=== PATIENT | male | born 1970 | race Caucasian/White ===

== ENCOUNTER → 2017-05-01 | Outpatient (REF) | payer OTHER ==
[~2017-05-01] MED LIST: /PANT40TA OR; CELE20TA OR; EFFEXOR XR PO; KEPP500T6 PO; MIRT15TA3 PO; NEUR400C OR; PARO40TA2 PO; PROP10TA56 PO; TRAZ100T OR; VIST50CA PO; [UNRECOGNIZED DRUG - OTHER] PO; celexa; seroquel
[2017-05-06 00:09] LABS: BENZODIAZEPINES, URINE SCREEN Negative ng/mL (Cutoff=200); METHADONE, URINE SCREEN Negative ng/mL (Cutoff=300); pH, URINE 7.9 (4.5-8.9)
== END ==
LOC: M SFHCPLAZ 11:52
PROVIDERS: ATTEND Hospitalist
DX: R56.9 Unspecified convulsions (principal)

== ENCOUNTER → 2017-06-11 | Outpatient (REF) | payer OTHER ==
[~2017-06-11] MED LIST changes: +KEPP1TAB PO; -KEPP500T6 PO
[2017-06-11 18:16] LABS: ALBUMIN/GLOBULIN RATIO 0.77 (1.00-1.93); ALKALINE PHOSPHATASE 109 U/L (45-117); ALT/SGPT 21 U/L (12-78); ANION GAP 7 MEQ/L (8-16); AST/SGOT 72 U/L (15-37); BILIRUBIN,TOTAL 1.1 MG/DL (0.2-1.0); BLOOD UREA NITROGEN 5 MG/DL (7-18); CALCIUM LEVEL 8.1 MG/DL (8.5-10.1); CARBON DIOXIDE LEVEL 30 MEQ/L (21-32); CHLORIDE LEVEL 103 MEQ/L (98-107); CHOLESTEROL LEVEL 143 MG/DL (<200); GLOMERULAR FILTRATION RATE > 60.0 (>60); GLUCOSE, FASTING 121 MG/DL (70-105); POTASSIUM SERUM 3.7 MEQ/L (3.5-5.1); SODIUM LEVEL 140 MEQ/L (136-145); TOTAL PROTEIN 6.9 GM/DL (6.4-8.2); TRIGLYCERIDES LEVEL 83 MG/DL (<150)
[2017-06-14 00:06] LABS: BENZODIAZEPINES, URINE SCREEN Negative ng/mL (Cutoff=200); METHADONE, URINE SCREEN Negative ng/mL (Cutoff=300); pH, URINE 6.1 (4.5-8.9)
== END ==
LOC: M SFHCPLAZ 14:25
DX: G40.909 Epilepsy, unspecified, not intractable, without status epilepticus (principal); Z13.220 Encounter for screening for lipoid disorders

== ENCOUNTER → 2017-10-01 | Outpatient (REF) | payer OTHER | LOC: M SFHCPLAZ 14:59 | DX: G40.909 Epilepsy, unspecified, not intractable, without status epilepticus (principal); F10.29 Alcohol dependence with unspecified alcohol-induced disorder ==

== ENCOUNTER → 2017-12-17 | Outpatient (REF) | payer OTHER ==
[2017-12-17 18:40] LABS: MAGNESIUM LEVEL 1.7 MG/DL (1.8-2.4)
== END ==
LOC: M SFHCPLAZ 15:28
DX: R25.2 Cramp and spasm (principal)

== ENCOUNTER 2018-03-18 14:30 | Inpatient (IN) | payer MEDICAID, OTHER, SELFPAY ==
[2018-03-18 15:27] LABS: HEMATOCRIT 37.3 % (42.0-52.0); HEMOGLOBIN 12.8 g/dl (13.5-17.5); MEAN CORPUSCULAR HGB CONC 34.3 g/dl (32.0-36.5); MEAN CORPUSCULAR VOLUME 87.6 fl (80.0-96.0); RED BLOOD COUNT 4.26 10^6/uL (4.30-6.10); RED CELL DISTRIBUTION WIDTH 22.2 % (11.5-14.5); WHITE BLOOD COUNT 7.5 10^3/uL (4.0-10.0)
[2018-03-18 15:40] LABS: PLATELET COUNT, AUTOMATED 63 10^3/uL (150-450)
[2018-03-18 15:41] LABS: IMMATURE PLATELET FRACTION % 10.7 % (0.0-10.9); INR 1.77; PROTHROMBIN TIME 21.2 SECONDS (12.4-14.5)
[2018-03-18 15:41] LABS: AMMONIA 338 uMOL/L (<32)
[2018-03-18 15:45] LABS: ALBUMIN 2.7 GM/DL (3.2-5.2); ALKALINE PHOSPHATASE 164 U/L (45-117); ALT/SGPT 26 U/L (12-78); ANION GAP 20 MEQ/L (8-16); AST/SGOT 99 U/L (7-37); BILIRUBIN,TOTAL 6.1 MG/DL (0.2-1.0); BLOOD UREA NITROGEN 8 MG/DL (7-18); CARBON DIOXIDE LEVEL 14 MEQ/L (21-32); CHLORIDE LEVEL 101 MEQ/L (98-107); CREATININE FOR GFR 1.39 MG/DL (0.70-1.30); GLOMERULAR FILTRATION RATE 58.1 (>60); GLUCOSE, FASTING 111 MG/DL (70-100); POTASSIUM SERUM 3.5 MEQ/L (3.5-5.1); SODIUM LEVEL 135 MEQ/L (136-145); TOTAL PROTEIN 7.2 GM/DL (6.4-8.2)
[2018-03-18 15:47] LABS: ETHYL ALCOHOL (ETHANOL) < 0.003 % (0.000-0.010)
[2018-03-18 16:16] LABS: VITAMIN B12 LEVEL 1729 PG/ML (247-911)
[2018-03-18] MEDS: LACTULOSE 20 GM/30 ML SYRUP UD PO (16:53)
[2018-03-18] MEDS: levETIRAcetam 250MG TABLET (KEPPRA) PO (16:53)
[2018-03-18 17:22] LABS: APPEARANCE, URINE HAZY (CLEAR); BACTERIA, URINE AUTO NEGATIVE (NEGATIVE); BILIRUBIN, URINE AUTO NEGATIVE (NEGATIVE); BLOOD, URINE BLOOD 1+ (NEGATIVE); COLOR, URINE AMBER (YELLOW); GLUCOSE, URINE (UA) AUTO NEGATIVE (NEGATIVE); KETONE, URINE AUTO TRACE mg/dL (NEGATIVE); LEUKOCYTE ESTERASE, URINE AUTO NEGATIVE (NEGATIVE); MUCUS, URINE SMALL (NEGATIVE); NITRITE, URINE AUTO NEGATIVE (NEGATIVE); PROTEIN, URINE AUTO 1+ mg/dL (NEGATIVE); RBC, URINE AUTO 4 /HPF (0-3); SPECIFIC GRAVITY URINE AUTO 1.015 (1.002-1.035); SQUAMOUS EPITHELIAL CELL UR AU 0 /HPF (0-6); WBC, URINE AUTO 2 /HPF (0-3)
[2018-03-18 17:34] LABS: AMPHETAMINES LEVEL URINE NEGATIVE (NEGATIVE); BARBITURATES URINE NEGATIVE (NEGATIVE); BENZODIAZEPINES URINE NEGATIVE (NEGATIVE); CANNABINOIDS URINE NEGATIVE (NEGATIVE); COCAINE METABOLITE URINE NEGATIVE (NEGATIVE); METHADONE URINE NEGATIVE (NEGATIVE); OPIATES URINE NEGATIVE (NEGATIVE); PHENCYCLIDINE URINE NEGATIVE (NEGATIVE)
[2018-03-18] MEDS ORDERED: ONDANSETRON 4MG/2ML VIAL (J2405) IV (19:30)
[2018-03-18] MEDS ORDERED: hydrOXYzine 25 MG TAB PO (19:30)
[2018-03-18 20:07] LABS: ANION GAP 9 MEQ/L (8-16); BLOOD UREA NITROGEN 7 MG/DL (7-18); CALCIUM LEVEL 7.9 MG/DL (8.5-10.1); CARBON DIOXIDE LEVEL 25 MEQ/L (21-32); CHLORIDE LEVEL 105 MEQ/L (98-107); CREATININE FOR GFR 1.07 MG/DL (0.70-1.30); GLOMERULAR FILTRATION RATE > 60.0 (>60); GLUCOSE, FASTING 101 MG/DL (70-100); MAGNESIUM LEVEL 2.2 MG/DL (1.8-2.4); POTASSIUM SERUM 3.1 MEQ/L (3.5-5.1); SODIUM LEVEL 139 MEQ/L (136-145)
[2018-03-18 20:13] LABS: LACTIC ACID SEPSIS PROTOCOL 2.6 MMOL/L (0.4-2.0)
[2018-03-18] MEDS: POTASSIUM CHLORIDE 10 MEQ SR TABLET PO ×2 (21:15→22:16)
[2018-03-18 21:29] LABS: ABG O2 SATURATION 97.7 % (95.0-99.0); ABG PARTIAL PRESSURE CO2 29.9 mmHg (35.0-45.0); ABG STANDARD HCO3 26.3 MEQ/L (22.0-26.0); ABG pH (ARTERIAL) 7.523 UNITS (7.350-7.450)
[2018-03-18] MEDS: traZODone 100 MG TAB PO (22:14)
[2018-03-18] MEDS: PHENYTOIN ER 100 MG CAP PO (22:14)
[2018-03-18] MEDS: PROPRANOLOL 20 MG TAB PO (22:14)
[2018-03-18] MEDS: PANTOPRAZOLE 40MG TAB (PROTONIX) PO (22:14)
[2018-03-18] MEDS: KCL 20MEQ in NS 1000ML 1,000 ML IV (22:16)
[2018-03-18] MEDS: SENOKOT S TAB PO (22:16)
[2018-03-18] MEDS: busPIRone 5 MG TAB PO (22:25)
[2018-03-19] MEDS: LACTULOSE 20 GM/30 ML SYRUP UD PO ×4 (00:19→17:13)
[2018-03-19 05:13] LABS: HEMATOCRIT 30.2 % (42.0-52.0); HEMOGLOBIN 10.9 g/dl (13.5-17.5); MEAN CORPUSCULAR HEMOGLOBIN 30.4 pg (27.0-33.0); MEAN CORPUSCULAR HGB CONC 36.1 g/dl (32.0-36.5); MEAN CORPUSCULAR VOLUME 84.4 fl (80.0-96.0); RED BLOOD COUNT 3.58 10^6/uL (4.30-6.10); RED CELL DISTRIBUTION WIDTH 22.5 % (11.5-14.5); WHITE BLOOD COUNT 6.2 10^3/uL (4.0-10.0)
[2018-03-19 05:18] LABS: PLATELET COUNT, AUTOMATED 59 10^3/uL (150-450)
[2018-03-19 05:22] LABS: AMMONIA 40 uMOL/L (<32)
[2018-03-19 05:27] LABS: ALBUMIN 2.3 GM/DL (3.2-5.2); ALBUMIN/GLOBULIN RATIO 0.66 (1.00-1.93); ALKALINE PHOSPHATASE 124 U/L (45-117); ALT/SGPT 21 U/L (12-78); ANION GAP 5 MEQ/L (8-16); AST/SGOT 72 U/L (7-37); BILIRUBIN,TOTAL 4.4 MG/DL (0.2-1.0); BLOOD UREA NITROGEN 7 MG/DL (7-18); C REACTIVE PROTEIN QUANTITATIV 0.47 MG/DL (0.00-0.30); CALCIUM LEVEL 7.5 MG/DL (8.5-10.1); CARBON DIOXIDE LEVEL 26 MEQ/L (21-32); CHLORIDE LEVEL 112 MEQ/L (98-107); CREATININE FOR GFR 1.04 MG/DL (0.70-1.30); GLOMERULAR FILTRATION RATE > 60.0 (>60); GLUCOSE, FASTING 99 MG/DL (70-100); MAGNESIUM LEVEL 2.1 MG/DL (1.8-2.4); POTASSIUM SERUM 3.7 MEQ/L (3.5-5.1); SODIUM LEVEL 143 MEQ/L (136-145); TOTAL PROTEIN 5.8 GM/DL (6.4-8.2)
[2018-03-19] MEDS: PARoxetine 20 MG TAB PO (08:50)
[2018-03-19] MEDS: PROPRANOLOL 20 MG TAB PO ×2 (08:50→20:30)
[2018-03-19] MEDS: PANTOPRAZOLE 40MG TAB (PROTONIX) PO ×2 (08:50→20:29)
[2018-03-19] MEDS: busPIRone 5 MG TAB PO ×2 (08:50→20:29)
[2018-03-19] MEDS: SENOKOT S TAB PO ×2 (08:50→20:29)
[2018-03-19] MEDS: PHENYTOIN ER 100 MG CAP PO ×3 (08:50→20:29)
[2018-03-19 11:51] LABS: HEPATITIS B SURFACE ANTIGEN NEGATIVE (NEGATIVE)
[2018-03-19 12:12] LABS: HEPATITIS B CORE ANTIBODY IGM NEGATIVE (NEGATIVE)
[2018-03-19 12:15] LABS: HEPATITIS A ANTIBODY IGM NEGATIVE (NEGATIVE)
[2018-03-19 17:29] LABS: FERRITIN 82 NG/ML (26-388); IRON (FE) 24 UG/DL (65-175); PERCENT SATURATION 8.5 % (19.7-50.0); TOTAL IRON BINDING CAPACITY 283 UG/DL (250-450)
[2018-03-19 17:36] LABS: FOLATE 6.7 NG/ML (>5.4); VITAMIN B12 LEVEL 1881 PG/ML (247-911)
[2018-03-19 18:19] LABS: REASON FOR REVIEW ANEMIA / RBC MORPH; SLIDE REVIEW Report; SOURCE PERIPHERAL SMEAR
[2018-03-19] MEDS: traZODone 100 MG TAB PO (20:29)
[2018-03-20] MEDS: LACTULOSE 20 GM/30 ML SYRUP UD PO ×4 (00:16→16:51)
[2018-03-20 05:43] LABS: HEMATOCRIT 31.6 % (42.0-52.0); HEMOGLOBIN 11.2 g/dl (13.5-17.5); MEAN CORPUSCULAR HEMOGLOBIN 30.5 pg (27.0-33.0); MEAN CORPUSCULAR HGB CONC 35.4 g/dl (32.0-36.5); MEAN CORPUSCULAR VOLUME 86.1 fl (80.0-96.0); RED BLOOD COUNT 3.67 10^6/uL (4.30-6.10); RED CELL DISTRIBUTION WIDTH 22.8 % (11.5-14.5); WHITE BLOOD COUNT 5.7 10^3/uL (4.0-10.0)
[2018-03-20 05:46] LABS: IMMATURE PLATELET FRACTION % 8.4 % (0.0-10.9); PLATELET COUNT, AUTOMATED 56 10^3/uL (150-450)
[2018-03-20 05:57] LABS: AMMONIA 31 uMOL/L (<32)
[2018-03-20 06:03] LABS: ALBUMIN 2.4 GM/DL (3.2-5.2); ALBUMIN/GLOBULIN RATIO 0.65 (1.00-1.93); ALKALINE PHOSPHATASE 143 U/L (45-117); ALT/SGPT 21 U/L (12-78); ANION GAP 8 MEQ/L (8-16); AST/SGOT 63 U/L (7-37); BILIRUBIN,TOTAL 2.5 MG/DL (0.2-1.0); BLOOD UREA NITROGEN 6 MG/DL (7-18); CALCIUM LEVEL 7.7 MG/DL (8.5-10.1); CARBON DIOXIDE LEVEL 25 MEQ/L (21-32); CHLORIDE LEVEL 110 MEQ/L (98-107); CREATININE FOR GFR 0.99 MG/DL (0.70-1.30); GLOMERULAR FILTRATION RATE > 60.0 (>60); GLUCOSE, FASTING 85 MG/DL (70-100); MAGNESIUM LEVEL 1.5 MG/DL (1.8-2.4); POTASSIUM SERUM 3.5 MEQ/L (3.5-5.1); SODIUM LEVEL 143 MEQ/L (136-145); TOTAL PROTEIN 6.1 GM/DL (6.4-8.2)
[2018-03-20] MEDS: PARoxetine 20 MG TAB PO (09:14)
[2018-03-20] MEDS: CALCIUM CARBONATE 500 MG CHEW U/D PO (09:14)
[2018-03-20] MEDS: PHENYTOIN ER 100 MG CAP PO ×3 (09:14→20:59)
[2018-03-20] MEDS: PANTOPRAZOLE 40MG TAB (PROTONIX) PO ×2 (09:14→20:59)
[2018-03-20] MEDS: busPIRone 5 MG TAB PO ×2 (09:14→20:58)
[2018-03-20] MEDS: SENOKOT S TAB PO ×2 (09:15→21:00)
[2018-03-20] MEDS: MAG SULF 1GM/100ML (MAG RUN) 1 GM in APPROPRIATE DILUENT 1 EA IV (09:15)
[2018-03-20] MEDS: PROPRANOLOL 20 MG TAB PO ×2 (09:16→21:00)
[2018-03-20] MEDS: RAMELTEON 8 MG TAB (ROZEREM) PO (20:59)
[2018-03-20] MEDS: traZODone 100 MG TAB PO (20:59)
[2018-03-21] MEDS: LACTULOSE 20 GM/30 ML SYRUP UD PO ×4 (00:19→18:19)
[2018-03-21 05:53] LABS: HEMATOCRIT 32.3 % (42.0-52.0); HEMOGLOBIN 11.2 g/dl (13.5-17.5); MEAN CORPUSCULAR HEMOGLOBIN 30.2 pg (27.0-33.0); MEAN CORPUSCULAR HGB CONC 34.7 g/dl (32.0-36.5); MEAN CORPUSCULAR VOLUME 87.1 fl (80.0-96.0); RED BLOOD COUNT 3.71 10^6/uL (4.30-6.10); RED CELL DISTRIBUTION WIDTH 23.4 % (11.5-14.5); WHITE BLOOD COUNT 5.2 10^3/uL (4.0-10.0)
[2018-03-21 05:56] LABS: IMMATURE PLATELET FRACTION % 7.5 % (0.0-10.9); PLATELET COUNT, AUTOMATED 58 10^3/uL (150-450)
[2018-03-21 06:18] LABS: ALBUMIN 2.2 GM/DL (3.2-5.2); ALBUMIN/GLOBULIN RATIO 0.58 (1.00-1.93); ALKALINE PHOSPHATASE 125 U/L (45-117); ALT/SGPT 20 U/L (12-78); ANION GAP 7 MEQ/L (8-16); AST/SGOT 50 U/L (7-37); BILIRUBIN,TOTAL 2.3 MG/DL (0.2-1.0); BLOOD UREA NITROGEN 5 MG/DL (7-18); CARBON DIOXIDE LEVEL 26 MEQ/L (21-32); CHLORIDE LEVEL 109 MEQ/L (98-107); CREATININE FOR GFR 0.92 MG/DL (0.70-1.30); GLOMERULAR FILTRATION RATE > 60.0 (>60); GLUCOSE, FASTING 90 MG/DL (70-100); MAGNESIUM LEVEL 1.6 MG/DL (1.8-2.4); POTASSIUM SERUM 3.7 MEQ/L (3.5-5.1); SODIUM LEVEL 142 MEQ/L (136-145)
[2018-03-21] MEDS: PANTOPRAZOLE 40MG TAB (PROTONIX) PO ×2 (08:41→20:29)
[2018-03-21] MEDS: PARoxetine 20 MG TAB PO (08:41)
[2018-03-21] MEDS: MAGNESIUM OXIDE 400 MG TAB (MAG-OX) PO ×2 (08:41→20:29)
[2018-03-21] MEDS: busPIRone 5 MG TAB PO ×2 (08:41→20:29)
[2018-03-21] MEDS: PHENYTOIN ER 100 MG CAP PO ×3 (08:41→20:28)
[2018-03-21] MEDS: PROPRANOLOL 20 MG TAB PO ×2 (08:42→20:29)
[2018-03-21] MEDS: SENOKOT S TAB PO ×2 (08:42→20:29)
[2018-03-21] MEDS: ACETAMINOPHEN TAB 650MG DOSE (2X325MG) PO ×2 (12:02→20:29)
[2018-03-21] MEDS: predniSONE 20 MG TAB PO (16:09)
[2018-03-21] MEDS: traZODone 100 MG TAB PO (20:28)
[2018-03-21] MEDS: RAMELTEON 8 MG TAB (ROZEREM) PO (20:28)
[2018-03-22] MEDS: LACTULOSE 20 GM/30 ML SYRUP UD PO ×5 (00:08→23:36)
[2018-03-22 06:22] LABS: HEMATOCRIT 35.9 % (42.0-52.0); HEMOGLOBIN 12.3 g/dl (13.5-17.5); MEAN CORPUSCULAR HEMOGLOBIN 30.1 pg (27.0-33.0); MEAN CORPUSCULAR HGB CONC 34.3 g/dl (32.0-36.5); MEAN CORPUSCULAR VOLUME 87.8 fl (80.0-96.0); RED BLOOD COUNT 4.09 10^6/uL (4.30-6.10); RED CELL DISTRIBUTION WIDTH 23.9 % (11.5-14.5); WHITE BLOOD COUNT 7.7 10^3/uL (4.0-10.0)
[2018-03-22 06:26] LABS: IMMATURE PLATELET FRACTION % 9.6 % (0.0-10.9); PLATELET COUNT, AUTOMATED 68 10^3/uL (150-450)
[2018-03-22 06:51] LABS: ALBUMIN 2.5 GM/DL (3.2-5.2); ALBUMIN/GLOBULIN RATIO 0.56 (1.00-1.93); ALKALINE PHOSPHATASE 136 U/L (45-117); ALT/SGPT 20 U/L (12-78); ANION GAP 3 MEQ/L (8-16); AST/SGOT 45 U/L (7-37); BILIRUBIN,TOTAL 2.8 MG/DL (0.2-1.0); BLOOD UREA NITROGEN 5 MG/DL (7-18); CALCIUM LEVEL 8.7 MG/DL (8.5-10.1); CARBON DIOXIDE LEVEL 29 MEQ/L (21-32); CHLORIDE LEVEL 107 MEQ/L (98-107); CREATININE FOR GFR 0.96 MG/DL (0.70-1.30); GLOMERULAR FILTRATION RATE > 60.0 (>60); GLUCOSE, FASTING 119 MG/DL (70-100); MAGNESIUM LEVEL 1.9 MG/DL (1.8-2.4); POTASSIUM SERUM 4.9 MEQ/L (3.5-5.1); SODIUM LEVEL 139 MEQ/L (136-145)
[2018-03-22] MEDS: SENOKOT S TAB PO ×2 (07:35→20:31)
[2018-03-22] MEDS: MAGNESIUM OXIDE 400 MG TAB (MAG-OX) PO ×2 (08:27→20:32)
[2018-03-22] MEDS: PARoxetine 20 MG TAB PO (08:28)
[2018-03-22] MEDS: PHENYTOIN ER 100 MG CAP PO ×3 (08:28→20:31)
[2018-03-22] MEDS: PROPRANOLOL 20 MG TAB PO ×2 (08:28→20:33)
[2018-03-22] MEDS: busPIRone 5 MG TAB PO ×2 (08:29→20:32)
[2018-03-22] MEDS: predniSONE 20 MG TAB PO (08:29)
[2018-03-22] MEDS: ACETAMINOPHEN TAB 650MG DOSE (2X325MG) PO (08:29)
[2018-03-22] MEDS: PANTOPRAZOLE 40MG TAB (PROTONIX) PO ×2 (08:29→20:32)
[2018-03-22] MEDS: RAMELTEON 8 MG TAB (ROZEREM) PO (20:31)
[2018-03-22] MEDS: traZODone 100 MG TAB PO (20:32)
[2018-03-23 05:52] LABS: HEMATOCRIT 31.7 % (42.0-52.0); HEMOGLOBIN 10.9 g/dl (13.5-17.5); MEAN CORPUSCULAR HEMOGLOBIN 30.2 pg (27.0-33.0); MEAN CORPUSCULAR HGB CONC 34.4 g/dl (32.0-36.5); MEAN CORPUSCULAR VOLUME 87.8 fl (80.0-96.0); RED BLOOD COUNT 3.61 10^6/uL (4.30-6.10); WHITE BLOOD COUNT 7.2 10^3/uL (4.0-10.0)
[2018-03-23 05:54] LABS: POS COUNT POS FLAG
[2018-03-23 05:55] LABS: IMMATURE PLATELET FRACTION % 7.5 % (0.0-10.9); PLATELET COUNT, AUTOMATED 63 10^3/uL (150-450)
[2018-03-23] MEDS: LACTULOSE 20 GM/30 ML SYRUP UD PO ×2 (06:01→11:24)
[2018-03-23 06:10] LABS: ALBUMIN 2.3 GM/DL (3.2-5.2); ALBUMIN/GLOBULIN RATIO 0.61 (1.00-1.93); ALKALINE PHOSPHATASE 108 U/L (45-117); ALT/SGPT 20 U/L (12-78); ANION GAP 2 MEQ/L (8-16); AST/SGOT 38 U/L (7-37); BILIRUBIN,TOTAL 1.7 MG/DL (0.2-1.0); BLOOD UREA NITROGEN 5 MG/DL (7-18); CALCIUM LEVEL 7.8 MG/DL (8.5-10.1); CARBON DIOXIDE LEVEL 31 MEQ/L (21-32); CHLORIDE LEVEL 106 MEQ/L (98-107); CREATININE FOR GFR 0.88 MG/DL (0.70-1.30); GLOMERULAR FILTRATION RATE > 60.0 (>60); GLUCOSE, FASTING 90 MG/DL (70-100); MAGNESIUM LEVEL 1.6 MG/DL (1.8-2.4); POTASSIUM SERUM 3.7 MEQ/L (3.5-5.1); SODIUM LEVEL 139 MEQ/L (136-145); TOTAL PROTEIN 6.1 GM/DL (6.4-8.2)
[2018-03-23] MEDS: PHENYTOIN ER 100 MG CAP PO ×3 (09:24→20:34)
[2018-03-23] MEDS: PANTOPRAZOLE 40MG TAB (PROTONIX) PO ×2 (09:24→20:35)
[2018-03-23] MEDS: SENOKOT S TAB PO ×2 (09:24→20:35)
[2018-03-23] MEDS: busPIRone 5 MG TAB PO ×2 (09:24→20:33)
[2018-03-23] MEDS: MAGNESIUM OXIDE 400 MG TAB (MAG-OX) PO ×2 (09:24→20:34)
[2018-03-23] MEDS: predniSONE 20 MG TAB PO (09:24)
[2018-03-23] MEDS: PROPRANOLOL 20 MG TAB PO ×2 (09:25→20:34)
[2018-03-23] MEDS: PARoxetine 20 MG TAB PO (09:25)
[2018-03-23] MEDS: ACETAMINOPHEN TAB 650MG DOSE (2X325MG) PO (09:25)
[2018-03-23 10:40] LABS: PHENYTOIN (DILANTIN) 5.9 UG/ML (10.0-20.0)
[2018-03-23] MEDS: GABAPENTIN 100 MG CAP PO ×3 (11:23→20:33)
[2018-03-23] MEDS: RAMELTEON 8 MG TAB (ROZEREM) PO (20:34)
[2018-03-23] MEDS: traZODone 100 MG TAB PO (20:35)
[2018-03-24 05:52] LABS: HEMATOCRIT 33.3 % (42.0-52.0); HEMOGLOBIN 11.5 g/dl (13.5-17.5); MEAN CORPUSCULAR HEMOGLOBIN 30.2 pg (27.0-33.0); MEAN CORPUSCULAR HGB CONC 34.5 g/dl (32.0-36.5); MEAN CORPUSCULAR VOLUME 87.4 fl (80.0-96.0); RED BLOOD COUNT 3.81 10^6/uL (4.30-6.10); RED CELL DISTRIBUTION WIDTH 23.9 % (11.5-14.5); WHITE BLOOD COUNT 6.1 10^3/uL (4.0-10.0)
[2018-03-24 06:00] LABS: PLATELET COUNT, AUTOMATED 78 10^3/uL (150-450)
[2018-03-24 06:11] LABS: ALBUMIN 2.4 GM/DL (3.2-5.2); ALBUMIN/GLOBULIN RATIO 0.57 (1.00-1.93); ALKALINE PHOSPHATASE 120 U/L (45-117); ALT/SGPT 19 U/L (12-78); ANION GAP 7 MEQ/L (8-16); AST/SGOT 39 U/L (7-37); BILIRUBIN,TOTAL 1.8 MG/DL (0.2-1.0); BLOOD UREA NITROGEN 5 MG/DL (7-18); CARBON DIOXIDE LEVEL 28 MEQ/L (21-32); CHLORIDE LEVEL 105 MEQ/L (98-107); CREATININE FOR GFR 0.86 MG/DL (0.70-1.30); GLOMERULAR FILTRATION RATE > 60.0 (>60); GLUCOSE, FASTING 104 MG/DL (70-100); MAGNESIUM LEVEL 1.8 MG/DL (1.8-2.4); POTASSIUM SERUM 3.8 MEQ/L (3.5-5.1); SODIUM LEVEL 140 MEQ/L (136-145); TOTAL PROTEIN 6.6 GM/DL (6.4-8.2)
[2018-03-24] MEDS: ACETAMINOPHEN TAB 650MG DOSE (2X325MG) PO ×2 (06:22→17:10)
[2018-03-24] MEDS: SENOKOT S TAB PO ×2 (08:58→21:12)
[2018-03-24] MEDS: PANTOPRAZOLE 40MG TAB (PROTONIX) PO ×2 (08:58→21:12)
[2018-03-24] MEDS: PROPRANOLOL 20 MG TAB PO ×2 (08:58→21:12)
[2018-03-24] MEDS: MAGNESIUM OXIDE 400 MG TAB (MAG-OX) PO ×2 (08:58→21:13)
[2018-03-24] MEDS: GABAPENTIN 100 MG CAP PO ×3 (08:58→21:13)
[2018-03-24] MEDS: PHENYTOIN ER 100 MG CAP PO ×3 (08:59→21:13)
[2018-03-24] MEDS: predniSONE 20 MG TAB PO (08:59)
[2018-03-24] MEDS: busPIRone 5 MG TAB PO ×2 (08:59→21:13)
[2018-03-24] MEDS: LACTULOSE 20 GM/30 ML SYRUP UD PO (08:59)
[2018-03-24] MEDS: PARoxetine 20 MG TAB PO (08:59)
[2018-03-24] MEDS: traZODone 100 MG TAB PO (21:12)
[2018-03-24] MEDS: RAMELTEON 8 MG TAB (ROZEREM) PO (21:13)
[2018-03-25 06:19] LABS: HEMOGLOBIN 10.8 g/dl (13.5-17.5); MEAN CORPUSCULAR HEMOGLOBIN 29.9 pg (27.0-33.0); MEAN CORPUSCULAR HGB CONC 33.8 g/dl (32.0-36.5); MEAN CORPUSCULAR VOLUME 88.6 fl (80.0-96.0); RED BLOOD COUNT 3.61 10^6/uL (4.30-6.10); RED CELL DISTRIBUTION WIDTH 23.9 % (11.5-14.5); WHITE BLOOD COUNT 5.8 10^3/uL (4.0-10.0)
[2018-03-25 06:31] LABS: PLATELET COUNT, AUTOMATED 86 10^3/uL (150-450)
[2018-03-25 06:41] LABS: ALBUMIN 2.2 GM/DL (3.2-5.2); ALBUMIN/GLOBULIN RATIO 0.59 (1.00-1.93); ALKALINE PHOSPHATASE 91 U/L (45-117); ALT/SGPT 19 U/L (12-78); ANION GAP 6 MEQ/L (8-16); AST/SGOT 36 U/L (7-37); BILIRUBIN,TOTAL 1.6 MG/DL (0.2-1.0); BLOOD UREA NITROGEN 6 MG/DL (7-18); CALCIUM LEVEL 7.9 MG/DL (8.5-10.1); CARBON DIOXIDE LEVEL 28 MEQ/L (21-32); CHLORIDE LEVEL 106 MEQ/L (98-107); CREATININE FOR GFR 0.79 MG/DL (0.70-1.30); GLOMERULAR FILTRATION RATE > 60.0 (>60); GLUCOSE, FASTING 87 MG/DL (70-100); MAGNESIUM LEVEL 1.7 MG/DL (1.8-2.4); POTASSIUM SERUM 3.7 MEQ/L (3.5-5.1); SODIUM LEVEL 140 MEQ/L (136-145); TOTAL PROTEIN 5.9 GM/DL (6.4-8.2)
[2018-03-25 06:48] LABS: IMMATURE PLATELET FRACTION % 5.2 % (0.0-10.9); PLATELET F 82
[2018-03-25] MEDS: LACTULOSE 20 GM/30 ML SYRUP UD PO (08:04)
[2018-03-25] MEDS: MAGNESIUM OXIDE 400 MG TAB (MAG-OX) PO (08:05)
[2018-03-25] MEDS: busPIRone 5 MG TAB PO (08:05)
[2018-03-25] MEDS: GABAPENTIN 100 MG CAP PO (08:06)
[2018-03-25] MEDS: PANTOPRAZOLE 40MG TAB (PROTONIX) PO (08:06)
[2018-03-25] MEDS: SENOKOT S TAB PO (08:06)
[2018-03-25] MEDS: predniSONE 20 MG TAB PO (08:06)
[2018-03-25] MEDS: PARoxetine 20 MG TAB PO (08:06)
[2018-03-25] MEDS: PHENYTOIN ER 100 MG CAP PO (08:06)
[2018-03-25] MEDS: PROPRANOLOL 20 MG TAB PO (08:08)
[2018-03-25] MEDS: ACETAMINOPHEN TAB 650MG DOSE (2X325MG) PO (11:17)
[2018-03-26 08:06] LABS: COPPER PLASMA 70 ug/dL (72-166)
[2018-03-27 08:30] LABS: VITAMIN B1 LEVEL WHOLE BLOOD 88.6 nmol/L (66.5-200.0)
== END 2018-03-25 11:40 | disposition home or self-care (01) | DRG 53 ==
LOC: M MSPAV 03-19 17:25 → M ED 14:30 → M ED INP 19:18 → M PCU 21:31
DX: G40.909 Epilepsy, unspecified, not intractable, without status epilepticus (principal); E87.2 Acidosis; D69.6 Thrombocytopenia, unspecified; E72.20 Disorder of urea cycle metabolism, unspecified; K70.30 Alcoholic cirrhosis of liver without ascites; K72.90 Hepatic failure, unspecified without coma; F32.9 Major depressive disorder, single episode, unspecified; G47.00 Insomnia, unspecified; F41.9 Anxiety disorder, unspecified; G31.2 Degeneration of nervous system due to alcohol; F10.20 Alcohol dependence, uncomplicated; D64.9 Anemia, unspecified; E87.6 Hypokalemia; F17.220 Nicotine dependence, chewing tobacco, uncomplicated; Z88.0 Allergy status to penicillin; Z88.8 Allergy status to other drugs, medicaments and biological substances; Z79.899 Other long term (current) drug therapy; Z91.14 Patient's other noncompliance with medication regimen

== ENCOUNTER 2018-04-13 13:29 | Emergency (ER) | payer MEDICAID, OTHER ==
[2018-04-13 14:24] LABS: BASO # 0.1 10^3/uL (0.0-0.2); BASO % 1.3 % (0.0-1.0); EOS % 0.5 % (0.0-3.0); HEMATOCRIT 35.6 % (42.0-52.0); HEMOGLOBIN 12.5 g/dl (13.5-17.5); IMMATURE GRANULOCYTE % 0.3 % (0-3.0); LYMPH # 1.5 10^3/uL (1.5-4.5); LYMPH % 38.9 % (24.0-44.0); MEAN CORPUSCULAR HEMOGLOBIN 30.7 pg (27.0-33.0); MEAN CORPUSCULAR HGB CONC 35.1 g/dl (32.0-36.5); MEAN CORPUSCULAR VOLUME 87.5 fl (80.0-96.0); MONO # 0.5 10^3/uL (0.0-0.8); MONO % 12.6 % (0.0-5.0); NEUTROPHILS # 1.8 10^3/uL (1.8-7.7); NEUTROPHILS % 46.4 % (36.0-66.0); RED BLOOD COUNT 4.07 10^6/uL (4.30-6.10); RED CELL DISTRIBUTION WIDTH 21.4 % (11.5-14.5); WHITE BLOOD COUNT 3.9 10^3/uL (4.0-10.0)
[2018-04-13 14:28] LABS: PLATELET COUNT, AUTOMATED 64 10^3/uL (150-450); PLATELET F 62
[2018-04-13 14:29] LABS: IMMATURE PLATELET FRACTION % 5.2 % (0.0-10.9)
[2018-04-13 14:40] LABS: INR 1.33; PROTHROMBIN TIME 16.8 SECONDS (12.4-14.5)
[2018-04-13 14:41] LABS: PARTIAL THROMBOPLASTIN TIME 40.2 SECONDS (26.8-37.9)
[2018-04-13 14:58] LABS: ALBUMIN 2.7 GM/DL (3.2-5.2); ALBUMIN/GLOBULIN RATIO 0.63 (1.00-1.93); ALKALINE PHOSPHATASE 156 U/L (45-117); ALT/SGPT 24 U/L (12-78); ANION GAP 6 MEQ/L (8-16); AST/SGOT 86 U/L (7-37); BILIRUBIN,DIRECT 1.3 MG/DL (0.0-0.2); BILIRUBIN,TOTAL 2.1 MG/DL (0.2-1.0); BLOOD UREA NITROGEN 6 MG/DL (7-18); CALCIUM LEVEL 7.2 MG/DL (8.5-10.1); CARBON DIOXIDE LEVEL 34 MEQ/L (21-32); CHLORIDE LEVEL 104 MEQ/L (98-107); GLOMERULAR FILTRATION RATE > 60.0 (>60); GLUCOSE, FASTING 136 MG/DL (70-100); LIPASE 390 U/L (73-393); POTASSIUM SERUM 3.3 MEQ/L (3.5-5.1); SODIUM LEVEL 144 MEQ/L (136-145)
[2018-04-13 15:07] LABS: LACTIC ACID SEPSIS PROTOCOL 2.5 MMOL/L (0.4-2.0)
[2018-04-13 15:13] LABS: AMMONIA < 10 uMOL/L (<32)
[2018-04-13 15:34] LABS: ETHYL ALCOHOL (ETHANOL) 0.466 % (0.000-0.010)
[2018-04-13 16:28] LABS: AMPHETAMINES LEVEL URINE NEGATIVE (NEGATIVE); BARBITURATES URINE NEGATIVE (NEGATIVE); BENZODIAZEPINES URINE NEGATIVE (NEGATIVE); CANNABINOIDS URINE NEGATIVE (NEGATIVE); COCAINE METABOLITE URINE NEGATIVE (NEGATIVE); METHADONE URINE NEGATIVE (NEGATIVE); OPIATES URINE NEGATIVE (NEGATIVE); PHENCYCLIDINE URINE NEGATIVE (NEGATIVE)
[2018-04-13] MEDS: POTASSIUM CHLORIDE 10 MEQ SR TABLET PO (18:00)
== END 2018-04-13 18:05 | disposition home or self-care (01) ==
LOC: M ED 13:29
DX: F10.129 Alcohol abuse with intoxication, unspecified (principal); K70.31 Alcoholic cirrhosis of liver with ascites; D69.59 Other secondary thrombocytopenia; E87.6 Hypokalemia; K76.0 Fatty (change of) liver, not elsewhere classified; K21.9 Gastro-esophageal reflux disease without esophagitis; F43.10 Post-traumatic stress disorder, unspecified; F41.9 Anxiety disorder, unspecified; F33.9 Major depressive disorder, recurrent, unspecified; Z79.899 Other long term (current) drug therapy; Z88.0 Allergy status to penicillin; Z86.69 Personal history of other diseases of the nervous system and sense organs
CPT/HCPCS: 80320

== ENCOUNTER 2018-06-08 07:41 | Inpatient (IN) | payer OTHER, MEDICAID ==
[2018-06-08 09:04] LABS: VENOUS BASE EXCESS 12.8 (-2.0-2.0); VENOUS HCO3 36.5 MEQ/L (23.0-27.0); VENOUS O2 SATURATION 99.5 % (60.0-80.0); VENOUS PARTIAL PRESSURE CO2 42.9 mmHg (38.0-50.0); VENOUS PARTIAL PRESSURE O2 148.1 mmHg (30.0-50.0); VENOUS PH 7.548 UNITS (7.330-7.430); VENOUS STANDARD HCO3 36.6 MEQ/L; VENOUS TOTAL CO2 37.8 MEQ/L (24.0-28.0)
[2018-06-08 09:08] LABS: BASO # 0.1 10^3/uL (0.0-0.2); BASO % 0.6 % (0.0-1.0); EOS # 0.1 10^3/uL (0.0-0.50); EOS % 1.2 % (0.0-3.0); HEMATOCRIT 32.9 % (42.0-52.0); HEMOGLOBIN 11.5 g/dl (13.5-17.5); IMMATURE GRANULOCYTE % 0.5 % (0-3.0); LYMPH # 1.6 10^3/uL (1.5-4.5); MEAN CORPUSCULAR HEMOGLOBIN 34.4 pg (27.0-33.0); MEAN CORPUSCULAR VOLUME 98.5 fl (80.0-96.0); MONO # 1.2 10^3/uL (0.0-0.8); MONO % 14.9 % (0.0-5.0); NEUTROPHILS # 5.3 10^3/uL (1.8-7.7); NEUTROPHILS % 63.8 % (36.0-66.0); RED BLOOD COUNT 3.34 10^6/uL (4.30-6.10); RED CELL DISTRIBUTION WIDTH 17.7 % (11.5-14.5); WHITE BLOOD COUNT 8.3 10^3/uL (4.0-10.0)
[2018-06-08 09:11] LABS: PLATELET COUNT, AUTOMATED 89 10^3/uL (150-450)
[2018-06-08 09:13] LABS: IMMATURE PLATELET FRACTION % 5.6 % (0.0-10.9)
[2018-06-08 09:22] LABS: INR 1.84; PROTHROMBIN TIME 21.6 SECONDS (12.1-14.4)
[2018-06-08 09:24] LABS: AMMONIA 45 uMOL/L (<32)
[2018-06-08 09:31] LABS: ALBUMIN 1.9 GM/DL (3.2-5.2); ALKALINE PHOSPHATASE 233 U/L (45-117); ALT/SGPT 20 U/L (12-78); ANION GAP 11 MEQ/L (8-16); AST/SGOT 118 U/L (7-37); BILIRUBIN,DIRECT 4.9 MG/DL (0.0-0.2); BLOOD UREA NITROGEN 6 MG/DL (7-18); CALCIUM LEVEL 7.8 MG/DL (8.5-10.1); CARBON DIOXIDE LEVEL 33 MEQ/L (21-32); CHLORIDE LEVEL 95 MEQ/L (98-107); CK-MB VALUE MASS 2.4 NG/ML (<3.6); CPK CREATINE PHOSPHOKINASE 385 U/L (39-308); CREATININE FOR GFR 0.86 MG/DL (0.70-1.30); GLOMERULAR FILTRATION RATE > 60.0 (>60); GLUCOSE, FASTING 107 MG/DL (70-100); LIPASE 768 U/L (73-393); MB/CK RELATIVE INDEX 0.62 (< OR =4); PHENYTOIN (DILANTIN) 1.2 UG/ML (10.0-20.0); POTASSIUM SERUM 2.8 MEQ/L (3.5-5.1); SODIUM LEVEL 139 MEQ/L (136-145); TOTAL PROTEIN 6.6 GM/DL (6.4-8.2); TROPONIN I 0.04 NG/ML (< 0.10)
[2018-06-08] MEDS ORDERED: ISOVUE-370 76% 100ML VIAL (Q9967) As Ordered (10:00)
[2018-06-08 11:25] LABS: ETHYL ALCOHOL (ETHANOL) 0.004 % (0.000-0.010)
[2018-06-08 12:53] LABS: LDH LACTATE DEHYDROGENASE 378 U/L (87-241)
[2018-06-08 13:22] LABS: IONIZED CALCIUM 3.9 MG/DL (4.5-5.3)
[2018-06-08] MEDS: THIAMINE 100 MG TAB PO (13:51)
[2018-06-08] MEDS: FOLIC ACID 1 MG TAB PO (13:51)
[2018-06-08] MEDS: PARoxetine 20 MG TAB PO (13:52)
[2018-06-08] MEDS: POTASSIUM CHLORIDE 10 MEQ SR TABLET PO ×2 (13:52→16:46)
[2018-06-08] MEDS: busPIRone 5 MG TAB PO ×2 (13:52→20:07)
[2018-06-08 16:23] LABS: TYPE AND SCREEN 1 1
[2018-06-08] MEDS: LACTULOSE 20 GM/30 ML SYRUP UD PO ×2 (16:44→20:07)
[2018-06-08] MEDS: PROPRANOLOL 20 MG TAB PO ×2 (16:44→20:08)
[2018-06-08] MEDS: PHYTONADIONE 5 MG TAB PO (16:46)
[2018-06-08] MEDS: PHENYTOIN ER 100 MG CAP PO ×2 (16:46→20:07)
[2018-06-08] MEDS: MAGNESIUM OXIDE 400 MG TAB (MAG-OX) PO (16:46)
[2018-06-08] MEDS: SPIRONOLACTONE 25 MG TAB PO (17:00)
[2018-06-08] MEDS: FUROSEMIDE 40 MG/4 ML VIAL (J1940) IV (18:31)
[2018-06-08] MEDS: traZODone 100 MG TAB PO (20:07)
[2018-06-09 06:20] LABS: HEMATOCRIT 27.8 % (42.0-52.0); HEMOGLOBIN 9.7 g/dl (13.5-17.5); MEAN CORPUSCULAR HEMOGLOBIN 34.8 pg (27.0-33.0); MEAN CORPUSCULAR HGB CONC 34.9 g/dl (32.0-36.5); MEAN CORPUSCULAR VOLUME 99.6 fl (80.0-96.0); RED BLOOD COUNT 2.79 10^6/uL (4.30-6.10); RED CELL DISTRIBUTION WIDTH 17.4 % (11.5-14.5); WHITE BLOOD COUNT 5.9 10^3/uL (4.0-10.0)
[2018-06-09 06:31] LABS: INR 1.83; PROTHROMBIN TIME 21.5 SECONDS (12.1-14.4)
[2018-06-09 06:44] LABS: ALBUMIN 1.7 GM/DL (3.2-5.2); ALBUMIN/GLOBULIN RATIO 0.44 (1.00-1.93); ALKALINE PHOSPHATASE 168 U/L (45-117); ALT/SGPT 18 U/L (12-78); ANION GAP 5 MEQ/L (8-16); AST/SGOT 82 U/L (7-37); BILIRUBIN,TOTAL 7.2 MG/DL (0.2-1.0); BLOOD UREA NITROGEN 7 MG/DL (7-18); CALCIUM LEVEL 7.5 MG/DL (8.5-10.1); CARBON DIOXIDE LEVEL 39 MEQ/L (21-32); CHLORIDE LEVEL 97 MEQ/L (98-107); GLOMERULAR FILTRATION RATE > 60.0 (>60); GLUCOSE, FASTING 84 MG/DL (70-100); POTASSIUM SERUM 2.6 MEQ/L (3.5-5.1); SODIUM LEVEL 141 MEQ/L (136-145); TOTAL PROTEIN 5.6 GM/DL (6.4-8.2)
[2018-06-09] MEDS ORDERED: KCL 10MEQ/100ML SWI (KRUN) 10 MEQ in APPROPRIATE DILUENT 1 EA IV (07:15)
[2018-06-09 07:23] LABS: PLATELET COUNT, AUTOMATED 68 10^3/uL (150-450)
[2018-06-09] MEDS: POTASSIUM CHLORIDE 10 MEQ SR TABLET PO ×3 (08:12→15:25)
[2018-06-09] MEDS: KCL 10MEQ/100ML SWI (KRUN) 10 MEQ in APPROPRIATE DILUENT 1 EA IV ×8 (08:12→18:31)
[2018-06-09] MEDS: PROPRANOLOL 20 MG TAB PO ×2 (08:13→20:28)
[2018-06-09] MEDS: FUROSEMIDE 40 MG TAB PO (08:13)
[2018-06-09] MEDS: busPIRone 5 MG TAB PO ×2 (08:13→20:25)
[2018-06-09] MEDS: PHENYTOIN ER 100 MG CAP PO ×3 (08:13→20:26)
[2018-06-09] MEDS: FOLIC ACID 1 MG TAB PO (08:14)
[2018-06-09] MEDS: MAGNESIUM OXIDE 400 MG TAB (MAG-OX) PO (08:14)
[2018-06-09] MEDS: PARoxetine 20 MG TAB PO (08:14)
[2018-06-09] MEDS: THIAMINE 100 MG TAB PO (08:14)
[2018-06-09] MEDS: LACTULOSE 20 GM/30 ML SYRUP UD PO ×2 (08:14→20:25)
[2018-06-09] MEDS: SPIRONOLACTONE 25 MG TAB PO (08:14)
[2018-06-09] MEDS: LORazepam 2 MG/ML VIAL (J2060) IV ×2 (08:55→09:00)
[2018-06-09] MEDS ORDERED: LORazepam 2 MG/ML VIAL (J2060) As Ordered (08:59)
[2018-06-09 09:33] LABS: ABG pH (ARTERIAL) 7.514 UNITS (7.350-7.450)
[2018-06-09 09:34] LABS: ABG BASE EXCESS 5.5 (-2.0-2.0); ABG HCO3 28.7 MEQ/L (22.0-26.0); ABG PARTIAL PRESSURE CO2 36.4 mmHg (35.0-45.0); ABG PARTIAL PRESSURE O2 76.3 mmHg (75.0-100.0); ABG STANDARD HCO3 29.4 MEQ/L (22.0-26.0); ABG TOTAL CO2 29.8 MEQ/L (22.0-29.0)
[2018-06-09 09:42] LABS: AMMONIA 55 uMOL/L (<32)
[2018-06-09 12:14] LABS: TYPE AND SCREEN 1
[2018-06-09 12:21] LABS: BEDSIDE GLUCOSE 173 MG/DL (70-105)
[2018-06-09 12:39] LABS: ANION GAP 5 MEQ/L (8-16); BLOOD UREA NITROGEN 7 MG/DL (7-18); CALCIUM LEVEL 7.6 MG/DL (8.5-10.1); CARBON DIOXIDE LEVEL 38 MEQ/L (21-32); CHLORIDE LEVEL 97 MEQ/L (98-107); CREATININE FOR GFR 1.18 MG/DL (0.70-1.30); GLOMERULAR FILTRATION RATE > 60.0 (>60); GLUCOSE, FASTING 93 MG/DL (70-100); SODIUM LEVEL 140 MEQ/L (136-145)
[2018-06-09 14:01] LABS: TYPE AND SCREEN 1
[2018-06-09 16:58] LABS: APPEARANCE, BODY FLUID CLEAR (CLEAR); SOURCE, BODY FLUID OTHER
[2018-06-09 17:06] LABS: BF MONONUCLEAR CELL % 83.9 % (0-0); BF POLYMORPHONUCLEAR CELL % 16.1 % (0-0); RBC BODY FLUID < 2 10^3/uL (<2); WBC BODY FLUID 56 /uL (0-10)
[2018-06-09 18:04] LABS: LDH, BODY FLUID 94 U/L (NOT ESTABLISHED); SOURCE, BODY FLUID ALBUMIN ASCITES; SOURCE, BODY FLUID GLUCOSE ASCITES; SOURCE, BODY FLUID LDH ASCITES; SOURCE, BODY FLUID TOT PROTEIN ASCITES; TOTAL PROTEIN, BODY FLUID 1.4 G/DL (NOT ESTABLISHED)
[2018-06-09 18:36] LABS: SPEC. GRAVITY BODY FLUIDS 1.012 (NOT ESTABLISHED)
[2018-06-09] MEDS: traZODone 100 MG TAB PO (20:26)
[2018-06-10 05:08] LABS: HEMATOCRIT 29.1 % (42.0-52.0); MEAN CORPUSCULAR HEMOGLOBIN 34.7 pg (27.0-33.0); MEAN CORPUSCULAR HGB CONC 34.4 g/dl (32.0-36.5); RED BLOOD COUNT 2.88 10^6/uL (4.30-6.10); RED CELL DISTRIBUTION WIDTH 17.6 % (11.5-14.5); WHITE BLOOD COUNT 6.1 10^3/uL (4.0-10.0)
[2018-06-10 05:09] LABS: PLATELET COUNT, AUTOMATED 61 10^3/uL (150-450)
[2018-06-10 05:10] LABS: IMMATURE PLATELET FRACTION % 6.3 % (0.0-10.9)
[2018-06-10 05:21] LABS: INR 1.92; PROTHROMBIN TIME 22.3 SECONDS (12.1-14.4)
[2018-06-10 05:26] LABS: ALBUMIN 2.1 GM/DL (3.2-5.2); ALBUMIN/GLOBULIN RATIO 0.62 (1.00-1.93); ALKALINE PHOSPHATASE 145 U/L (45-117); ALT/SGPT 15 U/L (12-78); ANION GAP 6 MEQ/L (8-16); AST/SGOT 61 U/L (7-37); BILIRUBIN,TOTAL 4.6 MG/DL (0.2-1.0); BLOOD UREA NITROGEN 5 MG/DL (7-18); CALCIUM LEVEL 7.6 MG/DL (8.5-10.1); CARBON DIOXIDE LEVEL 33 MEQ/L (21-32); CHLORIDE LEVEL 104 MEQ/L (98-107); CREATININE FOR GFR 0.85 MG/DL (0.70-1.30); GLOMERULAR FILTRATION RATE > 60.0 (>60); GLUCOSE, FASTING 98 MG/DL (70-100); POTASSIUM SERUM 3.2 MEQ/L (3.5-5.1); SODIUM LEVEL 143 MEQ/L (136-145); TOTAL PROTEIN 5.5 GM/DL (6.4-8.2)
[2018-06-10 05:31] LABS: FERRITIN 208 NG/ML (26-388); IRON (FE) 23 UG/DL (65-175); PERCENT SATURATION 17.6 % (19.7-50.0); TOTAL IRON BINDING CAPACITY 131 UG/DL (250-450)
[2018-06-10] MEDS: POTASSIUM CHLORIDE 10 MEQ SR TABLET PO ×2 (06:07→08:40)
[2018-06-10] MEDS: LACTULOSE 20 GM/30 ML SYRUP UD PO ×2 (08:38→20:44)
[2018-06-10] MEDS: busPIRone 5 MG TAB PO ×2 (08:38→21:54)
[2018-06-10] MEDS: FOLIC ACID 1 MG TAB PO (08:39)
[2018-06-10] MEDS: PARoxetine 20 MG TAB PO (08:39)
[2018-06-10] MEDS: SPIRONOLACTONE 25 MG TAB PO (08:39)
[2018-06-10] MEDS: MAGNESIUM OXIDE 400 MG TAB (MAG-OX) PO (08:41)
[2018-06-10] MEDS: MULTIVITAMINS/MINERALS THERAP 1 TAB PO (08:41)
[2018-06-10] MEDS: PHENYTOIN ER 100 MG CAP PO ×3 (08:42→20:44)
[2018-06-10] MEDS: FUROSEMIDE 40 MG TAB PO (08:42)
[2018-06-10] MEDS: THIAMINE 100 MG TAB PO (08:43)
[2018-06-10] MEDS: KCL 10MEQ/100ML SWI (KRUN) 10 MEQ in APPROPRIATE DILUENT 1 EA IV ×2 (08:43→09:42)
[2018-06-10] MEDS: PROPRANOLOL 20 MG TAB PO ×2 (08:44→21:55)
[2018-06-10 11:18] LABS: VITAMIN B12 LEVEL 1708 PG/ML (247-911)
[2018-06-10 11:19] LABS: FOLATE 4.4 NG/ML (>5.4)
[2018-06-10] MEDS: traZODone 100 MG TAB PO (21:54)
[2018-06-11 05:52] LABS: HEMOGLOBIN 10.1 g/dl (13.5-17.5); MEAN CORPUSCULAR HEMOGLOBIN 35.6 pg (27.0-33.0); MEAN CORPUSCULAR HGB CONC 34.8 g/dl (32.0-36.5); MEAN CORPUSCULAR VOLUME 102.1 fl (80.0-96.0); RED BLOOD COUNT 2.84 10^6/uL (4.30-6.10); RED CELL DISTRIBUTION WIDTH 17.8 % (11.5-14.5); WHITE BLOOD COUNT 6.3 10^3/uL (4.0-10.0)
[2018-06-11 05:58] LABS: PLATELET COUNT, AUTOMATED 55 10^3/uL (150-450)
[2018-06-11 05:59] LABS: IMMATURE PLATELET FRACTION % 5.5 % (0.0-10.9); PLATELET F 3.2
[2018-06-11 06:15] LABS: ALBUMIN/GLOBULIN RATIO 0.57 (1.00-1.93); ALKALINE PHOSPHATASE 147 U/L (45-117); ALT/SGPT 15 U/L (12-78); ANION GAP 7 MEQ/L (8-16); AST/SGOT 55 U/L (7-37); BILIRUBIN,TOTAL 4.4 MG/DL (0.2-1.0); BLOOD UREA NITROGEN 4 MG/DL (7-18); CALCIUM LEVEL 7.5 MG/DL (8.5-10.1); CARBON DIOXIDE LEVEL 29 MEQ/L (21-32); CHLORIDE LEVEL 104 MEQ/L (98-107); CREATININE FOR GFR 0.78 MG/DL (0.70-1.30); GLOMERULAR FILTRATION RATE > 60.0 (>60); GLUCOSE, FASTING 101 MG/DL (70-100); POTASSIUM SERUM 3.3 MEQ/L (3.5-5.1); SODIUM LEVEL 140 MEQ/L (136-145); TOTAL PROTEIN 5.5 GM/DL (6.4-8.2)
[2018-06-11 06:17] LABS: INR 1.94; PROTHROMBIN TIME 22.5 SECONDS (12.1-14.4)
[2018-06-11] MEDS: POTASSIUM CHLORIDE 10 MEQ SR TABLET PO (09:00)
[2018-06-11] MEDS: PROPRANOLOL 20 MG TAB PO ×2 (09:00→21:12)
[2018-06-11] MEDS: THIAMINE 100 MG TAB PO (09:00)
[2018-06-11] MEDS: KCL 10MEQ/100ML SWI (KRUN) 10 MEQ in APPROPRIATE DILUENT 1 EA IV ×3 (09:00→10:42)
[2018-06-11] MEDS: PHENYTOIN ER 100 MG CAP PO ×3 (09:00→21:11)
[2018-06-11] MEDS: SPIRONOLACTONE 25 MG TAB PO (09:00)
[2018-06-11] MEDS: MAGNESIUM OXIDE 400 MG TAB (MAG-OX) PO (09:00)
[2018-06-11] MEDS: FOLIC ACID 1 MG TAB PO (09:00)
[2018-06-11] MEDS: FUROSEMIDE 40 MG TAB PO (09:00)
[2018-06-11] MEDS: MULTIVITAMINS/MINERALS THERAP 1 TAB PO (09:00)
[2018-06-11] MEDS: PARoxetine 20 MG TAB PO (09:00)
[2018-06-11] MEDS: LACTULOSE 20 GM/30 ML SYRUP UD PO ×2 (09:00→21:10)
[2018-06-11] MEDS: busPIRone 5 MG TAB PO ×2 (10:29→21:10)
[2018-06-11] MEDS: traZODone 100 MG TAB PO (21:11)
[2018-06-12 06:07] LABS: HEMATOCRIT 28.3 % (42.0-52.0); MEAN CORPUSCULAR HEMOGLOBIN 35.3 pg (27.0-33.0); MEAN CORPUSCULAR HGB CONC 35.3 g/dl (32.0-36.5); RED BLOOD COUNT 2.83 10^6/uL (4.30-6.10); RED CELL DISTRIBUTION WIDTH 18.1 % (11.5-14.5); WHITE BLOOD COUNT 6.3 10^3/uL (4.0-10.0)
[2018-06-12 06:08] LABS: PLATELET COUNT, AUTOMATED 72 10^3/uL (150-450)
[2018-06-12 06:09] LABS: IMMATURE PLATELET FRACTION % 4.6 % (0.0-10.9)
[2018-06-12 06:20] LABS: INR 1.87; PROTHROMBIN TIME 21.9 SECONDS (12.1-14.4)
[2018-06-12 06:24] LABS: ALBUMIN 1.9 GM/DL (3.2-5.2); ALBUMIN/GLOBULIN RATIO 0.51 (1.00-1.93); ALKALINE PHOSPHATASE 144 U/L (45-117); ALT/SGPT 16 U/L (12-78); ANION GAP 5 MEQ/L (8-16); AST/SGOT 46 U/L (7-37); BILIRUBIN,TOTAL 4.4 MG/DL (0.2-1.0); BLOOD UREA NITROGEN 5 MG/DL (7-18); CALCIUM LEVEL 7.3 MG/DL (8.5-10.1); CARBON DIOXIDE LEVEL 30 MEQ/L (21-32); CHLORIDE LEVEL 105 MEQ/L (98-107); CREATININE FOR GFR 0.81 MG/DL (0.70-1.30); GLOMERULAR FILTRATION RATE > 60.0 (>60); GLUCOSE, FASTING 96 MG/DL (70-100); POTASSIUM SERUM 3.5 MEQ/L (3.5-5.1); SODIUM LEVEL 140 MEQ/L (136-145); TOTAL PROTEIN 5.6 GM/DL (6.4-8.2)
[2018-06-12] MEDS: PROPRANOLOL 20 MG TAB PO ×2 (09:00→23:02)
[2018-06-12] MEDS: LACTULOSE 20 GM/30 ML SYRUP UD PO ×2 (10:02→23:02)
[2018-06-12] MEDS: POTASSIUM CHLORIDE 10 MEQ SR TABLET PO (10:02)
[2018-06-12] MEDS: PHENYTOIN ER 100 MG CAP PO ×3 (10:03→23:08)
[2018-06-12] MEDS: PARoxetine 20 MG TAB PO (10:03)
[2018-06-12] MEDS: MAGNESIUM OXIDE 400 MG TAB (MAG-OX) PO (10:03)
[2018-06-12] MEDS: SPIRONOLACTONE 25 MG TAB PO (10:03)
[2018-06-12] MEDS: MULTIVITAMINS/MINERALS THERAP 1 TAB PO (10:04)
[2018-06-12] MEDS: THIAMINE 100 MG TAB PO (10:04)
[2018-06-12] MEDS: FUROSEMIDE 40 MG TAB PO (10:04)
[2018-06-12] MEDS: FOLIC ACID 1 MG TAB PO (10:04)
[2018-06-12] MEDS: busPIRone 5 MG TAB PO ×2 (10:05→23:07)
[2018-06-12 10:10] LABS: CK-MB VALUE MASS 1.8 NG/ML (<3.6); CPK CREATINE PHOSPHOKINASE 151 U/L (39-308); MB/CK RELATIVE INDEX 1.19 (< OR =4); TROPONIN I 0.02 NG/ML (< 0.10)
[2018-06-12 10:15] LABS: PHENYTOIN (DILANTIN) 13.4 UG/ML (10.0-20.0)
[2018-06-12] MEDS: traZODone 100 MG TAB PO (23:08)
[2018-06-13 06:00] LABS: HEMATOCRIT 29.2 % (42.0-52.0); MEAN CORPUSCULAR HEMOGLOBIN 35.3 pg (27.0-33.0); MEAN CORPUSCULAR HGB CONC 34.2 g/dl (32.0-36.5); MEAN CORPUSCULAR VOLUME 103.2 fl (80.0-96.0); RED BLOOD COUNT 2.83 10^6/uL (4.30-6.10); RED CELL DISTRIBUTION WIDTH 18.2 % (11.5-14.5); WHITE BLOOD COUNT 6.3 10^3/uL (4.0-10.0)
[2018-06-13 06:01] LABS: PLATELET COUNT, AUTOMATED 76 10^3/uL (150-450)
[2018-06-13 06:12] LABS: INR 1.91; PROTHROMBIN TIME 22.2 SECONDS (12.1-14.4)
[2018-06-13 06:28] LABS: AMMONIA 24 uMOL/L (<32)
[2018-06-13 06:30] LABS: ALBUMIN 1.9 GM/DL (3.2-5.2); ALBUMIN/GLOBULIN RATIO 0.53 (1.00-1.93); ALKALINE PHOSPHATASE 134 U/L (45-117); ALT/SGPT 15 U/L (12-78); ANION GAP 8 MEQ/L (8-16); AST/SGOT 43 U/L (7-37); BILIRUBIN,TOTAL 4.7 MG/DL (0.2-1.0); BLOOD UREA NITROGEN 5 MG/DL (7-18); CALCIUM LEVEL 7.3 MG/DL (8.5-10.1); CARBON DIOXIDE LEVEL 27 MEQ/L (21-32); CHLORIDE LEVEL 105 MEQ/L (98-107); CHOLESTEROL LEVEL 60 MG/DL (<200); CHOLESTEROL RISK RATIO 4.615 (<5); CREATININE FOR GFR 0.81 MG/DL (0.70-1.30); GLOMERULAR FILTRATION RATE > 60.0 (>60); GLUCOSE, FASTING 86 MG/DL (70-100); HDL CHOLESTEROL 13 MG/DL (>40); NON-HDL-C 47 MG/DL; POTASSIUM SERUM 3.6 MEQ/L (3.5-5.1); SODIUM LEVEL 140 MEQ/L (136-145); TOTAL PROTEIN 5.5 GM/DL (6.4-8.2); TRIGLYCERIDES LEVEL 65 MG/DL (<150)
[2018-06-13] MEDS: PHENYTOIN ER 100 MG CAP PO ×3 (08:47→22:42)
[2018-06-13] MEDS: THIAMINE 100 MG TAB PO (08:47)
[2018-06-13] MEDS: busPIRone 5 MG TAB PO ×2 (08:47→22:42)
[2018-06-13] MEDS: PARoxetine 20 MG TAB PO (08:48)
[2018-06-13] MEDS: MAGNESIUM OXIDE 400 MG TAB (MAG-OX) PO (08:48)
[2018-06-13] MEDS: POTASSIUM CHLORIDE 10 MEQ SR TABLET PO (08:48)
[2018-06-13] MEDS: MULTIVITAMINS/MINERALS THERAP 1 TAB PO (08:48)
[2018-06-13] MEDS: SPIRONOLACTONE 25 MG TAB PO (08:48)
[2018-06-13] MEDS: FOLIC ACID 1 MG TAB PO (08:48)
[2018-06-13] MEDS: LACTULOSE 20 GM/30 ML SYRUP UD PO (08:49)
[2018-06-13] MEDS: FUROSEMIDE 40 MG TAB PO (08:49)
[2018-06-13] MEDS: PROPRANOLOL 20 MG TAB PO ×2 (08:51→22:42)
[2018-06-13] MEDS ORDERED: ISOVUE-370 76% 100ML VIAL (Q9967) As Ordered (09:56)
[2018-06-13] MEDS: traZODone 100 MG TAB PO (22:42)
[2018-06-14 06:38] LABS: HEMATOCRIT 29.3 % (42.0-52.0); MEAN CORPUSCULAR HEMOGLOBIN 35.6 pg (27.0-33.0); MEAN CORPUSCULAR HGB CONC 34.1 g/dl (32.0-36.5); MEAN CORPUSCULAR VOLUME 104.3 fl (80.0-96.0); RED BLOOD COUNT 2.81 10^6/uL (4.30-6.10); RED CELL DISTRIBUTION WIDTH 17.9 % (11.5-14.5); WHITE BLOOD COUNT 5.8 10^3/uL (4.0-10.0)
[2018-06-14 06:41] LABS: PLATELET COUNT, AUTOMATED 91 10^3/uL (150-450)
[2018-06-14 06:44] LABS: IMMATURE PLATELET FRACTION % 2.7 % (0.0-10.9)
[2018-06-14 06:59] LABS: INR 1.78
[2018-06-14 07:00] LABS: ALBUMIN 1.9 GM/DL (3.2-5.2); ALKALINE PHOSPHATASE 131 U/L (45-117); ALT/SGPT 15 U/L (12-78); ANION GAP 7 MEQ/L (8-16); AST/SGOT 40 U/L (7-37); BILIRUBIN,TOTAL 3.8 MG/DL (0.2-1.0); BLOOD UREA NITROGEN 5 MG/DL (7-18); CALCIUM LEVEL 7.2 MG/DL (8.5-10.1); CARBON DIOXIDE LEVEL 28 MEQ/L (21-32); CHLORIDE LEVEL 105 MEQ/L (98-107); CK-MB VALUE MASS 1.6 NG/ML (<3.6); CPK CREATINE PHOSPHOKINASE 105 U/L (39-308); CREATININE FOR GFR 0.83 MG/DL (0.70-1.30); GLOMERULAR FILTRATION RATE > 60.0 (>60); GLUCOSE, FASTING 99 MG/DL (70-100); MB/CK RELATIVE INDEX 1.52 (< OR =4); POTASSIUM SERUM 3.8 MEQ/L (3.5-5.1); SODIUM LEVEL 140 MEQ/L (136-145); TOTAL PROTEIN 5.7 GM/DL (6.4-8.2); TROPONIN I 0.02 NG/ML (< 0.10)
[2018-06-14] MEDS: POTASSIUM CHLORIDE 10 MEQ SR TABLET PO (08:29)
[2018-06-14] MEDS: MULTIVITAMINS/MINERALS THERAP 1 TAB PO (08:29)
[2018-06-14] MEDS: FUROSEMIDE 40 MG TAB PO (08:30)
[2018-06-14] MEDS: SPIRONOLACTONE 25 MG TAB PO (08:30)
[2018-06-14] MEDS: PARoxetine 20 MG TAB PO (08:30)
[2018-06-14] MEDS: busPIRone 5 MG TAB PO ×2 (08:30→20:55)
[2018-06-14] MEDS: THIAMINE 100 MG TAB PO (08:30)
[2018-06-14] MEDS: PROPRANOLOL 20 MG TAB PO ×2 (08:30→20:56)
[2018-06-14] MEDS: PHENYTOIN ER 100 MG CAP PO ×3 (08:31→20:54)
[2018-06-14] MEDS: FOLIC ACID 1 MG TAB PO (08:31)
[2018-06-14] MEDS: MAGNESIUM OXIDE 400 MG TAB (MAG-OX) PO (08:31)
[2018-06-14] MEDS: LACTULOSE 20 GM/30 ML SYRUP UD PO (08:31)
[2018-06-14] MEDS: traZODone 100 MG TAB PO (20:56)
[2018-06-15 00:07] LABS: VITAMIN B1 LEVEL WHOLE BLOOD 74.2 nmol/L (66.5-200.0)
[2018-06-15 06:13] LABS: HEMATOCRIT 30.9 % (42.0-52.0); HEMOGLOBIN 10.5 g/dl (13.5-17.5); MEAN CORPUSCULAR HEMOGLOBIN 35.7 pg (27.0-33.0); MEAN CORPUSCULAR VOLUME 105.1 fl (80.0-96.0); PLATELET COUNT, AUTOMATED 114 10^3/uL (150-450); RED BLOOD COUNT 2.94 10^6/uL (4.30-6.10); RED CELL DISTRIBUTION WIDTH 17.9 % (11.5-14.5); WHITE BLOOD COUNT 5.8 10^3/uL (4.0-10.0)
[2018-06-15 06:33] LABS: INR 1.64; PROTHROMBIN TIME 19.7 SECONDS (12.1-14.4)
[2018-06-15 06:39] LABS: ALBUMIN/GLOBULIN RATIO 0.48 (1.00-1.93); ALKALINE PHOSPHATASE 139 U/L (45-117); ALT/SGPT 17 U/L (12-78); ANION GAP 6 MEQ/L (8-16); AST/SGOT 42 U/L (7-37); BILIRUBIN,TOTAL 3.3 MG/DL (0.2-1.0); BLOOD UREA NITROGEN 6 MG/DL (7-18); CALCIUM LEVEL 7.5 MG/DL (8.5-10.1); CARBON DIOXIDE LEVEL 28 MEQ/L (21-32); CHLORIDE LEVEL 105 MEQ/L (98-107); GLOMERULAR FILTRATION RATE > 60.0 (>60); GLUCOSE, FASTING 105 MG/DL (70-100); MAGNESIUM LEVEL 1.4 MG/DL (1.8-2.4); PHENYTOIN (DILANTIN) 22.4 UG/ML (10.0-20.0); POTASSIUM SERUM 4.1 MEQ/L (3.5-5.1); SODIUM LEVEL 139 MEQ/L (136-145); TOTAL PROTEIN 6.2 GM/DL (6.4-8.2)
[2018-06-15] MEDS: POTASSIUM CHLORIDE 10 MEQ SR TABLET PO ×2 (08:00→09:59)
[2018-06-15] MEDS: PHENYTOIN ER 100 MG CAP PO ×3 (09:00→21:49)
[2018-06-15] MEDS: MAGNESIUM OXIDE 400 MG TAB (MAG-OX) PO (09:26)
[2018-06-15] MEDS: FOLIC ACID 1 MG TAB PO (09:26)
[2018-06-15] MEDS: FERROUS SULFATE 325MG TAB PO ×2 (09:26→21:48)
[2018-06-15] MEDS: FUROSEMIDE 40 MG TAB PO (09:26)
[2018-06-15] MEDS: MULTIVITAMINS/MINERALS THERAP 1 TAB PO (09:26)
[2018-06-15] MEDS: PARoxetine 20 MG TAB PO (09:26)
[2018-06-15] MEDS: busPIRone 5 MG TAB PO ×2 (09:26→21:47)
[2018-06-15] MEDS: SPIRONOLACTONE 25 MG TAB PO (09:27)
[2018-06-15] MEDS: LACTULOSE 20 GM/30 ML SYRUP UD PO (09:27)
[2018-06-15] MEDS: MAG SULF 1GM/100ML (MAG RUN) 1 GM in APPROPRIATE DILUENT 1 EA IV ×2 (09:27→09:34)
[2018-06-15] MEDS: PROPRANOLOL 20 MG TAB PO ×2 (09:30→21:00)
[2018-06-15] MEDS: THIAMINE 100 MG TAB PO (09:59)
[2018-06-15] MEDS: traZODone 100 MG TAB PO (21:48)
[2018-06-16 06:39] LABS: HEMATOCRIT 30.6 % (42.0-52.0); HEMOGLOBIN 10.4 g/dl (13.5-17.5); MEAN CORPUSCULAR HEMOGLOBIN 34.8 pg (27.0-33.0); MEAN CORPUSCULAR VOLUME 102.3 fl (80.0-96.0); PLATELET COUNT, AUTOMATED 130 10^3/uL (150-450); RED BLOOD COUNT 2.99 10^6/uL (4.30-6.10); RED CELL DISTRIBUTION WIDTH 17.4 % (11.5-14.5); WHITE BLOOD COUNT 5.7 10^3/uL (4.0-10.0)
[2018-06-16 06:49] LABS: INR 1.61; PROTHROMBIN TIME 19.4 SECONDS (12.1-14.4)
[2018-06-16 07:09] LABS: ALBUMIN/GLOBULIN RATIO 0.51 (1.00-1.93); ALKALINE PHOSPHATASE 127 U/L (45-117); ALT/SGPT 16 U/L (12-78); ANION GAP 6 MEQ/L (8-16); AST/SGOT 42 U/L (7-37); BILIRUBIN,TOTAL 3.5 MG/DL (0.2-1.0); BLOOD UREA NITROGEN 5 MG/DL (7-18); CALCIUM LEVEL 7.2 MG/DL (8.5-10.1); CARBON DIOXIDE LEVEL 28 MEQ/L (21-32); CHLORIDE LEVEL 105 MEQ/L (98-107); CREATININE FOR GFR 0.85 MG/DL (0.70-1.30); GLOMERULAR FILTRATION RATE > 60.0 (>60); GLUCOSE, FASTING 121 MG/DL (70-100); PHENYTOIN (DILANTIN) 22.9 UG/ML (10.0-20.0); POTASSIUM SERUM 3.9 MEQ/L (3.5-5.1); SODIUM LEVEL 139 MEQ/L (136-145); TOTAL PROTEIN 5.9 GM/DL (6.4-8.2)
[2018-06-16] MEDS: SPIRONOLACTONE 25 MG TAB PO (08:38)
[2018-06-16] MEDS: FERROUS SULFATE 325MG TAB PO ×2 (08:39→20:28)
[2018-06-16] MEDS: MAGNESIUM OXIDE 400 MG TAB (MAG-OX) PO (08:39)
[2018-06-16] MEDS: FUROSEMIDE 40 MG TAB PO (08:39)
[2018-06-16] MEDS: THIAMINE 100 MG TAB PO (08:39)
[2018-06-16] MEDS: busPIRone 5 MG TAB PO ×2 (08:39→20:28)
[2018-06-16] MEDS: PARoxetine 20 MG TAB PO (08:41)
[2018-06-16] MEDS: LACTULOSE 20 GM/30 ML SYRUP UD PO (08:41)
[2018-06-16] MEDS: PHENYTOIN ER 100 MG CAP PO ×3 (08:41→20:29)
[2018-06-16] MEDS: MULTIVITAMINS/MINERALS THERAP 1 TAB PO (08:42)
[2018-06-16] MEDS: FOLIC ACID 1 MG TAB PO (08:42)
[2018-06-16] MEDS: POTASSIUM CHLORIDE 10 MEQ SR TABLET PO (08:42)
[2018-06-16] MEDS: PROPRANOLOL 20 MG TAB PO (08:48)
[2018-06-16] MEDS: MIDODRINE 2.5 MG TAB PO ×2 (11:49→16:57)
[2018-06-16 17:14] LABS: TYPE AND SCREEN 1
[2018-06-16 17:16] LABS: SOURCE, BODY FLUID ALBUMIN PERITONEAL; SOURCE, BODY FLUID GLUCOSE PERITONEAL; SOURCE, BODY FLUID TOT PROTEIN PERITONEAL; TOTAL PROTEIN, BODY FLUID 1.7 G/DL (NOT ESTABLISHED)
[2018-06-16 17:18] LABS: BF MONONUCLEAR CELL % 97.6 % (0-0); BF POLYMORPHONUCLEAR CELL % 2.4 % (0-0); RBC BODY FLUID < 2 10^3/uL (<2); WBC BODY FLUID 124 /uL (0-10)
[2018-06-16 17:19] LABS: APPEARANCE, BODY FLUID CLEAR (CLEAR); BF DIFF IF INDICATED? YES (NO); PERITONEAL FL COLOR YELLOW (COLORLESS); SOURCE, BODY FLUID PERITONEAL
[2018-06-16 17:20] LABS: SPEC. GRAVITY BODY FLUIDS 1.014 (NOT ESTABLISHED)
[2018-06-16] MEDS: traZODone 100 MG TAB PO (20:29)
[2018-06-17 02:21] LABS: TYPE AND SCREEN 1
[2018-06-17 06:14] LABS: HEMATOCRIT 32.1 % (42.0-52.0); HEMOGLOBIN 10.7 g/dl (13.5-17.5); MEAN CORPUSCULAR HEMOGLOBIN 35.1 pg (27.0-33.0); MEAN CORPUSCULAR HGB CONC 33.3 g/dl (32.0-36.5); MEAN CORPUSCULAR VOLUME 105.2 fl (80.0-96.0); PLATELET COUNT, AUTOMATED 132 10^3/uL (150-450); RED BLOOD COUNT 3.05 10^6/uL (4.30-6.10); RED CELL DISTRIBUTION WIDTH 16.8 % (11.5-14.5); WHITE BLOOD COUNT 5.4 10^3/uL (4.0-10.0)
[2018-06-17 06:24] LABS: INR 1.67
[2018-06-17 06:39] LABS: ALBUMIN 2.3 GM/DL (3.2-5.2); ALBUMIN/GLOBULIN RATIO 0.62 (1.00-1.93); ALKALINE PHOSPHATASE 118 U/L (45-117); ALT/SGPT 15 U/L (12-78); ANION GAP 6 MEQ/L (8-16); AST/SGOT 41 U/L (7-37); BILIRUBIN,TOTAL 4.2 MG/DL (0.2-1.0); BLOOD UREA NITROGEN 5 MG/DL (7-18); CARBON DIOXIDE LEVEL 30 MEQ/L (21-32); CHLORIDE LEVEL 105 MEQ/L (98-107); CREATININE FOR GFR 0.91 MG/DL (0.70-1.30); GLOMERULAR FILTRATION RATE > 60.0 (>60); GLUCOSE, FASTING 114 MG/DL (70-100); PHENYTOIN (DILANTIN) 23.3 UG/ML (10.0-20.0); POTASSIUM SERUM 4.1 MEQ/L (3.5-5.1); SODIUM LEVEL 141 MEQ/L (136-145)
[2018-06-17] MEDS: POTASSIUM CHLORIDE 10 MEQ SR TABLET PO (09:45)
[2018-06-17] MEDS: PROPRANOLOL 20 MG TAB PO (09:45)
[2018-06-17] MEDS: LACTULOSE 20 GM/30 ML SYRUP UD PO (09:45)
[2018-06-17] MEDS: FOLIC ACID 1 MG TAB PO (09:46)
[2018-06-17] MEDS: busPIRone 5 MG TAB PO ×2 (09:46→21:38)
[2018-06-17] MEDS: FUROSEMIDE 40 MG TAB PO (09:47)
[2018-06-17] MEDS: PARoxetine 20 MG TAB PO (09:47)
[2018-06-17] MEDS: MAGNESIUM OXIDE 400 MG TAB (MAG-OX) PO (09:47)
[2018-06-17] MEDS: FERROUS SULFATE 325MG TAB PO ×2 (09:47→21:38)
[2018-06-17] MEDS: MULTIVITAMINS/MINERALS THERAP 1 TAB PO (09:47)
[2018-06-17] MEDS: THIAMINE 100 MG TAB PO (09:47)
[2018-06-17] MEDS: MIDODRINE 2.5 MG TAB PO ×3 (09:47→16:27)
[2018-06-17] MEDS: SPIRONOLACTONE 25 MG TAB PO (09:48)
[2018-06-17] MEDS: PHENYTOIN ER 100 MG CAP PO (09:55)
[2018-06-17 11:10] LABS: TYPE AND SCREEN 1
[2018-06-17 18:30] LABS: TYPE AND SCREEN 1
[2018-06-17] MEDS: traZODone 100 MG TAB PO (21:38)
[2018-06-18 02:32] LABS: TYPE AND SCREEN 1
[2018-06-18 05:47] LABS: HEMATOCRIT 30.6 % (42.0-52.0); HEMOGLOBIN 10.5 g/dl (13.5-17.5); MEAN CORPUSCULAR HEMOGLOBIN 35.4 pg (27.0-33.0); MEAN CORPUSCULAR HGB CONC 34.3 g/dl (32.0-36.5); PLATELET COUNT, AUTOMATED 130 10^3/uL (150-450); RED BLOOD COUNT 2.97 10^6/uL (4.30-6.10); RED CELL DISTRIBUTION WIDTH 16.6 % (11.5-14.5); WHITE BLOOD COUNT 5.7 10^3/uL (4.0-10.0)
[2018-06-18 05:55] LABS: PROTHROMBIN TIME 21.2 SECONDS (12.1-14.4)
[2018-06-18 06:11] LABS: ALBUMIN 2.5 GM/DL (3.2-5.2); ALBUMIN/GLOBULIN RATIO 0.69 (1.00-1.93); ALKALINE PHOSPHATASE 116 U/L (45-117); ALT/SGPT 16 U/L (12-78); ANION GAP 4 MEQ/L (8-16); AST/SGOT 33 U/L (7-37); BILIRUBIN,TOTAL 3.1 MG/DL (0.2-1.0); BLOOD UREA NITROGEN 4 MG/DL (7-18); CALCIUM LEVEL 7.3 MG/DL (8.5-10.1); CARBON DIOXIDE LEVEL 31 MEQ/L (21-32); CHLORIDE LEVEL 105 MEQ/L (98-107); GLOMERULAR FILTRATION RATE > 60.0 (>60); GLUCOSE, FASTING 106 MG/DL (70-100); PHENYTOIN (DILANTIN) 24.2 UG/ML (10.0-20.0); POTASSIUM SERUM 3.7 MEQ/L (3.5-5.1); SODIUM LEVEL 140 MEQ/L (136-145); TOTAL PROTEIN 6.1 GM/DL (6.4-8.2)
[2018-06-18] MEDS: busPIRone 5 MG TAB PO ×2 (08:32→20:34)
[2018-06-18] MEDS: LACTULOSE 20 GM/30 ML SYRUP UD PO (08:32)
[2018-06-18] MEDS: POTASSIUM CHLORIDE 10 MEQ SR TABLET PO (08:32)
[2018-06-18] MEDS: PARoxetine 20 MG TAB PO (08:33)
[2018-06-18] MEDS: MAGNESIUM OXIDE 400 MG TAB (MAG-OX) PO (08:33)
[2018-06-18] MEDS: MIDODRINE 2.5 MG TAB PO ×3 (08:33→15:56)
[2018-06-18] MEDS: FERROUS SULFATE 325MG TAB PO ×2 (08:33→20:34)
[2018-06-18] MEDS: FOLIC ACID 1 MG TAB PO (08:33)
[2018-06-18] MEDS: THIAMINE 100 MG TAB PO (08:33)
[2018-06-18] MEDS: MULTIVITAMINS/MINERALS THERAP 1 TAB PO (08:37)
[2018-06-18] MEDS: FUROSEMIDE 20 MG TAB PO (10:12)
[2018-06-18] MEDS: PHYTONADIONE 5 MG TAB PO (10:13)
[2018-06-18] MEDS: SPIRONOLACTONE 12.5MG PER 1/2 TABLET PO (10:13)
[2018-06-18] MEDS: PROPRANOLOL 20 MG TAB PO (10:15)
[2018-06-18 10:58] LABS: TYPE AND SCREEN 1
[2018-06-18] MEDS: traZODone 100 MG TAB PO (20:34)
[2018-06-19 06:23] LABS: HEMATOCRIT 31.5 % (42.0-52.0); HEMOGLOBIN 10.9 g/dl (13.5-17.5); MEAN CORPUSCULAR HEMOGLOBIN 35.2 pg (27.0-33.0); MEAN CORPUSCULAR HGB CONC 34.6 g/dl (32.0-36.5); MEAN CORPUSCULAR VOLUME 101.6 fl (80.0-96.0); PLATELET COUNT, AUTOMATED 151 10^3/uL (150-450); RED CELL DISTRIBUTION WIDTH 16.7 % (11.5-14.5)
[2018-06-19 06:32] LABS: INR 1.67
[2018-06-19 06:57] LABS: ALBUMIN 2.4 GM/DL (3.2-5.2); ALBUMIN/GLOBULIN RATIO 0.67 (1.00-1.93); ALKALINE PHOSPHATASE 120 U/L (45-117); ALT/SGPT 15 U/L (12-78); ANION GAP 8 MEQ/L (8-16); AST/SGOT 34 U/L (7-37); BILIRUBIN,TOTAL 2.8 MG/DL (0.2-1.0); BLOOD UREA NITROGEN 4 MG/DL (7-18); CALCIUM LEVEL 7.5 MG/DL (8.5-10.1); CARBON DIOXIDE LEVEL 27 MEQ/L (21-32); CHLORIDE LEVEL 106 MEQ/L (98-107); CREATININE FOR GFR 0.81 MG/DL (0.70-1.30); GLOMERULAR FILTRATION RATE > 60.0 (>60); GLUCOSE, FASTING 96 MG/DL (70-100); PHENYTOIN (DILANTIN) 20.4 UG/ML (10.0-20.0); POTASSIUM SERUM 3.7 MEQ/L (3.5-5.1); SODIUM LEVEL 141 MEQ/L (136-145)
[2018-06-19] MEDS: MIDODRINE 2.5 MG TAB PO ×3 (08:00→15:10)
[2018-06-19] MEDS: PROPRANOLOL 20 MG TAB PO (08:47)
[2018-06-19] MEDS: PARoxetine 20 MG TAB PO (08:49)
[2018-06-19] MEDS: SPIRONOLACTONE 12.5MG PER 1/2 TABLET PO (08:50)
[2018-06-19] MEDS: busPIRone 5 MG TAB PO ×2 (08:50→20:41)
[2018-06-19] MEDS: FUROSEMIDE 20 MG TAB PO (08:50)
[2018-06-19] MEDS: FOLIC ACID 1 MG TAB PO (08:52)
[2018-06-19] MEDS: THIAMINE 100 MG TAB PO (08:52)
[2018-06-19] MEDS: MAGNESIUM OXIDE 400 MG TAB (MAG-OX) PO (08:52)
[2018-06-19] MEDS: FERROUS SULFATE 325MG TAB PO ×2 (08:52→20:41)
[2018-06-19] MEDS: POTASSIUM CHLORIDE 10 MEQ SR TABLET PO (08:52)
[2018-06-19] MEDS: LACTULOSE 20 GM/30 ML SYRUP UD PO (08:53)
[2018-06-19] MEDS: MULTIVITAMINS/MINERALS THERAP 1 TAB PO (08:53)
[2018-06-19] MEDS ORDERED: SLF 3 ML SYR IV (19:00)
[2018-06-19] MEDS: traZODone 100 MG TAB PO (20:40)
[2018-06-19] MEDS: SLF 3 ML SYR IV (20:41)
[2018-06-20] MEDS: SLF 3 ML SYR IV ×3 (05:30→20:53)
[2018-06-20 06:03] LABS: HEMATOCRIT 32.6 % (42.0-52.0); HEMOGLOBIN 11.1 g/dl (13.5-17.5); MEAN CORPUSCULAR HEMOGLOBIN 35.5 pg (27.0-33.0); MEAN CORPUSCULAR VOLUME 104.2 fl (80.0-96.0); PLATELET COUNT, AUTOMATED 160 10^3/uL (150-450); RED BLOOD COUNT 3.13 10^6/uL (4.30-6.10); RED CELL DISTRIBUTION WIDTH 16.7 % (11.5-14.5); WHITE BLOOD COUNT 6.4 10^3/uL (4.0-10.0)
[2018-06-20 06:09] LABS: INR 1.78; PROTHROMBIN TIME 21.1 SECONDS (12.1-14.4)
[2018-06-20 06:47] LABS: ALBUMIN 2.4 GM/DL (3.2-5.2); ALBUMIN/GLOBULIN RATIO 0.71 (1.00-1.93); ALKALINE PHOSPHATASE 121 U/L (45-117); ALT/SGPT 14 U/L (12-78); ANION GAP 9 MEQ/L (8-16); AST/SGOT 38 U/L (7-37); BILIRUBIN,TOTAL 3.3 MG/DL (0.2-1.0); BLOOD UREA NITROGEN 5 MG/DL (7-18); CALCIUM LEVEL 7.7 MG/DL (8.5-10.1); CARBON DIOXIDE LEVEL 29 MEQ/L (21-32); CHLORIDE LEVEL 105 MEQ/L (98-107); CREATININE FOR GFR 0.86 MG/DL (0.70-1.30); GLOMERULAR FILTRATION RATE > 60.0 (>60); GLUCOSE, FASTING 118 MG/DL (70-100); SODIUM LEVEL 143 MEQ/L (136-145); TOTAL PROTEIN 5.8 GM/DL (6.4-8.2)
[2018-06-20] MEDS: LACTULOSE 20 GM/30 ML SYRUP UD PO (08:26)
[2018-06-20] MEDS: MULTIVITAMINS/MINERALS THERAP 1 TAB PO (08:29)
[2018-06-20] MEDS: FOLIC ACID 1 MG TAB PO (08:29)
[2018-06-20] MEDS: PHENYTOIN ER 100 MG CAP PO ×3 (08:30→20:53)
[2018-06-20] MEDS: FERROUS SULFATE 325MG TAB PO ×2 (08:30→20:53)
[2018-06-20] MEDS: PARoxetine 20 MG TAB PO (08:30)
[2018-06-20] MEDS: MAGNESIUM OXIDE 400 MG TAB (MAG-OX) PO (08:30)
[2018-06-20] MEDS: busPIRone 5 MG TAB PO ×2 (08:31→20:53)
[2018-06-20] MEDS: THIAMINE 100 MG TAB PO (08:31)
[2018-06-20] MEDS: ENOXAPARIN 40 MG/0.4 ML SYRINGE (J1650) SC ×2 (08:32→10:24)
[2018-06-20] MEDS: POTASSIUM CHLORIDE 10 MEQ SR TABLET PO (08:33)
[2018-06-20] MEDS: MIDODRINE 2.5 MG TAB PO ×3 (08:33→15:22)
[2018-06-20] MEDS: PROPRANOLOL 20 MG TAB PO (08:40)
[2018-06-20] MEDS: PHYTONADIONE 5 MG TAB PO (10:23)
[2018-06-20] MEDS: traZODone 100 MG TAB PO (20:53)
[2018-06-21] MEDS: SLF 3 ML SYR IV ×3 (05:12→21:02)
[2018-06-21 06:10] LABS: HEMATOCRIT 31.1 % (42.0-52.0); HEMOGLOBIN 10.5 g/dl (13.5-17.5); MEAN CORPUSCULAR HEMOGLOBIN 35.2 pg (27.0-33.0); MEAN CORPUSCULAR HGB CONC 33.8 g/dl (32.0-36.5); MEAN CORPUSCULAR VOLUME 104.4 fl (80.0-96.0); PLATELET COUNT, AUTOMATED 157 10^3/uL (150-450); RED BLOOD COUNT 2.98 10^6/uL (4.30-6.10); RED CELL DISTRIBUTION WIDTH 16.6 % (11.5-14.5); WHITE BLOOD COUNT 6.7 10^3/uL (4.0-10.0)
[2018-06-21 06:24] LABS: ALBUMIN 2.2 GM/DL (3.2-5.2); ALBUMIN/GLOBULIN RATIO 0.59 (1.00-1.93); ALKALINE PHOSPHATASE 112 U/L (45-117); ALT/SGPT 14 U/L (12-78); ANION GAP 4 MEQ/L (8-16); AST/SGOT 37 U/L (7-37); BILIRUBIN,TOTAL 3.3 MG/DL (0.2-1.0); BLOOD UREA NITROGEN 4 MG/DL (7-18); CALCIUM LEVEL 7.5 MG/DL (8.5-10.1); CARBON DIOXIDE LEVEL 30 MEQ/L (21-32); CHLORIDE LEVEL 108 MEQ/L (98-107); CREATININE FOR GFR 0.83 MG/DL (0.70-1.30); GLOMERULAR FILTRATION RATE > 60.0 (>60); GLUCOSE, FASTING 97 MG/DL (70-100); PHENYTOIN (DILANTIN) 20.5 UG/ML (10.0-20.0); POTASSIUM SERUM 3.9 MEQ/L (3.5-5.1); SODIUM LEVEL 142 MEQ/L (136-145); TOTAL PROTEIN 5.9 GM/DL (6.4-8.2)
[2018-06-21 06:25] LABS: INR 1.69; PROTHROMBIN TIME 20.2 SECONDS (12.1-14.4)
[2018-06-21] MEDS: FUROSEMIDE 20 MG TAB PO (08:18)
[2018-06-21] MEDS: LACTULOSE 20 GM/30 ML SYRUP UD PO (08:26)
[2018-06-21] MEDS: THIAMINE 100 MG TAB PO (08:27)
[2018-06-21] MEDS: ENOXAPARIN 40 MG/0.4 ML SYRINGE (J1650) SC (08:27)
[2018-06-21] MEDS: MIDODRINE 2.5 MG TAB PO ×3 (08:27→16:09)
[2018-06-21] MEDS: PHENYTOIN ER 100 MG CAP PO ×2 (08:28→21:02)
[2018-06-21] MEDS: busPIRone 5 MG TAB PO ×2 (08:28→21:02)
[2018-06-21] MEDS: FOLIC ACID 1 MG TAB PO (08:29)
[2018-06-21] MEDS: FERROUS SULFATE 325MG TAB PO ×2 (08:29→21:02)
[2018-06-21] MEDS: PARoxetine 20 MG TAB PO (08:29)
[2018-06-21] MEDS: POTASSIUM CHLORIDE 10 MEQ SR TABLET PO (08:29)
[2018-06-21] MEDS: MAGNESIUM OXIDE 400 MG TAB (MAG-OX) PO (08:29)
[2018-06-21] MEDS: MULTIVITAMINS/MINERALS THERAP 1 TAB PO (08:29)
[2018-06-21] MEDS: SPIRONOLACTONE 12.5MG PER 1/2 TABLET PO (10:20)
[2018-06-21] MEDS: PROPRANOLOL 20 MG TAB PO (10:25)
[2018-06-21] MEDS: traZODone 100 MG TAB PO (21:02)
[2018-06-22] MEDS: SLF 3 ML SYR IV (06:15)
[2018-06-22 06:20] LABS: HEMATOCRIT 31.8 % (42.0-52.0); MEAN CORPUSCULAR HEMOGLOBIN 35.8 pg (27.0-33.0); MEAN CORPUSCULAR HGB CONC 34.6 g/dl (32.0-36.5); MEAN CORPUSCULAR VOLUME 103.6 fl (80.0-96.0); PLATELET COUNT, AUTOMATED 158 10^3/uL (150-450); RED BLOOD COUNT 3.07 10^6/uL (4.30-6.10); RED CELL DISTRIBUTION WIDTH 16.4 % (11.5-14.5); WHITE BLOOD COUNT 6.2 10^3/uL (4.0-10.0)
[2018-06-22 06:34] LABS: INR 1.81; PROTHROMBIN TIME 21.3 SECONDS (12.1-14.4)
[2018-06-22 06:41] LABS: ALBUMIN 2.2 GM/DL (3.2-5.2); ALBUMIN/GLOBULIN RATIO 0.59 (1.00-1.93); ALKALINE PHOSPHATASE 117 U/L (45-117); ALT/SGPT 13 U/L (12-78); ANION GAP 7 MEQ/L (8-16); AST/SGOT 34 U/L (7-37); BILIRUBIN,TOTAL 3.8 MG/DL (0.2-1.0); BLOOD UREA NITROGEN 4 MG/DL (7-18); CALCIUM LEVEL 7.5 MG/DL (8.5-10.1); CARBON DIOXIDE LEVEL 29 MEQ/L (21-32); CHLORIDE LEVEL 106 MEQ/L (98-107); CREATININE FOR GFR 0.79 MG/DL (0.70-1.30); GLOMERULAR FILTRATION RATE > 60.0 (>60); GLUCOSE, FASTING 101 MG/DL (70-100); PHENYTOIN (DILANTIN) 20.4 UG/ML (10.0-20.0); POTASSIUM SERUM 3.8 MEQ/L (3.5-5.1); SODIUM LEVEL 142 MEQ/L (136-145); TOTAL PROTEIN 5.9 GM/DL (6.4-8.2)
[2018-06-22] MEDS: ENOXAPARIN 40 MG/0.4 ML SYRINGE (J1650) SC (08:16)
[2018-06-22] MEDS: LACTULOSE 20 GM/30 ML SYRUP UD PO (08:16)
[2018-06-22] MEDS: busPIRone 5 MG TAB PO (08:17)
[2018-06-22] MEDS: PROPRANOLOL 20 MG TAB PO (08:17)
[2018-06-22] MEDS: FERROUS SULFATE 325MG TAB PO (08:18)
[2018-06-22] MEDS: MIDODRINE 2.5 MG TAB PO ×2 (08:18→12:07)
[2018-06-22] MEDS: SPIRONOLACTONE 12.5MG PER 1/2 TABLET PO (08:18)
[2018-06-22] MEDS: FOLIC ACID 1 MG TAB PO (08:18)
[2018-06-22] MEDS: POTASSIUM CHLORIDE 10 MEQ SR TABLET PO (08:18)
[2018-06-22] MEDS: PARoxetine 20 MG TAB PO (08:18)
[2018-06-22] MEDS: THIAMINE 100 MG TAB PO (08:18)
[2018-06-22] MEDS: MULTIVITAMINS/MINERALS THERAP 1 TAB PO (08:19)
[2018-06-22] MEDS: MAGNESIUM OXIDE 400 MG TAB (MAG-OX) PO (08:19)
[2018-06-22] MEDS: FUROSEMIDE 20 MG TAB PO (08:19)
[2018-06-22] MEDS: PHENYTOIN ER 100 MG CAP PO (10:16)
== END 2018-06-22 13:09 | disposition home or self-care (01) | DRG 280 ==
LOC: M ICU 06-09 09:12 → M PCU 06-10 15:30 → M MSPAV 06-11 14:42 → M ED 07:41 → M ED INP 13:40 → M MSPAV 15:12
PROC: 30233K1 Transfusion of Nonautologous Frozen Plasma into Peripheral Vein, Percutaneous Approach (ICD-10-PCS; 2018-06-08)
PROC: 0W9G3ZZ Drainage of Peritoneal Cavity, Percutaneous Approach (ICD-10-PCS; principal; 2018-06-09)
PROC: 30233J1 Transfusion of Nonautologous Serum Albumin into Peripheral Vein, Percutaneous Approach (ICD-10-PCS; 2018-06-09)
PROC: 0W9G3ZZ Drainage of Peritoneal Cavity, Percutaneous Approach (ICD-10-PCS; 2018-06-16)
DX: K70.31 Alcoholic cirrhosis of liver with ascites (principal); D68.4 Acquired coagulation factor deficiency; E87.2 Acidosis; K72.90 Hepatic failure, unspecified without coma; D69.59 Other secondary thrombocytopenia; K76.6 Portal hypertension; E83.42 Hypomagnesemia; G43.909 Migraine, unspecified, not intractable, without status migrainosus; F32.9 Major depressive disorder, single episode, unspecified; Z91.14 Patient's other noncompliance with medication regimen; F10.20 Alcohol dependence, uncomplicated; E72.20 Disorder of urea cycle metabolism, unspecified; F41.9 Anxiety disorder, unspecified; E87.6 Hypokalemia; K80.20 Calculus of gallbladder without cholecystitis without obstruction; Z88.0 Allergy status to penicillin; Z88.5 Allergy status to narcotic agent; Z88.8 Allergy status to other drugs, medicaments and biological substances; Z91.19 Patient's noncompliance with other medical treatment and regimen; Z79.899 Other long term (current) drug therapy; I95.1 Orthostatic hypotension

== ENCOUNTER 2018-07-05 11:55 | Emergency (ER) | payer OTHER ==
[2018-07-05 13:32] LABS: BASO % 0.2 % (0.0-1.0); EOS # 0.2 10^3/uL (0.0-0.50); EOS % 1.8 % (0.0-3.0); HEMOGLOBIN 11.6 g/dl (13.5-17.5); IMMATURE GRANULOCYTE % 0.2 % (0-3.0); LYMPH # 1.6 10^3/uL (1.5-4.5); LYMPH % 18.8 % (24.0-44.0); MEAN CORPUSCULAR HEMOGLOBIN 35.6 pg (27.0-33.0); MEAN CORPUSCULAR HGB CONC 35.2 g/dl (32.0-36.5); MEAN CORPUSCULAR VOLUME 101.2 fl (80.0-96.0); MONO # 0.9 10^3/uL (0.0-0.8); MONO % 10.7 % (0.0-5.0); NEUTROPHILS # 5.8 10^3/uL (1.8-7.7); NEUTROPHILS % 68.3 % (36.0-66.0); RED BLOOD COUNT 3.26 10^6/uL (4.30-6.10); RED CELL DISTRIBUTION WIDTH 14.5 % (11.5-14.5); WHITE BLOOD COUNT 8.5 10^3/uL (4.0-10.0)
[2018-07-05 13:53] LABS: PLATELET COUNT, AUTOMATED 58 10^3/uL (150-450)
[2018-07-05 13:54] LABS: IMMATURE PLATELET FRACTION % 7.7 % (0.0-10.9); PLATELET F 4.3
[2018-07-05 14:09] LABS: ANION GAP 8 MEQ/L (8-16); BLOOD UREA NITROGEN 5 MG/DL (7-18); CALCIUM LEVEL 7.6 MG/DL (8.5-10.1); CARBON DIOXIDE LEVEL 30 MEQ/L (21-32); CHLORIDE LEVEL 97 MEQ/L (98-107); CREATININE FOR GFR 0.77 MG/DL (0.70-1.30); GLOMERULAR FILTRATION RATE > 60.0 (>60); GLUCOSE, FASTING 103 MG/DL (70-100); MAGNESIUM LEVEL 1.3 MG/DL (1.8-2.4); PHOSPHORUS LEVEL 2.5 MG/DL (2.5-4.9); POTASSIUM SERUM 3.2 MEQ/L (3.5-5.1); SODIUM LEVEL 135 MEQ/L (136-145)
[2018-07-05 14:26] LABS: ALKALINE PHOSPHATASE 133 U/L (45-117); ALT/SGPT 15 U/L (12-78); AST/SGOT 45 U/L (7-37); BILIRUBIN,DIRECT 2.9 MG/DL (0.0-0.2); TOTAL PROTEIN 6.4 GM/DL (6.4-8.2)
[2018-07-05 14:34] LABS: AMMONIA 20 uMOL/L (<32)
[2018-07-05 14:34] LABS: INR 1.78
[2018-07-05 14:35] LABS: PARTIAL THROMBOPLASTIN TIME 38.1 SECONDS (25.4-37.6)
[2018-07-05 14:48] LABS: KETONE, URINE AUTO RFX 1+ mg/dL (NEGATIVE); LEUKOCYTE ESTERASE UR AUTO RFX NEGATIVE (NEGATIVE); MUCUS, URINE RFX MODERATE (NEGATIVE); NITRITE, URINE AUTO RFX NEGATIVE (NEGATIVE); RBC, URINE AUTO RFX 0 /HPF (0-3); SPECIFIC GRAVITY UR AUTO RFX 1.021 (1.002-1.035); SQUAM EPITHELIAL CELL UR AURFX 0 /HPF (0-6); WBC, URINE AUTO RFX 0 /HPF (0-3)
[2018-07-05 14:52] LABS: ALBUMIN 2.2 GM/DL (3.2-5.2); ALBUMIN/GLOBULIN RATIO 0.52 (1.00-1.93)
[2018-07-05 15:40] LABS: ETHYL ALCOHOL (ETHANOL) < 0.003 % (0.000-0.010)
[2018-07-05] MEDS ORDERED: MAG SULF 1GM/100ML (MAG RUN) 1 GM in APPROPRIATE DILUENT 1 EA IV (17:00)
[2018-07-05] MEDS: POTASSIUM CHLORIDE 10 MEQ SR TABLET PO (17:39)
[2018-07-05] MEDS: MAG SULF 1GM/100ML (MAG RUN) 1 GM in APPROPRIATE DILUENT 1 EA IV ×2 (17:39→18:00)
[2018-07-05] MEDS: CHOLESTYRAMINE 4 GM PWD PKT PO (19:45)
== END 2018-07-05 19:57 | disposition home or self-care (01) ==
LOC: M ED 11:55
DX: E83.42 Hypomagnesemia (principal); E87.6 Hypokalemia; K57.30 Diverticulosis of large intestine without perforation or abscess without bleeding; G40.909 Epilepsy, unspecified, not intractable, without status epilepticus; R18.8 Other ascites; K74.60 Unspecified cirrhosis of liver; K80.20 Calculus of gallbladder without cholecystitis without obstruction; N28.1 Cyst of kidney, acquired; Z82.49 Family history of ischemic heart disease and other diseases of the circulatory system; Z79.899 Other long term (current) drug therapy
CPT/HCPCS: J3475

== ENCOUNTER 2018-07-16 08:50 | Inpatient (IN) | payer OTHER ==
[2018-07-16 09:08] LABS: ABG BASE EXCESS -1.8 (-2.0-2.0); ABG HCO3 20.8 MEQ/L (22.0-26.0); ABG O2 SATURATION 94.4 % (95.0-99.0); ABG PARTIAL PRESSURE CO2 29.1 mmHg (35.0-45.0); ABG PARTIAL PRESSURE O2 71.6 mmHg (75.0-100.0); ABG STANDARD HCO3 22.9 MEQ/L (22.0-26.0); ABG TOTAL CO2 21.6 MEQ/L (22.0-29.0); ABG pH (ARTERIAL) 7.471 UNITS (7.350-7.450)
[2018-07-16 09:20] LABS: BASO % 0.6 % (0.0-1.0); EOS % 0.1 % (0.0-3.0); HEMATOCRIT 35.1 % (42.0-52.0); HEMOGLOBIN 12.3 g/dl (13.5-17.5); IMMATURE GRANULOCYTE % 0.4 % (0-3.0); LYMPH # 0.6 10^3/uL (1.5-4.5); LYMPH % 8.8 % (24.0-44.0); MEAN CORPUSCULAR HEMOGLOBIN 35.7 pg (27.0-33.0); MEAN CORPUSCULAR VOLUME 101.7 fl (80.0-96.0); MONO # 0.8 10^3/uL (0.0-0.8); MONO % 10.6 % (0.0-5.0); NEUTROPHILS # 5.7 10^3/uL (1.8-7.7); NEUTROPHILS % 79.5 % (36.0-66.0); RED BLOOD COUNT 3.45 10^6/uL (4.30-6.10); RED CELL DISTRIBUTION WIDTH 15.2 % (11.5-14.5); WHITE BLOOD COUNT 7.2 10^3/uL (4.0-10.0)
[2018-07-16] MEDS: NS 1,000 ML IV (09:20)
[2018-07-16 09:22] LABS: PLATELET COUNT, AUTOMATED 50 10^3/uL (150-450)
[2018-07-16 09:30] LABS: IMMATURE PLATELET FRACTION % 8.8 % (0.0-10.9)
[2018-07-16 09:34] LABS: INR 1.77; PARTIAL THROMBOPLASTIN TIME 35.2 SECONDS (25.4-37.6); PROTHROMBIN TIME 20.9 SECONDS (12.1-14.4)
[2018-07-16 09:38] LABS: ALBUMIN 2.3 GM/DL (3.2-5.2); ALBUMIN/GLOBULIN RATIO 0.46 (1.00-1.93); ALT/SGPT 21 U/L (12-78); ANION GAP 18 MEQ/L (8-16); AST/SGOT 92 U/L (7-37); BILIRUBIN,DIRECT 2.8 MG/DL (0.0-0.2); BILIRUBIN,TOTAL 5.3 MG/DL (0.2-1.0); BLOOD UREA NITROGEN 6 MG/DL (7-18); CALCIUM LEVEL 8.1 MG/DL (8.5-10.1); CARBON DIOXIDE LEVEL 21 MEQ/L (21-32); CHLORIDE LEVEL 99 MEQ/L (98-107); CREATININE FOR GFR 1.12 MG/DL (0.70-1.30); ETHYL ALCOHOL (ETHANOL) 0.006 % (0.000-0.010); GLOMERULAR FILTRATION RATE > 60.0 (>60); GLUCOSE, FASTING 120 MG/DL (70-100); MAGNESIUM LEVEL 1.9 MG/DL (1.8-2.4); PHENYTOIN (DILANTIN) 1.6 UG/ML (10.0-20.0); POTASSIUM SERUM 3.6 MEQ/L (3.5-5.1); SODIUM LEVEL 138 MEQ/L (136-145); TOTAL PROTEIN 7.3 GM/DL (6.4-8.2); TROPONIN I 0.05 NG/ML (< 0.10)
[2018-07-16 09:43] LABS: AMMONIA 95 uMOL/L (<32)
[2018-07-16 09:44] LABS: ALKALINE PHOSPHATASE 191 U/L (45-117); CK-MB VALUE MASS 4.6 NG/ML (<3.6); CPK CREATINE PHOSPHOKINASE 435 U/L (39-308); MB/CK RELATIVE INDEX 1.05 (< OR =4)
[2018-07-16 09:45] LABS: ACETAMINOPHEN LEVEL < 2.0 UG/ML (10.0-30.0); SALICYLATE LEVEL < 1.7 MG/DL (5.0-30.0)
[2018-07-16] MEDS ORDERED: ISOVUE-370 76% 100ML VIAL (Q9967) As Ordered (10:10)
[2018-07-16 10:29] LABS: KETONE, URINE AUTO RFX TRACE mg/dL (NEGATIVE); LEUKOCYTE ESTERASE UR AUTO RFX NEGATIVE (NEGATIVE); MUCUS, URINE RFX LARGE (NEGATIVE); NITRITE, URINE AUTO RFX NEGATIVE (NEGATIVE); RBC, URINE AUTO RFX 15 /HPF (0-3); SPECIFIC GRAVITY UR AUTO RFX 1.032 (1.002-1.035); SQUAM EPITHELIAL CELL UR AURFX 0 /HPF (0-6); WBC, URINE AUTO RFX 0 /HPF (0-3)
[2018-07-16] MEDS: LORazepam 2 MG/ML VIAL (J2060) IV (10:39)
[2018-07-16] MEDS: OXAZEPAM 15 MG CAP PO (10:39)
[2018-07-16] MEDS: PHENYTOIN INJection 1,000 MG in NS 100 ML IV (10:39)
[2018-07-16 10:45] LABS: AMPHETAMINES LEVEL URINE NEGATIVE (NEGATIVE); BARBITURATES URINE NEGATIVE (NEGATIVE); BENZODIAZEPINES URINE POSITIVE (NEGATIVE); CANNABINOIDS URINE NEGATIVE (NEGATIVE); COCAINE METABOLITE URINE NEGATIVE (NEGATIVE); METHADONE URINE NEGATIVE (NEGATIVE); OPIATES URINE NEGATIVE (NEGATIVE); PHENCYCLIDINE URINE NEGATIVE (NEGATIVE)
[2018-07-16 11:02] LABS: LACTIC ACID SEPSIS PROTOCOL 9.9 MMOL/L (0.4-2.0)
[2018-07-16] MEDS: LevoFLOXacin IV 750 MG in APPROPRIATE DILUENT 1 EA IV (11:10)
[2018-07-16] MEDS: LACTULOSE 20 GM/30 ML SYRUP UD PO ×2 (11:13→18:53)
[2018-07-16] MEDS: MOXIFLOXACIN HCL 400 MG in APPROPRIATE DILUENT 1 EA IV (11:22)
[2018-07-16] MEDS ORDERED: metroNIDAZOLE 500 MG in APPROPRIATE DILUENT 1 EA IV (12:00)
[2018-07-16] MEDS ORDERED: PIPERACILLIN/TAZOBACTAM SOD 3.375 GM in D5W MINI-BAG PLUS 50 ML IV (13:00)
[2018-07-16] MEDS: ZINC SULFATE 220 MG CAP PO (13:08)
[2018-07-16] MEDS: PARoxetine 20 MG TAB PO (13:09)
[2018-07-16] MEDS: busPIRone 5 MG TAB PO ×2 (13:09→19:58)
[2018-07-16] MEDS: MIDODRINE 5 MG TAB PO ×2 (13:10→18:54)
[2018-07-16] MEDS: FERROUS SULFATE 325MG TAB PO ×2 (13:10→19:58)
[2018-07-16] MEDS: SPIRONOLACTONE 12.5MG PER 1/2 TABLET PO (13:11)
[2018-07-16] MEDS: PROPRANOLOL 20 MG TAB PO (13:11)
[2018-07-16] MEDS: MULTIVITAMIN -ADULT INJECTION 10 ML, THIAMINE INJection 100 MG, FOLIC ACID 1 MG in NS 1... IV (13:13)
[2018-07-16] MEDS: NS 500 ML IV (13:34)
[2018-07-16 13:38] LABS: PROLACTIN 22.2 NG/ML (2.1-17.7)
[2018-07-16 16:22] LABS: LACTIC ACID SEPSIS PROTOCOL 2.7 MMOL/L (0.4-2.0)
[2018-07-16] MEDS ORDERED: MEROPENEM INJ 1 GM in APPROPRIATE DILUENT 1 EA IV (18:00)
[2018-07-16] MEDS: VANCOMYCIN HCL 1,000 MG, VIAL MATE ADAPTER 1 EACH in D5W 250 ML IV ×3 (18:54→23:27)
[2018-07-16] MEDS: CHOLESTYRAMINE 4 GM PWD PKT PO (18:54)
[2018-07-16] MEDS ORDERED: LACTULOSE 20 GM/30 ML SYRUP UD PO (21:00)
[2018-07-16] MEDS: PHENYTOIN ER 100 MG CAP PO (22:34)
[2018-07-16] MEDS: MEROPENEM INJ 1 GM in APPROPRIATE DILUENT 1 EA IV (23:00)
[2018-07-17] MEDS: LACTULOSE 20 GM/30 ML SYRUP UD PO ×3 (00:22→20:00)
[2018-07-17] MEDS ORDERED: traMADol ER 100MG TABLET (ULTRAM ER) PO (04:15)
[2018-07-17] MEDS: MEROPENEM INJ 1 GM in APPROPRIATE DILUENT 1 EA IV ×3 (06:07→23:00)
[2018-07-17] MEDS: LORazepam 0.5 MG TAB PO (06:07)
[2018-07-17 06:09] LABS: BASO % 0.5 % (0.0-1.0); EOS # 0.2 10^3/uL (0.0-0.50); EOS % 2.6 % (0.0-3.0); HEMOGLOBIN 10.4 g/dl (13.5-17.5); IMMATURE GRANULOCYTE % 0.2 % (0-3.0); LYMPH # 1.5 10^3/uL (1.5-4.5); LYMPH % 22.7 % (24.0-44.0); MEAN CORPUSCULAR HEMOGLOBIN 35.4 pg (27.0-33.0); MEAN CORPUSCULAR HGB CONC 34.7 g/dl (32.0-36.5); MONO # 0.8 10^3/uL (0.0-0.8); MONO % 12.6 % (0.0-5.0); NEUTROPHILS # 3.9 10^3/uL (1.8-7.7); NEUTROPHILS % 61.4 % (36.0-66.0); RED BLOOD COUNT 2.94 10^6/uL (4.30-6.10); RED CELL DISTRIBUTION WIDTH 15.2 % (11.5-14.5); WHITE BLOOD COUNT 6.4 10^3/uL (4.0-10.0)
[2018-07-17 06:23] LABS: ALBUMIN 1.9 GM/DL (3.2-5.2); ALBUMIN/GLOBULIN RATIO 0.46 (1.00-1.93); ALKALINE PHOSPHATASE 148 U/L (45-117); ALT/SGPT 17 U/L (12-78); ANION GAP 9 MEQ/L (8-16); AST/SGOT 74 U/L (7-37); BILIRUBIN,TOTAL 5.9 MG/DL (0.2-1.0); BLOOD UREA NITROGEN 5 MG/DL (7-18); CALCIUM LEVEL 7.5 MG/DL (8.5-10.1); CARBON DIOXIDE LEVEL 27 MEQ/L (21-32); CHLORIDE LEVEL 106 MEQ/L (98-107); CREATININE FOR GFR 0.77 MG/DL (0.70-1.30); GLOMERULAR FILTRATION RATE > 60.0 (>60); GLUCOSE, FASTING 84 MG/DL (70-100); POTASSIUM SERUM 2.9 MEQ/L (3.5-5.1); SODIUM LEVEL 142 MEQ/L (136-145)
[2018-07-17 06:28] LABS: PLATELET COUNT, AUTOMATED 41 10^3/uL (150-450)
[2018-07-17] MEDS: VANCOMYCIN HCL 1,000 MG, VIAL MATE ADAPTER 1 EACH in D5W 250 ML IV ×2 (08:58→16:21)
[2018-07-17] MEDS: busPIRone 5 MG TAB PO ×2 (08:59→20:01)
[2018-07-17] MEDS: PROPRANOLOL 20 MG TAB PO (08:59)
[2018-07-17] MEDS: PHENYTOIN ER 100 MG CAP PO ×2 (08:59→20:00)
[2018-07-17] MEDS ORDERED: THIAMINE 100 MG TAB PO (09:00)
[2018-07-17] MEDS: POTASSIUM CHLORIDE 10 MEQ SR TABLET PO ×2 (09:00→11:09)
[2018-07-17] MEDS: PARoxetine 20 MG TAB PO (09:00)
[2018-07-17] MEDS: MIDODRINE 5 MG TAB PO ×3 (09:00→17:28)
[2018-07-17] MEDS: FERROUS SULFATE 325MG TAB PO ×2 (09:00→20:00)
[2018-07-17 09:35] LABS: PLATELET COUNT, AUTOMATED 46 10^3/uL (150-450)
[2018-07-17 09:36] LABS: IMMATURE PLATELET FRACTION % 8.2 % (0.0-10.9)
[2018-07-17 09:52] LABS: INR 1.89; PROTHROMBIN TIME 22.1 SECONDS (12.1-14.4)
[2018-07-17 09:53] LABS: PARTIAL THROMBOPLASTIN TIME 39.7 SECONDS (25.4-37.6)
[2018-07-17 09:54] LABS: AMMONIA 29 uMOL/L (<32)
[2018-07-17 09:57] LABS: LACTIC ACID SEPSIS PROTOCOL 1.7 MMOL/L (0.4-2.0)
[2018-07-17 09:58] LABS: FIBRINOGEN 125 MG/DL (221-452)
[2018-07-17 10:29] LABS: D-DIMER QUANT > 4000.0 ng/ml (<500)
[2018-07-17] MEDS ORDERED: MOXIFLOXACIN HCL 400 MG in APPROPRIATE DILUENT 1 EA IV (11:00)
[2018-07-17] MEDS: PHYTONADIONE 5 MG TAB PO (11:08)
[2018-07-17] MEDS: MULTIVITAMIN -ADULT INJECTION 10 ML, THIAMINE INJection 100 MG, FOLIC ACID 1 MG in NS 1... IV (11:09)
[2018-07-17] MEDS: ZINC SULFATE 220 MG CAP PO (11:25)
[2018-07-17] MEDS: CHOLESTYRAMINE 4 GM PWD PKT PO (17:28)
[2018-07-17 18:51] LABS: POTASSIUM SERUM 3.4 MEQ/L (3.5-5.1)
[2018-07-17 18:51] LABS: MAGNESIUM LEVEL 1.5 MG/DL (1.8-2.4)
[2018-07-18 00:06] LABS: HEPARIN INDUCED PLATELET ABY 0.514 OD (0.000-0.400)
[2018-07-18] MEDS: MEROPENEM INJ 1 GM in APPROPRIATE DILUENT 1 EA IV ×3 (07:00→22:49)
[2018-07-18 07:12] LABS: BASO % 0.6 % (0.0-1.0); EOS # 0.2 10^3/uL (0.0-0.50); EOS % 2.5 % (0.0-3.0); HEMATOCRIT 32.1 % (42.0-52.0); HEMOGLOBIN 11.1 g/dl (13.5-17.5); IMMATURE GRANULOCYTE % 0.1 % (0-3.0); LYMPH # 1.6 10^3/uL (1.5-4.5); LYMPH % 23.2 % (24.0-44.0); MEAN CORPUSCULAR HEMOGLOBIN 35.8 pg (27.0-33.0); MEAN CORPUSCULAR HGB CONC 34.6 g/dl (32.0-36.5); MEAN CORPUSCULAR VOLUME 103.5 fl (80.0-96.0); MONO % 14.4 % (0.0-5.0); NEUTROPHILS % 59.2 % (36.0-66.0); RED CELL DISTRIBUTION WIDTH 15.2 % (11.5-14.5); WHITE BLOOD COUNT 6.7 10^3/uL (4.0-10.0)
[2018-07-18 07:17] LABS: PLATELET COUNT, AUTOMATED 49 10^3/uL (150-450)
[2018-07-18 07:34] LABS: ALBUMIN 1.9 GM/DL (3.2-5.2); ALBUMIN/GLOBULIN RATIO 0.44 (1.00-1.93); ALKALINE PHOSPHATASE 138 U/L (45-117); ALT/SGPT 18 U/L (12-78); ANION GAP 8 MEQ/L (8-16); AST/SGOT 80 U/L (7-37); BILIRUBIN,TOTAL 3.6 MG/DL (0.2-1.0); BLOOD UREA NITROGEN 4 MG/DL (7-18); CALCIUM LEVEL 7.6 MG/DL (8.5-10.1); CARBON DIOXIDE LEVEL 25 MEQ/L (21-32); CHLORIDE LEVEL 107 MEQ/L (98-107); CREATININE FOR GFR 0.84 MG/DL (0.70-1.30); GLOMERULAR FILTRATION RATE > 60.0 (>60); GLUCOSE, FASTING 119 MG/DL (70-100); POTASSIUM SERUM 3.4 MEQ/L (3.5-5.1); SODIUM LEVEL 140 MEQ/L (136-145); TOTAL PROTEIN 6.2 GM/DL (6.4-8.2); VANCOMYCIN LEVEL TROUGH 15.9 UG/ML (10.0-20.0)
[2018-07-18] MEDS: MAG SULF 1GM/100ML (MAG RUN) 1 GM in APPROPRIATE DILUENT 1 EA IV (07:42)
[2018-07-18] MEDS: VANCOMYCIN HCL 1,000 MG, VIAL MATE ADAPTER 1 EACH in D5W 250 ML IV ×3 (09:14→16:45)
[2018-07-18] MEDS: busPIRone 5 MG TAB PO ×2 (09:19→21:03)
[2018-07-18] MEDS: PROPRANOLOL 20 MG TAB PO (09:20)
[2018-07-18] MEDS: POTASSIUM CHLORIDE 10 MEQ SR TABLET PO (09:21)
[2018-07-18] MEDS: PHYTONADIONE 5 MG TAB PO (09:21)
[2018-07-18] MEDS: MIDODRINE 5 MG TAB PO ×3 (09:21→16:45)
[2018-07-18] MEDS: PHENYTOIN ER 100 MG CAP PO ×2 (09:22→21:03)
[2018-07-18] MEDS: FERROUS SULFATE 325MG TAB PO ×2 (09:22→21:03)
[2018-07-18] MEDS: PARoxetine 20 MG TAB PO (09:22)
[2018-07-18] MEDS: LACTULOSE 20 GM/30 ML SYRUP UD PO ×2 (09:22→21:00)
[2018-07-18] MEDS: ZINC SULFATE 220 MG CAP PO (12:06)
[2018-07-18] MEDS: CHOLESTYRAMINE 4 GM PWD PKT PO (17:38)
[2018-07-19] MEDS: VANCOMYCIN HCL 1,000 MG, VIAL MATE ADAPTER 1 EACH in D5W 250 ML IV ×2 (00:04→08:24)
[2018-07-19] MEDS: MEROPENEM INJ 1 GM in APPROPRIATE DILUENT 1 EA IV (06:36)
[2018-07-19 06:38] LABS: BASO # 0.1 10^3/uL (0.0-0.2); EOS # 0.2 10^3/uL (0.0-0.50); HEMATOCRIT 32.1 % (42.0-52.0); HEMOGLOBIN 11.2 g/dl (13.5-17.5); IMMATURE GRANULOCYTE % 0.3 % (0-3.0); LYMPH # 1.4 10^3/uL (1.5-4.5); LYMPH % 22.9 % (24.0-44.0); MEAN CORPUSCULAR HEMOGLOBIN 34.9 pg (27.0-33.0); MEAN CORPUSCULAR HGB CONC 34.9 g/dl (32.0-36.5); MONO # 1.1 10^3/uL (0.0-0.8); MONO % 18.1 % (0.0-5.0); NEUTROPHILS # 3.5 10^3/uL (1.8-7.7); NEUTROPHILS % 54.7 % (36.0-66.0); RED BLOOD COUNT 3.21 10^6/uL (4.30-6.10); RED CELL DISTRIBUTION WIDTH 14.9 % (11.5-14.5); WHITE BLOOD COUNT 6.3 10^3/uL (4.0-10.0)
[2018-07-19 06:41] LABS: PLATELET COUNT, AUTOMATED 53 10^3/uL (150-450)
[2018-07-19 06:42] LABS: IMMATURE PLATELET FRACTION % 5.6 % (0.0-10.9)
[2018-07-19 06:48] LABS: INR 1.82; PROTHROMBIN TIME 21.4 SECONDS (12.1-14.4)
[2018-07-19 06:58] LABS: ALBUMIN 1.9 GM/DL (3.2-5.2); ALBUMIN/GLOBULIN RATIO 0.46 (1.00-1.93); ALKALINE PHOSPHATASE 128 U/L (45-117); ALT/SGPT 17 U/L (12-78); ANION GAP 8 MEQ/L (8-16); AST/SGOT 87 U/L (7-37); BILIRUBIN,TOTAL 3.3 MG/DL (0.2-1.0); BLOOD UREA NITROGEN 3 MG/DL (7-18); CALCIUM LEVEL 7.5 MG/DL (8.5-10.1); CARBON DIOXIDE LEVEL 27 MEQ/L (21-32); CHLORIDE LEVEL 105 MEQ/L (98-107); CREATININE FOR GFR 0.73 MG/DL (0.70-1.30); GLOMERULAR FILTRATION RATE > 60.0 (>60); GLUCOSE, FASTING 96 MG/DL (70-100); POTASSIUM SERUM 3.2 MEQ/L (3.5-5.1); SODIUM LEVEL 140 MEQ/L (136-145)
[2018-07-19] MEDS: MIDODRINE 5 MG TAB PO ×3 (08:24→16:10)
[2018-07-19] MEDS: PHYTONADIONE 5 MG TAB PO (08:28)
[2018-07-19] MEDS: LACTULOSE 20 GM/30 ML SYRUP UD PO ×2 (08:28→20:22)
[2018-07-19] MEDS: PARoxetine 20 MG TAB PO (08:29)
[2018-07-19] MEDS: ZINC SULFATE 220 MG CAP PO (08:29)
[2018-07-19] MEDS: busPIRone 5 MG TAB PO ×2 (08:29→20:22)
[2018-07-19] MEDS: PHENYTOIN ER 100 MG CAP PO ×2 (08:30→20:22)
[2018-07-19] MEDS: POTASSIUM CHLORIDE 10 MEQ SR TABLET PO ×2 (08:30→10:05)
[2018-07-19] MEDS: FERROUS SULFATE 325MG TAB PO ×2 (08:30→20:21)
[2018-07-19] MEDS: PROPRANOLOL 20 MG TAB PO (08:32)
[2018-07-19] MEDS: MOXIFLOXACIN 400 MG TAB PO (13:08)
[2018-07-19 13:34] LABS: AMMONIA 28 uMOL/L (<32)
[2018-07-19 13:36] LABS: PHENYTOIN (DILANTIN) 5.7 UG/ML (10.0-20.0)
[2018-07-19 13:53] LABS: PROLACTIN 31.3 NG/ML (2.1-17.7)
[2018-07-19 14:03] LABS: FOLATE 12.9 NG/ML (>5.4)
[2018-07-19 14:03] LABS: VITAMIN B12 LEVEL 1897 PG/ML (247-911)
[2018-07-19] MEDS: levETIRAcetam INJection 500 MG in D5W MINI-BAG PLUS 100 ML IV (14:07)
[2018-07-19] MEDS: CHOLESTYRAMINE 4 GM PWD PKT PO (17:59)
[2018-07-19 21:26] LABS: AMPHETAMINES LEVEL URINE NEGATIVE (NEGATIVE); BARBITURATES URINE NEGATIVE (NEGATIVE); BENZODIAZEPINES URINE NEGATIVE (NEGATIVE); CANNABINOIDS URINE NEGATIVE (NEGATIVE); COCAINE METABOLITE URINE NEGATIVE (NEGATIVE); METHADONE URINE NEGATIVE (NEGATIVE); OPIATES URINE NEGATIVE (NEGATIVE); PHENCYCLIDINE URINE NEGATIVE (NEGATIVE)
[2018-07-20] MEDS: levETIRAcetam INJection 500 MG in D5W MINI-BAG PLUS 100 ML IV ×2 (02:14→13:19)
[2018-07-20] MEDS: MOXIFLOXACIN 400 MG TAB PO (05:44)
[2018-07-20 06:24] LABS: BASO % 0.5 % (0.0-1.0); EOS # 0.1 10^3/uL (0.0-0.50); EOS % 1.8 % (0.0-3.0); HEMATOCRIT 34.3 % (42.0-52.0); HEMOGLOBIN 11.7 g/dl (13.5-17.5); IMMATURE GRANULOCYTE % 0.4 % (0-3.0); LYMPH # 1.3 10^3/uL (1.5-4.5); LYMPH % 22.8 % (24.0-44.0); MEAN CORPUSCULAR HEMOGLOBIN 35.3 pg (27.0-33.0); MEAN CORPUSCULAR HGB CONC 34.1 g/dl (32.0-36.5); MEAN CORPUSCULAR VOLUME 103.6 fl (80.0-96.0); MONO # 1.2 10^3/uL (0.0-0.8); MONO % 20.1 % (0.0-5.0); NEUTROPHILS # 3.1 10^3/uL (1.8-7.7); NEUTROPHILS % 54.4 % (36.0-66.0); RED BLOOD COUNT 3.31 10^6/uL (4.30-6.10); RED CELL DISTRIBUTION WIDTH 15.4 % (11.5-14.5); WHITE BLOOD COUNT 5.7 10^3/uL (4.0-10.0)
[2018-07-20 06:25] LABS: PLATELET COUNT, AUTOMATED 60 10^3/uL (150-450)
[2018-07-20 06:36] LABS: INR 1.84; PROTHROMBIN TIME 21.6 SECONDS (12.1-14.4)
[2018-07-20 06:45] LABS: ALBUMIN 1.9 GM/DL (3.2-5.2); ALBUMIN/GLOBULIN RATIO 0.48 (1.00-1.93); ALKALINE PHOSPHATASE 129 U/L (45-117); ALT/SGPT 18 U/L (12-78); ANION GAP 7 MEQ/L (8-16); AST/SGOT 98 U/L (7-37); BILIRUBIN,TOTAL 3.5 MG/DL (0.2-1.0); BLOOD UREA NITROGEN 2 MG/DL (7-18); CALCIUM LEVEL 7.7 MG/DL (8.5-10.1); CARBON DIOXIDE LEVEL 29 MEQ/L (21-32); CHLORIDE LEVEL 105 MEQ/L (98-107); CREATININE FOR GFR 0.75 MG/DL (0.70-1.30); GLOMERULAR FILTRATION RATE > 60.0 (>60); GLUCOSE, FASTING 95 MG/DL (70-100); POTASSIUM SERUM 3.8 MEQ/L (3.5-5.1); SODIUM LEVEL 141 MEQ/L (136-145); TOTAL PROTEIN 5.9 GM/DL (6.4-8.2)
[2018-07-20] MEDS: MIDODRINE 5 MG TAB PO ×4 (08:00→15:22)
[2018-07-20] MEDS: POTASSIUM CHLORIDE 10 MEQ SR TABLET PO (08:42)
[2018-07-20] MEDS: LACTULOSE 20 GM/30 ML SYRUP UD PO ×2 (08:42→22:05)
[2018-07-20] MEDS: FERROUS SULFATE 325MG TAB PO ×2 (08:43→22:06)
[2018-07-20] MEDS: PHENYTOIN ER 100 MG CAP PO ×2 (08:43→22:06)
[2018-07-20] MEDS: PROPRANOLOL 20 MG TAB PO (08:43)
[2018-07-20] MEDS: busPIRone 5 MG TAB PO ×2 (08:43→22:06)
[2018-07-20] MEDS: ZINC SULFATE 220 MG CAP PO (08:43)
[2018-07-20] MEDS: PHYTONADIONE 5 MG TAB PO (08:44)
[2018-07-20] MEDS: PARoxetine 20 MG TAB PO (08:44)
[2018-07-20] MEDS: CHOLESTYRAMINE 4 GM PWD PKT PO (17:13)
[2018-07-21] MEDS: levETIRAcetam INJection 500 MG in D5W MINI-BAG PLUS 100 ML IV ×2 (02:43→15:37)
[2018-07-21] MEDS: MOXIFLOXACIN 400 MG TAB PO (05:40)
[2018-07-21 06:13] LABS: BASO # 0.1 10^3/uL (0.0-0.2); BASO % 0.9 % (0.0-1.0); EOS # 0.2 10^3/uL (0.0-0.50); EOS % 3.4 % (0.0-3.0); HEMATOCRIT 32.4 % (42.0-52.0); HEMOGLOBIN 11.3 g/dl (13.5-17.5); IMMATURE GRANULOCYTE % 0.2 % (0-3.0); LYMPH # 1.5 10^3/uL (1.5-4.5); MEAN CORPUSCULAR HEMOGLOBIN 35.3 pg (27.0-33.0); MEAN CORPUSCULAR HGB CONC 34.9 g/dl (32.0-36.5); MEAN CORPUSCULAR VOLUME 101.3 fl (80.0-96.0); MONO # 1.2 10^3/uL (0.0-0.8); MONO % 20.7 % (0.0-5.0); NEUTROPHILS # 2.9 10^3/uL (1.8-7.7); NEUTROPHILS % 49.8 % (36.0-66.0); RED CELL DISTRIBUTION WIDTH 15.8 % (11.5-14.5); WHITE BLOOD COUNT 5.9 10^3/uL (4.0-10.0)
[2018-07-21 06:20] LABS: PLATELET COUNT, AUTOMATED 65 10^3/uL (150-450)
[2018-07-21 06:28] LABS: INR 1.86; PROTHROMBIN TIME 21.8 SECONDS (12.1-14.4)
[2018-07-21 06:38] LABS: ALBUMIN 1.9 GM/DL (3.2-5.2); ALBUMIN/GLOBULIN RATIO 0.48 (1.00-1.93); ALKALINE PHOSPHATASE 124 U/L (45-117); ALT/SGPT 18 U/L (12-78); ANION GAP 7 MEQ/L (8-16); AST/SGOT 84 U/L (7-37); BILIRUBIN,TOTAL 2.9 MG/DL (0.2-1.0); BLOOD UREA NITROGEN 3 MG/DL (7-18); CALCIUM LEVEL 7.9 MG/DL (8.5-10.1); CARBON DIOXIDE LEVEL 28 MEQ/L (21-32); CHLORIDE LEVEL 104 MEQ/L (98-107); CREATININE FOR GFR 0.75 MG/DL (0.70-1.30); GLOMERULAR FILTRATION RATE > 60.0 (>60); GLUCOSE, FASTING 109 MG/DL (70-100); POTASSIUM SERUM 3.8 MEQ/L (3.5-5.1); SODIUM LEVEL 139 MEQ/L (136-145); TOTAL PROTEIN 5.9 GM/DL (6.4-8.2)
[2018-07-21 08:01] LABS: PHENYTOIN (DILANTIN) 8.7 UG/ML (10.0-20.0)
[2018-07-21] MEDS: LACTULOSE 20 GM/30 ML SYRUP UD PO ×2 (08:27→21:32)
[2018-07-21] MEDS: busPIRone 5 MG TAB PO ×2 (08:27→21:32)
[2018-07-21] MEDS: PROPRANOLOL 20 MG TAB PO (08:27)
[2018-07-21] MEDS: PARoxetine 20 MG TAB PO (08:28)
[2018-07-21] MEDS: MIDODRINE 5 MG TAB PO ×3 (08:28→15:37)
[2018-07-21] MEDS: FERROUS SULFATE 325MG TAB PO ×2 (08:28→21:32)
[2018-07-21] MEDS: PHENYTOIN ER 100 MG CAP PO ×2 (08:28→21:32)
[2018-07-21] MEDS: ZINC SULFATE 220 MG CAP PO (08:28)
[2018-07-21] MEDS: PHYTONADIONE 5 MG TAB PO (08:28)
[2018-07-21] MEDS: POTASSIUM CHLORIDE 10 MEQ SR TABLET PO (08:28)
[2018-07-21 16:27] LABS: TYPE AND SCREEN 1
[2018-07-21] MEDS: CHOLESTYRAMINE 4 GM PWD PKT PO (17:15)
[2018-07-21 19:06] LABS: INR 1.55; PROTHROMBIN TIME 18.8 SECONDS (12.1-14.4)
[2018-07-22] MEDS: levETIRAcetam INJection 500 MG in D5W MINI-BAG PLUS 100 ML IV ×2 (02:13→13:36)
[2018-07-22 03:14] LABS: BASO % 0.5 % (0.0-1.0); EOS # 0.2 10^3/uL (0.0-0.50); EOS % 2.8 % (0.0-3.0); HEMATOCRIT 32.8 % (42.0-52.0); HEMOGLOBIN 11.3 g/dl (13.5-17.5); IMMATURE GRANULOCYTE % 0.5 % (0-3.0); LYMPH # 1.5 10^3/uL (1.5-4.5); LYMPH % 25.7 % (24.0-44.0); MEAN CORPUSCULAR HEMOGLOBIN 35.6 pg (27.0-33.0); MEAN CORPUSCULAR HGB CONC 34.5 g/dl (32.0-36.5); MEAN CORPUSCULAR VOLUME 103.5 fl (80.0-96.0); MONO # 1.3 10^3/uL (0.0-0.8); MONO % 23.7 % (0.0-5.0); NEUTROPHILS # 2.6 10^3/uL (1.8-7.7); NEUTROPHILS % 46.8 % (36.0-66.0); RED BLOOD COUNT 3.17 10^6/uL (4.30-6.10); RED CELL DISTRIBUTION WIDTH 15.5 % (11.5-14.5); WHITE BLOOD COUNT 5.7 10^3/uL (4.0-10.0)
[2018-07-22 03:15] LABS: PLATELET COUNT, AUTOMATED 71 10^3/uL (150-450)
[2018-07-22 03:16] LABS: IMMATURE PLATELET FRACTION % 3.1 % (0.0-10.9)
[2018-07-22 03:24] LABS: INR 1.56; PROTHROMBIN TIME 18.9 SECONDS (12.1-14.4)
[2018-07-22 03:29] LABS: ALBUMIN 2.1 GM/DL (3.2-5.2); ALBUMIN/GLOBULIN RATIO 0.51 (1.00-1.93); ALKALINE PHOSPHATASE 124 U/L (45-117); ALT/SGPT 18 U/L (12-78); ANION GAP 5 MEQ/L (8-16); AST/SGOT 75 U/L (7-37); BILIRUBIN,TOTAL 2.8 MG/DL (0.2-1.0); BLOOD UREA NITROGEN 4 MG/DL (7-18); CALCIUM LEVEL 7.8 MG/DL (8.5-10.1); CARBON DIOXIDE LEVEL 30 MEQ/L (21-32); CHLORIDE LEVEL 103 MEQ/L (98-107); CREATININE FOR GFR 0.82 MG/DL (0.70-1.30); GLOMERULAR FILTRATION RATE > 60.0 (>60); GLUCOSE, FASTING 95 MG/DL (70-100); MAGNESIUM LEVEL 1.4 MG/DL (1.8-2.4); POTASSIUM SERUM 3.9 MEQ/L (3.5-5.1); SODIUM LEVEL 138 MEQ/L (136-145); TOTAL PROTEIN 6.2 GM/DL (6.4-8.2)
[2018-07-22] MEDS: MOXIFLOXACIN 400 MG TAB PO (06:18)
[2018-07-22 09:12] LABS: TYPE AND SCREEN 1
[2018-07-22] MEDS: PHENYTOIN ER 100 MG CAP PO ×2 (09:21→20:31)
[2018-07-22] MEDS: LACTULOSE 20 GM/30 ML SYRUP UD PO ×2 (09:21→20:33)
[2018-07-22] MEDS: PROPRANOLOL 20 MG TAB PO (09:22)
[2018-07-22] MEDS: busPIRone 5 MG TAB PO ×2 (09:22→20:30)
[2018-07-22] MEDS: PHYTONADIONE 5 MG TAB PO (09:22)
[2018-07-22] MEDS: MIDODRINE 5 MG TAB PO ×3 (09:23→16:02)
[2018-07-22] MEDS: FERROUS SULFATE 325MG TAB PO ×2 (09:23→20:30)
[2018-07-22] MEDS: POTASSIUM CHLORIDE 10 MEQ SR TABLET PO (09:23)
[2018-07-22] MEDS: PARoxetine 20 MG TAB PO (09:23)
[2018-07-22] MEDS: ZINC SULFATE 220 MG CAP PO (09:23)
[2018-07-22] MEDS: MAG SULF 1GM/100ML (MAG RUN) 1 GM in APPROPRIATE DILUENT 1 EA IV (12:15)
[2018-07-22 17:02] LABS: TYPE AND SCREEN 1
[2018-07-22] MEDS: CHOLESTYRAMINE 4 GM PWD PKT PO (17:28)
[2018-07-23] MEDS: levETIRAcetam INJection 500 MG in D5W MINI-BAG PLUS 100 ML IV (02:00)
[2018-07-23] MEDS: MOXIFLOXACIN 400 MG TAB PO (05:43)
[2018-07-23 06:28] LABS: BASO % 0.5 % (0.0-1.0); EOS # 0.2 10^3/uL (0.0-0.50); EOS % 2.7 % (0.0-3.0); HEMATOCRIT 34.5 % (42.0-52.0); HEMOGLOBIN 11.7 g/dl (13.5-17.5); IMMATURE GRANULOCYTE % 0.2 % (0-3.0); LYMPH # 1.4 10^3/uL (1.5-4.5); MEAN CORPUSCULAR HEMOGLOBIN 35.6 pg (27.0-33.0); MEAN CORPUSCULAR HGB CONC 33.9 g/dl (32.0-36.5); MEAN CORPUSCULAR VOLUME 104.9 fl (80.0-96.0); MONO # 1.4 10^3/uL (0.0-0.8); MONO % 25.6 % (0.0-5.0); NEUTROPHILS # 2.5 10^3/uL (1.8-7.7); RED BLOOD COUNT 3.29 10^6/uL (4.30-6.10); RED CELL DISTRIBUTION WIDTH 15.1 % (11.5-14.5); WHITE BLOOD COUNT 5.5 10^3/uL (4.0-10.0)
[2018-07-23 06:31] LABS: PLATELET COUNT, AUTOMATED 78 10^3/uL (150-450)
[2018-07-23 06:32] LABS: IMMATURE PLATELET FRACTION % 3.6 % (0.0-10.9)
[2018-07-23 06:36] LABS: INR 1.61; PROTHROMBIN TIME 19.4 SECONDS (12.1-14.4)
[2018-07-23 06:45] LABS: ALBUMIN 2.4 GM/DL (3.2-5.2); ALBUMIN/GLOBULIN RATIO 0.57 (1.00-1.93); ALKALINE PHOSPHATASE 124 U/L (45-117); ALT/SGPT 19 U/L (12-78); ANION GAP 5 MEQ/L (8-16); AST/SGOT 60 U/L (7-37); BILIRUBIN,TOTAL 2.5 MG/DL (0.2-1.0); BLOOD UREA NITROGEN 4 MG/DL (7-18); CARBON DIOXIDE LEVEL 30 MEQ/L (21-32); CHLORIDE LEVEL 103 MEQ/L (98-107); CREATININE FOR GFR 0.73 MG/DL (0.70-1.30); GLOMERULAR FILTRATION RATE > 60.0 (>60); GLUCOSE, FASTING 97 MG/DL (70-100); MAGNESIUM LEVEL 1.8 MG/DL (1.8-2.4); PHENYTOIN (DILANTIN) 13.5 UG/ML (10.0-20.0); POTASSIUM SERUM 4.3 MEQ/L (3.5-5.1); SODIUM LEVEL 138 MEQ/L (136-145); TOTAL PROTEIN 6.6 GM/DL (6.4-8.2)
[2018-07-23] MEDS: MIDODRINE 5 MG TAB PO ×4 (08:54→16:30)
[2018-07-23] MEDS: POTASSIUM CHLORIDE 10 MEQ SR TABLET PO (08:54)
[2018-07-23] MEDS: busPIRone 5 MG TAB PO ×2 (08:54→21:10)
[2018-07-23] MEDS: PHYTONADIONE 5 MG TAB PO (08:55)
[2018-07-23] MEDS: PHENYTOIN ER 100 MG CAP PO ×3 (08:55→21:10)
[2018-07-23] MEDS: ZINC SULFATE 220 MG CAP PO (08:55)
[2018-07-23] MEDS: PARoxetine 20 MG TAB PO (08:55)
[2018-07-23] MEDS: LACTULOSE 20 GM/30 ML SYRUP UD PO ×2 (09:05→21:10)
[2018-07-23] MEDS: FERROUS SULFATE 325MG TAB PO ×2 (09:05→21:09)
[2018-07-23] MEDS: PROPRANOLOL 20 MG TAB PO (09:06)
[2018-07-23] MEDS ORDERED: PILL CRUSHER/CUTTER 1 EACH XX (13:30)
[2018-07-23] MEDS: GABAPENTIN 100 MG CAP PO ×2 (14:08→21:09)
[2018-07-23] MEDS: CHOLESTYRAMINE 4 GM PWD PKT PO (18:05)
[2018-07-23] MEDS: PROPRANOLOL 10 MG TAB PO (21:12)
[2018-07-24] MEDS: MOXIFLOXACIN 400 MG TAB PO (06:35)
[2018-07-24 06:56] LABS: BASO % 0.8 % (0.0-1.0); EOS # 0.1 10^3/uL (0.0-0.50); EOS % 2.1 % (0.0-3.0); HEMOGLOBIN 11.9 g/dl (13.5-17.5); IMMATURE GRANULOCYTE % 0.2 % (0-3.0); LYMPH # 1.5 10^3/uL (1.5-4.5); LYMPH % 27.7 % (24.0-44.0); MEAN CORPUSCULAR HEMOGLOBIN 35.7 pg (27.0-33.0); MEAN CORPUSCULAR VOLUME 105.1 fl (80.0-96.0); MONO # 1.3 10^3/uL (0.0-0.8); MONO % 24.5 % (0.0-5.0); NEUTROPHILS # 2.4 10^3/uL (1.8-7.7); NEUTROPHILS % 44.7 % (36.0-66.0); RED BLOOD COUNT 3.33 10^6/uL (4.30-6.10); RED CELL DISTRIBUTION WIDTH 14.7 % (11.5-14.5); WHITE BLOOD COUNT 5.3 10^3/uL (4.0-10.0)
[2018-07-24 06:57] LABS: PLATELET COUNT, AUTOMATED 82 10^3/uL (150-450)
[2018-07-24 07:12] LABS: ALBUMIN 2.4 GM/DL (3.2-5.2); ALBUMIN/GLOBULIN RATIO 0.56 (1.00-1.93); ALKALINE PHOSPHATASE 116 U/L (45-117); ALT/SGPT 19 U/L (12-78); ANION GAP 7 MEQ/L (8-16); AST/SGOT 50 U/L (7-37); BILIRUBIN,TOTAL 2.1 MG/DL (0.2-1.0); BLOOD UREA NITROGEN 4 MG/DL (7-18); CARBON DIOXIDE LEVEL 29 MEQ/L (21-32); CHLORIDE LEVEL 106 MEQ/L (98-107); CREATININE FOR GFR 0.88 MG/DL (0.70-1.30); GLOMERULAR FILTRATION RATE > 60.0 (>60); GLUCOSE, FASTING 108 MG/DL (70-100); MAGNESIUM LEVEL 1.9 MG/DL (1.8-2.4); POTASSIUM SERUM 4.3 MEQ/L (3.5-5.1); SODIUM LEVEL 142 MEQ/L (136-145); TOTAL PROTEIN 6.7 GM/DL (6.4-8.2)
[2018-07-24] MEDS: MIDODRINE 5 MG TAB PO ×3 (08:28→16:26)
[2018-07-24] MEDS: ZINC SULFATE 220 MG CAP PO (08:29)
[2018-07-24] MEDS: busPIRone 5 MG TAB PO ×2 (08:29→20:58)
[2018-07-24] MEDS: PHYTONADIONE 5 MG TAB PO (08:30)
[2018-07-24] MEDS: FERROUS SULFATE 325MG TAB PO ×2 (08:30→20:58)
[2018-07-24] MEDS: PARoxetine 20 MG TAB PO (08:30)
[2018-07-24] MEDS: LACTULOSE 20 GM/30 ML SYRUP UD PO ×2 (08:31→20:58)
[2018-07-24] MEDS: POTASSIUM CHLORIDE 10 MEQ SR TABLET PO (08:31)
[2018-07-24] MEDS: PROPRANOLOL 10 MG TAB PO ×2 (08:32→21:00)
[2018-07-24] MEDS: PHENYTOIN ER 100 MG CAP PO ×3 (08:32→20:58)
[2018-07-24] MEDS: GABAPENTIN 100 MG CAP PO ×2 (08:42→20:58)
[2018-07-24 16:10] LABS: TYPE AND SCREEN 1
[2018-07-24] MEDS: CHOLESTYRAMINE 4 GM PWD PKT PO (18:39)
[2018-07-25] MEDS: MOXIFLOXACIN 400 MG TAB PO (05:29)
[2018-07-25 06:24] LABS: BASO # 0.1 10^3/uL (0.0-0.2); BASO % 0.8 % (0.0-1.0); EOS # 0.1 10^3/uL (0.0-0.50); EOS % 2.1 % (0.0-3.0); HEMATOCRIT 36.4 % (42.0-52.0); HEMOGLOBIN 12.1 g/dl (13.5-17.5); IMMATURE GRANULOCYTE % 0.3 % (0-3.0); LYMPH # 1.7 10^3/uL (1.5-4.5); MEAN CORPUSCULAR HEMOGLOBIN 35.2 pg (27.0-33.0); MEAN CORPUSCULAR HGB CONC 33.2 g/dl (32.0-36.5); MEAN CORPUSCULAR VOLUME 105.8 fl (80.0-96.0); MONO # 1.6 10^3/uL (0.0-0.8); MONO % 25.4 % (0.0-5.0); NEUTROPHILS # 2.8 10^3/uL (1.8-7.7); NEUTROPHILS % 44.4 % (36.0-66.0); RED BLOOD COUNT 3.44 10^6/uL (4.30-6.10); RED CELL DISTRIBUTION WIDTH 14.8 % (11.5-14.5); WHITE BLOOD COUNT 6.2 10^3/uL (4.0-10.0)
[2018-07-25 06:28] LABS: PLATELET COUNT, AUTOMATED 92 10^3/uL (150-450)
[2018-07-25 06:30] LABS: ALBUMIN 2.7 GM/DL (3.2-5.2); ALBUMIN/GLOBULIN RATIO 0.66 (1.00-1.93); ALKALINE PHOSPHATASE 108 U/L (45-117); ALT/SGPT 17 U/L (12-78); ANION GAP 7 MEQ/L (8-16); AST/SGOT 42 U/L (7-37); BILIRUBIN,TOTAL 2.1 MG/DL (0.2-1.0); BLOOD UREA NITROGEN 4 MG/DL (7-18); CALCIUM LEVEL 7.8 MG/DL (8.5-10.1); CARBON DIOXIDE LEVEL 27 MEQ/L (21-32); CHLORIDE LEVEL 106 MEQ/L (98-107); CREATININE FOR GFR 0.84 MG/DL (0.70-1.30); GLOMERULAR FILTRATION RATE > 60.0 (>60); GLUCOSE, FASTING 99 MG/DL (70-100); MAGNESIUM LEVEL 1.8 MG/DL (1.8-2.4); POTASSIUM SERUM 3.7 MEQ/L (3.5-5.1); SODIUM LEVEL 140 MEQ/L (136-145); TOTAL PROTEIN 6.8 GM/DL (6.4-8.2)
[2018-07-25] MEDS: MIDODRINE 5 MG TAB PO ×4 (08:00→15:47)
[2018-07-25] MEDS: LACTULOSE 20 GM/30 ML SYRUP UD PO ×2 (08:29→21:21)
[2018-07-25] MEDS: busPIRone 5 MG TAB PO ×2 (08:31→21:21)
[2018-07-25] MEDS: PARoxetine 20 MG TAB PO (08:31)
[2018-07-25] MEDS: GABAPENTIN 100 MG CAP PO ×3 (08:32→21:21)
[2018-07-25] MEDS: PHENYTOIN ER 100 MG CAP PO ×3 (08:32→21:21)
[2018-07-25] MEDS: PHYTONADIONE 5 MG TAB PO (08:32)
[2018-07-25] MEDS: ZINC SULFATE 220 MG CAP PO (08:33)
[2018-07-25] MEDS: FERROUS SULFATE 325MG TAB PO ×2 (08:33→21:21)
[2018-07-25] MEDS: POTASSIUM CHLORIDE 10 MEQ SR TABLET PO (08:34)
[2018-07-25] MEDS: PROPRANOLOL 10 MG TAB PO (08:35)
[2018-07-25] MEDS: CHOLESTYRAMINE 4 GM PWD PKT PO (19:25)
[2018-07-26] MEDS: MIDODRINE 5 MG TAB PO ×2 (06:11→11:39)
[2018-07-26] MEDS: MOXIFLOXACIN 400 MG TAB PO (06:11)
[2018-07-26 07:51] LABS: BASO # 0.1 10^3/uL (0.0-0.2); BASO % 1.3 % (0.0-1.0); EOS # 0.1 10^3/uL (0.0-0.50); EOS % 1.8 % (0.0-3.0); HEMATOCRIT 34.6 % (42.0-52.0); HEMOGLOBIN 11.7 g/dl (13.5-17.5); IMMATURE GRANULOCYTE % 0.2 % (0-3.0); LYMPH # 1.4 10^3/uL (1.5-4.5); LYMPH % 26.2 % (24.0-44.0); MEAN CORPUSCULAR HEMOGLOBIN 35.2 pg (27.0-33.0); MEAN CORPUSCULAR HGB CONC 33.8 g/dl (32.0-36.5); MEAN CORPUSCULAR VOLUME 104.2 fl (80.0-96.0); MONO # 1.3 10^3/uL (0.0-0.8); MONO % 24.4 % (0.0-5.0); NEUTROPHILS # 2.5 10^3/uL (1.8-7.7); NEUTROPHILS % 46.1 % (36.0-66.0); PLATELET COUNT, AUTOMATED 107 10^3/uL (150-450); RED BLOOD COUNT 3.32 10^6/uL (4.30-6.10); RED CELL DISTRIBUTION WIDTH 14.6 % (11.5-14.5); WHITE BLOOD COUNT 5.5 10^3/uL (4.0-10.0)
[2018-07-26] MEDS: POTASSIUM CHLORIDE 10 MEQ SR TABLET PO (09:00)
[2018-07-26 09:21] LABS: ALBUMIN 2.7 GM/DL (3.2-5.2); ALBUMIN/GLOBULIN RATIO 0.66 (1.00-1.93); ALKALINE PHOSPHATASE 113 U/L (45-117); ALT/SGPT 18 U/L (12-78); ANION GAP 7 MEQ/L (8-16); AST/SGOT 45 U/L (7-37); BILIRUBIN,TOTAL 2.2 MG/DL (0.2-1.0); BLOOD UREA NITROGEN 3 MG/DL (7-18); CALCIUM LEVEL 8.3 MG/DL (8.5-10.1); CARBON DIOXIDE LEVEL 28 MEQ/L (21-32); CHLORIDE LEVEL 107 MEQ/L (98-107); CREATININE FOR GFR 0.94 MG/DL (0.70-1.30); GLOMERULAR FILTRATION RATE > 60.0 (>60); GLUCOSE, FASTING 134 MG/DL (70-100); MAGNESIUM LEVEL 1.7 MG/DL (1.8-2.4); POTASSIUM SERUM 5.1 MEQ/L (3.5-5.1); SODIUM LEVEL 142 MEQ/L (136-145); TOTAL PROTEIN 6.8 GM/DL (6.4-8.2)
[2018-07-26] MEDS: PARoxetine 20 MG TAB PO (10:05)
[2018-07-26] MEDS: ZINC SULFATE 220 MG CAP PO (10:06)
[2018-07-26] MEDS: PHENYTOIN ER 100 MG CAP PO (10:06)
[2018-07-26] MEDS: busPIRone 5 MG TAB PO (10:06)
[2018-07-26] MEDS: GABAPENTIN 100 MG CAP PO (10:06)
[2018-07-26] MEDS: FERROUS SULFATE 325MG TAB PO (10:06)
[2018-07-26] MEDS: PHYTONADIONE 5 MG TAB PO (10:07)
[2018-07-26] MEDS: LACTULOSE 20 GM/30 ML SYRUP UD PO (10:07)
[2018-07-26] MEDS: PROPRANOLOL 10 MG TAB PO (10:09)
== END 2018-07-26 14:15 | disposition home or self-care (01) | DRG 720 ==
LOC: M MS5PR 07-21 13:19 → M ED 08:50 → M ED INP 10:28 → M MS5PR 16:45
PROC: 30233K1 Transfusion of Nonautologous Frozen Plasma into Peripheral Vein, Percutaneous Approach (ICD-10-PCS; 2018-07-21)
PROC: 0W9G3ZZ Drainage of Peritoneal Cavity, Percutaneous Approach (ICD-10-PCS; principal; 2018-07-22)
PROC: 30233J1 Transfusion of Nonautologous Serum Albumin into Peripheral Vein, Percutaneous Approach (ICD-10-PCS; 2018-07-22)
DX: A41.9 Sepsis, unspecified organism (principal); G93.41 Metabolic encephalopathy; D68.4 Acquired coagulation factor deficiency; K76.6 Portal hypertension; E46 Unspecified protein-calorie malnutrition; E87.2 Acidosis; J18.9 Pneumonia, unspecified organism; D69.59 Other secondary thrombocytopenia; K70.31 Alcoholic cirrhosis of liver with ascites; K72.90 Hepatic failure, unspecified without coma; D63.8 Anemia in other chronic diseases classified elsewhere; F10.20 Alcohol dependence, uncomplicated; R20.0 Anesthesia of skin; I95.1 Orthostatic hypotension; G40.909 Epilepsy, unspecified, not intractable, without status epilepticus; F32.9 Major depressive disorder, single episode, unspecified; R26.81 Unsteadiness on feet; K02.9 Dental caries, unspecified; K52.9 Noninfective gastroenteritis and colitis, unspecified; Z88.0 Allergy status to penicillin; Z88.5 Allergy status to narcotic agent; Z88.8 Allergy status to other drugs, medicaments and biological substances; Z79.899 Other long term (current) drug therapy; Z91.14 Patient's other noncompliance with medication regimen; Y95 Nosocomial condition

== ENCOUNTER 2018-08-25 08:38 | Inpatient (IN) | payer OTHER ==
[2018-08-25] MEDS: METOCLOPRAMIDE INJ 10MG/2ML VIAL (J2765) IV (09:33)
[2018-08-25 09:41] LABS: BASO # 0.1 10^3/uL (0.0-0.2); BASO % 1.2 % (0.0-1.0); EOS % 0.7 % (0.0-3.0); HEMATOCRIT 31.5 % (42.0-52.0); HEMOGLOBIN 11.4 g/dl (13.5-17.5); IMMATURE GRANULOCYTE % 0.4 % (0-3.0); LYMPH # 1.1 10^3/uL (1.5-4.5); LYMPH % 18.4 % (24.0-44.0); MEAN CORPUSCULAR HEMOGLOBIN 34.9 pg (27.0-33.0); MEAN CORPUSCULAR HGB CONC 36.2 g/dl (32.0-36.5); MEAN CORPUSCULAR VOLUME 96.3 fl (80.0-96.0); MONO # 0.7 10^3/uL (0.0-0.8); MONO % 12.5 % (0.0-5.0); NEUTROPHILS # 3.8 10^3/uL (1.8-7.7); NEUTROPHILS % 66.8 % (36.0-66.0); RED BLOOD COUNT 3.27 10^6/uL (4.30-6.10); RED CELL DISTRIBUTION WIDTH 15.3 % (11.5-14.5); WHITE BLOOD COUNT 5.7 10^3/uL (4.0-10.0)
[2018-08-25 09:54] LABS: INR 1.81; PROTHROMBIN TIME 21.3 SECONDS (12.1-14.4)
[2018-08-25 09:59] LABS: POS COUNT POS FLAG
[2018-08-25 09:59] LABS: AMMONIA 30 uMOL/L (<32)
[2018-08-25 10:00] LABS: PLATELET COUNT, AUTOMATED 24 10^3/uL (150-450)
[2018-08-25 10:21] LABS: ALBUMIN 1.8 GM/DL (3.2-5.2); ALKALINE PHOSPHATASE 147 U/L (45-117); ALT/SGPT 14 U/L (12-78); ANION GAP 8 MEQ/L (8-16); AST/SGOT 77 U/L (7-37); BILIRUBIN,DIRECT 2.8 MG/DL (0.0-0.2); BILIRUBIN,TOTAL 5.4 MG/DL (0.2-1.0); BLOOD UREA NITROGEN 5 MG/DL (7-18); CALCIUM LEVEL 6.5 MG/DL (8.5-10.1); CARBON DIOXIDE LEVEL 31 MEQ/L (21-32); CHLORIDE LEVEL 105 MEQ/L (98-107); CPK CREATINE PHOSPHOKINASE 201 U/L (39-308); CREATININE FOR GFR 0.45 MG/DL (0.70-1.30); ETHYL ALCOHOL (ETHANOL) 0.021 % (0.000-0.010); GLOMERULAR FILTRATION RATE > 60.0 (>60); GLUCOSE, FASTING 93 MG/DL (70-100); LIPASE 448 U/L (73-393); MB/CK RELATIVE INDEX 1.04 (< OR =4); PHENYTOIN (DILANTIN) 4.6 UG/ML (10.0-20.0); POTASSIUM SERUM 2.5 MEQ/L (3.5-5.1); SODIUM LEVEL 144 MEQ/L (136-145); TOTAL PROTEIN 5.4 GM/DL (6.4-8.2); TROPONIN I 0.06 NG/ML (< 0.10)
[2018-08-25 11:08] LABS: ABG BASE EXCESS 13.8 (-2.0-2.0); ABG HCO3 38.9 MEQ/L (22.0-26.0); ABG O2 SATURATION 92.1 % (95.0-99.0); ABG PARTIAL PRESSURE CO2 49.9 mmHg (35.0-45.0); ABG PARTIAL PRESSURE O2 61.4 mmHg (75.0-100.0); ABG STANDARD HCO3 37.5 MEQ/L (22.0-26.0); ABG TOTAL CO2 40.5 MEQ/L (22.0-29.0)
[2018-08-25] MEDS: POTASSIUM CHLORIDE 10 MEQ SR TABLET PO ×2 (11:18→13:00)
[2018-08-25] MEDS: KCL 10MEQ/100ML SWI (KRUN) 10 MEQ in APPROPRIATE DILUENT 1 EA IV (11:18)
[2018-08-25] MEDS: MORPHINE 2 MG/ML 1ML SYRINGE (J2270) IV (11:19)
[2018-08-25 11:43] LABS: AMPHETAMINES LEVEL URINE NEGATIVE (NEGATIVE); BARBITURATES URINE NEGATIVE (NEGATIVE); BENZODIAZEPINES URINE NEGATIVE (NEGATIVE); CANNABINOIDS URINE NEGATIVE (NEGATIVE); COCAINE METABOLITE URINE NEGATIVE (NEGATIVE); METHADONE URINE NEGATIVE (NEGATIVE); OPIATES URINE NEGATIVE (NEGATIVE); PHENCYCLIDINE URINE NEGATIVE (NEGATIVE)
[2018-08-25] MEDS: SUCRALFATE SUSP 1GM/10ML UD PO ×3 (12:00→21:28)
[2018-08-25 12:45] LABS: LACTIC ACID SEPSIS PROTOCOL 3.9 MMOL/L (0.4-2.0)
[2018-08-25] MEDS ORDERED: ONDANSETRON 4MG/2ML VIAL (J2405) IV (13:00)
[2018-08-25] MEDS: THIAMINE HCL 200 MG/2 ML VIAL (J3411) IV (15:18)
[2018-08-25] MEDS: PANTOPRAZOLE 40MG INJ (PROTONIX) (C9113) IV ×2 (15:18→21:28)
[2018-08-25] MEDS: PHYTONADIONE 10MG/ML INJECTION (J3430) SC (15:18)
[2018-08-25] MEDS: CALCIUM GLUCONATE 1,000 MG in D5W MINI-BAG PLUS 100 ML IV (15:18)
[2018-08-25] MEDS: MULTIVITAMINS/MINERALS THERAP 1 TAB PO (15:19)
[2018-08-25] MEDS: predniSONE 20 MG TAB PO (15:19)
[2018-08-25 15:41] LABS: REASON FOR REVIEW OTHER; SLIDE REVIEW Report; SOURCE PERIPHERAL SMEAR
[2018-08-25 15:46] LABS: INR 1.81; PROTHROMBIN TIME 21.3 SECONDS (12.1-14.4)
[2018-08-25 15:47] LABS: PARTIAL THROMBOPLASTIN TIME 42.8 SECONDS (25.4-37.6)
[2018-08-25 15:49] LABS: PLATELET COUNT, AUTOMATED 26 10^3/uL (150-450)
[2018-08-25 15:52] LABS: FIBRINOGEN 120 MG/DL (221-452)
[2018-08-25 16:04] LABS: MAGNESIUM LEVEL 1.1 MG/DL (1.8-2.4)
[2018-08-25 16:05] LABS: PHENYTOIN (DILANTIN) 5.2 UG/ML (10.0-20.0)
[2018-08-25 16:10] LABS: CPK CREATINE PHOSPHOKINASE 212 U/L (39-308); MB/CK RELATIVE INDEX 1.23 (< OR =4); TROPONIN I 0.06 NG/ML (< 0.10)
[2018-08-25] MEDS: MIDODRINE 5 MG TAB PO ×2 (16:10→16:38)
[2018-08-25 16:27] LABS: D-DIMER QUANT > 4000.0 ng/ml (<500)
[2018-08-25] MEDS: MAG SULF 1GM/100ML (MAG RUN) 1 GM in APPROPRIATE DILUENT 1 EA IV ×3 (16:33→22:34)
[2018-08-25] MEDS: PHENYTOIN ER 100 MG CAP PO ×2 (16:33→21:29)
[2018-08-25] MEDS: GABAPENTIN 100 MG CAP PO ×2 (16:34→21:29)
[2018-08-25] MEDS: FOLIC ACID 1 MG in NS 50 ML IV (18:02)
[2018-08-25 18:33] LABS: CPK CREATINE PHOSPHOKINASE 220 U/L (39-308); MB/CK RELATIVE INDEX 1.32 (< OR =4); TROPONIN I 0.06 NG/ML (< 0.10)
[2018-08-25 18:48] LABS: LACTIC ACID SEPSIS PROTOCOL 3.3 MMOL/L (0.4-2.0)
[2018-08-25 18:50] LABS: ANION GAP 9 MEQ/L (8-16); BLOOD UREA NITROGEN 8 MG/DL (7-18); CARBON DIOXIDE LEVEL 35 MEQ/L (21-32); CHLORIDE LEVEL 94 MEQ/L (98-107); CREATININE FOR GFR 0.85 MG/DL (0.70-1.30); GLOMERULAR FILTRATION RATE > 60.0 (>60); GLUCOSE, FASTING 154 MG/DL (70-100); POTASSIUM SERUM 3.2 MEQ/L (3.5-5.1); SODIUM LEVEL 138 MEQ/L (136-145)
[2018-08-25 20:46] LABS: MAGNESIUM LEVEL 1.7 MG/DL (1.8-2.4)
[2018-08-25] MEDS: NS 1,000 ML IV ×2 (21:15→21:41)
[2018-08-25] MEDS: CIPROFLOXACIN 400 MG in APPROPRIATE DILUENT 1 EA IV (21:18)
[2018-08-25] MEDS: FERROUS SULFATE 325MG TAB PO (21:29)
[2018-08-25] MEDS: PROPRANOLOL 10 MG TAB PO (21:32)
[2018-08-25 21:48] LABS: KETONE, URINE AUTO RFX NEGATIVE (NEGATIVE); LEUKOCYTE ESTERASE UR AUTO RFX NEGATIVE (NEGATIVE); MUCUS, URINE RFX SMALL (NEGATIVE); NITRITE, URINE AUTO RFX NEGATIVE (NEGATIVE); RBC, URINE AUTO RFX 2 /HPF (0-3); SPECIFIC GRAVITY UR AUTO RFX 1.026 (1.002-1.035); SQUAM EPITHELIAL CELL UR AURFX 1 /HPF (0-6); WBC, URINE AUTO RFX 2 /HPF (0-3)
[2018-08-25] MEDS: NS 250 ML IV (23:30)
[2018-08-25] MEDS: metroNIDAZOLE 500 MG in APPROPRIATE DILUENT 1 EA IV (23:45)
[2018-08-26 01:06] LABS: LACTIC ACID SEPSIS PROTOCOL 2.5 MMOL/L (0.4-2.0)
[2018-08-26 01:07] LABS: ALBUMIN 1.9 GM/DL (3.2-5.2); ALBUMIN/GLOBULIN RATIO 0.42 (1.00-1.93); ALKALINE PHOSPHATASE 174 U/L (45-117); ALT/SGPT 16 U/L (12-78); ANION GAP 8 MEQ/L (8-16); AST/SGOT 79 U/L (7-37); BILIRUBIN,TOTAL 9.1 MG/DL (0.2-1.0); BLOOD UREA NITROGEN 8 MG/DL (7-18); CALCIUM LEVEL 6.8 MG/DL (8.5-10.1); CARBON DIOXIDE LEVEL 32 MEQ/L (21-32); CHLORIDE LEVEL 96 MEQ/L (98-107); CPK CREATINE PHOSPHOKINASE 204 U/L (39-308); GLOMERULAR FILTRATION RATE > 60.0 (>60); GLUCOSE, FASTING 164 MG/DL (70-100); MAGNESIUM LEVEL 1.6 MG/DL (1.8-2.4); MB/CK RELATIVE INDEX 1.62 (< OR =4); POTASSIUM SERUM 3.2 MEQ/L (3.5-5.1); SODIUM LEVEL 136 MEQ/L (136-145); TOTAL PROTEIN 6.4 GM/DL (6.4-8.2); TROPONIN I 0.06 NG/ML (< 0.10)
[2018-08-26] MEDS: POTASSIUM CHLORIDE 10 MEQ SR TABLET PO (01:57)
[2018-08-26] MEDS: MAGNESIUM OXIDE 400 MG TAB (MAG-OX) PO (01:57)
[2018-08-26] MEDS: CALCIUM CARBONATE 500 MG CHEW U/D PO (01:57)
[2018-08-26] MEDS: metroNIDAZOLE 500 MG in APPROPRIATE DILUENT 1 EA IV ×3 (04:15→21:42)
[2018-08-26 04:57] LABS: BASO % 0.1 % (0.0-1.0); HEMATOCRIT 31.1 % (42.0-52.0); IMMATURE GRANULOCYTE % 0.5 % (0-3.0); LYMPH # 1.1 10^3/uL (1.5-4.5); LYMPH % 14.9 % (24.0-44.0); MEAN CORPUSCULAR HEMOGLOBIN 35.4 pg (27.0-33.0); MEAN CORPUSCULAR HGB CONC 35.4 g/dl (32.0-36.5); MONO % 12.8 % (0.0-5.0); NEUTROPHILS # 5.5 10^3/uL (1.8-7.7); NEUTROPHILS % 71.7 % (36.0-66.0); RED BLOOD COUNT 3.11 10^6/uL (4.30-6.10); RED CELL DISTRIBUTION WIDTH 15.1 % (11.5-14.5); WHITE BLOOD COUNT 7.7 10^3/uL (4.0-10.0)
[2018-08-26 04:58] LABS: PLATELET COUNT, AUTOMATED 26 10^3/uL (150-450); POS COUNT POS FLAG
[2018-08-26 05:22] LABS: INR 2.02; PROTHROMBIN TIME 23.2 SECONDS (12.1-14.4)
[2018-08-26 05:41] LABS: ALBUMIN/GLOBULIN RATIO 0.44 (1.00-1.93); ALKALINE PHOSPHATASE 172 U/L (45-117); ALT/SGPT 16 U/L (12-78); ANION GAP 7 MEQ/L (8-16); AST/SGOT 77 U/L (7-37); BILIRUBIN,DIRECT 4.5 MG/DL (0.0-0.2); BILIRUBIN,TOTAL 10.1 MG/DL (0.2-1.0); BLOOD UREA NITROGEN 8 MG/DL (7-18); CALCIUM LEVEL 7.2 MG/DL (8.5-10.1); CARBON DIOXIDE LEVEL 34 MEQ/L (21-32); CHLORIDE LEVEL 97 MEQ/L (98-107); CPK CREATINE PHOSPHOKINASE 214 U/L (39-308); CREATININE FOR GFR 0.78 MG/DL (0.70-1.30); GLOMERULAR FILTRATION RATE > 60.0 (>60); GLUCOSE, FASTING 115 MG/DL (70-100); MAGNESIUM LEVEL 1.7 MG/DL (1.8-2.4); POTASSIUM SERUM 3.5 MEQ/L (3.5-5.1); SODIUM LEVEL 138 MEQ/L (136-145); TOTAL PROTEIN 6.5 GM/DL (6.4-8.2); TROPONIN I 0.06 NG/ML (< 0.10)
[2018-08-26] MEDS: SUCRALFATE SUSP 1GM/10ML UD PO ×4 (07:30→21:41)
[2018-08-26] MEDS: THIAMINE 100 MG TAB PO (08:43)
[2018-08-26] MEDS: FERROUS SULFATE 325MG TAB PO ×2 (08:43→21:42)
[2018-08-26] MEDS: MULTIVITAMINS/MINERALS THERAP 1 TAB PO (08:43)
[2018-08-26] MEDS: GABAPENTIN 100 MG CAP PO ×3 (08:43→21:42)
[2018-08-26] MEDS: PROPRANOLOL 10 MG TAB PO ×2 (08:43→21:42)
[2018-08-26] MEDS: MIDODRINE 5 MG TAB PO ×3 (08:44→16:28)
[2018-08-26] MEDS: LACTULOSE 20 GM/30 ML SYRUP UD PO (08:44)
[2018-08-26] MEDS: predniSONE 20 MG TAB PO (08:44)
[2018-08-26] MEDS: PHENYTOIN ER 100 MG CAP PO ×3 (08:44→21:42)
[2018-08-26] MEDS: PARoxetine 20 MG TAB PO (08:44)
[2018-08-26] MEDS: CIPROFLOXACIN 400 MG in APPROPRIATE DILUENT 1 EA IV ×2 (08:45→20:15)
[2018-08-26] MEDS: PANTOPRAZOLE 40MG INJ (PROTONIX) (C9113) IV ×2 (08:45→21:42)
[2018-08-26] MEDS ORDERED: CHOLESTYRAMINE 4 GM PWD PKT PO (09:00)
[2018-08-26] MEDS ORDERED: FUROSEMIDE 20 MG TAB PO (09:00)
[2018-08-26] MEDS: MAG SULF 1GM/100ML (MAG RUN) 1 GM in APPROPRIATE DILUENT 1 EA IV (11:05)
[2018-08-26] MEDS ORDERED: LORazepam 2 MG/ML VIAL (J2060) As Ordered ×2 (12:25→12:28)
[2018-08-26] MEDS: LORazepam 2 MG/ML VIAL (J2060) IV ×2 (12:30→12:31)
[2018-08-26] MEDS ORDERED: PHENYTOIN INJ 250 MG/5 ML VIAL (J1165) IV (12:45)
[2018-08-26] MEDS: NS IV (12:59)
[2018-08-26] MEDS: PHENYTOIN IV (12:59)
[2018-08-26 13:24] LABS: BASO % 0.2 % (0.0-1.0); EOS % 0.2 % (0.0-3.0); HEMATOCRIT 30.4 % (42.0-52.0); HEMOGLOBIN 10.7 g/dl (13.5-17.5); IMMATURE GRANULOCYTE % 0.8 % (0-3.0); LYMPH # 0.5 10^3/uL (1.5-4.5); MEAN CORPUSCULAR HEMOGLOBIN 35.4 pg (27.0-33.0); MEAN CORPUSCULAR HGB CONC 35.2 g/dl (32.0-36.5); MEAN CORPUSCULAR VOLUME 100.7 fl (80.0-96.0); MONO # 0.4 10^3/uL (0.0-0.8); MONO % 6.3 % (0.0-5.0); NEUTROPHILS # 5.5 10^3/uL (1.8-7.7); NEUTROPHILS % 84.5 % (36.0-66.0); PLATELET COUNT, AUTOMATED 31 10^3/uL (150-450); RED BLOOD COUNT 3.02 10^6/uL (4.30-6.10); RED CELL DISTRIBUTION WIDTH 15.3 % (11.5-14.5); WHITE BLOOD COUNT 6.5 10^3/uL (4.0-10.0)
[2018-08-26 13:25] LABS: IMMATURE PLATELET FRACTION % 14.2 % (0.0-10.9)
[2018-08-26 14:02] LABS: ALBUMIN 1.9 GM/DL (3.2-5.2); ALBUMIN/GLOBULIN RATIO 0.43 (1.00-1.93); ALKALINE PHOSPHATASE 162 U/L (45-117); ALT/SGPT 13 U/L (12-78); ANION GAP 7 MEQ/L (8-16); AST/SGOT 71 U/L (7-37); BILIRUBIN,DIRECT 5.3 MG/DL (0.0-0.2); BILIRUBIN,TOTAL 10.3 MG/DL (0.2-1.0); BLOOD UREA NITROGEN 8 MG/DL (7-18); CALCIUM LEVEL 6.8 MG/DL (8.5-10.1); CARBON DIOXIDE LEVEL 31 MEQ/L (21-32); CHLORIDE LEVEL 99 MEQ/L (98-107); CPK CREATINE PHOSPHOKINASE 197 U/L (39-308); CREATININE FOR GFR 0.74 MG/DL (0.70-1.30); GLOMERULAR FILTRATION RATE > 60.0 (>60); GLUCOSE, FASTING 138 MG/DL (70-100); MAGNESIUM LEVEL 1.8 MG/DL (1.8-2.4); MB/CK RELATIVE INDEX 1.68 (< OR =4); POTASSIUM SERUM 3.2 MEQ/L (3.5-5.1); SODIUM LEVEL 137 MEQ/L (136-145); TOTAL PROTEIN 6.3 GM/DL (6.4-8.2); TROPONIN I 0.05 NG/ML (< 0.10)
[2018-08-26] MEDS: KCL 10MEQ/100ML SWI (KRUN) 10 MEQ in APPROPRIATE DILUENT 1 EA IV ×2 (15:16→16:28)
[2018-08-26] MEDS: chlordiazePOXIDE 25 MG CAP PO (16:51)
[2018-08-26 18:18] LABS: POTASSIUM SERUM 3.8 MEQ/L (3.5-5.1)
[2018-08-27] MEDS: CHOLESTYRAMINE 4 GM PWD PKT PO (00:01)
[2018-08-27] MEDS: chlordiazePOXIDE 25 MG CAP PO ×2 (00:59→12:40)
[2018-08-27] MEDS ORDERED: SLF 3 ML SYR IV (01:00)
[2018-08-27] MEDS: metroNIDAZOLE 500 MG in APPROPRIATE DILUENT 1 EA IV ×3 (04:11→21:50)
[2018-08-27] MEDS: SLF 3 ML SYR IV ×3 (04:13→20:43)
[2018-08-27 05:31] LABS: BASO % 0.3 % (0.0-1.0); EOS # 0.1 10^3/uL (0.0-0.50); EOS % 1.2 % (0.0-3.0); HEMATOCRIT 29.2 % (42.0-52.0); HEMOGLOBIN 10.2 g/dl (13.5-17.5); IMMATURE GRANULOCYTE % 0.6 % (0-3.0); LYMPH # 1.5 10^3/uL (1.5-4.5); LYMPH % 17.1 % (24.0-44.0); MEAN CORPUSCULAR HEMOGLOBIN 35.1 pg (27.0-33.0); MEAN CORPUSCULAR HGB CONC 34.9 g/dl (32.0-36.5); MEAN CORPUSCULAR VOLUME 100.3 fl (80.0-96.0); MONO # 1.2 10^3/uL (0.0-0.8); MONO % 13.9 % (0.0-5.0); NEUTROPHILS # 5.9 10^3/uL (1.8-7.7); NEUTROPHILS % 66.9 % (36.0-66.0); RED BLOOD COUNT 2.91 10^6/uL (4.30-6.10); RED CELL DISTRIBUTION WIDTH 15.8 % (11.5-14.5); WHITE BLOOD COUNT 8.9 10^3/uL (4.0-10.0)
[2018-08-27 05:35] LABS: PLATELET COUNT, AUTOMATED 38 10^3/uL (150-450)
[2018-08-27 05:40] LABS: INR 1.98; PROTHROMBIN TIME 22.9 SECONDS (12.1-14.4)
[2018-08-27 06:00] LABS: ALBUMIN 1.9 GM/DL (3.2-5.2); ALBUMIN/GLOBULIN RATIO 0.45 (1.00-1.93); ALKALINE PHOSPHATASE 158 U/L (45-117); ALT/SGPT 17 U/L (12-78); ANION GAP 7 MEQ/L (8-16); AST/SGOT 61 U/L (7-37); BILIRUBIN,DIRECT 4.2 MG/DL (0.0-0.2); BILIRUBIN,TOTAL 7.4 MG/DL (0.2-1.0); BLOOD UREA NITROGEN 13 MG/DL (7-18); CALCIUM LEVEL 7.5 MG/DL (8.5-10.1); CARBON DIOXIDE LEVEL 31 MEQ/L (21-32); CHLORIDE LEVEL 99 MEQ/L (98-107); CREATININE FOR GFR 1.02 MG/DL (0.70-1.30); GLOMERULAR FILTRATION RATE > 60.0 (>60); GLUCOSE, FASTING 115 MG/DL (70-100); POTASSIUM SERUM 3.2 MEQ/L (3.5-5.1); SODIUM LEVEL 137 MEQ/L (136-145); TOTAL PROTEIN 6.1 GM/DL (6.4-8.2)
[2018-08-27 08:45] LABS: MAGNESIUM LEVEL 1.8 MG/DL (1.8-2.4)
[2018-08-27] MEDS: SUCRALFATE SUSP 1GM/10ML UD PO ×4 (08:50→20:41)
[2018-08-27] MEDS: CIPROFLOXACIN 400 MG in APPROPRIATE DILUENT 1 EA IV ×2 (08:50→19:57)
[2018-08-27] MEDS: LACTULOSE 20 GM/30 ML SYRUP UD PO (08:50)
[2018-08-27] MEDS: PANTOPRAZOLE 40MG INJ (PROTONIX) (C9113) IV ×2 (08:51→20:43)
[2018-08-27] MEDS: MIDODRINE 5 MG TAB PO ×3 (08:51→16:48)
[2018-08-27] MEDS: POTASSIUM CHLORIDE 10 MEQ SR TABLET PO (08:51)
[2018-08-27] MEDS: PHENYTOIN ER 100 MG CAP PO ×3 (08:51→20:41)
[2018-08-27] MEDS: PARoxetine 20 MG TAB PO (08:52)
[2018-08-27] MEDS: FERROUS SULFATE 325MG TAB PO ×2 (08:52→20:41)
[2018-08-27] MEDS: MULTIVITAMINS/MINERALS THERAP 1 TAB PO (08:52)
[2018-08-27] MEDS: PROPRANOLOL 10 MG TAB PO ×2 (08:52→20:42)
[2018-08-27] MEDS: FOLIC ACID 1 MG TAB PO (08:52)
[2018-08-27] MEDS: THIAMINE 100 MG TAB PO (08:52)
[2018-08-27] MEDS: GABAPENTIN 100 MG CAP PO ×3 (08:52→20:43)
[2018-08-27] MEDS: predniSONE 20 MG TAB PO (08:52)
[2018-08-27] MEDS: INFLUENZA QUADRIVALENT PF VACCINE 0.5ML SYRINGE (90686) IM (08:53)
[2018-08-27 11:20] LABS: HEPATITIS C VIRUS ABY INDEX 0.3 INDEX (<0.8)
[2018-08-27 11:21] LABS: HEPATITIS B CORE ANTIBODY IGM NEGATIVE (NEGATIVE)
[2018-08-27 11:22] LABS: HEPATITIS A ANTIBODY IGM NEGATIVE (NEGATIVE)
[2018-08-27 12:27] LABS: HEPATITIS B SURFACE ANTIGEN NEGATIVE (NEGATIVE)
[2018-08-28] MEDS: CHOLESTYRAMINE 4 GM PWD PKT PO (01:22)
[2018-08-28] MEDS: metroNIDAZOLE 500 MG in APPROPRIATE DILUENT 1 EA IV ×3 (04:07→21:56)
[2018-08-28] MEDS: SLF 3 ML SYR IV ×3 (04:09→20:33)
[2018-08-28 06:06] LABS: BASO % 0.2 % (0.0-1.0); EOS % 0.3 % (0.0-3.0); HEMATOCRIT 29.4 % (42.0-52.0); HEMOGLOBIN 10.2 g/dl (13.5-17.5); IMMATURE GRANULOCYTE % 0.7 % (0-3.0); LYMPH # 1.2 10^3/uL (1.5-4.5); LYMPH % 12.4 % (24.0-44.0); MEAN CORPUSCULAR HEMOGLOBIN 35.7 pg (27.0-33.0); MEAN CORPUSCULAR HGB CONC 34.7 g/dl (32.0-36.5); MEAN CORPUSCULAR VOLUME 102.8 fl (80.0-96.0); MONO # 1.3 10^3/uL (0.0-0.8); MONO % 13.7 % (0.0-5.0); NEUTROPHILS # 6.9 10^3/uL (1.8-7.7); NEUTROPHILS % 72.7 % (36.0-66.0); RED BLOOD COUNT 2.86 10^6/uL (4.30-6.10); RED CELL DISTRIBUTION WIDTH 15.9 % (11.5-14.5); WHITE BLOOD COUNT 9.5 10^3/uL (4.0-10.0)
[2018-08-28 06:12] LABS: PLATELET COUNT, AUTOMATED 50 10^3/uL (150-450)
[2018-08-28 06:13] LABS: IMMATURE PLATELET FRACTION % 8.5 % (0.0-10.9)
[2018-08-28 06:15] LABS: INR 2.05; PROTHROMBIN TIME 23.5 SECONDS (12.1-14.4)
[2018-08-28 06:39] LABS: ANION GAP 4 MEQ/L (8-16); BLOOD UREA NITROGEN 11 MG/DL (7-18); CALCIUM LEVEL 7.3 MG/DL (8.5-10.1); CARBON DIOXIDE LEVEL 34 MEQ/L (21-32); CHLORIDE LEVEL 101 MEQ/L (98-107); CREATININE FOR GFR 0.82 MG/DL (0.70-1.30); GLOMERULAR FILTRATION RATE > 60.0 (>60); GLUCOSE, FASTING 89 MG/DL (70-100); POTASSIUM SERUM 3.4 MEQ/L (3.5-5.1); SODIUM LEVEL 139 MEQ/L (136-145)
[2018-08-28] MEDS: CIPROFLOXACIN 400 MG in APPROPRIATE DILUENT 1 EA IV ×2 (07:57→20:32)
[2018-08-28] MEDS: SUCRALFATE SUSP 1GM/10ML UD PO ×4 (07:57→20:32)
[2018-08-28] MEDS: PANTOPRAZOLE 40MG INJ (PROTONIX) (C9113) IV ×2 (07:58→20:33)
[2018-08-28] MEDS: LACTULOSE 20 GM/30 ML SYRUP UD PO (08:24)
[2018-08-28] MEDS: GABAPENTIN 100 MG CAP PO ×3 (08:24→20:33)
[2018-08-28] MEDS: MIDODRINE 5 MG TAB PO ×3 (08:25→16:13)
[2018-08-28] MEDS: predniSONE 20 MG TAB PO (08:25)
[2018-08-28] MEDS: PARoxetine 20 MG TAB PO (08:25)
[2018-08-28] MEDS: FOLIC ACID 1 MG TAB PO (08:26)
[2018-08-28] MEDS: MULTIVITAMINS/MINERALS THERAP 1 TAB PO (08:26)
[2018-08-28] MEDS: THIAMINE 100 MG TAB PO (08:26)
[2018-08-28] MEDS: PHENYTOIN ER 100 MG CAP PO ×3 (08:26→20:33)
[2018-08-28] MEDS: FERROUS SULFATE 325MG TAB PO ×2 (08:26→20:33)
[2018-08-28] MEDS: PROPRANOLOL 10 MG TAB PO ×2 (08:27→20:33)
[2018-08-28 09:17] LABS: ALBUMIN/GLOBULIN RATIO 0.49 (1.00-1.93); ALKALINE PHOSPHATASE 150 U/L (45-117); ALT/SGPT 15 U/L (12-78); AST/SGOT 53 U/L (7-37); BILIRUBIN,TOTAL 4.1 MG/DL (0.2-1.0); TOTAL PROTEIN 6.1 GM/DL (6.4-8.2)
[2018-08-28] MEDS: POTASSIUM CHLORIDE 10 MEQ SR TABLET PO (10:47)
[2018-08-29] MEDS: CHOLESTYRAMINE 4 GM PWD PKT PO ×2 (00:01→23:36)
[2018-08-29 00:06] LABS: HEPARIN INDUCED PLATELET ABY 0.844 OD (0.000-0.400)
[2018-08-29] MEDS: metroNIDAZOLE 500 MG in APPROPRIATE DILUENT 1 EA IV (04:06)
[2018-08-29] MEDS: SLF 3 ML SYR IV ×2 (04:07→14:00)
[2018-08-29 06:25] LABS: BASO % 0.2 % (0.0-1.0); EOS # 0.1 10^3/uL (0.0-0.50); EOS % 0.9 % (0.0-3.0); HEMOGLOBIN 10.9 g/dl (13.5-17.5); IMMATURE GRANULOCYTE % 0.5 % (0-3.0); LYMPH # 1.2 10^3/uL (1.5-4.5); MEAN CORPUSCULAR HEMOGLOBIN 35.4 pg (27.0-33.0); MEAN CORPUSCULAR HGB CONC 34.1 g/dl (32.0-36.5); MEAN CORPUSCULAR VOLUME 103.9 fl (80.0-96.0); MONO # 1.3 10^3/uL (0.0-0.8); MONO % 16.1 % (0.0-5.0); NEUTROPHILS # 5.5 10^3/uL (1.8-7.7); NEUTROPHILS % 67.3 % (36.0-66.0); RED BLOOD COUNT 3.08 10^6/uL (4.30-6.10); RED CELL DISTRIBUTION WIDTH 16.8 % (11.5-14.5); WHITE BLOOD COUNT 8.2 10^3/uL (4.0-10.0)
[2018-08-29 06:40] LABS: PLATELET COUNT, AUTOMATED 62 10^3/uL (150-450)
[2018-08-29 06:44] LABS: INR 1.97; PROTHROMBIN TIME 22.8 SECONDS (12.1-14.4)
[2018-08-29 06:48] LABS: ANION GAP 5 MEQ/L (8-16); BLOOD UREA NITROGEN 12 MG/DL (7-18); CALCIUM LEVEL 7.5 MG/DL (8.5-10.1); CARBON DIOXIDE LEVEL 31 MEQ/L (21-32); CHLORIDE LEVEL 102 MEQ/L (98-107); GLOMERULAR FILTRATION RATE > 60.0 (>60); GLUCOSE, FASTING 103 MG/DL (70-100); POTASSIUM SERUM 3.4 MEQ/L (3.5-5.1); SODIUM LEVEL 138 MEQ/L (136-145)
[2018-08-29 06:54] LABS: ALBUMIN 1.9 GM/DL (3.2-5.2); ALBUMIN/GLOBULIN RATIO 0.44 (1.00-1.93); ALKALINE PHOSPHATASE 151 U/L (45-117); ALT/SGPT 15 U/L (12-78); AST/SGOT 49 U/L (7-37); BILIRUBIN,DIRECT 2.7 MG/DL (0.0-0.2); BILIRUBIN,TOTAL 3.9 MG/DL (0.2-1.0); TOTAL PROTEIN 6.2 GM/DL (6.4-8.2)
[2018-08-29] MEDS: SUCRALFATE SUSP 1GM/10ML UD PO ×4 (08:15→21:18)
[2018-08-29] MEDS: MIDODRINE 5 MG TAB PO ×3 (08:24→14:59)
[2018-08-29] MEDS: LACTULOSE 20 GM/30 ML SYRUP UD PO (08:25)
[2018-08-29] MEDS: FERROUS SULFATE 325MG TAB PO ×2 (08:25→21:18)
[2018-08-29] MEDS: PARoxetine 20 MG TAB PO (08:25)
[2018-08-29] MEDS: MULTIVITAMINS/MINERALS THERAP 1 TAB PO (08:25)
[2018-08-29] MEDS: FOLIC ACID 1 MG TAB PO (08:25)
[2018-08-29] MEDS: predniSONE 20 MG TAB PO (08:25)
[2018-08-29] MEDS: PANTOPRAZOLE 40MG INJ (PROTONIX) (C9113) IV (08:25)
[2018-08-29] MEDS: PROPRANOLOL 10 MG TAB PO ×2 (08:25→21:18)
[2018-08-29] MEDS: THIAMINE 100 MG TAB PO (08:25)
[2018-08-29] MEDS: GABAPENTIN 100 MG CAP PO ×3 (08:25→21:19)
[2018-08-29] MEDS: PHENYTOIN ER 100 MG CAP PO ×3 (08:25→21:18)
[2018-08-29] MEDS: CIPROFLOXACIN 400 MG in APPROPRIATE DILUENT 1 EA IV (08:35)
[2018-08-29 12:38] LABS: PHENYTOIN (DILANTIN) 14.5 UG/ML (10.0-20.0)
[2018-08-29] MEDS: metroNIDAZOLE (FLAGYL) 500 MG TAB PO ×2 (14:59→21:19)
[2018-08-29] MEDS: OXAZEPAM 10 MG CAP PO ×2 (14:59→21:18)
[2018-08-29] MEDS: CIPROFLOXACIN 500 MG TAB PO (17:38)
[2018-08-30] MEDS: metroNIDAZOLE (FLAGYL) 500 MG TAB PO ×3 (05:20→22:11)
[2018-08-30] MEDS: OXAZEPAM 10 MG CAP PO ×2 (05:20→14:27)
[2018-08-30] MEDS: CIPROFLOXACIN 500 MG TAB PO ×2 (05:20→22:11)
[2018-08-30 07:07] LABS: BASO % 0.5 % (0.0-1.0); EOS # 0.1 10^3/uL (0.0-0.50); EOS % 1.2 % (0.0-3.0); HEMOGLOBIN 10.7 g/dl (13.5-17.5); LYMPH # 1.5 10^3/uL (1.5-4.5); LYMPH % 18.5 % (24.0-44.0); MEAN CORPUSCULAR HEMOGLOBIN 36.3 pg (27.0-33.0); MEAN CORPUSCULAR HGB CONC 35.7 g/dl (32.0-36.5); MEAN CORPUSCULAR VOLUME 101.7 fl (80.0-96.0); MONO # 1.7 10^3/uL (0.0-0.8); MONO % 20.9 % (0.0-5.0); NEUTROPHILS # 4.8 10^3/uL (1.8-7.7); NEUTROPHILS % 57.9 % (36.0-66.0); RED BLOOD COUNT 2.95 10^6/uL (4.30-6.10); RED CELL DISTRIBUTION WIDTH 17.2 % (11.5-14.5); WHITE BLOOD COUNT 8.3 10^3/uL (4.0-10.0)
[2018-08-30 07:18] LABS: PLATELET COUNT, AUTOMATED 76 10^3/uL (150-450)
[2018-08-30 07:19] LABS: IMMATURE PLATELET FRACTION % 3.8 % (0.0-10.9)
[2018-08-30 07:26] LABS: INR 2.02; PROTHROMBIN TIME 23.2 SECONDS (12.1-14.4)
[2018-08-30 07:33] LABS: ALBUMIN 1.8 GM/DL (3.2-5.2); ALBUMIN/GLOBULIN RATIO 0.44 (1.00-1.93); ALKALINE PHOSPHATASE 136 U/L (45-117); ALT/SGPT 14 U/L (12-78); ANION GAP 5 MEQ/L (8-16); AST/SGOT 42 U/L (7-37); BILIRUBIN,DIRECT 2.6 MG/DL (0.0-0.2); BLOOD UREA NITROGEN 10 MG/DL (7-18); CARBON DIOXIDE LEVEL 30 MEQ/L (21-32); CHLORIDE LEVEL 101 MEQ/L (98-107); CREATININE FOR GFR 0.74 MG/DL (0.70-1.30); GLOMERULAR FILTRATION RATE > 60.0 (>60); GLUCOSE, FASTING 81 MG/DL (70-100); POTASSIUM SERUM 3.5 MEQ/L (3.5-5.1); SODIUM LEVEL 136 MEQ/L (136-145); TOTAL PROTEIN 5.9 GM/DL (6.4-8.2)
[2018-08-30] MEDS: LACTULOSE 20 GM/30 ML SYRUP UD PO (08:02)
[2018-08-30] MEDS: SUCRALFATE SUSP 1GM/10ML UD PO ×4 (08:02→22:11)
[2018-08-30] MEDS: MULTIVITAMINS/MINERALS THERAP 1 TAB PO (08:03)
[2018-08-30] MEDS: PANTOPRAZOLE 40MG TAB (PROTONIX) PO (08:03)
[2018-08-30] MEDS: PROPRANOLOL 10 MG TAB PO ×2 (08:03→22:17)
[2018-08-30] MEDS: predniSONE 20 MG TAB PO (08:03)
[2018-08-30] MEDS: MIDODRINE 5 MG TAB PO ×3 (08:03→19:00)
[2018-08-30] MEDS: THIAMINE 100 MG TAB PO (08:03)
[2018-08-30] MEDS: FERROUS SULFATE 325MG TAB PO ×2 (08:03→22:11)
[2018-08-30] MEDS: PHENYTOIN ER 100 MG CAP PO ×3 (08:04→22:14)
[2018-08-30] MEDS: PARoxetine 20 MG TAB PO (08:04)
[2018-08-30] MEDS: GABAPENTIN 100 MG CAP PO ×3 (08:04→22:12)
[2018-08-30] MEDS: FOLIC ACID 1 MG TAB PO (08:04)
[2018-08-30] MEDS ORDERED: LORazepam 2 MG/ML VIAL (J2060) As Ordered ×2 (17:10→17:11)
[2018-08-30] MEDS: LORazepam 2 MG/ML VIAL (J2060) IV ×3 (17:12→17:20)
[2018-08-30] MEDS: levETIRAcetam INJection 500 MG in D5W MINI-BAG PLUS 100 ML IV (18:25)
[2018-08-30] MEDS: OXAZEPAM 15 MG CAP PO ×2 (19:00→23:58)
[2018-08-30] MEDS: levETIRAcetam INJection 500 MG in D5W 100 ML IV (19:58)
[2018-08-30 20:07] LABS: ANION GAP 4 MEQ/L (8-16); BLOOD UREA NITROGEN 11 MG/DL (7-18); CALCIUM LEVEL 7.6 MG/DL (8.5-10.1); CARBON DIOXIDE LEVEL 29 MEQ/L (21-32); CHLORIDE LEVEL 101 MEQ/L (98-107); CREATININE FOR GFR 0.86 MG/DL (0.70-1.30); GLOMERULAR FILTRATION RATE > 60.0 (>60); GLUCOSE, FASTING 174 MG/DL (70-100); MAGNESIUM LEVEL 1.8 MG/DL (1.8-2.4); PHENYTOIN (DILANTIN) 18.4 UG/ML (10.0-20.0); POTASSIUM SERUM 4.2 MEQ/L (3.5-5.1); SODIUM LEVEL 134 MEQ/L (136-145)
[2018-08-30] MEDS: CHOLESTYRAMINE 4 GM PWD PKT PO (23:58)
[2018-08-31] MEDS: CIPROFLOXACIN 500 MG TAB PO ×2 (05:20→18:07)
[2018-08-31] MEDS: metroNIDAZOLE (FLAGYL) 500 MG TAB PO ×3 (05:20→21:46)
[2018-08-31] MEDS: OXAZEPAM 15 MG CAP PO ×3 (05:20→18:06)
[2018-08-31] MEDS: levETIRAcetam INJection 1,000 MG in D5W 100 ML IV ×2 (05:52→18:07)
[2018-08-31 06:09] LABS: HEMATOCRIT 31.2 % (42.0-52.0); HEMOGLOBIN 10.7 g/dl (13.5-17.5); MEAN CORPUSCULAR HEMOGLOBIN 35.9 pg (27.0-33.0); MEAN CORPUSCULAR HGB CONC 34.3 g/dl (32.0-36.5); MEAN CORPUSCULAR VOLUME 104.7 fl (80.0-96.0); RED BLOOD COUNT 2.98 10^6/uL (4.30-6.10); RED CELL DISTRIBUTION WIDTH 17.6 % (11.5-14.5)
[2018-08-31 06:10] LABS: PLATELET COUNT, AUTOMATED 90 10^3/uL (150-450)
[2018-08-31 06:33] LABS: ALBUMIN 1.9 GM/DL (3.2-5.2); ALBUMIN/GLOBULIN RATIO 0.46 (1.00-1.93); ALKALINE PHOSPHATASE 137 U/L (45-117); ALT/SGPT 14 U/L (12-78); ANION GAP 4 MEQ/L (8-16); AST/SGOT 41 U/L (7-37); BILIRUBIN,DIRECT 2.6 MG/DL (0.0-0.2); BILIRUBIN,TOTAL 4.2 MG/DL (0.2-1.0); BLOOD UREA NITROGEN 11 MG/DL (7-18); CALCIUM LEVEL 7.7 MG/DL (8.5-10.1); CARBON DIOXIDE LEVEL 31 MEQ/L (21-32); CHLORIDE LEVEL 102 MEQ/L (98-107); CREATININE FOR GFR 0.79 MG/DL (0.70-1.30); GLOMERULAR FILTRATION RATE > 60.0 (>60); GLUCOSE, FASTING 82 MG/DL (70-100); POTASSIUM SERUM 3.6 MEQ/L (3.5-5.1); SODIUM LEVEL 137 MEQ/L (136-145)
[2018-08-31] MEDS: PHENYTOIN ER 100 MG CAP PO ×3 (08:58→21:46)
[2018-08-31] MEDS: SUCRALFATE SUSP 1GM/10ML UD PO ×4 (08:58→21:48)
[2018-08-31] MEDS: LACTULOSE 20 GM/30 ML SYRUP UD PO (08:58)
[2018-08-31] MEDS: MIDODRINE 5 MG TAB PO ×3 (08:58→18:07)
[2018-08-31] MEDS: GABAPENTIN 100 MG CAP PO ×3 (08:59→21:47)
[2018-08-31] MEDS: FERROUS SULFATE 325MG TAB PO ×2 (08:59→21:47)
[2018-08-31] MEDS: PANTOPRAZOLE 40MG TAB (PROTONIX) PO (08:59)
[2018-08-31] MEDS: FOLIC ACID 1 MG TAB PO (08:59)
[2018-08-31] MEDS: THIAMINE 100 MG TAB PO (08:59)
[2018-08-31] MEDS: PROPRANOLOL 10 MG TAB PO ×2 (08:59→21:47)
[2018-08-31] MEDS: predniSONE 10 MG TAB PO (08:59)
[2018-08-31] MEDS: PARoxetine 20 MG TAB PO (09:00)
[2018-08-31] MEDS: MULTIVITAMINS/MINERALS THERAP 1 TAB PO (09:00)
[2018-08-31 09:05] LABS: PROTHROMBIN TIME 22.2 SECONDS (12.1-14.4)
[2018-08-31 10:16] LABS: TYPE AND SCREEN 1
[2018-08-31 19:03] LABS: PHENYTOIN (DILANTIN) 17.3 UG/ML (10.0-20.0)
[2018-09-01] MEDS: OXAZEPAM 15 MG CAP PO ×5 (00:15→23:47)
[2018-09-01] MEDS: CHOLESTYRAMINE 4 GM PWD PKT PO ×2 (00:15→23:47)
[2018-09-01] MEDS: levETIRAcetam INJection 1,000 MG in D5W 100 ML IV ×2 (05:22→17:05)
[2018-09-01] MEDS: metroNIDAZOLE (FLAGYL) 500 MG TAB PO ×3 (05:23→21:00)
[2018-09-01] MEDS: CIPROFLOXACIN 500 MG TAB PO ×2 (05:23→17:03)
[2018-09-01 06:23] LABS: HEMATOCRIT 30.6 % (42.0-52.0); HEMOGLOBIN 10.9 g/dl (13.5-17.5); MEAN CORPUSCULAR HEMOGLOBIN 36.6 pg (27.0-33.0); MEAN CORPUSCULAR HGB CONC 35.6 g/dl (32.0-36.5); MEAN CORPUSCULAR VOLUME 102.7 fl (80.0-96.0); PLATELET COUNT, AUTOMATED 102 10^3/uL (150-450); RED BLOOD COUNT 2.98 10^6/uL (4.30-6.10); RED CELL DISTRIBUTION WIDTH 17.3 % (11.5-14.5); WHITE BLOOD COUNT 5.9 10^3/uL (4.0-10.0)
[2018-09-01 06:47] LABS: ANION GAP 6 MEQ/L (8-16); BLOOD UREA NITROGEN 10 MG/DL (7-18); CALCIUM LEVEL 7.5 MG/DL (8.5-10.1); CARBON DIOXIDE LEVEL 29 MEQ/L (21-32); CHLORIDE LEVEL 101 MEQ/L (98-107); CREATININE FOR GFR 0.73 MG/DL (0.70-1.30); GLOMERULAR FILTRATION RATE > 60.0 (>60); GLUCOSE, FASTING 85 MG/DL (70-100); POTASSIUM SERUM 3.7 MEQ/L (3.5-5.1); SODIUM LEVEL 136 MEQ/L (136-145)
[2018-09-01] MEDS: predniSONE 10 MG TAB PO (09:05)
[2018-09-01] MEDS: GABAPENTIN 100 MG CAP PO ×3 (09:05→21:00)
[2018-09-01] MEDS: FOLIC ACID 1 MG TAB PO (09:05)
[2018-09-01] MEDS: PANTOPRAZOLE 40MG TAB (PROTONIX) PO (09:05)
[2018-09-01] MEDS: THIAMINE 100 MG TAB PO (09:06)
[2018-09-01] MEDS: MIDODRINE 5 MG TAB PO ×3 (09:06→17:03)
[2018-09-01] MEDS: MULTIVITAMINS/MINERALS THERAP 1 TAB PO (09:06)
[2018-09-01] MEDS: PARoxetine 20 MG TAB PO (09:06)
[2018-09-01] MEDS: FERROUS SULFATE 325MG TAB PO ×2 (09:06→21:00)
[2018-09-01] MEDS: LACTULOSE 20 GM/30 ML SYRUP UD PO (09:07)
[2018-09-01] MEDS: SUCRALFATE SUSP 1GM/10ML UD PO ×4 (09:07→20:59)
[2018-09-01] MEDS: PROPRANOLOL 10 MG TAB PO (09:07)
[2018-09-01] MEDS: PHENYTOIN ER 100 MG CAP PO ×3 (09:55→20:59)
[2018-09-01] MEDS: SPIRONOLACTONE 50 MG TAB PO (17:17)
[2018-09-01] MEDS: FUROSEMIDE 40 MG TAB PO (17:17)
[2018-09-02] MEDS: metroNIDAZOLE (FLAGYL) 500 MG TAB PO ×2 (06:00→12:03)
[2018-09-02] MEDS: CIPROFLOXACIN 500 MG TAB PO (06:00)
[2018-09-02] MEDS: OXAZEPAM 15 MG CAP PO ×2 (06:00→12:03)
[2018-09-02] MEDS: levETIRAcetam INJection 1,000 MG in D5W 100 ML IV ×2 (06:00→17:04)
[2018-09-02 06:25] LABS: HEMATOCRIT 30.8 % (42.0-52.0); HEMOGLOBIN 10.7 g/dl (13.5-17.5); MEAN CORPUSCULAR HEMOGLOBIN 36.3 pg (27.0-33.0); MEAN CORPUSCULAR HGB CONC 34.7 g/dl (32.0-36.5); MEAN CORPUSCULAR VOLUME 104.4 fl (80.0-96.0); PLATELET COUNT, AUTOMATED 110 10^3/uL (150-450); RED BLOOD COUNT 2.95 10^6/uL (4.30-6.10); RED CELL DISTRIBUTION WIDTH 16.9 % (11.5-14.5); WHITE BLOOD COUNT 7.2 10^3/uL (4.0-10.0)
[2018-09-02 06:48] LABS: ANION GAP 6 MEQ/L (8-16); BLOOD UREA NITROGEN 8 MG/DL (7-18); CALCIUM LEVEL 7.1 MG/DL (8.5-10.1); CARBON DIOXIDE LEVEL 28 MEQ/L (21-32); CHLORIDE LEVEL 102 MEQ/L (98-107); CREATININE FOR GFR 0.72 MG/DL (0.70-1.30); GLOMERULAR FILTRATION RATE > 60.0 (>60); GLUCOSE, FASTING 76 MG/DL (70-100); PHENYTOIN (DILANTIN) 17.4 UG/ML (10.0-20.0); SODIUM LEVEL 136 MEQ/L (136-145)
[2018-09-02] MEDS: PARoxetine 20 MG TAB PO (08:06)
[2018-09-02] MEDS: SUCRALFATE SUSP 1GM/10ML UD PO ×4 (08:06→21:06)
[2018-09-02] MEDS: LACTULOSE 20 GM/30 ML SYRUP UD PO (08:06)
[2018-09-02] MEDS: PANTOPRAZOLE 40MG TAB (PROTONIX) PO (08:07)
[2018-09-02] MEDS: GABAPENTIN 100 MG CAP PO ×3 (08:07→21:07)
[2018-09-02] MEDS: THIAMINE 100 MG TAB PO (08:07)
[2018-09-02] MEDS: FERROUS SULFATE 325MG TAB PO ×2 (08:07→21:06)
[2018-09-02] MEDS: SPIRONOLACTONE 50 MG TAB PO (08:07)
[2018-09-02] MEDS: MULTIVITAMINS/MINERALS THERAP 1 TAB PO (08:07)
[2018-09-02] MEDS: PROPRANOLOL 10 MG TAB PO (08:07)
[2018-09-02] MEDS: FOLIC ACID 1 MG TAB PO (08:07)
[2018-09-02] MEDS: predniSONE 10 MG TAB PO (08:07)
[2018-09-02] MEDS: MIDODRINE 5 MG TAB PO ×3 (08:07→17:04)
[2018-09-02] MEDS: FUROSEMIDE 40 MG TAB PO (08:08)
[2018-09-02] MEDS: PHENYTOIN ER 100 MG CAP PO ×3 (08:09→21:07)
[2018-09-02 08:46] LABS: AMMONIA < 10 uMOL/L (<32)
[2018-09-02 13:08] LABS: ALBUMIN 1.9 GM/DL (3.2-5.2); ALBUMIN/GLOBULIN RATIO 0.48 (1.00-1.93); ALKALINE PHOSPHATASE 123 U/L (45-117); ALT/SGPT 19 U/L (12-78); AST/SGOT 38 U/L (7-37); BILIRUBIN,DIRECT 2.5 MG/DL (0.0-0.2); BILIRUBIN,TOTAL 5.1 MG/DL (0.2-1.0); TOTAL PROTEIN 5.9 GM/DL (6.4-8.2)
[2018-09-02] MEDS: OXAZEPAM 10 MG CAP PO (21:06)
[2018-09-03] MEDS: CHOLESTYRAMINE 4 GM PWD PKT PO
[2018-09-03] MEDS: OXAZEPAM 10 MG CAP PO ×3 (05:29→21:36)
[2018-09-03] MEDS: levETIRAcetam INJection 1,000 MG in D5W 100 ML IV ×2 (05:29→18:53)
[2018-09-03 05:53] LABS: HEMATOCRIT 34.1 % (42.0-52.0); HEMOGLOBIN 11.7 g/dl (13.5-17.5); MEAN CORPUSCULAR HEMOGLOBIN 35.9 pg (27.0-33.0); MEAN CORPUSCULAR HGB CONC 34.3 g/dl (32.0-36.5); MEAN CORPUSCULAR VOLUME 104.6 fl (80.0-96.0); PLATELET COUNT, AUTOMATED 124 10^3/uL (150-450); RED BLOOD COUNT 3.26 10^6/uL (4.30-6.10); RED CELL DISTRIBUTION WIDTH 16.6 % (11.5-14.5); WHITE BLOOD COUNT 7.3 10^3/uL (4.0-10.0)
[2018-09-03 06:02] LABS: PROTHROMBIN TIME 20.3 SECONDS (12.1-14.4)
[2018-09-03 06:26] LABS: AMMONIA < 10 uMOL/L (<32)
[2018-09-03 06:29] LABS: ALBUMIN 2.1 GM/DL (3.2-5.2); ALBUMIN/GLOBULIN RATIO 0.51 (1.00-1.93); ALKALINE PHOSPHATASE 131 U/L (45-117); ALT/SGPT 16 U/L (12-78); ANION GAP 7 MEQ/L (8-16); AST/SGOT 42 U/L (7-37); BILIRUBIN,DIRECT 2.6 MG/DL (0.0-0.2); BILIRUBIN,TOTAL 4.4 MG/DL (0.2-1.0); BLOOD UREA NITROGEN 6 MG/DL (7-18); CALCIUM LEVEL 7.8 MG/DL (8.5-10.1); CARBON DIOXIDE LEVEL 30 MEQ/L (21-32); CHLORIDE LEVEL 102 MEQ/L (98-107); CREATININE FOR GFR 0.77 MG/DL (0.70-1.30); GLOMERULAR FILTRATION RATE > 60.0 (>60); GLUCOSE, FASTING 84 MG/DL (70-100); PHENYTOIN (DILANTIN) 18.2 UG/ML (10.0-20.0); POTASSIUM SERUM 4.1 MEQ/L (3.5-5.1); SODIUM LEVEL 139 MEQ/L (136-145); TOTAL PROTEIN 6.2 GM/DL (6.4-8.2)
[2018-09-03] MEDS: SPIRONOLACTONE 50 MG TAB PO (08:16)
[2018-09-03] MEDS: SUCRALFATE SUSP 1GM/10ML UD PO ×4 (08:16→21:36)
[2018-09-03] MEDS: GABAPENTIN 100 MG CAP PO ×3 (08:16→21:36)
[2018-09-03] MEDS: FUROSEMIDE 40 MG TAB PO (08:16)
[2018-09-03] MEDS: MULTIVITAMINS/MINERALS THERAP 1 TAB PO (08:16)
[2018-09-03] MEDS: LACTULOSE 20 GM/30 ML SYRUP UD PO (08:16)
[2018-09-03] MEDS: PHENYTOIN ER 100 MG CAP PO ×3 (08:17→21:36)
[2018-09-03] MEDS: MIDODRINE 5 MG TAB PO ×3 (08:17→16:13)
[2018-09-03] MEDS: PROPRANOLOL 10 MG TAB PO (08:17)
[2018-09-03] MEDS: FERROUS SULFATE 325MG TAB PO ×2 (08:17→21:36)
[2018-09-03] MEDS: PANTOPRAZOLE 40MG TAB (PROTONIX) PO (08:17)
[2018-09-03] MEDS: predniSONE 10 MG TAB PO (08:18)
[2018-09-03] MEDS: FOLIC ACID 1 MG TAB PO (08:18)
[2018-09-03] MEDS: THIAMINE 100 MG TAB PO (08:18)
[2018-09-03] MEDS: PARoxetine 20 MG TAB PO (08:18)
[2018-09-04] MEDS: CHOLESTYRAMINE 4 GM PWD PKT PO (00:53)
[2018-09-04] MEDS: LORazepam 2 MG/ML VIAL (J2060) IV ×3 (01:20→22:58)
[2018-09-04] MEDS: levETIRAcetam INJection 1,000 MG in D5W 100 ML IV ×2 (05:53→19:47)
[2018-09-04 06:17] LABS: HEMOGLOBIN 10.7 g/dl (13.5-17.5); MEAN CORPUSCULAR HEMOGLOBIN 36.1 pg (27.0-33.0); MEAN CORPUSCULAR HGB CONC 34.5 g/dl (32.0-36.5); MEAN CORPUSCULAR VOLUME 104.7 fl (80.0-96.0); PLATELET COUNT, AUTOMATED 128 10^3/uL (150-450); RED BLOOD COUNT 2.96 10^6/uL (4.30-6.10); RED CELL DISTRIBUTION WIDTH 16.5 % (11.5-14.5); WHITE BLOOD COUNT 8.2 10^3/uL (4.0-10.0)
[2018-09-04 06:27] LABS: INR 1.78
[2018-09-04 06:42] LABS: ALBUMIN 1.9 GM/DL (3.2-5.2); ALBUMIN/GLOBULIN RATIO 0.51 (1.00-1.93); ALKALINE PHOSPHATASE 140 U/L (45-117); ALT/SGPT 16 U/L (12-78); ANION GAP 6 MEQ/L (8-16); AST/SGOT 40 U/L (7-37); BILIRUBIN,DIRECT 2.1 MG/DL (0.0-0.2); BILIRUBIN,TOTAL 2.8 MG/DL (0.2-1.0); BLOOD UREA NITROGEN 7 MG/DL (7-18); CALCIUM LEVEL 7.7 MG/DL (8.5-10.1); CARBON DIOXIDE LEVEL 31 MEQ/L (21-32); CHLORIDE LEVEL 100 MEQ/L (98-107); CREATININE FOR GFR 0.77 MG/DL (0.70-1.30); GLOMERULAR FILTRATION RATE > 60.0 (>60); GLUCOSE, FASTING 132 MG/DL (70-100); PHENYTOIN (DILANTIN) 16.4 UG/ML (10.0-20.0); POTASSIUM SERUM 3.7 MEQ/L (3.5-5.1); SODIUM LEVEL 137 MEQ/L (136-145); TOTAL PROTEIN 5.6 GM/DL (6.4-8.2)
[2018-09-04] MEDS: MULTIVITAMINS/MINERALS THERAP 1 TAB PO (09:34)
[2018-09-04] MEDS: SUCRALFATE SUSP 1GM/10ML UD PO ×4 (09:34→19:53)
[2018-09-04] MEDS: THIAMINE 100 MG TAB PO (09:34)
[2018-09-04] MEDS: GABAPENTIN 100 MG CAP PO ×3 (09:34→19:54)
[2018-09-04] MEDS: FUROSEMIDE 40 MG TAB PO (09:34)
[2018-09-04] MEDS: LACTULOSE 20 GM/30 ML SYRUP UD PO (09:34)
[2018-09-04] MEDS: SPIRONOLACTONE 50 MG TAB PO (09:35)
[2018-09-04] MEDS: MIDODRINE 5 MG TAB PO ×3 (09:35→17:35)
[2018-09-04] MEDS: FERROUS SULFATE 325MG TAB PO ×2 (09:35→19:54)
[2018-09-04] MEDS: PROPRANOLOL 10 MG TAB PO (09:36)
[2018-09-04] MEDS: predniSONE 10 MG TAB PO (09:37)
[2018-09-04] MEDS: PARoxetine 20 MG TAB PO (09:37)
[2018-09-04] MEDS: PHENYTOIN ER 100 MG CAP PO ×2 (09:37→19:54)
[2018-09-04] MEDS: PANTOPRAZOLE 40MG TAB (PROTONIX) PO (09:37)
[2018-09-04] MEDS: FOLIC ACID 1 MG TAB PO (09:37)
[2018-09-04] MEDS: OXAZEPAM 10 MG CAP PO ×2 (09:37→19:54)
[2018-09-04] MEDS ORDERED: LORazepam 2 MG/ML VIAL (J2060) IM (10:50)
[2018-09-04] MEDS: LORazepam 2 MG/ML VIAL (J2060) IM ×2 (10:51→11:07)
[2018-09-04 11:33] LABS: HEMOGLOBIN 11.9 g/dl (13.5-17.5); MEAN CORPUSCULAR HEMOGLOBIN 36.1 pg (27.0-33.0); MEAN CORPUSCULAR VOLUME 106.1 fl (80.0-96.0); PLATELET COUNT, AUTOMATED 141 10^3/uL (150-450); RED CELL DISTRIBUTION WIDTH 16.3 % (11.5-14.5); WHITE BLOOD COUNT 8.8 10^3/uL (4.0-10.0)
[2018-09-04 12:00] LABS: AMMONIA 17 uMOL/L (<32)
[2018-09-04] MEDS: QUEtiapine FUMARATE 25 MG TAB PO (12:58)
[2018-09-04] MEDS ORDERED: PHENYTOIN ER 100 MG CAP PO (21:00)
[2018-09-05] MEDS: levETIRAcetam INJection 1,000 MG in D5W 100 ML IV ×2 (05:54→18:00)
[2018-09-05] MEDS: CHOLESTYRAMINE 4 GM PWD PKT PO (05:54)
[2018-09-05 06:00] LABS: HEMATOCRIT 33.8 % (42.0-52.0); HEMOGLOBIN 11.6 g/dl (13.5-17.5); MEAN CORPUSCULAR HEMOGLOBIN 35.7 pg (27.0-33.0); MEAN CORPUSCULAR HGB CONC 34.3 g/dl (32.0-36.5); PLATELET COUNT, AUTOMATED 155 10^3/uL (150-450); RED BLOOD COUNT 3.25 10^6/uL (4.30-6.10); RED CELL DISTRIBUTION WIDTH 16.5 % (11.5-14.5); WHITE BLOOD COUNT 9.4 10^3/uL (4.0-10.0)
[2018-09-05 06:19] LABS: INR 1.67
[2018-09-05 06:26] LABS: AMMONIA < 10 uMOL/L (<32)
[2018-09-05 06:45] LABS: ALBUMIN 2.1 GM/DL (3.2-5.2); ALBUMIN/GLOBULIN RATIO 0.45 (1.00-1.93); ALKALINE PHOSPHATASE 152 U/L (45-117); ALT/SGPT 22 U/L (12-78); ANION GAP 4 MEQ/L (8-16); AST/SGOT 56 U/L (7-37); BILIRUBIN,DIRECT 2.1 MG/DL (0.0-0.2); BILIRUBIN,TOTAL 2.9 MG/DL (0.2-1.0); BLOOD UREA NITROGEN 5 MG/DL (7-18); CALCIUM LEVEL 7.2 MG/DL (8.5-10.1); CARBON DIOXIDE LEVEL 34 MEQ/L (21-32); CHLORIDE LEVEL 98 MEQ/L (98-107); CREATININE FOR GFR 0.82 MG/DL (0.70-1.30); GLOMERULAR FILTRATION RATE > 60.0 (>60); GLUCOSE, FASTING 85 MG/DL (70-100); PHENYTOIN (DILANTIN) 20.8 UG/ML (10.0-20.0); SODIUM LEVEL 136 MEQ/L (136-145); TOTAL PROTEIN 6.8 GM/DL (6.4-8.2)
[2018-09-05] MEDS: LACTULOSE 20 GM/30 ML SYRUP UD PO (08:56)
[2018-09-05] MEDS: SUCRALFATE SUSP 1GM/10ML UD PO ×4 (08:56→20:16)
[2018-09-05] MEDS: MIDODRINE 5 MG TAB PO ×3 (08:57→16:38)
[2018-09-05] MEDS: FUROSEMIDE 40 MG TAB PO (08:58)
[2018-09-05] MEDS: PANTOPRAZOLE 40MG TAB (PROTONIX) PO (08:58)
[2018-09-05] MEDS: THIAMINE 100 MG TAB PO (08:58)
[2018-09-05] MEDS: FOLIC ACID 1 MG TAB PO (08:58)
[2018-09-05] MEDS: GABAPENTIN 100 MG CAP PO ×3 (08:58→20:15)
[2018-09-05] MEDS: predniSONE 10 MG TAB PO (08:59)
[2018-09-05] MEDS: SPIRONOLACTONE 50 MG TAB PO (08:59)
[2018-09-05] MEDS: OXAZEPAM 10 MG CAP PO (08:59)
[2018-09-05] MEDS: MULTIVITAMINS/MINERALS THERAP 1 TAB PO (08:59)
[2018-09-05] MEDS: PARoxetine 20 MG TAB PO (08:59)
[2018-09-05] MEDS: FERROUS SULFATE 325MG TAB PO ×2 (08:59→20:15)
[2018-09-05] MEDS: QUEtiapine FUMARATE 25 MG TAB PO ×2 (08:59→20:16)
[2018-09-05 12:41] LABS: BEDSIDE GLUCOSE 102 MG/DL (70-105)
[2018-09-05] MEDS: levETIRAcetam 250MG TABLET (KEPPRA) PO (20:15)
[2018-09-05] MEDS: LORazepam 2 MG/ML VIAL (J2060) IV (22:43)
[2018-09-05] MEDS: HALOPERIDOL 5 MG/ML VIAL (J1630) IM (23:10)
[2018-09-06] MEDS: CHOLESTYRAMINE 4 GM PWD PKT PO (05:04)
[2018-09-06 05:19] LABS: HEMATOCRIT 33.2 % (42.0-52.0); HEMOGLOBIN 11.4 g/dl (13.5-17.5); MEAN CORPUSCULAR HEMOGLOBIN 36.1 pg (27.0-33.0); MEAN CORPUSCULAR HGB CONC 34.3 g/dl (32.0-36.5); MEAN CORPUSCULAR VOLUME 105.1 fl (80.0-96.0); PLATELET COUNT, AUTOMATED 130 10^3/uL (150-450); RED BLOOD COUNT 3.16 10^6/uL (4.30-6.10); RED CELL DISTRIBUTION WIDTH 16.7 % (11.5-14.5)
[2018-09-06 05:27] LABS: POS COUNT POS FLAG
[2018-09-06 05:44] LABS: ALBUMIN 2.1 GM/DL (3.2-5.2); ALBUMIN/GLOBULIN RATIO 0.54 (1.00-1.93); ALKALINE PHOSPHATASE 125 U/L (45-117); ALT/SGPT 18 U/L (12-78); ANION GAP 6 MEQ/L (8-16); AST/SGOT 55 U/L (7-37); BILIRUBIN,DIRECT 2.2 MG/DL (0.0-0.2); BILIRUBIN,TOTAL 3.8 MG/DL (0.2-1.0); BLOOD UREA NITROGEN 6 MG/DL (7-18); CALCIUM LEVEL 7.6 MG/DL (8.5-10.1); CARBON DIOXIDE LEVEL 32 MEQ/L (21-32); CHLORIDE LEVEL 101 MEQ/L (98-107); CREATININE FOR GFR 0.77 MG/DL (0.70-1.30); GLOMERULAR FILTRATION RATE > 60.0 (>60); GLUCOSE, FASTING 75 MG/DL (70-100); PHENYTOIN (DILANTIN) 15.7 UG/ML (10.0-20.0); POTASSIUM SERUM 4.3 MEQ/L (3.5-5.1); SODIUM LEVEL 139 MEQ/L (136-145)
[2018-09-06 06:42] LABS: INR 1.84; PROTHROMBIN TIME 21.6 SECONDS (12.1-14.4)
[2018-09-06] MEDS: SUCRALFATE SUSP 1GM/10ML UD PO ×4 (07:30→22:20)
[2018-09-06] MEDS: MIDODRINE 5 MG TAB PO ×3 (08:00→16:36)
[2018-09-06] MEDS: FOLIC ACID 1 MG TAB PO (09:00)
[2018-09-06] MEDS: GABAPENTIN 100 MG CAP PO ×3 (09:00→22:21)
[2018-09-06] MEDS: levETIRAcetam 250MG TABLET (KEPPRA) PO ×2 (09:00→22:20)
[2018-09-06] MEDS: PARoxetine 20 MG TAB PO (09:00)
[2018-09-06] MEDS: predniSONE 10 MG TAB PO (09:00)
[2018-09-06] MEDS: FERROUS SULFATE 325MG TAB PO ×2 (09:00→22:20)
[2018-09-06] MEDS: SPIRONOLACTONE 50 MG TAB PO (09:00)
[2018-09-06] MEDS: FUROSEMIDE 40 MG TAB PO (09:00)
[2018-09-06] MEDS: QUEtiapine FUMARATE 25 MG TAB PO (09:00)
[2018-09-06] MEDS: MULTIVITAMINS/MINERALS THERAP 1 TAB PO (09:00)
[2018-09-06] MEDS: PANTOPRAZOLE 40MG TAB (PROTONIX) PO (09:00)
[2018-09-06] MEDS: LACTULOSE 20 GM/30 ML SYRUP UD PO (09:00)
[2018-09-06] MEDS: THIAMINE 100 MG TAB PO (09:00)
[2018-09-06] MEDS: PHENYTOIN ER 100 MG CAP PO (09:00)
[2018-09-06 09:03] LABS: PROLACTIN 27.8 NG/ML (2.1-17.7)
[2018-09-06 09:11] LABS: PROLACTIN 18.2 NG/ML (2.1-17.7)
[2018-09-06] MEDS: PALIPERIDONE 3 MG ER TAB (INVEGA) PO (22:43)
[2018-09-07] MEDS: CHOLESTYRAMINE 4 GM PWD PKT PO (06:12)
[2018-09-07 06:25] LABS: INR 1.77; PROTHROMBIN TIME 20.9 SECONDS (12.1-14.4)
[2018-09-07 06:38] LABS: ALBUMIN 1.9 GM/DL (3.2-5.2); ALBUMIN/GLOBULIN RATIO 0.48 (1.00-1.93); ALKALINE PHOSPHATASE 122 U/L (45-117); ALT/SGPT 21 U/L (12-78); AST/SGOT 53 U/L (7-37); BILIRUBIN,DIRECT 2.2 MG/DL (0.0-0.2); BILIRUBIN,TOTAL 3.7 MG/DL (0.2-1.0); PHENYTOIN (DILANTIN) 13.7 UG/ML (10.0-20.0); TOTAL PROTEIN 5.9 GM/DL (6.4-8.2)
[2018-09-07] MEDS: LACTULOSE 20 GM/30 ML SYRUP UD PO (07:32)
[2018-09-07] MEDS: SUCRALFATE SUSP 1GM/10ML UD PO ×4 (07:32→21:24)
[2018-09-07] MEDS: PANTOPRAZOLE 40MG TAB (PROTONIX) PO (07:33)
[2018-09-07] MEDS: GABAPENTIN 100 MG CAP PO ×3 (07:33→21:24)
[2018-09-07] MEDS: FOLIC ACID 1 MG TAB PO (07:33)
[2018-09-07] MEDS: THIAMINE 100 MG TAB PO (07:33)
[2018-09-07] MEDS: MIDODRINE 5 MG TAB PO ×3 (07:33→16:15)
[2018-09-07] MEDS: levETIRAcetam 250MG TABLET (KEPPRA) PO ×2 (07:33→21:24)
[2018-09-07] MEDS: FERROUS SULFATE 325MG TAB PO ×2 (07:34→21:24)
[2018-09-07] MEDS: PALIPERIDONE 3 MG ER TAB (INVEGA) PO ×2 (07:34→21:24)
[2018-09-07] MEDS: MULTIVITAMINS/MINERALS THERAP 1 TAB PO (07:34)
[2018-09-07] MEDS: SPIRONOLACTONE 50 MG TAB PO (07:34)
[2018-09-07] MEDS: FUROSEMIDE 40 MG TAB PO (07:34)
[2018-09-07] MEDS: PARoxetine 10MG TABLET PO (07:34)
[2018-09-07] MEDS: predniSONE 10 MG TAB PO (07:34)
[2018-09-07] MEDS: PHENYTOIN ER 100 MG CAP PO (07:37)
[2018-09-07] MEDS: LIDOCAINE 5% (LIDODERM) PATCH TD (07:40)
[2018-09-07] MEDS: PHYTONADIONE 5 MG TAB PO (11:00)
[2018-09-07] MEDS: **NOTE PATIENT COMMENT** MISC XX (16:10)
[2018-09-08] MEDS: CHOLESTYRAMINE 4 GM PWD PKT PO (05:39)
[2018-09-08 07:18] LABS: PHENYTOIN (DILANTIN) 12.1 UG/ML (10.0-20.0)
[2018-09-08] MEDS: PANTOPRAZOLE 40MG TAB (PROTONIX) PO (08:24)
[2018-09-08] MEDS: MULTIVITAMINS/MINERALS THERAP 1 TAB PO (08:24)
[2018-09-08] MEDS: SPIRONOLACTONE 50 MG TAB PO (08:24)
[2018-09-08] MEDS: predniSONE 10 MG TAB PO (08:24)
[2018-09-08] MEDS: FERROUS SULFATE 325MG TAB PO (08:24)
[2018-09-08] MEDS: FOLIC ACID 1 MG TAB PO (08:24)
[2018-09-08] MEDS: FUROSEMIDE 40 MG TAB PO (08:24)
[2018-09-08] MEDS: levETIRAcetam 250MG TABLET (KEPPRA) PO (08:24)
[2018-09-08] MEDS: THIAMINE 100 MG TAB PO (08:24)
[2018-09-08] MEDS: PHYTONADIONE 5 MG TAB PO (08:25)
[2018-09-08] MEDS: MIDODRINE 5 MG TAB PO ×3 (08:25→17:39)
[2018-09-08] MEDS: SUCRALFATE SUSP 1GM/10ML UD PO ×3 (08:25→17:39)
[2018-09-08] MEDS: GABAPENTIN 100 MG CAP PO ×2 (08:25→17:39)
[2018-09-08] MEDS: PALIPERIDONE 3 MG ER TAB (INVEGA) PO (08:25)
[2018-09-08] MEDS: LACTULOSE 20 GM/30 ML SYRUP UD PO (08:25)
[2018-09-08] MEDS: PARoxetine 10MG TABLET PO (08:25)
== END 2018-09-08 17:42 | disposition home or self-care (01) | DRG 279 ==
LOC: M MS5PR 08-29 13:05 → M PCU 08-30 17:25 → M MS5PR 09-08 07:50 → M MSPAV 09-03 16:37 → M PCU 08-26 12:45 → M MS5PR 09-07 16:33 → M ED 08:38 → M ED INP 12:50 → M MSPAV 15:45
PROC: 30233K1 Transfusion of Nonautologous Frozen Plasma into Peripheral Vein, Percutaneous Approach (ICD-10-PCS; 2018-08-30)
PROC: 0W9G3ZZ Drainage of Peritoneal Cavity, Percutaneous Approach (ICD-10-PCS; principal; 2018-08-31)
PROC: 0W9G3ZZ Drainage of Peritoneal Cavity, Percutaneous Approach (ICD-10-PCS; 2018-09-07)
DX: K72.90 Hepatic failure, unspecified without coma (principal); G93.49 Other encephalopathy; F10.231 Alcohol dependence with withdrawal delirium; D68.4 Acquired coagulation factor deficiency; F32.3 Major depressive disorder, single episode, severe with psychotic features; E87.2 Acidosis; D69.6 Thrombocytopenia, unspecified; G40.409 Other generalized epilepsy and epileptic syndromes, not intractable, without status epilepticus; K76.6 Portal hypertension; K70.11 Alcoholic hepatitis with ascites; R07.89 Other chest pain; K29.20 Alcoholic gastritis without bleeding; K70.31 Alcoholic cirrhosis of liver with ascites; F43.10 Post-traumatic stress disorder, unspecified; R41.82 Altered mental status, unspecified; E87.6 Hypokalemia; D63.8 Anemia in other chronic diseases classified elsewhere; Z79.899 Other long term (current) drug therapy; Z88.0 Allergy status to penicillin; Z91.14 Patient's other noncompliance with medication regimen

== ENCOUNTER 2018-09-24 14:49 | Emergency (ER) | payer OTHER ==
[2018-09-24] MEDS: levETIRAcetam INJection 1,000 MG in D5W 100 ML IV (15:34)
[2018-09-24] MEDS: OXAZEPAM 15 MG CAP PO (15:34)
== END 2018-09-24 17:55 | disposition home or self-care (01) ==
LOC: M ED 14:49
DX: G40.909 Epilepsy, unspecified, not intractable, without status epilepticus (principal); K70.30 Alcoholic cirrhosis of liver without ascites; Z91.19 Patient's noncompliance with other medical treatment and regimen; F32.9 Major depressive disorder, single episode, unspecified; Z91.5 Personal history of self-harm; Z79.899 Other long term (current) drug therapy; Z88.0 Allergy status to penicillin
CPT/HCPCS: J1953

== ENCOUNTER 2018-09-30 09:47 | Inpatient (IN) | payer OTHER ==
[2018-09-30 10:12] LABS: ABG HCO3 26.6 MEQ/L (22.0-26.0); ABG O2 SATURATION 99.7 % (95.0-99.0); ABG PARTIAL PRESSURE CO2 33.6 mmHg (35.0-45.0); ABG PARTIAL PRESSURE O2 253.9 mmHg (75.0-100.0); ABG STANDARD HCO3 28.1 MEQ/L (22.0-26.0); ABG TOTAL CO2 27.6 MEQ/L (22.0-29.0); ABG pH (ARTERIAL) 7.516 UNITS (7.350-7.450); BASO # 0.1 10^3/uL (0.0-0.2); BASO % 0.8 % (0.0-1.0); EOS # 0.1 10^3/uL (0.0-0.50); EOS % 0.8 % (0.0-3.0); HEMATOCRIT 36.5 % (42.0-52.0); HEMOGLOBIN 12.7 g/dl (13.5-17.5); IMMATURE GRANULOCYTE % 0.3 % (0-3.0); LYMPH # 1.6 10^3/uL (1.5-4.5); LYMPH % 23.7 % (24.0-44.0); MEAN CORPUSCULAR HEMOGLOBIN 36.4 pg (27.0-33.0); MEAN CORPUSCULAR HGB CONC 34.8 g/dl (32.0-36.5); MEAN CORPUSCULAR VOLUME 104.6 fl (80.0-96.0); MONO # 1.2 10^3/uL (0.0-0.8); MONO % 18.3 % (0.0-5.0); NEUTROPHILS # 3.7 10^3/uL (1.8-7.7); NEUTROPHILS % 56.1 % (36.0-66.0); RED BLOOD COUNT 3.49 10^6/uL (4.30-6.10); RED CELL DISTRIBUTION WIDTH 13.2 % (11.5-14.5); WHITE BLOOD COUNT 6.7 10^3/uL (4.0-10.0)
[2018-09-30] MEDS: levETIRAcetam INJection 1,000 MG in D5W 100 ML IV (10:18)
[2018-09-30 10:32] LABS: AMMONIA 31 uMOL/L (<32)
[2018-09-30 10:35] LABS: INR 1.75; PROTHROMBIN TIME 20.7 SECONDS (12.1-14.4)
[2018-09-30 10:36] LABS: PARTIAL THROMBOPLASTIN TIME 39.2 SECONDS (25.4-37.6)
[2018-09-30 10:44] LABS: PLATELET COUNT, AUTOMATED 50 10^3/uL (150-450)
[2018-09-30 10:49] LABS: IMMATURE PLATELET FRACTION % 4.1 % (0.0-10.9)
[2018-09-30 10:52] LABS: ACETAMINOPHEN LEVEL < 2.0 UG/ML (10.0-30.0); ALBUMIN 2.1 GM/DL (3.2-5.2); ALBUMIN/GLOBULIN RATIO 0.46 (1.00-1.93); ALKALINE PHOSPHATASE 196 U/L (45-117); ALT/SGPT 22 U/L (12-78); ANION GAP 12 MEQ/L (8-16); AST/SGOT 95 U/L (7-37); BILIRUBIN,DIRECT 2.8 MG/DL (0.0-0.2); BILIRUBIN,TOTAL 8.4 MG/DL (0.2-1.0); BLOOD UREA NITROGEN 4 MG/DL (7-18); CALCIUM LEVEL 7.7 MG/DL (8.5-10.1); CARBON DIOXIDE LEVEL 30 MEQ/L (21-32); CHLORIDE LEVEL 95 MEQ/L (98-107); CPK CREATINE PHOSPHOKINASE 351 U/L (39-308); ETHYL ALCOHOL (ETHANOL) < 0.003 % (0.000-0.010); GLOMERULAR FILTRATION RATE > 60.0 (>60); GLUCOSE, FASTING 96 MG/DL (70-100); MAGNESIUM LEVEL 1.2 MG/DL (1.8-2.4); MB/CK RELATIVE INDEX 1.05 (< OR =4); POTASSIUM SERUM 3.1 MEQ/L (3.5-5.1); SALICYLATE LEVEL < 1.7 MG/DL (5.0-30.0); SODIUM LEVEL 137 MEQ/L (136-145); TOTAL PROTEIN 6.7 GM/DL (6.4-8.2); TROPONIN I 0.06 NG/ML (< 0.10)
[2018-09-30 10:55] LABS: PHENYTOIN (DILANTIN) < 0.4 UG/ML (10.0-20.0)
[2018-09-30] MEDS: POTASSIUM CHLORIDE 10 MEQ SR TABLET PO (14:10)
[2018-09-30 14:18] LABS: BEDSIDE GLUCOSE 96 MG/DL (70-105)
[2018-09-30 16:02] LABS: SPEC. GRAVITY BODY FLUIDS 1.011 (NOT ESTABLISHED)
[2018-09-30 16:14] LABS: APPEARANCE, BODY FLUID CLEAR (CLEAR); BF DIFF IF INDICATED? YES (NO); BF MONONUCLEAR CELL % 68.5 % (0-0); BF POLYMORPHONUCLEAR CELL % 31.5 % (0-0); PERITONEAL FL COLOR PALE YELLOW (COLORLESS); RBC BODY FLUID < 2 10^3/uL (<2); SOURCE, BODY FLUID PERITONEAL; WBC BODY FLUID 54 /uL (0-10)
[2018-09-30 16:39] LABS: SOURCE, BODY FLUID ALBUMIN PERITONEAL; SOURCE, BODY FLUID GLUCOSE PERITONEAL; SOURCE, BODY FLUID TOT PROTEIN PERITONEAL
[2018-09-30] MEDS: GABAPENTIN 100 MG CAP PO ×2 (17:27→20:26)
[2018-09-30] MEDS: PHENYTOIN ER 100 MG CAP PO ×2 (17:27→20:27)
[2018-09-30] MEDS: MIDODRINE 5 MG TAB PO (17:28)
[2018-09-30] MEDS: SUCRALFATE SUSP 1GM/10ML UD PO ×2 (17:28→20:27)
[2018-09-30] MEDS ORDERED: PILL CRUSHER/CUTTER 1 EACH XX (17:30)
[2018-09-30 17:46] LABS: PHENYTOIN (DILANTIN) < 0.4 UG/ML (10.0-20.0); TROPONIN I 0.06 NG/ML (< 0.10)
[2018-09-30 17:46] LABS: MAGNESIUM LEVEL 1.2 MG/DL (1.8-2.4)
[2018-09-30 17:54] LABS: LACTIC ACID SEPSIS PROTOCOL 2.7 MMOL/L (0.4-2.0)
[2018-09-30] MEDS: FERROUS SULFATE 325MG TAB PO (20:25)
[2018-09-30] MEDS: PALIPERIDONE 3 MG ER TAB (INVEGA) PO (20:25)
[2018-09-30] MEDS: levETIRAcetam 250MG TABLET (KEPPRA) PO (20:27)
[2018-09-30] MEDS: PROPRANOLOL 10 MG TAB PO (20:29)
[2018-10-01] MEDS: MAG SULF 1GM/100ML (MAG RUN) 1 GM in APPROPRIATE DILUENT 1 EA IV ×2 (00:13→06:37)
[2018-10-01 06:04] LABS: BASO % 0.7 % (0.0-1.0); EOS # 0.1 10^3/uL (0.0-0.50); EOS % 1.4 % (0.0-3.0); HEMATOCRIT 33.9 % (42.0-52.0); HEMOGLOBIN 11.8 g/dl (13.5-17.5); IMMATURE GRANULOCYTE % 0.4 % (0-3.0); LYMPH # 1.6 10^3/uL (1.5-4.5); LYMPH % 27.6 % (24.0-44.0); MEAN CORPUSCULAR HEMOGLOBIN 36.3 pg (27.0-33.0); MEAN CORPUSCULAR HGB CONC 34.8 g/dl (32.0-36.5); MEAN CORPUSCULAR VOLUME 104.3 fl (80.0-96.0); MONO # 0.9 10^3/uL (0.0-0.8); MONO % 15.2 % (0.0-5.0); NEUTROPHILS # 3.1 10^3/uL (1.8-7.7); NEUTROPHILS % 54.7 % (36.0-66.0); RED BLOOD COUNT 3.25 10^6/uL (4.30-6.10); RED CELL DISTRIBUTION WIDTH 13.2 % (11.5-14.5); WHITE BLOOD COUNT 5.6 10^3/uL (4.0-10.0)
[2018-10-01 06:11] LABS: MAGNESIUM LEVEL 1.6 MG/DL (1.8-2.4)
[2018-10-01 06:12] LABS: PLATELET COUNT, AUTOMATED 46 10^3/uL (150-450)
[2018-10-01 06:22] LABS: ALBUMIN 1.6 GM/DL (3.2-5.2); ALBUMIN/GLOBULIN RATIO 0.41 (1.00-1.93); ALKALINE PHOSPHATASE 160 U/L (45-117); ALT/SGPT 15 U/L (12-78); ANION GAP 5 MEQ/L (8-16); AST/SGOT 57 U/L (7-37); BILIRUBIN,TOTAL 5.8 MG/DL (0.2-1.0); BLOOD UREA NITROGEN 5 MG/DL (7-18); CALCIUM LEVEL 7.4 MG/DL (8.5-10.1); CARBON DIOXIDE LEVEL 34 MEQ/L (21-32); CHLORIDE LEVEL 97 MEQ/L (98-107); CREATININE FOR GFR 0.72 MG/DL (0.70-1.30); GLOMERULAR FILTRATION RATE > 60.0 (>60); GLUCOSE, FASTING 87 MG/DL (70-100); SODIUM LEVEL 136 MEQ/L (136-145); TOTAL PROTEIN 5.5 GM/DL (6.4-8.2)
[2018-10-01] MEDS: POTASSIUM CHLORIDE 10 MEQ SR TABLET PO (06:38)
[2018-10-01] MEDS: LACTULOSE 20 GM/30 ML SYRUP UD PO (08:31)
[2018-10-01] MEDS: SUCRALFATE SUSP 1GM/10ML UD PO ×4 (08:31→21:03)
[2018-10-01] MEDS: MIDODRINE 5 MG TAB PO ×3 (08:32→15:26)
[2018-10-01] MEDS: GABAPENTIN 100 MG CAP PO ×3 (08:32→21:03)
[2018-10-01] MEDS: CHOLESTYRAMINE 4 GM PWD PKT PO (08:32)
[2018-10-01] MEDS: PANTOPRAZOLE 40MG TAB (PROTONIX) PO (08:32)
[2018-10-01] MEDS: THIAMINE 100 MG TAB PO (08:32)
[2018-10-01] MEDS: FUROSEMIDE 40 MG TAB PO (08:32)
[2018-10-01] MEDS: MULTIVITAMINS/MINERALS THERAP 1 TAB PO (08:32)
[2018-10-01] MEDS: MAGNESIUM OXIDE 400 MG TAB (MAG-OX) PO (08:33)
[2018-10-01] MEDS: predniSONE 10 MG TAB PO (08:33)
[2018-10-01] MEDS: levETIRAcetam 250MG TABLET (KEPPRA) PO ×2 (08:33→21:03)
[2018-10-01] MEDS: SPIRONOLACTONE 50 MG TAB PO (08:33)
[2018-10-01] MEDS: FERROUS SULFATE 325MG TAB PO ×2 (08:33→21:03)
[2018-10-01] MEDS: PARoxetine 10MG TABLET PO (08:34)
[2018-10-01] MEDS: ZINC SULFATE 220 MG CAP PO (08:34)
[2018-10-01] MEDS: PHENYTOIN ER 100 MG CAP PO ×3 (08:34→21:03)
[2018-10-01] MEDS: FOLIC ACID 1 MG TAB PO (08:35)
[2018-10-01] MEDS: PALIPERIDONE 3 MG ER TAB (INVEGA) PO ×2 (08:35→21:03)
[2018-10-01] MEDS ORDERED: ONDANSETRON 4MG/2ML VIAL (J2405) IV (10:15)
[2018-10-01] MEDS: PROPRANOLOL 10 MG TAB PO ×2 (11:44→21:00)
[2018-10-01 12:36] LABS: TYPE AND SCREEN 1
[2018-10-01] MEDS ORDERED: LevoFLOXacin IV 500 MG in APPROPRIATE DILUENT 1 EA IV (13:00)
[2018-10-01] MEDS: LevoFLOXacin IV 500 MG in APPROPRIATE DILUENT 1 EA IV (15:26)
[2018-10-01] MEDS: VANCOMYCIN HCL 1,000 MG, VIAL MATE ADAPTER 1 EACH in D5W 250 ML IV ×2 (16:57→18:04)
[2018-10-02] MEDS: VANCOMYCIN HCL 1,000 MG, VIAL MATE ADAPTER 1 EACH in D5W 250 ML IV ×3 (02:00→18:43)
[2018-10-02] MEDS: SUCRALFATE SUSP 1GM/10ML UD PO ×4 (06:52→20:35)
[2018-10-02 08:25] LABS: HEMATOCRIT 33.6 % (42.0-52.0); HEMOGLOBIN 11.9 g/dl (13.5-17.5); MEAN CORPUSCULAR HEMOGLOBIN 36.6 pg (27.0-33.0); MEAN CORPUSCULAR HGB CONC 35.4 g/dl (32.0-36.5); MEAN CORPUSCULAR VOLUME 103.4 fl (80.0-96.0); RED BLOOD COUNT 3.25 10^6/uL (4.30-6.10); RED CELL DISTRIBUTION WIDTH 12.8 % (11.5-14.5); WHITE BLOOD COUNT 7.6 10^3/uL (4.0-10.0)
[2018-10-02 08:47] LABS: ANION GAP 8 MEQ/L (8-16); BLOOD UREA NITROGEN 5 MG/DL (7-18); CALCIUM LEVEL 7.4 MG/DL (8.5-10.1); CARBON DIOXIDE LEVEL 30 MEQ/L (21-32); CHLORIDE LEVEL 98 MEQ/L (98-107); CREATININE FOR GFR 0.76 MG/DL (0.70-1.30); GLOMERULAR FILTRATION RATE > 60.0 (>60); GLUCOSE, FASTING 95 MG/DL (70-100); POTASSIUM SERUM 3.2 MEQ/L (3.5-5.1); SODIUM LEVEL 136 MEQ/L (136-145)
[2018-10-02] MEDS: CHOLESTYRAMINE 4 GM PWD PKT PO (08:49)
[2018-10-02] MEDS: LACTULOSE 20 GM/30 ML SYRUP UD PO (08:49)
[2018-10-02] MEDS: SPIRONOLACTONE 50 MG TAB PO (08:50)
[2018-10-02] MEDS: PARoxetine 10MG TABLET PO (08:50)
[2018-10-02] MEDS: FERROUS SULFATE 325MG TAB PO ×2 (08:50→20:35)
[2018-10-02] MEDS: PROPRANOLOL 10 MG TAB PO ×2 (08:50→20:36)
[2018-10-02] MEDS: PALIPERIDONE 3 MG ER TAB (INVEGA) PO ×2 (08:51→20:37)
[2018-10-02] MEDS: ZINC SULFATE 220 MG CAP PO (08:51)
[2018-10-02] MEDS: GABAPENTIN 100 MG CAP PO ×3 (08:51→20:37)
[2018-10-02] MEDS: MIDODRINE 5 MG TAB PO ×3 (08:51→16:28)
[2018-10-02] MEDS: MULTIVITAMINS/MINERALS THERAP 1 TAB PO (08:51)
[2018-10-02] MEDS: predniSONE 10 MG TAB PO (08:52)
[2018-10-02] MEDS: FOLIC ACID 1 MG TAB PO (08:52)
[2018-10-02] MEDS: THIAMINE 100 MG TAB PO (08:52)
[2018-10-02] MEDS: FUROSEMIDE 40 MG TAB PO (08:52)
[2018-10-02] MEDS: PHENYTOIN ER 100 MG CAP PO ×3 (08:52→20:35)
[2018-10-02] MEDS: PANTOPRAZOLE 40MG TAB (PROTONIX) PO (08:52)
[2018-10-02] MEDS: levETIRAcetam 250MG TABLET (KEPPRA) PO ×2 (08:53→20:37)
[2018-10-02 09:51] LABS: PLATELET COUNT, AUTOMATED 52 10^3/uL (150-450)
[2018-10-02 09:52] LABS: IMMATURE PLATELET FRACTION % 6.7 % (0.0-10.9)
[2018-10-02] MEDS: traMADol 50 MG TAB PO ×2 (10:54→17:07)
[2018-10-02] MEDS ORDERED: POTASSIUM CHLORIDE 10 MEQ SR TABLET PO (12:00)
[2018-10-02] MEDS: POTASSIUM CHLORIDE 10 MEQ SR TABLET PO (12:25)
[2018-10-02 12:33] LABS: REASON FOR REVIEW PLATELET MORPHOLOGY; SLIDE REVIEW Report; SOURCE PERIPHERAL SMEAR
[2018-10-02 15:23] LABS: ANTINUCLEAR ANTIBODIES DIRECT Negative (Negative); CERULOPLASMIN 15.5 mg/dL (16.0-31.0)
[2018-10-02] MEDS: LevoFLOXacin IV 500 MG in APPROPRIATE DILUENT 1 EA IV (16:28)
[2018-10-02 17:24] LABS: VANCOMYCIN LEVEL TROUGH 14.7 UG/ML (10.0-20.0)
[2018-10-03 00:08] LABS: LIVER-KIDNEY MICROSOMAL ABY 1.2 Units (0.0-20.0)
[2018-10-03] MEDS: traMADol 50 MG TAB PO ×4 (00:13→18:07)
[2018-10-03] MEDS: VANCOMYCIN HCL 1,000 MG, VIAL MATE ADAPTER 1 EACH in D5W 250 ML IV ×3 (01:37→18:07)
[2018-10-03] MEDS: SUCRALFATE SUSP 1GM/10ML UD PO ×4 (06:40→20:49)
[2018-10-03 07:16] LABS: HEMATOCRIT 33.4 % (42.0-52.0); HEMOGLOBIN 11.7 g/dl (13.5-17.5); MEAN CORPUSCULAR HEMOGLOBIN 36.7 pg (27.0-33.0); MEAN CORPUSCULAR VOLUME 104.7 fl (80.0-96.0); RED BLOOD COUNT 3.19 10^6/uL (4.30-6.10); RED CELL DISTRIBUTION WIDTH 13.1 % (11.5-14.5); WHITE BLOOD COUNT 9.7 10^3/uL (4.0-10.0)
[2018-10-03 07:17] LABS: PLATELET COUNT, AUTOMATED 59 10^3/uL (150-450)
[2018-10-03 07:38] LABS: ANION GAP 6 MEQ/L (8-16); BLOOD UREA NITROGEN 4 MG/DL (7-18); CALCIUM LEVEL 7.4 MG/DL (8.5-10.1); CARBON DIOXIDE LEVEL 30 MEQ/L (21-32); CHLORIDE LEVEL 99 MEQ/L (98-107); CREATININE FOR GFR 0.73 MG/DL (0.70-1.30); GLOMERULAR FILTRATION RATE > 60.0 (>60); GLUCOSE, FASTING 96 MG/DL (70-100); POTASSIUM SERUM 3.8 MEQ/L (3.5-5.1); SODIUM LEVEL 135 MEQ/L (136-145)
[2018-10-03] MEDS: CHOLESTYRAMINE 4 GM PWD PKT PO (08:35)
[2018-10-03] MEDS: LACTULOSE 20 GM/30 ML SYRUP UD PO (08:35)
[2018-10-03] MEDS: FUROSEMIDE 40 MG TAB PO (08:36)
[2018-10-03] MEDS: levETIRAcetam 250MG TABLET (KEPPRA) PO ×2 (08:36→20:49)
[2018-10-03] MEDS: MIDODRINE 5 MG TAB PO ×3 (08:36→16:59)
[2018-10-03] MEDS: PANTOPRAZOLE 40MG TAB (PROTONIX) PO (08:36)
[2018-10-03] MEDS: ZINC SULFATE 220 MG CAP PO (08:37)
[2018-10-03] MEDS: predniSONE 10 MG TAB PO (08:37)
[2018-10-03] MEDS: PHENYTOIN ER 100 MG CAP PO ×3 (08:37→20:49)
[2018-10-03] MEDS: FOLIC ACID 1 MG TAB PO (08:37)
[2018-10-03] MEDS: MULTIVITAMINS/MINERALS THERAP 1 TAB PO (08:37)
[2018-10-03] MEDS: THIAMINE 100 MG TAB PO (08:37)
[2018-10-03] MEDS: GABAPENTIN 100 MG CAP PO ×3 (08:38→20:49)
[2018-10-03] MEDS: PALIPERIDONE 3 MG ER TAB (INVEGA) PO ×2 (08:38→20:50)
[2018-10-03] MEDS: SPIRONOLACTONE 50 MG TAB PO (08:38)
[2018-10-03] MEDS: PROPRANOLOL 10 MG TAB PO ×2 (08:38→20:50)
[2018-10-03] MEDS: FERROUS SULFATE 325MG TAB PO ×2 (08:38→20:49)
[2018-10-03] MEDS: PARoxetine 10MG TABLET PO (08:39)
[2018-10-03 08:53] LABS: ALBUMIN 1.9 GM/DL (3.2-5.2); MAGNESIUM LEVEL 1.5 MG/DL (1.8-2.4)
[2018-10-03] MEDS: MAGNESIUM OXIDE 400 MG TAB (MAG-OX) PO (10:32)
[2018-10-03] MEDS: VITAMIN E 400 INTERNATIONAL UNITS CAP PO (10:32)
[2018-10-03 14:08] LABS: TYPE AND SCREEN 1
[2018-10-03] MEDS: LevoFLOXacin 500 MG TABLET PO (16:59)
[2018-10-04 00:06] LABS: LEVETIRACETAM (KEPPRA) 15.9 ug/mL (10.0-40.0)
[2018-10-04] MEDS: VANCOMYCIN HCL 1,000 MG, VIAL MATE ADAPTER 1 EACH in D5W 250 ML IV ×3 (01:55→17:37)
[2018-10-04 06:48] LABS: HEMOGLOBIN 11.8 g/dl (13.5-17.5); MEAN CORPUSCULAR HEMOGLOBIN 36.6 pg (27.0-33.0); MEAN CORPUSCULAR HGB CONC 34.7 g/dl (32.0-36.5); MEAN CORPUSCULAR VOLUME 105.6 fl (80.0-96.0); RED BLOOD COUNT 3.22 10^6/uL (4.30-6.10); RED CELL DISTRIBUTION WIDTH 13.5 % (11.5-14.5); WHITE BLOOD COUNT 10.4 10^3/uL (4.0-10.0)
[2018-10-04 06:51] LABS: PLATELET COUNT, AUTOMATED 59 10^3/uL (150-450)
[2018-10-04 06:52] LABS: IMMATURE PLATELET FRACTION % 5.8 % (0.0-10.9)
[2018-10-04] MEDS: traMADol 50 MG TAB PO ×2 (06:55→20:26)
[2018-10-04 07:11] LABS: ALBUMIN 1.9 GM/DL (3.2-5.2); ANION GAP 7 MEQ/L (8-16); BLOOD UREA NITROGEN 4 MG/DL (7-18); CALCIUM LEVEL 7.5 MG/DL (8.5-10.1); CARBON DIOXIDE LEVEL 28 MEQ/L (21-32); CHLORIDE LEVEL 98 MEQ/L (98-107); CREATININE FOR GFR 0.84 MG/DL (0.70-1.30); GLOMERULAR FILTRATION RATE > 60.0 (>60); GLUCOSE, FASTING 88 MG/DL (70-100); MAGNESIUM LEVEL 1.4 MG/DL (1.8-2.4); POTASSIUM SERUM 3.4 MEQ/L (3.5-5.1); SODIUM LEVEL 133 MEQ/L (136-145)
[2018-10-04] MEDS: PROPRANOLOL 10 MG TAB PO ×2 (09:00→20:24)
[2018-10-04] MEDS: SUCRALFATE SUSP 1GM/10ML UD PO ×4 (09:58→20:21)
[2018-10-04] MEDS: CHOLESTYRAMINE 4 GM PWD PKT PO (09:59)
[2018-10-04] MEDS: LACTULOSE 20 GM/30 ML SYRUP UD PO (09:59)
[2018-10-04] MEDS: MAG SULF 1GM/100ML (MAG RUN) 1 GM in APPROPRIATE DILUENT 1 EA IV (09:59)
[2018-10-04] MEDS: PHENYTOIN ER 100 MG CAP PO ×3 (10:00→20:21)
[2018-10-04] MEDS: PARoxetine 10MG TABLET PO (10:00)
[2018-10-04] MEDS: MIDODRINE 5 MG TAB PO ×3 (10:00→17:40)
[2018-10-04] MEDS: levETIRAcetam 250MG TABLET (KEPPRA) PO ×2 (10:01→20:21)
[2018-10-04] MEDS: GABAPENTIN 100 MG CAP PO ×3 (10:01→20:21)
[2018-10-04] MEDS: FUROSEMIDE 40 MG TAB PO (10:01)
[2018-10-04] MEDS: FERROUS SULFATE 325MG TAB PO ×2 (10:01→20:25)
[2018-10-04] MEDS: predniSONE 10 MG TAB PO (10:02)
[2018-10-04] MEDS: THIAMINE 100 MG TAB PO (10:02)
[2018-10-04] MEDS: MAGNESIUM OXIDE 400 MG TAB (MAG-OX) PO (10:02)
[2018-10-04] MEDS: FOLIC ACID 1 MG TAB PO (10:02)
[2018-10-04] MEDS: SPIRONOLACTONE 50 MG TAB PO (10:02)
[2018-10-04] MEDS: POTASSIUM CHLORIDE 10 MEQ SR TABLET PO (10:03)
[2018-10-04] MEDS: PANTOPRAZOLE 40MG TAB (PROTONIX) PO (10:03)
[2018-10-04] MEDS: MULTIVITAMINS/MINERALS THERAP 1 TAB PO (10:03)
[2018-10-04] MEDS: PALIPERIDONE 3 MG ER TAB (INVEGA) PO ×2 (10:08→20:25)
[2018-10-04] MEDS: VITAMIN E 400 INTERNATIONAL UNITS CAP PO (10:08)
[2018-10-04] MEDS: ZINC SULFATE 220 MG CAP PO (10:08)
[2018-10-04 17:29] LABS: VANCOMYCIN LEVEL TROUGH 13.7 UG/ML (10.0-20.0)
[2018-10-04] MEDS: LevoFLOXacin 500 MG TABLET PO (17:37)
[2018-10-05] MEDS: traMADol 50 MG TAB PO ×3 (02:46→23:55)
[2018-10-05] MEDS: VANCOMYCIN HCL 1,000 MG, VIAL MATE ADAPTER 1 EACH in D5W 250 ML IV ×3 (02:47→18:20)
[2018-10-05 06:11] LABS: HEMATOCRIT 33.6 % (42.0-52.0); HEMOGLOBIN 11.6 g/dl (13.5-17.5); MEAN CORPUSCULAR HEMOGLOBIN 36.4 pg (27.0-33.0); MEAN CORPUSCULAR HGB CONC 34.5 g/dl (32.0-36.5); MEAN CORPUSCULAR VOLUME 105.3 fl (80.0-96.0); RED BLOOD COUNT 3.19 10^6/uL (4.30-6.10); RED CELL DISTRIBUTION WIDTH 13.8 % (11.5-14.5); WHITE BLOOD COUNT 8.7 10^3/uL (4.0-10.0)
[2018-10-05 06:17] LABS: PLATELET COUNT, AUTOMATED 66 10^3/uL (150-450)
[2018-10-05 06:33] LABS: ANION GAP 7 MEQ/L (8-16); BLOOD UREA NITROGEN 6 MG/DL (7-18); CALCIUM LEVEL 7.3 MG/DL (8.5-10.1); CARBON DIOXIDE LEVEL 27 MEQ/L (21-32); CHLORIDE LEVEL 102 MEQ/L (98-107); CREATININE FOR GFR 0.77 MG/DL (0.70-1.30); GLOMERULAR FILTRATION RATE > 60.0 (>60); GLUCOSE, FASTING 101 MG/DL (70-100); POTASSIUM SERUM 3.4 MEQ/L (3.5-5.1); SODIUM LEVEL 136 MEQ/L (136-145)
[2018-10-05 08:40] LABS: MAGNESIUM LEVEL 1.7 MG/DL (1.8-2.4)
[2018-10-05] MEDS: THIAMINE 100 MG TAB PO (09:00)
[2018-10-05] MEDS: PANTOPRAZOLE 40MG TAB (PROTONIX) PO (09:59)
[2018-10-05] MEDS: PALIPERIDONE 3 MG ER TAB (INVEGA) PO ×2 (09:59→20:46)
[2018-10-05] MEDS: CHOLESTYRAMINE 4 GM PWD PKT PO (09:59)
[2018-10-05] MEDS: GABAPENTIN 100 MG CAP PO ×3 (10:00→20:44)
[2018-10-05] MEDS: ZINC SULFATE 220 MG CAP PO (10:00)
[2018-10-05] MEDS: VITAMIN E 400 INTERNATIONAL UNITS CAP PO (10:00)
[2018-10-05] MEDS: FERROUS SULFATE 325MG TAB PO ×2 (10:00→20:43)
[2018-10-05] MEDS: predniSONE 10 MG TAB PO (10:00)
[2018-10-05] MEDS: levETIRAcetam 250MG TABLET (KEPPRA) PO ×2 (10:01→20:44)
[2018-10-05] MEDS: MULTIVITAMINS/MINERALS THERAP 1 TAB PO (10:01)
[2018-10-05] MEDS: FOLIC ACID 1 MG TAB PO (10:01)
[2018-10-05] MEDS: MIDODRINE 5 MG TAB PO ×3 (10:01→15:16)
[2018-10-05] MEDS: FUROSEMIDE 40 MG TAB PO (10:02)
[2018-10-05] MEDS: PARoxetine 10MG TABLET PO (10:02)
[2018-10-05] MEDS: SPIRONOLACTONE 50 MG TAB PO (10:02)
[2018-10-05] MEDS: MAGNESIUM OXIDE 400 MG TAB (MAG-OX) PO (10:02)
[2018-10-05] MEDS: PHENYTOIN ER 100 MG CAP PO ×3 (10:03→20:44)
[2018-10-05] MEDS: LACTULOSE 20 GM/30 ML SYRUP UD PO (10:09)
[2018-10-05] MEDS: SUCRALFATE SUSP 1GM/10ML UD PO ×4 (10:09→20:44)
[2018-10-05] MEDS: PROPRANOLOL 10 MG TAB PO ×2 (10:12→20:44)
[2018-10-05] MEDS: POTASSIUM CHLORIDE 10 MEQ SR TABLET PO (12:12)
[2018-10-05] MEDS: LevoFLOXacin 500 MG TABLET PO (15:16)
[2018-10-06] MEDS: VANCOMYCIN HCL 1,000 MG, VIAL MATE ADAPTER 1 EACH in D5W 250 ML IV ×2 (01:49→09:01)
[2018-10-06] MEDS: traMADol 50 MG TAB PO ×3 (05:59→20:24)
[2018-10-06 06:27] LABS: HEMATOCRIT 35.7 % (42.0-52.0); HEMOGLOBIN 12.3 g/dl (13.5-17.5); MEAN CORPUSCULAR HEMOGLOBIN 36.5 pg (27.0-33.0); MEAN CORPUSCULAR HGB CONC 34.5 g/dl (32.0-36.5); MEAN CORPUSCULAR VOLUME 105.9 fl (80.0-96.0); RED BLOOD COUNT 3.37 10^6/uL (4.30-6.10); RED CELL DISTRIBUTION WIDTH 13.7 % (11.5-14.5); WHITE BLOOD COUNT 8.7 10^3/uL (4.0-10.0)
[2018-10-06 06:29] LABS: PLATELET COUNT, AUTOMATED 83 10^3/uL (150-450)
[2018-10-06 06:30] LABS: IMMATURE PLATELET FRACTION % 3.5 % (0.0-10.9)
[2018-10-06 06:44] LABS: ANION GAP 7 MEQ/L (8-16); BLOOD UREA NITROGEN 4 MG/DL (7-18); C REACTIVE PROTEIN QUANTITATIV 0.73 MG/DL (0.00-0.30); CALCIUM LEVEL 7.9 MG/DL (8.5-10.1); CARBON DIOXIDE LEVEL 28 MEQ/L (21-32); CHLORIDE LEVEL 101 MEQ/L (98-107); CREATININE FOR GFR 0.78 MG/DL (0.70-1.30); GLOMERULAR FILTRATION RATE > 60.0 (>60); GLUCOSE, FASTING 103 MG/DL (70-100); POTASSIUM SERUM 3.6 MEQ/L (3.5-5.1); SODIUM LEVEL 136 MEQ/L (136-145)
[2018-10-06 06:54] LABS: ERYTHROCYTE SEDIMENTATION RATE 5 mm/hr (0-15)
[2018-10-06 07:42] LABS: MAGNESIUM LEVEL 1.6 MG/DL (1.8-2.4)
[2018-10-06] MEDS: SUCRALFATE SUSP 1GM/10ML UD PO ×4 (08:56→20:19)
[2018-10-06] MEDS: MIDODRINE 5 MG TAB PO ×3 (08:56→16:33)
[2018-10-06] MEDS: MULTIVITAMINS/MINERALS THERAP 1 TAB PO (10:33)
[2018-10-06] MEDS: predniSONE 10 MG TAB PO (10:34)
[2018-10-06] MEDS: levETIRAcetam 250MG TABLET (KEPPRA) PO ×2 (10:35→20:19)
[2018-10-06] MEDS: PHENYTOIN ER 100 MG CAP PO ×3 (10:36→20:23)
[2018-10-06] MEDS: MAGNESIUM OXIDE 400 MG TAB (MAG-OX) PO (10:37)
[2018-10-06] MEDS: THIAMINE 100 MG TAB PO (10:37)
[2018-10-06] MEDS: FERROUS SULFATE 325MG TAB PO ×2 (10:38→20:20)
[2018-10-06] MEDS: SPIRONOLACTONE 50 MG TAB PO (10:40)
[2018-10-06] MEDS: PROPRANOLOL 10 MG TAB PO ×2 (10:40→20:23)
[2018-10-06] MEDS: PANTOPRAZOLE 40MG TAB (PROTONIX) PO (10:41)
[2018-10-06] MEDS: GABAPENTIN 100 MG CAP PO ×3 (10:41→20:20)
[2018-10-06] MEDS: FUROSEMIDE 40 MG TAB PO (10:41)
[2018-10-06] MEDS: FOLIC ACID 1 MG TAB PO (10:42)
[2018-10-06] MEDS: PALIPERIDONE 3 MG ER TAB (INVEGA) PO ×2 (10:42→20:20)
[2018-10-06] MEDS: CHOLESTYRAMINE 4 GM PWD PKT PO (10:43)
[2018-10-06] MEDS: LACTULOSE 20 GM/30 ML SYRUP UD PO (10:43)
[2018-10-06] MEDS: PARoxetine 10MG TABLET PO (10:43)
[2018-10-06] MEDS: MAG SULF 1GM/100ML (MAG RUN) 1 GM in APPROPRIATE DILUENT 1 EA IV (11:33)
[2018-10-06] MEDS: ZINC SULFATE 220 MG CAP PO (11:57)
[2018-10-06] MEDS: VITAMIN E 400 INTERNATIONAL UNITS CAP PO (11:58)
[2018-10-06 21:46] LABS: TYPE AND SCREEN 1
[2018-10-07 06:40] LABS: HEMATOCRIT 33.6 % (42.0-52.0); HEMOGLOBIN 11.4 g/dl (13.5-17.5); MEAN CORPUSCULAR HEMOGLOBIN 35.6 pg (27.0-33.0); MEAN CORPUSCULAR HGB CONC 33.9 g/dl (32.0-36.5); RED CELL DISTRIBUTION WIDTH 13.7 % (11.5-14.5); WHITE BLOOD COUNT 8.2 10^3/uL (4.0-10.0)
[2018-10-07 06:41] LABS: PLATELET COUNT, AUTOMATED 86 10^3/uL (150-450)
[2018-10-07 06:42] LABS: IMMATURE PLATELET FRACTION % 2.7 % (0.0-10.9)
[2018-10-07] MEDS: traMADol 50 MG TAB PO ×2 (06:46→13:25)
[2018-10-07 06:59] LABS: ANION GAP 8 MEQ/L (8-16); BLOOD UREA NITROGEN 4 MG/DL (7-18); CALCIUM LEVEL 7.5 MG/DL (8.5-10.1); CARBON DIOXIDE LEVEL 30 MEQ/L (21-32); CHLORIDE LEVEL 101 MEQ/L (98-107); CREATININE FOR GFR 0.78 MG/DL (0.70-1.30); GLOMERULAR FILTRATION RATE > 60.0 (>60); GLUCOSE, FASTING 101 MG/DL (70-100); POTASSIUM SERUM 3.7 MEQ/L (3.5-5.1); SODIUM LEVEL 139 MEQ/L (136-145)
[2018-10-07 07:59] LABS: MAGNESIUM LEVEL 1.9 MG/DL (1.8-2.4)
[2018-10-07] MEDS: SUCRALFATE SUSP 1GM/10ML UD PO (08:02)
[2018-10-07] MEDS: MIDODRINE 5 MG TAB PO (08:02)
[2018-10-07 08:55] LABS: ALBUMIN 2.3 GM/DL (3.2-5.2)
[2018-10-07] MEDS: CHOLESTYRAMINE 4 GM PWD PKT PO (10:11)
[2018-10-07] MEDS: predniSONE 10 MG TAB PO (10:12)
[2018-10-07] MEDS: FUROSEMIDE 40 MG TAB PO (10:12)
[2018-10-07] MEDS: PHENYTOIN ER 100 MG CAP PO (10:14)
[2018-10-07] MEDS: PARoxetine 10MG TABLET PO (10:14)
[2018-10-07] MEDS: levETIRAcetam 250MG TABLET (KEPPRA) PO (10:15)
[2018-10-07] MEDS: SPIRONOLACTONE 50 MG TAB PO (10:16)
[2018-10-07] MEDS: THIAMINE 100 MG TAB PO (10:16)
[2018-10-07] MEDS: LACTULOSE 20 GM/30 ML SYRUP UD PO (10:16)
[2018-10-07] MEDS: MAGNESIUM OXIDE 400 MG TAB (MAG-OX) PO (10:16)
[2018-10-07] MEDS: FOLIC ACID 1 MG TAB PO (10:17)
[2018-10-07] MEDS: MULTIVITAMINS/MINERALS THERAP 1 TAB PO (10:17)
[2018-10-07] MEDS: FERROUS SULFATE 325MG TAB PO (10:17)
[2018-10-07] MEDS: PANTOPRAZOLE 40MG TAB (PROTONIX) PO (10:17)
[2018-10-07] MEDS: GABAPENTIN 100 MG CAP PO (10:18)
[2018-10-07] MEDS: VITAMIN E 400 INTERNATIONAL UNITS CAP PO (11:15)
[2018-10-07] MEDS: PROPRANOLOL 10 MG TAB PO (11:15)
[2018-10-07] MEDS: ZINC SULFATE 220 MG CAP PO (11:16)
[2018-10-07] MEDS: PALIPERIDONE 3 MG ER TAB (INVEGA) PO (11:16)
== END 2018-10-07 13:29 | disposition home or self-care (01) | DRG 280 ==
LOC: M ED 09:47 → M MSPAV 10-03 17:27 → M ED INP 12:23 → M PCU 17:12
PROC: 0W9G3ZZ Drainage of Peritoneal Cavity, Percutaneous Approach (ICD-10-PCS; principal; 2018-09-30)
PROC: 0W9G3ZZ Drainage of Peritoneal Cavity, Percutaneous Approach (ICD-10-PCS; 2018-10-06)
DX: K70.31 Alcoholic cirrhosis of liver with ascites (principal); D68.4 Acquired coagulation factor deficiency; K76.6 Portal hypertension; K72.90 Hepatic failure, unspecified without coma; D69.6 Thrombocytopenia, unspecified; E80.6 Other disorders of bilirubin metabolism; R07.89 Other chest pain; E88.09 Other disorders of plasma-protein metabolism, not elsewhere classified; E87.6 Hypokalemia; D63.8 Anemia in other chronic diseases classified elsewhere; Z88.0 Allergy status to penicillin; Z79.52 Long term (current) use of systemic steroids; Z79.899 Other long term (current) drug therapy

== ENCOUNTER 2018-10-12 01:22 | Inpatient (IN) | payer OTHER ==
[2018-10-12 02:11] LABS: BASO # 0.1 10^3/uL (0.0-0.2); BASO % 0.5 % (0.0-1.0); HEMOGLOBIN 14.3 g/dl (13.5-17.5); IMMATURE GRANULOCYTE % 0.4 % (0-3.0); LYMPH # 0.4 10^3/uL (1.5-4.5); LYMPH % 3.5 % (24.0-44.0); MEAN CORPUSCULAR HEMOGLOBIN 35.6 pg (27.0-33.0); MEAN CORPUSCULAR HGB CONC 34.9 g/dl (32.0-36.5); MONO # 1.6 10^3/uL (0.0-0.8); MONO % 12.5 % (0.0-5.0); NEUTROPHILS # 10.4 10^3/uL (1.8-7.7); NEUTROPHILS % 83.1 % (36.0-66.0); PLATELET COUNT, AUTOMATED 144 10^3/uL (150-450); RED BLOOD COUNT 4.02 10^6/uL (4.30-6.10); WHITE BLOOD COUNT 12.5 10^3/uL (4.0-10.0)
[2018-10-12 02:22] LABS: INR 1.64; PROTHROMBIN TIME 19.7 SECONDS (12.1-14.4)
[2018-10-12 02:23] LABS: PARTIAL THROMBOPLASTIN TIME 36.5 SECONDS (25.4-37.6)
[2018-10-12 02:34] LABS: AMMONIA 37 uMOL/L (<32)
[2018-10-12 02:38] LABS: ALBUMIN 2.5 GM/DL (3.2-5.2); ALBUMIN/GLOBULIN RATIO 0.58 (1.00-1.93); ALKALINE PHOSPHATASE 171 U/L (45-117); ALT/SGPT 28 U/L (12-78); ANION GAP 14 MEQ/L (8-16); AST/SGOT 82 U/L (7-37); BILIRUBIN,DIRECT 3.1 MG/DL (0.0-0.2); BILIRUBIN,TOTAL 5.7 MG/DL (0.2-1.0); BLOOD UREA NITROGEN 10 MG/DL (7-18); CALCIUM LEVEL 7.4 MG/DL (8.5-10.1); CARBON DIOXIDE LEVEL 25 MEQ/L (21-32); CHLORIDE LEVEL 101 MEQ/L (98-107); CREATININE FOR GFR 1.09 MG/DL (0.70-1.30); GLOMERULAR FILTRATION RATE > 60.0 (>60); GLUCOSE, FASTING 113 MG/DL (70-100); POTASSIUM SERUM 3.3 MEQ/L (3.5-5.1); SODIUM LEVEL 140 MEQ/L (136-145); TOTAL PROTEIN 6.8 GM/DL (6.4-8.2)
[2018-10-12 02:41] LABS: ABG HCO3 21.8 MEQ/L (22.0-26.0); ABG O2 SATURATION 92.7 % (95.0-99.0); ABG PARTIAL PRESSURE CO2 34.7 mmHg (35.0-45.0); ABG PARTIAL PRESSURE O2 69.9 mmHg (75.0-100.0); ABG STANDARD HCO3 22.7 MEQ/L (22.0-26.0); ABG TOTAL CO2 22.9 MEQ/L (22.0-29.0); ABG pH (ARTERIAL) 7.416 UNITS (7.350-7.450)
[2018-10-12 04:46] LABS: CPK CREATINE PHOSPHOKINASE 190 U/L (39-308); MB/CK RELATIVE INDEX 2.63 (< OR =4); TROPONIN I 0.02 NG/ML (< 0.10)
[2018-10-12] MEDS: KETOROLAC 30 MG/ML VIAL (J1885) IV ×3 (06:02→21:00)
[2018-10-12] MEDS: POTASSIUM CHLORIDE 10 MEQ SR TABLET PO (06:02)
[2018-10-12] MEDS: LevoFLOXacin IV 750 MG in APPROPRIATE DILUENT 1 EA IV (06:02)
[2018-10-12] MEDS: GABAPENTIN 100 MG CAP PO ×3 (08:23→20:58)
[2018-10-12] MEDS: traMADol 50 MG TAB PO ×2 (08:25→18:13)
[2018-10-12] MEDS: levETIRAcetam 250MG TABLET (KEPPRA) PO ×2 (08:27→20:58)
[2018-10-12] MEDS: MIDODRINE 5 MG TAB PO ×3 (08:27→18:14)
[2018-10-12] MEDS: FUROSEMIDE 40 MG/4 ML VIAL (J1940) IV (08:28)
[2018-10-12] MEDS: SPIRONOLACTONE 50 MG TAB PO (08:32)
[2018-10-12] MEDS: PHENYTOIN ER 100 MG CAP PO ×3 (09:00→21:55)
[2018-10-12] MEDS: SUCRALFATE 1 GM TAB PO ×4 (09:17→20:59)
[2018-10-12] MEDS: FOLIC ACID 1 MG TAB PO (09:18)
[2018-10-12] MEDS: FERROUS SULFATE 325MG TAB PO ×2 (09:18→20:59)
[2018-10-12] MEDS: predniSONE 10 MG TAB PO (09:18)
[2018-10-12] MEDS: LACTULOSE 20 GM/30 ML SYRUP UD PO (09:18)
[2018-10-12] MEDS: MAGNESIUM OXIDE 400 MG TAB (MAG-OX) PO (09:19)
[2018-10-12] MEDS: PANTOPRAZOLE 40MG TAB (PROTONIX) PO (09:19)
[2018-10-12] MEDS: PROPRANOLOL 10 MG TAB PO ×2 (09:19→20:58)
[2018-10-12] MEDS: THIAMINE 100 MG TAB PO (09:20)
[2018-10-12] MEDS: MULTIVITAMINS/MINERALS THERAP 1 TAB PO (09:20)
[2018-10-12] MEDS: VITAMIN E 400 INTERNATIONAL UNITS CAP PO (09:21)
[2018-10-12] MEDS: ZINC SULFATE 220 MG CAP PO (09:21)
[2018-10-12] MEDS: PARoxetine 10MG TABLET PO (09:22)
[2018-10-12 11:05] LABS: TYPE AND SCREEN 1
[2018-10-12] MEDS: CHOLESTYRAMINE 4 GM PWD PKT PO (12:39)
[2018-10-12 12:57] LABS: CPK CREATINE PHOSPHOKINASE 193 U/L (39-308); TROPONIN I < 0.02 NG/ML (< 0.10)
[2018-10-12 17:02] LABS: TYPE AND SCREEN 1
[2018-10-12 18:32] LABS: CPK CREATINE PHOSPHOKINASE 134 U/L (39-308); MB/CK RELATIVE INDEX 2.61 (< OR =4); TROPONIN I 0.02 NG/ML (< 0.10)
[2018-10-12 20:29] LABS: LACTIC ACID SEPSIS PROTOCOL 3.5 MMOL/L (0.4-2.0)
[2018-10-12] MEDS: LORazepam 2 MG TAB PO (21:55)
[2018-10-12 22:28] LABS: ETHYL ALCOHOL (ETHANOL) 0.038 % (0.000-0.010)
[2018-10-13] MEDS ORDERED: CHOLESTYRAMINE 4 GM PWD PKT PO (01:00)
[2018-10-13] MEDS: LevoFLOXacin IV 750 MG in APPROPRIATE DILUENT 1 EA IV (05:34)
[2018-10-13] MEDS: KETOROLAC 30 MG/ML VIAL (J1885) IV ×3 (05:35→21:04)
[2018-10-13 05:49] LABS: MEAN CORPUSCULAR HEMOGLOBIN 35.3 pg (27.0-33.0); MEAN CORPUSCULAR HGB CONC 34.8 g/dl (32.0-36.5); MEAN CORPUSCULAR VOLUME 101.3 fl (80.0-96.0); PLATELET COUNT, AUTOMATED 100 10^3/uL (150-450); RED BLOOD COUNT 3.06 10^6/uL (4.30-6.10); RED CELL DISTRIBUTION WIDTH 13.8 % (11.5-14.5); WHITE BLOOD COUNT 12.8 10^3/uL (4.0-10.0)
[2018-10-13 05:50] LABS: HEMOGLOBIN 10.8 g/dl (13.5-17.5)
[2018-10-13 06:12] LABS: AMMONIA 55 uMOL/L (<32)
[2018-10-13 06:17] LABS: ALBUMIN/GLOBULIN RATIO 0.63 (1.00-1.93); ALKALINE PHOSPHATASE 122 U/L (45-117); ALT/SGPT 23 U/L (12-78); ANION GAP 6 MEQ/L (8-16); AST/SGOT 60 U/L (7-37); BILIRUBIN,DIRECT 2.6 MG/DL (0.0-0.2); BILIRUBIN,TOTAL 6.9 MG/DL (0.2-1.0); BLOOD UREA NITROGEN 17 MG/DL (7-18); CALCIUM LEVEL 7.7 MG/DL (8.5-10.1); CARBON DIOXIDE LEVEL 31 MEQ/L (21-32); CHLORIDE LEVEL 96 MEQ/L (98-107); CREATININE FOR GFR 0.93 MG/DL (0.70-1.30); GLOMERULAR FILTRATION RATE > 60.0 (>60); GLUCOSE, FASTING 107 MG/DL (70-100); MAGNESIUM LEVEL 1.4 MG/DL (1.8-2.4); SODIUM LEVEL 133 MEQ/L (136-145); TOTAL PROTEIN 5.2 GM/DL (6.4-8.2)
[2018-10-13 06:50] LABS: APPEARANCE, URINE HAZY (CLEAR); BACTERIA, URINE AUTO NEGATIVE (NEGATIVE); BILIRUBIN, URINE AUTO 1+ (NEGATIVE); BLOOD, URINE BLOOD 1+ (NEGATIVE); COLOR, URINE AMBER (YELLOW); GLUCOSE, URINE (UA) AUTO 1+ mg/dL (NEGATIVE); KETONE, URINE AUTO NEGATIVE (NEGATIVE); LEUKOCYTE ESTERASE, URINE AUTO NEGATIVE (NEGATIVE); MUCUS, URINE SMALL (NEGATIVE); NITRITE, URINE AUTO NEGATIVE (NEGATIVE); PROTEIN, URINE AUTO 1+ mg/dL (NEGATIVE); RBC, URINE AUTO 5 /HPF (0-3); SPECIFIC GRAVITY URINE AUTO 1.033 (1.002-1.035); SQUAMOUS EPITHELIAL CELL UR AU 0 /HPF (0-6); WBC, URINE AUTO 3 /HPF (0-3)
[2018-10-13] MEDS: THIAMINE 100 MG TAB PO (08:07)
[2018-10-13] MEDS: GABAPENTIN 100 MG CAP PO ×3 (08:08→20:19)
[2018-10-13] MEDS: MIDODRINE 5 MG TAB PO ×3 (08:08→16:48)
[2018-10-13] MEDS: levETIRAcetam 250MG TABLET (KEPPRA) PO ×2 (08:08→20:19)
[2018-10-13] MEDS: PHENYTOIN ER 100 MG CAP PO ×3 (08:09→20:19)
[2018-10-13] MEDS: PANTOPRAZOLE 40MG TAB (PROTONIX) PO (08:09)
[2018-10-13] MEDS: FOLIC ACID 1 MG TAB PO (08:10)
[2018-10-13] MEDS: ZINC SULFATE 220 MG CAP PO (08:10)
[2018-10-13] MEDS: PARoxetine 10MG TABLET PO (08:10)
[2018-10-13] MEDS: SUCRALFATE 1 GM TAB PO ×4 (08:11→20:19)
[2018-10-13] MEDS: PROPRANOLOL 10 MG TAB PO ×2 (08:11→20:25)
[2018-10-13] MEDS: VITAMIN E 400 INTERNATIONAL UNITS CAP PO (08:11)
[2018-10-13] MEDS: FERROUS SULFATE 325MG TAB PO ×2 (08:11→20:19)
[2018-10-13] MEDS: MULTIVITAMINS/MINERALS THERAP 1 TAB PO (08:12)
[2018-10-13] MEDS: SPIRONOLACTONE 50 MG TAB PO (08:12)
[2018-10-13] MEDS: predniSONE 10 MG TAB PO (08:12)
[2018-10-13] MEDS: FUROSEMIDE 40 MG/4 ML VIAL (J1940) IV (08:13)
[2018-10-13] MEDS: MAGNESIUM OXIDE 400 MG TAB (MAG-OX) PO (08:13)
[2018-10-13] MEDS: LACTULOSE 20 GM/30 ML SYRUP UD PO (08:13)
[2018-10-13] MEDS: CHOLESTYRAMINE 4 GM PWD PKT PO (13:18)
[2018-10-13] MEDS: LORazepam 2 MG TAB PO (23:07)
[2018-10-14] MEDS: LevoFLOXacin IV 750 MG in APPROPRIATE DILUENT 1 EA IV (05:48)
[2018-10-14] MEDS: KETOROLAC 30 MG/ML VIAL (J1885) IV ×3 (05:48→21:04)
[2018-10-14 06:09] LABS: HEMATOCRIT 30.7 % (42.0-52.0); HEMOGLOBIN 10.8 g/dl (13.5-17.5); MEAN CORPUSCULAR HEMOGLOBIN 35.4 pg (27.0-33.0); MEAN CORPUSCULAR HGB CONC 35.2 g/dl (32.0-36.5); MEAN CORPUSCULAR VOLUME 100.7 fl (80.0-96.0); RED BLOOD COUNT 3.05 10^6/uL (4.30-6.10); RED CELL DISTRIBUTION WIDTH 13.3 % (11.5-14.5); WHITE BLOOD COUNT 17.8 10^3/uL (4.0-10.0)
[2018-10-14 06:11] LABS: PLATELET COUNT, AUTOMATED 99 10^3/uL (150-450)
[2018-10-14 06:12] LABS: IMMATURE PLATELET FRACTION % 5.1 % (0.0-10.9)
[2018-10-14 06:29] LABS: ALBUMIN 1.8 GM/DL (3.2-5.2); ALBUMIN/GLOBULIN RATIO 0.51 (1.00-1.93); ALKALINE PHOSPHATASE 111 U/L (45-117); ALT/SGPT 18 U/L (12-78); ANION GAP 7 MEQ/L (8-16); AST/SGOT 43 U/L (7-37); BILIRUBIN,DIRECT 2.9 MG/DL (0.0-0.2); BILIRUBIN,TOTAL 6.4 MG/DL (0.2-1.0); BLOOD UREA NITROGEN 19 MG/DL (7-18); CALCIUM LEVEL 7.8 MG/DL (8.5-10.1); CARBON DIOXIDE LEVEL 29 MEQ/L (21-32); CHLORIDE LEVEL 93 MEQ/L (98-107); CREATININE FOR GFR 1.09 MG/DL (0.70-1.30); GLOMERULAR FILTRATION RATE > 60.0 (>60); GLUCOSE, FASTING 90 MG/DL (70-100); MAGNESIUM LEVEL 1.5 MG/DL (1.8-2.4); POTASSIUM SERUM 3.7 MEQ/L (3.5-5.1); SODIUM LEVEL 129 MEQ/L (136-145); TOTAL PROTEIN 5.3 GM/DL (6.4-8.2)
[2018-10-14] MEDS: FUROSEMIDE 40 MG/4 ML VIAL (J1940) IV (08:15)
[2018-10-14] MEDS: LACTULOSE 20 GM/30 ML SYRUP UD PO (08:15)
[2018-10-14] MEDS: FERROUS SULFATE 325MG TAB PO ×2 (08:16→20:00)
[2018-10-14] MEDS: levETIRAcetam 250MG TABLET (KEPPRA) PO ×2 (08:16→20:00)
[2018-10-14] MEDS: VITAMIN E 400 INTERNATIONAL UNITS CAP PO (08:16)
[2018-10-14] MEDS: MIDODRINE 5 MG TAB PO ×3 (08:16→17:31)
[2018-10-14] MEDS: THIAMINE 100 MG TAB PO (08:16)
[2018-10-14] MEDS: PANTOPRAZOLE 40MG TAB (PROTONIX) PO (08:16)
[2018-10-14] MEDS: PROPRANOLOL 10 MG TAB PO ×2 (08:16→20:01)
[2018-10-14] MEDS: ZINC SULFATE 220 MG CAP PO (08:16)
[2018-10-14] MEDS: MAGNESIUM OXIDE 400 MG TAB (MAG-OX) PO (08:16)
[2018-10-14] MEDS: SUCRALFATE 1 GM TAB PO ×4 (08:16→20:00)
[2018-10-14] MEDS: FOLIC ACID 1 MG TAB PO (08:17)
[2018-10-14] MEDS: predniSONE 10 MG TAB PO (08:17)
[2018-10-14] MEDS: GABAPENTIN 100 MG CAP PO ×3 (08:17→20:00)
[2018-10-14] MEDS: MULTIVITAMINS/MINERALS THERAP 1 TAB PO (08:17)
[2018-10-14] MEDS: PARoxetine 10MG TABLET PO (08:17)
[2018-10-14] MEDS: PHENYTOIN ER 100 MG CAP PO ×3 (08:17→21:03)
[2018-10-14] MEDS: SPIRONOLACTONE 50 MG TAB PO (08:17)
[2018-10-14 11:12] LABS: C REACTIVE PROTEIN QUANTITATIV 6.25 MG/DL (0.00-0.30)
[2018-10-14 11:37] LABS: ERYTHROCYTE SEDIMENTATION RATE 10 mm/hr (0-15)
[2018-10-14] MEDS: CHOLESTYRAMINE 4 GM PWD PKT PO (13:18)
[2018-10-14] MEDS: LORazepam 2 MG TAB PO (19:41)
[2018-10-15] MEDS: LevoFLOXacin IV 750 MG in APPROPRIATE DILUENT 1 EA IV (05:24)
[2018-10-15] MEDS: KETOROLAC 30 MG/ML VIAL (J1885) IV ×2 (05:24→13:00)
[2018-10-15 06:03] LABS: HEMATOCRIT 30.4 % (42.0-52.0); MEAN CORPUSCULAR HEMOGLOBIN 35.4 pg (27.0-33.0); MEAN CORPUSCULAR HGB CONC 36.2 g/dl (32.0-36.5); MEAN CORPUSCULAR VOLUME 97.7 fl (80.0-96.0); RED BLOOD COUNT 3.11 10^6/uL (4.30-6.10); RED CELL DISTRIBUTION WIDTH 13.2 % (11.5-14.5)
[2018-10-15 06:07] LABS: PLATELET COUNT, AUTOMATED 98 10^3/uL (150-450)
[2018-10-15 06:31] LABS: ALBUMIN 1.7 GM/DL (3.2-5.2); ALBUMIN/GLOBULIN RATIO 0.45 (1.00-1.93); ALKALINE PHOSPHATASE 122 U/L (45-117); ALT/SGPT 17 U/L (12-78); ANION GAP 7 MEQ/L (8-16); AST/SGOT 36 U/L (7-37); BILIRUBIN,DIRECT 2.8 MG/DL (0.0-0.2); BILIRUBIN,TOTAL 5.4 MG/DL (0.2-1.0); BLOOD UREA NITROGEN 19 MG/DL (7-18); C REACTIVE PROTEIN QUANTITATIV 5.96 MG/DL (0.00-0.30); CALCIUM LEVEL 7.4 MG/DL (8.5-10.1); CARBON DIOXIDE LEVEL 28 MEQ/L (21-32); CHLORIDE LEVEL 94 MEQ/L (98-107); CREATININE FOR GFR 1.12 MG/DL (0.70-1.30); GLOMERULAR FILTRATION RATE > 60.0 (>60); GLUCOSE, FASTING 78 MG/DL (70-100); MAGNESIUM LEVEL 1.5 MG/DL (1.8-2.4); POTASSIUM SERUM 3.6 MEQ/L (3.5-5.1); SODIUM LEVEL 129 MEQ/L (136-145); TOTAL PROTEIN 5.5 GM/DL (6.4-8.2)
[2018-10-15 09:17] LABS: REASON FOR REVIEW WBC/LEUKEMIA/BLAST; SLIDE REVIEW Report; SOURCE PERIPHERAL SMEAR
[2018-10-15] MEDS: MIDODRINE 5 MG TAB PO ×3 (09:25→16:55)
[2018-10-15] MEDS: predniSONE 10 MG TAB PO (09:26)
[2018-10-15] MEDS: THIAMINE 100 MG TAB PO (09:26)
[2018-10-15] MEDS: levETIRAcetam 250MG TABLET (KEPPRA) PO ×2 (09:26→20:09)
[2018-10-15] MEDS: MULTIVITAMINS/MINERALS THERAP 1 TAB PO (09:26)
[2018-10-15] MEDS: SPIRONOLACTONE 50 MG TAB PO (09:26)
[2018-10-15] MEDS: PROPRANOLOL 10 MG TAB PO ×2 (09:26→20:08)
[2018-10-15] MEDS: SUCRALFATE 1 GM TAB PO ×4 (09:26→20:08)
[2018-10-15] MEDS: PANTOPRAZOLE 40MG TAB (PROTONIX) PO (09:26)
[2018-10-15] MEDS: GABAPENTIN 100 MG CAP PO ×3 (09:26→20:08)
[2018-10-15] MEDS: FOLIC ACID 1 MG TAB PO (09:26)
[2018-10-15] MEDS: ZINC SULFATE 220 MG CAP PO (09:27)
[2018-10-15] MEDS: VITAMIN E 400 INTERNATIONAL UNITS CAP PO (09:27)
[2018-10-15] MEDS: FUROSEMIDE 40 MG/4 ML VIAL (J1940) IV (09:27)
[2018-10-15] MEDS: LACTULOSE 20 GM/30 ML SYRUP UD PO (09:27)
[2018-10-15] MEDS: FERROUS SULFATE 325MG TAB PO ×2 (09:28→20:08)
[2018-10-15] MEDS: MAGNESIUM OXIDE 400 MG TAB (MAG-OX) PO (09:28)
[2018-10-15] MEDS: PHENYTOIN ER 100 MG CAP PO ×3 (09:31→20:11)
[2018-10-15 09:49] LABS: AMMONIA < 10 uMOL/L (<32)
[2018-10-15 09:55] LABS: KETONE, URINE AUTO RFX NEGATIVE (NEGATIVE); LEUKOCYTE ESTERASE UR AUTO RFX NEGATIVE (NEGATIVE); MUCUS, URINE RFX SMALL (NEGATIVE); NITRITE, URINE AUTO RFX NEGATIVE (NEGATIVE); RBC, URINE AUTO RFX 1 /HPF (0-3); SPECIFIC GRAVITY UR AUTO RFX 1.009 (1.002-1.035); SQUAM EPITHELIAL CELL UR AURFX 0 /HPF (0-6); WBC, URINE AUTO RFX 4 /HPF (0-3)
[2018-10-15 10:06] LABS: LIPASE 468 U/L (73-393)
[2018-10-15] MEDS: PARoxetine 10MG TABLET PO (10:47)
[2018-10-15] MEDS: CHOLESTYRAMINE 4 GM PWD PKT PO (12:59)
[2018-10-15] MEDS: traMADol 50 MG TAB PO (20:15)
[2018-10-16] MEDS: LevoFLOXacin 750 MG TABLET PO (05:26)
[2018-10-16 06:31] LABS: ALBUMIN 1.7 GM/DL (3.2-5.2); ALBUMIN/GLOBULIN RATIO 0.46 (1.00-1.93); ALKALINE PHOSPHATASE 116 U/L (45-117); ALT/SGPT 17 U/L (12-78); ANION GAP 6 MEQ/L (8-16); AST/SGOT 37 U/L (7-37); BILIRUBIN,DIRECT 2.4 MG/DL (0.0-0.2); BILIRUBIN,TOTAL 4.7 MG/DL (0.2-1.0); BLOOD UREA NITROGEN 14 MG/DL (7-18); C REACTIVE PROTEIN QUANTITATIV 5.29 MG/DL (0.00-0.30); CALCIUM LEVEL 7.1 MG/DL (8.5-10.1); CARBON DIOXIDE LEVEL 29 MEQ/L (21-32); CHLORIDE LEVEL 96 MEQ/L (98-107); CREATININE FOR GFR 0.92 MG/DL (0.70-1.30); GLOMERULAR FILTRATION RATE > 60.0 (>60); GLUCOSE, FASTING 93 MG/DL (70-100); MAGNESIUM LEVEL 1.5 MG/DL (1.8-2.4); SODIUM LEVEL 131 MEQ/L (136-145); TOTAL PROTEIN 5.4 GM/DL (6.4-8.2)
[2018-10-16 06:37] LABS: AMMONIA 23 uMOL/L (<32)
[2018-10-16 07:10] LABS: HEMATOCRIT 30.7 % (42.0-52.0); MEAN CORPUSCULAR HEMOGLOBIN 36.1 pg (27.0-33.0); MEAN CORPUSCULAR HGB CONC 35.8 g/dl (32.0-36.5); MEAN CORPUSCULAR VOLUME 100.7 fl (80.0-96.0); PLATELET COUNT, AUTOMATED 102 10^3/uL (150-450); RED BLOOD COUNT 3.05 10^6/uL (4.30-6.10); RED CELL DISTRIBUTION WIDTH 13.5 % (11.5-14.5); WHITE BLOOD COUNT 15.3 10^3/uL (4.0-10.0)
[2018-10-16] MEDS: SUCRALFATE 1 GM TAB PO ×5 (07:27→23:06)
[2018-10-16] MEDS: PHENYTOIN ER 100 MG CAP PO ×4 (09:00→22:59)
[2018-10-16] MEDS: LACTULOSE 20 GM/30 ML SYRUP UD PO (09:32)
[2018-10-16] MEDS: levETIRAcetam 250MG TABLET (KEPPRA) PO ×3 (09:33→23:00)
[2018-10-16] MEDS: FERROUS SULFATE 325MG TAB PO ×3 (09:33→23:06)
[2018-10-16] MEDS: FUROSEMIDE 40 MG/4 ML VIAL (J1940) IV (09:33)
[2018-10-16] MEDS: SPIRONOLACTONE 50 MG TAB PO (09:33)
[2018-10-16] MEDS: FOLIC ACID 1 MG TAB PO (09:33)
[2018-10-16] MEDS: ZINC SULFATE 220 MG CAP PO (09:33)
[2018-10-16] MEDS: VITAMIN E 400 INTERNATIONAL UNITS CAP PO (09:33)
[2018-10-16] MEDS: PANTOPRAZOLE 40MG TAB (PROTONIX) PO (09:34)
[2018-10-16] MEDS: GABAPENTIN 100 MG CAP PO ×4 (09:34→23:07)
[2018-10-16] MEDS: MIDODRINE 5 MG TAB PO ×3 (09:34→16:53)
[2018-10-16] MEDS: MULTIVITAMINS/MINERALS THERAP 1 TAB PO (09:34)
[2018-10-16] MEDS: PARoxetine 10MG TABLET PO (09:35)
[2018-10-16] MEDS: THIAMINE 100 MG TAB PO (09:35)
[2018-10-16] MEDS: PROPRANOLOL 10 MG TAB PO ×2 (09:35→21:35)
[2018-10-16] MEDS: MAGNESIUM OXIDE 400 MG TAB (MAG-OX) PO ×3 (09:35→23:06)
[2018-10-16] MEDS: CHOLESTYRAMINE 4 GM PWD PKT PO (18:26)
[2018-10-16] MEDS: traMADol 50 MG TAB PO (21:43)
[2018-10-16] MEDS: LORazepam 2 MG/ML VIAL (J2060) IV (21:52)
[2018-10-16 22:32] LABS: AMMONIA 19 uMOL/L (<32)
[2018-10-16 22:39] LABS: ANION GAP 9 MEQ/L (8-16); BLOOD UREA NITROGEN 10 MG/DL (7-18); CALCIUM LEVEL 7.3 MG/DL (8.5-10.1); CARBON DIOXIDE LEVEL 29 MEQ/L (21-32); CHLORIDE LEVEL 94 MEQ/L (98-107); CREATININE FOR GFR 0.98 MG/DL (0.70-1.30); GLOMERULAR FILTRATION RATE > 60.0 (>60); GLUCOSE, FASTING 99 MG/DL (70-100); PHENYTOIN (DILANTIN) 4.9 UG/ML (10.0-20.0); POTASSIUM SERUM 3.6 MEQ/L (3.5-5.1); SODIUM LEVEL 132 MEQ/L (136-145)
[2018-10-16] MEDS: PHENYTOIN 100 MG/2 ML VIAL (J1165) IV ×2 (23:24)
[2018-10-16] MEDS: levETIRAcetam INJection 1,000 MG in D5W 100 ML IV (23:36)
[2018-10-17] MEDS: traMADol 50 MG TAB PO ×2 (04:35→20:38)
[2018-10-17 05:55] LABS: HEMOGLOBIN 10.9 g/dl (13.5-17.5); MEAN CORPUSCULAR HEMOGLOBIN 35.7 pg (27.0-33.0); MEAN CORPUSCULAR HGB CONC 36.3 g/dl (32.0-36.5); MEAN CORPUSCULAR VOLUME 98.4 fl (80.0-96.0); PLATELET COUNT, AUTOMATED 109 10^3/uL (150-450); RED BLOOD COUNT 3.05 10^6/uL (4.30-6.10); RED CELL DISTRIBUTION WIDTH 13.6 % (11.5-14.5); WHITE BLOOD COUNT 11.2 10^3/uL (4.0-10.0)
[2018-10-17 06:21] LABS: AMMONIA 29 uMOL/L (<32)
[2018-10-17 06:22] LABS: ANION GAP 5 MEQ/L (8-16); BLOOD UREA NITROGEN 8 MG/DL (7-18); CALCIUM LEVEL 7.2 MG/DL (8.5-10.1); CARBON DIOXIDE LEVEL 31 MEQ/L (21-32); CHLORIDE LEVEL 96 MEQ/L (98-107); GLOMERULAR FILTRATION RATE > 60.0 (>60); GLUCOSE, FASTING 78 MG/DL (70-100); LIPASE 577 U/L (73-393); MAGNESIUM LEVEL 1.5 MG/DL (1.8-2.4); POTASSIUM SERUM 3.6 MEQ/L (3.5-5.1); SODIUM LEVEL 132 MEQ/L (136-145)
[2018-10-17 07:52] LABS: C REACTIVE PROTEIN QUANTITATIV 4.32 MG/DL (0.00-0.30)
[2018-10-17] MEDS: MIDODRINE 5 MG TAB PO ×3 (08:00→16:39)
[2018-10-17] MEDS: SUCRALFATE 1 GM TAB PO ×4 (08:08→20:33)
[2018-10-17] MEDS: MAG SULF 1GM/100ML (MAG RUN) 1 GM in APPROPRIATE DILUENT 1 EA IV ×2 (08:08→09:00)
[2018-10-17] MEDS: FUROSEMIDE 40 MG/4 ML VIAL (J1940) IV (08:09)
[2018-10-17] MEDS: PARoxetine 10MG TABLET PO (09:00)
[2018-10-17] MEDS: PHENYTOIN ER 100 MG CAP PO ×5 (09:00→20:33)
[2018-10-17] MEDS: LACTULOSE 20 GM/30 ML SYRUP UD PO (10:58)
[2018-10-17] MEDS: MAGNESIUM OXIDE 400 MG TAB (MAG-OX) PO ×2 (10:59→20:34)
[2018-10-17] MEDS: VITAMIN E 400 INTERNATIONAL UNITS CAP PO (10:59)
[2018-10-17] MEDS: BACTRIM 80MG/400MG TAB PO (11:00)
[2018-10-17] MEDS: ZINC SULFATE 220 MG CAP PO (11:00)
[2018-10-17] MEDS: levETIRAcetam 250MG TABLET (KEPPRA) PO ×2 (11:01→20:33)
[2018-10-17] MEDS: PANTOPRAZOLE 40MG TAB (PROTONIX) PO (11:01)
[2018-10-17] MEDS: THIAMINE 100 MG TAB PO (11:01)
[2018-10-17] MEDS: SPIRONOLACTONE 50 MG TAB PO (11:01)
[2018-10-17] MEDS: MULTIVITAMINS/MINERALS THERAP 1 TAB PO (11:01)
[2018-10-17] MEDS: FOLIC ACID 1 MG TAB PO (11:02)
[2018-10-17] MEDS: FERROUS SULFATE 325MG TAB PO ×2 (11:02→20:33)
[2018-10-17] MEDS: GABAPENTIN 100 MG CAP PO ×3 (11:02→20:35)
[2018-10-17] MEDS: PROPRANOLOL 10 MG TAB PO ×2 (11:11→20:35)
[2018-10-17] MEDS: CHOLESTYRAMINE 4 GM PWD PKT PO (13:00)
[2018-10-17 15:50] LABS: PHENYTOIN (DILANTIN) 5.8 UG/ML (10.0-20.0)
[2018-10-18 05:28] LABS: HEMOGLOBIN 11.3 g/dl (13.5-17.5); MEAN CORPUSCULAR HGB CONC 35.3 g/dl (32.0-36.5); MEAN CORPUSCULAR VOLUME 101.9 fl (80.0-96.0); PLATELET COUNT, AUTOMATED 110 10^3/uL (150-450); RED BLOOD COUNT 3.14 10^6/uL (4.30-6.10); RED CELL DISTRIBUTION WIDTH 13.7 % (11.5-14.5); WHITE BLOOD COUNT 9.9 10^3/uL (4.0-10.0)
[2018-10-18 05:49] LABS: ANION GAP 7 MEQ/L (8-16); BLOOD UREA NITROGEN 5 MG/DL (7-18); CALCIUM LEVEL 6.9 MG/DL (8.5-10.1); CARBON DIOXIDE LEVEL 29 MEQ/L (21-32); CHLORIDE LEVEL 91 MEQ/L (98-107); CREATININE FOR GFR 0.92 MG/DL (0.70-1.30); GLOMERULAR FILTRATION RATE > 60.0 (>60); GLUCOSE, FASTING 102 MG/DL (70-100); MAGNESIUM LEVEL 1.6 MG/DL (1.8-2.4); POTASSIUM SERUM 3.2 MEQ/L (3.5-5.1); SODIUM LEVEL 127 MEQ/L (136-145)
[2018-10-18] MEDS: SUCRALFATE 1 GM TAB PO ×4 (07:43→20:42)
[2018-10-18] MEDS: VITAMIN E 400 INTERNATIONAL UNITS CAP PO (09:00)
[2018-10-18] MEDS: PHENYTOIN ER 100 MG CAP PO ×3 (09:07→20:43)
[2018-10-18] MEDS: LACTULOSE 20 GM/30 ML SYRUP UD PO (09:07)
[2018-10-18] MEDS: MIDODRINE 5 MG TAB PO ×3 (09:07→16:11)
[2018-10-18] MEDS: GABAPENTIN 100 MG CAP PO ×3 (09:07→20:42)
[2018-10-18] MEDS: levETIRAcetam 250MG TABLET (KEPPRA) PO ×2 (09:08→20:42)
[2018-10-18] MEDS: PARoxetine 10MG TABLET PO (09:08)
[2018-10-18] MEDS: MAGNESIUM OXIDE 400 MG TAB (MAG-OX) PO ×2 (09:08→20:42)
[2018-10-18] MEDS: FUROSEMIDE 80 MG TAB PO (09:09)
[2018-10-18] MEDS: SPIRONOLACTONE 50 MG TAB PO (09:09)
[2018-10-18] MEDS: FOLIC ACID 1 MG TAB PO (09:09)
[2018-10-18] MEDS: PROPRANOLOL 10 MG TAB PO ×2 (09:09→20:44)
[2018-10-18] MEDS: MULTIVITAMINS/MINERALS THERAP 1 TAB PO (09:09)
[2018-10-18] MEDS: ZINC SULFATE 220 MG CAP PO (09:09)
[2018-10-18] MEDS: POTASSIUM CHLORIDE 10 MEQ SR TABLET PO (09:09)
[2018-10-18] MEDS: PANTOPRAZOLE 40MG TAB (PROTONIX) PO (09:10)
[2018-10-18] MEDS: BACTRIM 80MG/400MG TAB PO (09:10)
[2018-10-18] MEDS: FERROUS SULFATE 325MG TAB PO ×2 (09:10→20:43)
[2018-10-18] MEDS: THIAMINE 100 MG TAB PO (09:10)
[2018-10-18] MEDS ORDERED: SLF 3 ML SYR IV (11:30)
[2018-10-18] MEDS: CHOLESTYRAMINE 4 GM PWD PKT PO (13:06)
[2018-10-18] MEDS: SLF 3 ML SYR IV ×2 (16:11→20:44)
[2018-10-18] MEDS: traMADol 50 MG TAB PO (20:43)
[2018-10-19] MEDS: SLF 3 ML SYR IV ×3 (05:32→21:55)
[2018-10-19 05:56] LABS: HEMOGLOBIN 10.4 g/dl (13.5-17.5); MEAN CORPUSCULAR HGB CONC 34.7 g/dl (32.0-36.5); MEAN CORPUSCULAR VOLUME 103.8 fl (80.0-96.0); PLATELET COUNT, AUTOMATED 115 10^3/uL (150-450); RED BLOOD COUNT 2.89 10^6/uL (4.30-6.10); RED CELL DISTRIBUTION WIDTH 13.8 % (11.5-14.5); WHITE BLOOD COUNT 9.6 10^3/uL (4.0-10.0)
[2018-10-19 06:25] LABS: ANION GAP 5 MEQ/L (8-16); BLOOD UREA NITROGEN 5 MG/DL (7-18); CARBON DIOXIDE LEVEL 30 MEQ/L (21-32); CHLORIDE LEVEL 95 MEQ/L (98-107); CREATININE FOR GFR 0.94 MG/DL (0.70-1.30); GLOMERULAR FILTRATION RATE > 60.0 (>60); GLUCOSE, FASTING 117 MG/DL (70-100); MAGNESIUM LEVEL 1.6 MG/DL (1.8-2.4); PHENYTOIN (DILANTIN) 8.7 UG/ML (10.0-20.0); POTASSIUM SERUM 3.6 MEQ/L (3.5-5.1); SODIUM LEVEL 130 MEQ/L (136-145)
[2018-10-19] MEDS: LACTULOSE 20 GM/30 ML SYRUP UD PO (09:58)
[2018-10-19] MEDS: PHENYTOIN ER 100 MG CAP PO ×3 (09:58→21:52)
[2018-10-19] MEDS: FERROUS SULFATE 325MG TAB PO ×2 (09:59→21:52)
[2018-10-19] MEDS: ZINC SULFATE 220 MG CAP PO (09:59)
[2018-10-19] MEDS: SUCRALFATE 1 GM TAB PO ×4 (09:59→21:51)
[2018-10-19] MEDS: FUROSEMIDE 80 MG TAB PO (09:59)
[2018-10-19] MEDS: PANTOPRAZOLE 40MG TAB (PROTONIX) PO (09:59)
[2018-10-19] MEDS: MULTIVITAMINS/MINERALS THERAP 1 TAB PO (10:00)
[2018-10-19] MEDS: THIAMINE 100 MG TAB PO (10:00)
[2018-10-19] MEDS: levETIRAcetam 250MG TABLET (KEPPRA) PO ×2 (10:00→21:51)
[2018-10-19] MEDS: VITAMIN E 400 INTERNATIONAL UNITS CAP PO (10:00)
[2018-10-19] MEDS: MAGNESIUM OXIDE 400 MG TAB (MAG-OX) PO ×2 (10:01→21:52)
[2018-10-19] MEDS: MIDODRINE 5 MG TAB PO ×3 (10:01→16:23)
[2018-10-19] MEDS: SPIRONOLACTONE 50 MG TAB PO (10:01)
[2018-10-19] MEDS: FOLIC ACID 1 MG TAB PO (10:02)
[2018-10-19] MEDS: PARoxetine 10MG TABLET PO (10:02)
[2018-10-19] MEDS: GABAPENTIN 100 MG CAP PO ×3 (10:03→21:52)
[2018-10-19] MEDS: traMADol 50 MG TAB PO (10:58)
[2018-10-19] MEDS: PROPRANOLOL 10 MG TAB PO ×3 (10:59→21:55)
[2018-10-19 13:19] LABS: AMMONIA 13 uMOL/L (<32)
[2018-10-19] MEDS: CHOLESTYRAMINE 4 GM PWD PKT PO (14:12)
[2018-10-20 00:50] LABS: LEVETIRACETAM (KEPPRA) 19.8 ug/mL (10.0-40.0)
[2018-10-20] MEDS: SLF 3 ML SYR IV ×3 (06:00→21:28)
[2018-10-20 06:21] LABS: INR 1.67
[2018-10-20] MEDS: FERROUS SULFATE 325MG TAB PO ×2 (08:33→21:26)
[2018-10-20] MEDS: VITAMIN E 400 INTERNATIONAL UNITS CAP PO (08:33)
[2018-10-20] MEDS: ZINC SULFATE 220 MG CAP PO (08:33)
[2018-10-20] MEDS: LACTULOSE 20 GM/30 ML SYRUP UD PO ×2 (08:33→08:43)
[2018-10-20] MEDS: GABAPENTIN 100 MG CAP PO ×3 (08:33→21:26)
[2018-10-20] MEDS: SUCRALFATE 1 GM TAB PO ×4 (08:34→21:26)
[2018-10-20] MEDS: MULTIVITAMINS/MINERALS THERAP 1 TAB PO (08:34)
[2018-10-20] MEDS: MIDODRINE 5 MG TAB PO ×3 (08:34→16:53)
[2018-10-20] MEDS: levETIRAcetam 250MG TABLET (KEPPRA) PO ×2 (08:34→21:26)
[2018-10-20] MEDS: THIAMINE 100 MG TAB PO (08:34)
[2018-10-20] MEDS: MAGNESIUM OXIDE 400 MG TAB (MAG-OX) PO ×2 (08:34→21:27)
[2018-10-20] MEDS: FOLIC ACID 1 MG TAB PO (08:35)
[2018-10-20] MEDS: PANTOPRAZOLE 40MG TAB (PROTONIX) PO (08:35)
[2018-10-20] MEDS: PARoxetine 10MG TABLET PO (08:35)
[2018-10-20] MEDS: PROPRANOLOL 10 MG TAB PO ×2 (08:43→21:00)
[2018-10-20] MEDS: FUROSEMIDE 80 MG TAB PO (08:43)
[2018-10-20] MEDS: SPIRONOLACTONE 50 MG TAB PO (08:43)
[2018-10-20] MEDS: PHENYTOIN ER 100 MG CAP PO ×3 (08:53→21:33)
[2018-10-20 08:55] LABS: HEMATOCRIT 32.9 % (42.0-52.0); HEMOGLOBIN 11.4 g/dl (13.5-17.5); MEAN CORPUSCULAR HEMOGLOBIN 35.6 pg (27.0-33.0); MEAN CORPUSCULAR HGB CONC 34.7 g/dl (32.0-36.5); MEAN CORPUSCULAR VOLUME 102.8 fl (80.0-96.0); PLATELET COUNT, AUTOMATED 127 10^3/uL (150-450); RED CELL DISTRIBUTION WIDTH 14.1 % (11.5-14.5); WHITE BLOOD COUNT 9.2 10^3/uL (4.0-10.0)
[2018-10-20 09:16] LABS: ANION GAP 5 MEQ/L (8-16); BLOOD UREA NITROGEN 4 MG/DL (7-18); CALCIUM LEVEL 7.4 MG/DL (8.5-10.1); CARBON DIOXIDE LEVEL 31 MEQ/L (21-32); CHLORIDE LEVEL 97 MEQ/L (98-107); CREATININE FOR GFR 0.78 MG/DL (0.70-1.30); GLOMERULAR FILTRATION RATE > 60.0 (>60); GLUCOSE, FASTING 106 MG/DL (70-100); POTASSIUM SERUM 3.7 MEQ/L (3.5-5.1); SODIUM LEVEL 133 MEQ/L (136-145)
[2018-10-20 13:53] LABS: TYPE AND SCREEN 1
[2018-10-20] MEDS: CHOLESTYRAMINE 4 GM PWD PKT PO (14:25)
[2018-10-21] MEDS: SLF 3 ML SYR IV ×3 (05:21→21:18)
[2018-10-21 06:47] LABS: HEMATOCRIT 30.5 % (42.0-52.0); HEMOGLOBIN 10.7 g/dl (13.5-17.5); MEAN CORPUSCULAR HEMOGLOBIN 36.3 pg (27.0-33.0); MEAN CORPUSCULAR HGB CONC 35.1 g/dl (32.0-36.5); MEAN CORPUSCULAR VOLUME 103.4 fl (80.0-96.0); PLATELET COUNT, AUTOMATED 133 10^3/uL (150-450); RED BLOOD COUNT 2.95 10^6/uL (4.30-6.10); WHITE BLOOD COUNT 8.2 10^3/uL (4.0-10.0)
[2018-10-21 07:09] LABS: ALBUMIN 1.9 GM/DL (3.2-5.2); ALBUMIN/GLOBULIN RATIO 0.54 (1.00-1.93); ALKALINE PHOSPHATASE 99 U/L (45-117); ALT/SGPT 16 U/L (12-78); ANION GAP 5 MEQ/L (8-16); AST/SGOT 36 U/L (7-37); BILIRUBIN,TOTAL 2.7 MG/DL (0.2-1.0); BLOOD UREA NITROGEN 3 MG/DL (7-18); CALCIUM LEVEL 7.1 MG/DL (8.5-10.1); CARBON DIOXIDE LEVEL 32 MEQ/L (21-32); CHLORIDE LEVEL 97 MEQ/L (98-107); CREATININE FOR GFR 0.81 MG/DL (0.70-1.30); GLOMERULAR FILTRATION RATE > 60.0 (>60); GLUCOSE, FASTING 133 MG/DL (70-100); MAGNESIUM LEVEL 1.7 MG/DL (1.8-2.4); POTASSIUM SERUM 3.7 MEQ/L (3.5-5.1); SODIUM LEVEL 134 MEQ/L (136-145); TOTAL PROTEIN 5.4 GM/DL (6.4-8.2)
[2018-10-21] MEDS: ZINC SULFATE 220 MG CAP PO (09:58)
[2018-10-21] MEDS: PHENYTOIN ER 100 MG CAP PO ×3 (09:58→21:10)
[2018-10-21] MEDS: VITAMIN E 400 INTERNATIONAL UNITS CAP PO (09:58)
[2018-10-21] MEDS: MAGNESIUM OXIDE 400 MG TAB (MAG-OX) PO ×2 (09:59→21:17)
[2018-10-21] MEDS: LACTULOSE 20 GM/30 ML SYRUP UD PO (09:59)
[2018-10-21] MEDS: SUCRALFATE 1 GM TAB PO ×4 (09:59→21:10)
[2018-10-21] MEDS: FOLIC ACID 1 MG TAB PO (09:59)
[2018-10-21] MEDS: levETIRAcetam 250MG TABLET (KEPPRA) PO ×2 (09:59→21:17)
[2018-10-21] MEDS: PANTOPRAZOLE 40MG TAB (PROTONIX) PO (10:00)
[2018-10-21] MEDS: THIAMINE 100 MG TAB PO (10:00)
[2018-10-21] MEDS: MULTIVITAMINS/MINERALS THERAP 1 TAB PO (10:00)
[2018-10-21] MEDS: PARoxetine 10MG TABLET PO (10:01)
[2018-10-21] MEDS: SPIRONOLACTONE 50 MG TAB PO (10:01)
[2018-10-21] MEDS: MIDODRINE 5 MG TAB PO ×3 (10:01→17:26)
[2018-10-21] MEDS: FUROSEMIDE 80 MG TAB PO (10:02)
[2018-10-21] MEDS: FERROUS SULFATE 325MG TAB PO ×2 (10:02→21:17)
[2018-10-21] MEDS: GABAPENTIN 100 MG CAP PO ×3 (10:02→21:17)
[2018-10-21] MEDS: PROPRANOLOL 10 MG TAB PO ×2 (10:05→21:16)
[2018-10-21] MEDS: CHOLESTYRAMINE 4 GM PWD PKT PO (14:54)
[2018-10-22] MEDS: SLF 3 ML SYR IV (06:00)
[2018-10-22 06:14] LABS: HEMATOCRIT 32.9 % (42.0-52.0); HEMOGLOBIN 11.5 g/dl (13.5-17.5); MEAN CORPUSCULAR HEMOGLOBIN 35.7 pg (27.0-33.0); MEAN CORPUSCULAR VOLUME 102.2 fl (80.0-96.0); PLATELET COUNT, AUTOMATED 142 10^3/uL (150-450); RED BLOOD COUNT 3.22 10^6/uL (4.30-6.10); RED CELL DISTRIBUTION WIDTH 13.9 % (11.5-14.5); WHITE BLOOD COUNT 9.6 10^3/uL (4.0-10.0)
[2018-10-22 06:34] LABS: ALBUMIN 1.7 GM/DL (3.2-5.2); ALBUMIN/GLOBULIN RATIO 0.46 (1.00-1.93); ALKALINE PHOSPHATASE 118 U/L (45-117); ALT/SGPT 15 U/L (12-78); ANION GAP 7 MEQ/L (8-16); AST/SGOT 35 U/L (7-37); BILIRUBIN,TOTAL 2.3 MG/DL (0.2-1.0); BLOOD UREA NITROGEN 4 MG/DL (7-18); CARBON DIOXIDE LEVEL 29 MEQ/L (21-32); CHLORIDE LEVEL 99 MEQ/L (98-107); CREATININE FOR GFR 0.76 MG/DL (0.70-1.30); GLOMERULAR FILTRATION RATE > 60.0 (>60); GLUCOSE, FASTING 120 MG/DL (70-100); MAGNESIUM LEVEL 1.7 MG/DL (1.8-2.4); POTASSIUM SERUM 3.6 MEQ/L (3.5-5.1); SODIUM LEVEL 135 MEQ/L (136-145); TOTAL PROTEIN 5.4 GM/DL (6.4-8.2)
[2018-10-22] MEDS: LACTULOSE 20 GM/30 ML SYRUP UD PO (09:04)
[2018-10-22] MEDS: SUCRALFATE 1 GM TAB PO (09:05)
[2018-10-22] MEDS: levETIRAcetam 250MG TABLET (KEPPRA) PO (09:05)
[2018-10-22] MEDS: PANTOPRAZOLE 40MG TAB (PROTONIX) PO (09:05)
[2018-10-22] MEDS: MAGNESIUM OXIDE 400 MG TAB (MAG-OX) PO (09:05)
[2018-10-22] MEDS: PHENYTOIN ER 100 MG CAP PO (09:05)
[2018-10-22] MEDS: THIAMINE 100 MG TAB PO (09:06)
[2018-10-22] MEDS: MIDODRINE 5 MG TAB PO (09:06)
[2018-10-22] MEDS: FUROSEMIDE 80 MG TAB PO (09:06)
[2018-10-22] MEDS: MULTIVITAMINS/MINERALS THERAP 1 TAB PO (09:06)
[2018-10-22] MEDS: PARoxetine 10MG TABLET PO (09:07)
[2018-10-22] MEDS: SPIRONOLACTONE 50 MG TAB PO (09:07)
[2018-10-22] MEDS: FOLIC ACID 1 MG TAB PO (09:07)
[2018-10-22] MEDS: VITAMIN E 400 INTERNATIONAL UNITS CAP PO (09:07)
[2018-10-22] MEDS: ZINC SULFATE 220 MG CAP PO (09:07)
[2018-10-22] MEDS: PROPRANOLOL 10 MG TAB PO (09:08)
[2018-10-22] MEDS: FERROUS SULFATE 325MG TAB PO (09:08)
[2018-10-22] MEDS: GABAPENTIN 100 MG CAP PO (09:08)
== END 2018-10-22 12:20 | disposition home or self-care (01) | DRG 280 ==
LOC: M MSPAV 10-16 11:30 → M PCU 10-16 23:14 → M ED 01:22 → M ED INP 04:01 → M PCU 05:08
PROVIDERS: Internal Medicine
PROC: 0W9G3ZZ Drainage of Peritoneal Cavity, Percutaneous Approach (ICD-10-PCS; principal; 2018-10-12)
PROC: 0W9G3ZZ Drainage of Peritoneal Cavity, Percutaneous Approach (ICD-10-PCS; 2018-10-20)
DX: K70.31 Alcoholic cirrhosis of liver with ascites (principal); D68.4 Acquired coagulation factor deficiency; E87.2 Acidosis; K76.6 Portal hypertension; G40.409 Other generalized epilepsy and epileptic syndromes, not intractable, without status epilepticus; F10.20 Alcohol dependence, uncomplicated; F32.9 Major depressive disorder, single episode, unspecified; Z91.14 Patient's other noncompliance with medication regimen; E87.6 Hypokalemia; Z88.0 Allergy status to penicillin; Z79.899 Other long term (current) drug therapy

== ENCOUNTER 2018-10-28 09:45 | Inpatient (IN) | payer OTHER ==
[2018-10-28] VITALS (8 sets, daily range): BP systolic 99–127; BP diastolic 68–92
[~2018-10-28] VITALS: Ht 177.8 cm; Wt 85.0 kg
[2018-10-28] MEDS: PHENYTOIN ER 100 MG CAP PO SCH ×2 (01:55→15:01)
[2018-10-28] MEDS: FOLIC ACID 1 MG TAB PO SCH ×2 (09:00→15:48)
[2018-10-28] MEDS: MULTIVITAMINS/MINERALS THERAP 1 TAB PO SCH ×2 (09:00→15:48)
[~2018-10-28 09:45] MED LIST changes: +ALDA25TA2 PO; +ALDA50TA2 PO; +AVEL1TAB3 PO; +BUSP30TA PO; +CHOL4POW4 PO; +CHOL4PW PO; +DILA100C PO; +FERR1TAB8 PO; +FOLI1TAB11 PO; +FURO20TA2 PO; +FURO40TA2 PO; +GABA-1171 PO; +HYDR-3363 PO; +INVE3TAB2 PO; +KEPP10002 PO; +KEPP250T5 PO; +KLOR10TA76 PO; +LACT10SO29 PO; +LACT10SO3 PO; +LACTULOSE 20 GM/30 ML SYRUP UD PO SCH; +MAG400TA PO; +MAGN1TAB25 PO; +MAGN200T PO; +MAGN400T2 PO; +MAGN400T5 PO; +MIDO10TA PO; +MIDO2.5T PO; +MIDO5TA PO; +PALI1TAB2 PO; +PANT40TA3 PO; +PARO5TAB PO; +PATIENT COMMENT; +PAXI20TA29 PO; +PHEN100C PO; +PRED10TA2 PO; +PRED20TA PO; +PROP10TAB PO; +PROP40TA62 PO; +PROP60TA14 PO; +SPIR-10 PO; +SPIR50TA4 PO; +SUCR10SS PO; +SUCR1TAB56 PO; +THIA100T7 PO; +THIA100TA PO; +TRAZ10TA PO; +VITA400C7 PO; +VITAE20CA PO; +VITMTA PO; +ZINC220T PO
[2018-10-28 10:39] LABS: BASO # 0.1 10^3/uL (0.0-0.2); BASO % 0.6 % (0.0-1.0); EOS % 0.1 % (0.0-3.0); HEMATOCRIT 37.7 % (42.0-52.0); LYMPH # 1.1 10^3/uL (1.5-4.5); LYMPH % 9.3 % (24.0-44.0); MEAN CORPUSCULAR HEMOGLOBIN 35.3 pg (27.0-33.0); MEAN CORPUSCULAR HGB CONC 34.5 g/dl (32.0-36.5); MEAN CORPUSCULAR VOLUME 102.4 fl (80.0-96.0); MONO # 1.9 10^3/uL (0.0-0.8); MONO % 16.8 % (0.0-5.0); NEUTROPHILS # 8.3 10^3/uL (1.8-7.7); NEUTROPHILS % 72.8 % (36.0-66.0); PLATELET COUNT, AUTOMATED 203 10^3/uL (150-450); RED BLOOD COUNT 3.68 10^6/uL (4.30-6.10); WHITE BLOOD COUNT 11.4 10^3/uL (4.0-10.0)
--- NOTE | 2018-10-28 10:48 | REP ---
CT study of the brain without contrast: History: Multiple seizures. Comparison head CT study is from September 30, 2018. CT findings: Digital lateral horticultural specialty grower view is unremarkable. Bone window settings demonstrate an intact bony calvarium. Visualized paranasal sinuses are clear. No intraorbital abnormality is seen. On soft tissue window settings there is diffuse cerebral atrophy as before. There is no acute infarct or hemorrhage visible. No extra-axial fluid collection or mass is seen. Impression: Mild diffuse atrophy. Otherwise negative. No acute intracranial abnormality. Electronically Signed by Nader Saldivar MD 10/28/2018 03:02 P
[2018-10-28 11:09] LABS: ALBUMIN 2.4 GM/DL (3.2-5.2); BILIRUBIN,DIRECT 2.1 MG/DL (0.0-0.2); BILIRUBIN,TOTAL 3.7 MG/DL (0.2-1.0); CALCIUM LEVEL 7.7 MG/DL (8.5-10.1); CREATININE FOR GFR 1.54 MG/DL (0.70-1.30); GLOMERULAR FILTRATION RATE 51.4 (>60); MB/CK RELATIVE INDEX 2.82 (< OR =4); POTASSIUM SERUM 4.3 MEQ/L (3.5-5.1); THYROID STIMULATING HORMONE 3.1 uIU/ML (0.358-3.740); TOTAL PROTEIN 7.2 GM/DL (6.4-8.2); TROPONIN I 0.04 NG/ML (< 0.10)
--- NOTE | 2018-10-28 12:14 | REP ---
Chest x-ray: Two views. History: Shortness of breath. Comparison study: October 15, 2018. Findings: The lungs are exposed at a low level of inspiration similar to the prior study. EKG electrodes are seen. Pleural angles are sharp. Heart is not enlarged. There are healing rib fractures bilaterally. Degenerative changes are seen in the shoulders. Impression: Low level of inspiration. Otherwise no active cardiopulmonary disease. Healing bilateral rib fractures. Electronically Signed by Nader Saldivar MD 10/28/2018 03:05 P
[2018-10-28] MEDS ORDERED: NS 1,000 ML IV SCH (13:00)
[2018-10-28] MEDS ORDERED: ONDANSETRON 4MG/2ML VIAL (J2405) IV PRN (13:15)
[2018-10-28] MEDS: NS 1,000 ML IV SCH (13:33)
[2018-10-28 13:56] LABS: MAGNESIUM LEVEL 1.8 MG/DL (1.8-2.4)
--- NOTE | 2018-10-28 14:26 | HPE ---
DATE OF ADMISSION: 10/28/2018 CHIEF COMPLAINT: The patient presents to the emergency room with tremors, nausea and vomiting, stating that he thinks he may have had a seizure. HISTORY OF PRESENT ILLNESS: The patient is a 48-year-old male. He has significant past medical history of alcoholic cirrhosis, ETOH abuse, seizure disorder and depression. He presented to the emergency room after calling [id number] with complaints of tremors, generalized weakness and nausea, stating that he thinks he may have had a seizure. Upon presentation to the emergency room, the patient is somewhat confused, noticeably tremulous with his outstretched arms, saying that he thinks he might be seizing. He denies any cough. He denies any fevers or chills, chest pain, shortness of breath, or urinary symptoms. He does complain of some nausea. He is noticeably tremulous on the examination. He appears to be mildly confused. He takes an extensive period of time to answer simple questions, but he is aware of himself and his location. He has no focal neurological deficits on the examination. His blood alcohol level upon presentation is 0.360. The patient initially denied drinking, but after further questioning he does admit to drinking last night. PAST MEDICAL HISTORY: See history of present illness (HPI). PAST SURGICAL HISTORY: Vasectomy. HOME MEDICATIONS: - cholestyramine - ferrous sulfate - folic acid - Lasix - gabapentin - lactulose - Keppra - magnesium oxide - midodrine - multivitamins - Invega - Protonix - Dilantin - prednisone - propranolol - thiamine - vitamin E - zinc sulfate - Paxil - sucralfate SOCIAL HISTORY: He denies tobacco or illicit drug use. He does ultimately admit to history of alcohol abuse. FAMILY HISTORY: Coronary artery disease (CAD). ALLERGIES: PENICILLIN (reaction unclear). REVIEW OF SYSTEMS: A 12-point review of systems was completed, all of which were negative except those listed in the history of present illness. PHYSICAL EXAMINATION: VITALS ON ADMISSION: Temperature 97.5. Pulse 117. Respirations 18. Satting 100% on room air. Blood pressure 106/63. GENERAL: Notably tremulous. Cheerful appearing gentleman. HEAD: Normocephalic, atraumatic. EYES: Extraocular movements are intact. Pupils equal, round, reactive to light. Scleral icterus noted. LUNGS: Clear to auscultation. No crackles, wheezes, rales, or rhonchi. CARDIOVASCULAR: Regular rate and rhythm. Normal S1, S2. No murmurs, gallops or rub. ABDOMEN: Distended, moderate ascites, but no abdominal tenderness. EXTREMITIES: No pitting edema or calf tenderness. SKIN: Intact. Mildly jaundiced. No rashes or lesions noted. NEUROLOGICAL EXAM: He is notably tremulous, but alert and oriented times two. No focal neurological deficits appreciated on exam. LABS AND IMAGING: Completed in the emergency room, white count of 11, hemoglobin/hematocrit 13/37, platelet count 203. Chemistries show sodium of 128, BUN and creatinine of 12 and 1.54 with baseline creatinine of 0.7. Total bilirubin 3.7. Direct bilirubin 2.1. AST 91. Alkaline phosphatase 226. Troponin negative. Urine toxicology pending. Phenytoin level is 10. Blood alcohol level 0.360. Urinalysis (UA) is negative. Head CT completed in the emergency room shows mild diffuse atrophy. Chest x-ray shows low level of inspiration, otherwise no acute disease. ASSESSMENT AND PLAN: 1. Metabolic encephalopathy, multifactorial, likely secondary to alcohol intoxication with impending withdrawals with a mild level of hepatic encephalopathy. Hepatic encephalopathy is likely a result of his dehydration and intoxication. Patient is on lactulose at home. Also possibly noncompliant with home lactulose. He is on 45 mL by mouth daily. Will increase lactulose to 30 twice a day. Titrate as needed until mentation improves. Will assess for any infectious cause of his hepatic encephalopathy, though this is likely secondary to dehydration. UA noted. Chest x-ray noted. Will send blood cultures and continue to monitor off antibiotics. At some point in time, the patient may benefit from therapeutic paracentesis. There appears to be no signs or symptoms to suggest subacute bacterial peritonitis (SBP). The patient is not toxic appearing and the abdomen is benign, though he does have underlying ascites. 2. For his acute alcohol intoxication with impending withdrawals, folic acid, multivitamin, thiamine, and normal saline at 70. Will be judicious with the fluids because the patient does have a history of cirrhosis. Please reevaluate after 1 liter is completed. Will also give the patient some albumin. 3. For acute kidney injury and acute renal failure likely secondary to dehydration, will fluid hydrate, albumin and normal saline. Will trend renal function. 4. History of seizure disorder. Does not appear that the patient may have had a seizure. Will continue his phenytoin as well as his Keppra. Will place the patient on seizure precautions. 5. For his decompensated cirrhosis with mild hepatic encephalopathy and acute kidney injury, will hold his Lasix and Spironolactone as at this point in time the patient appears to be dehydrated. 6. History of iron deficiency anemia. Will continue ferrous sulfate. 7. Seizure disorder. Continue Keppra and phenytoin. 8. For his mood disorder, continue Invega. 9. For gastroesophageal reflux disease, continue Protonix. 10. The patient is on prednisone, unclear the reason why he is on prednisone at this point. Please verify in the a.m. 11. Supportive deep vein thrombosis (DVT) prophylaxis. Sequential compression devices. 12. Gastrointestinal prophylaxis. The patient is already on a proton pump inhibitor (PPI). DIET: Fluid restriction. Hepatic diet.
[2018-10-28 14:32] LABS: INR 1.74; PROTHROMBIN TIME 20.6 SECONDS (12.1-14.4)
[2018-10-28 14:34] LABS: PARTIAL THROMBOPLASTIN TIME 43.3 SECONDS (25.4-37.6)
[2018-10-28 14:45] LABS: AMPHETAMINES LEVEL URINE NEGATIVE (NEGATIVE); BARBITURATES URINE NEGATIVE (NEGATIVE); BENZODIAZEPINES URINE NEGATIVE (NEGATIVE); CANNABINOIDS URINE NEGATIVE (NEGATIVE); COCAINE METABOLITE URINE NEGATIVE (NEGATIVE); METHADONE URINE NEGATIVE (NEGATIVE); OPIATES URINE NEGATIVE (NEGATIVE); PHENCYCLIDINE URINE NEGATIVE (NEGATIVE)
[2018-10-28] MEDS: LORazepam 2 MG TAB PO PRN (15:01)
[2018-10-28] MEDS: MIDODRINE 5 MG TAB PO SCH (15:01)
[2018-10-28] MEDS: GABAPENTIN 100 MG CAP PO SCH ×3 (15:01→23:30)
[2018-10-28] MEDS: THIAMINE 100 MG TAB PO SCH ×2 (15:48→23:30)
[2018-10-28 16:48] LABS: BLOOD UREA NITROGEN 13 MG/DL (7-18); CALCIUM LEVEL 7.6 MG/DL (8.5-10.1); CARBON DIOXIDE LEVEL 27 MEQ/L (21-32); CHLORIDE LEVEL 91 MEQ/L (98-107); CREATININE FOR GFR 1.33 MG/DL (0.70-1.30); GLOMERULAR FILTRATION RATE > 60.0 (>60); GLUCOSE, FASTING 130 MG/DL (70-100); POTASSIUM SERUM 4.5 MEQ/L (3.5-5.1); SODIUM LEVEL 129 MEQ/L (136-145)
[2018-10-28] MEDS: SUCRALFATE 1 GM TAB PO SCH ×2 (17:00→23:30)
--- NOTE | 2018-10-28 18:19 | ECGEPIP ---
Stationary ECG Study [facility] - ED Test Date: 2018-10-28 Pat Name: ANEL YANEZ Department: Room: - Gender: M Scrape Gatherer: kayla : 1970 Requested By: GIGI Pizano Order Number: [id number] Reading MD: Mary Crum Measurements Intervals [place] Rate: 111 P: 37 OR: 167 QRS: 70 QRSD: 101 T: 32 QT: 353 QTc: 480 Interpretive Statements SINUS TACHYCARDIA ABNORMAL RHYTHM ECG PRWP LOW VOLTAGE LIMB SIMILAR 09/30/18 Electronically Signed On 10-28-2018 18:18:36 EST by Mary Crum
[2018-10-28] MEDS ORDERED: LACTULOSE 20 GM/30 ML SYRUP UD PO SCH (21:00)
[2018-10-28] MEDS ORDERED: levETIRAcetam INJection 1,000 MG in D5W 100 ML IV ONE (22:30)
[2018-10-28] MEDS ORDERED: PHENYTOIN 100 MG/2 ML VIAL (J1165) IV ONE (22:30)
[2018-10-28] MEDS: PALIPERIDONE 3 MG ER TAB (INVEGA) PO SCH (23:30)
[2018-10-28] MEDS: PARoxetine 10MG TABLET PO SCH (23:30)
[2018-10-28] MEDS: FERROUS SULFATE 325MG TAB PO SCH (23:30)
[2018-10-28] MEDS: levETIRAcetam 250MG TABLET (KEPPRA) PO SCH (23:30)
[2018-10-29] VITALS (9 sets, daily range): BP systolic 101–129; BP diastolic 66–84
[2018-10-29] MEDS: PROPRANOLOL 10 MG TAB PO SCH ×3 (01:46→21:29)
[2018-10-29] MEDS: NS 1,000 ML IV SCH (03:56)
[2018-10-29 05:59] LABS: HEMATOCRIT 32.7 % (42.0-52.0); HEMOGLOBIN 11.7 g/dl (13.5-17.5); MEAN CORPUSCULAR HEMOGLOBIN 35.1 pg (27.0-33.0); MEAN CORPUSCULAR HGB CONC 35.8 g/dl (32.0-36.5); MEAN CORPUSCULAR VOLUME 98.2 fl (80.0-96.0); PLATELET COUNT, AUTOMATED 147 10^3/uL (150-450); RED BLOOD COUNT 3.33 10^6/uL (4.30-6.10); WHITE BLOOD COUNT 8.9 10^3/uL (4.0-10.0)
[2018-10-29 06:22] LABS: BLOOD UREA NITROGEN 11 MG/DL (7-18); CALCIUM LEVEL 7.4 MG/DL (8.5-10.1); CARBON DIOXIDE LEVEL 28 MEQ/L (21-32); CHLORIDE LEVEL 94 MEQ/L (98-107); CREATININE FOR GFR 0.88 MG/DL (0.70-1.30); GLOMERULAR FILTRATION RATE > 60.0 (>60); GLUCOSE, FASTING 131 MG/DL (70-100); POTASSIUM SERUM 4.7 MEQ/L (3.5-5.1); SODIUM LEVEL 129 MEQ/L (136-145)
[2018-10-29] MEDS ORDERED: OXAZEPAM 10 MG CAP PO PRN (07:45)
[2018-10-29] MEDS: LORazepam 2 MG TAB PO PRN (08:15)
[2018-10-29 08:39] LABS: ALBUMIN 2.2 GM/DL (3.2-5.2); ALT/SGPT 27 U/L (12-78); BILIRUBIN,DIRECT 2.4 MG/DL (0.0-0.2); BILIRUBIN,TOTAL 6.5 MG/DL (0.2-1.0); BLOOD UREA NITROGEN 12 MG/DL (7-18); CALCIUM LEVEL 7.3 MG/DL (8.5-10.1); CARBON DIOXIDE LEVEL 30 MEQ/L (21-32); CHLORIDE LEVEL 93 MEQ/L (98-107); CPK CREATINE PHOSPHOKINASE 173 U/L (39-308); CREATININE FOR GFR 0.91 MG/DL (0.70-1.30); GLOMERULAR FILTRATION RATE > 60.0 (>60); GLUCOSE, FASTING 127 MG/DL (70-100); MB/CK RELATIVE INDEX 2.31 (< OR =4); POTASSIUM SERUM 4.8 MEQ/L (3.5-5.1); SODIUM LEVEL 128 MEQ/L (136-145); TOTAL PROTEIN 6.3 GM/DL (6.4-8.2); TROPONIN I 0.05 NG/ML (< 0.10)
[2018-10-29] MEDS: MULTIVITAMINS/MINERALS THERAP 1 TAB PO SCH (09:00)
[2018-10-29] MEDS ORDERED: MULTIVITAMINS/MINERALS THERAP 1 TAB PO SCH (09:00)
[2018-10-29] MEDS: SUCRALFATE 1 GM TAB PO SCH ×4 (10:47→21:29)
[2018-10-29] MEDS: LACTULOSE 20 GM/30 ML SYRUP UD PO SCH ×3 (10:47→21:35)
[2018-10-29] MEDS: FOLIC ACID 1 MG TAB PO SCH (10:47)
[2018-10-29] MEDS: OXAZEPAM 10 MG CAP PO SCH ×3 (10:47→17:57)
[2018-10-29] MEDS: THIAMINE 100 MG TAB PO SCH ×2 (10:48→21:30)
[2018-10-29] MEDS: predniSONE 10 MG TAB PO SCH (10:48)
[2018-10-29] MEDS: MIDODRINE 5 MG TAB PO SCH ×3 (10:48→17:56)
[2018-10-29] MEDS: GABAPENTIN 100 MG CAP PO SCH ×3 (10:48→21:30)
[2018-10-29] MEDS: PANTOPRAZOLE 40MG TAB (PROTONIX) PO SCH (10:49)
[2018-10-29] MEDS: levETIRAcetam 250MG TABLET (KEPPRA) PO SCH ×2 (10:49→21:28)
[2018-10-29] MEDS: MAGNESIUM OXIDE 400 MG TAB (MAG-OX) PO SCH (10:49)
[2018-10-29] MEDS: traMADol 50 MG TAB PO PRN (10:50)
[2018-10-29] MEDS: ZINC SULFATE 220 MG CAP PO SCH (10:51)
[2018-10-29] MEDS: VITAMIN E 400 INTERNATIONAL UNITS CAP PO SCH (10:51)
[2018-10-29] MEDS: PALIPERIDONE 3 MG ER TAB (INVEGA) PO SCH ×2 (10:51→21:27)
[2018-10-29] MEDS: FERROUS SULFATE 325MG TAB PO SCH ×2 (10:51→21:28)
[2018-10-29] MEDS: PHENYTOIN ER 100 MG CAP PO SCH ×3 (10:53→21:27)
--- NOTE | 2018-10-29 15:49 | IPN ---
DATE: 10/29/2018 SUBJECTIVE: Patient was admitted yesterday, monitored overnight. Denies any chest pain, pressure or discomfort, fevers or chills. Reported abdominal distention. Still reported generalized weakness. VITAL SIGNS: Temperature 98.3, pulse 83, respirations 18, blood pressure 123/79, pulse oximetry 99% on room air. LABORATORY DATA: WBC 8.9, hemoglobin and hematocrit 11.7/32.7, platelets 147. Chemistry: Sodium 128, potassium 4.8, chloride 93, bicarbonate 30, BUN 12, creatinine 0.91, total bilirubin 6.5. PHYSICAL EXAMINATION: GENERAL: Patient alert, comfortable, mildly tremulous, in no acute distress. HEENT: Normocephalic, atraumatic. PULMONARY: Bilateral clear. Diminished breath sounds bilateral base. CARDIAC: Regular, S1, S2. ABDOMEN: Distended, moderate amount of ascites, no significant tenderness. No rebound, no guarding. Positive bowel sounds. EXTREMITIES: No edema bilateral lower extremities. NEUROLOGIC: Noticeable tremulousness, tongue fasciculation. ASSESSMENT AND PLAN: This is a 48-year-old male patient with underlying medical history of alcoholic cirrhosis, alcohol abuse, seizure disorder, depression, brought to the hospital emergency room with complaints of tremors and generalized weakness and nausea. 1. Metabolic encephalopathy likely secondary to hyperammonemia and alcohol intoxication. Lactulose has been given. Monitor bowel movements. Supportive care. Continue Keppra at increased dose. Serax standing and as needed. Continue Dilantin. 2. Alcoholic hepatitis. Lactulose. Steroids have been given. Counseling provided. Patient and family services (PFS) consulted. 3. Acute alcohol intoxication. Monitor for withdrawal. Clinical [place] Withdrawal Assessment (CIWA) protocol. Thiamine, folate, multivitamin. Albumin given. Serax standing and as needed. 4. Ascites with alcohol cirrhosis. Paracentesis. Abstinence from alcohol. Albumin supplementation. Once patient tolerating by mouth, will resume spironolactone and Lasix. Thiamine, folate, multivitamin. 5. Depression. Continue current medication. 6. Poor compliance complicating care. 7. Decompensated liver cirrhosis. Followup coagulopathy. 8. Transaminitis. Holding Lasix and spironolactone at this point. Albumin supplementation. 9. Iron deficiency anemia. Continue supplementation. 10. Seizure disorder. Continue current medication. 11. Gastroesophageal reflux disease (GERD). Continue proton pump inhibitor (PPI). 12. Deep venous thrombosis (DVT) prophylaxis. Thromboembolism deterrents (TEDs) and sequentials. DISPOSITION: Pending clinical improvement, physical therapy. Patient poorly compliant with severe liver disease. Poor long-term prognosis.
[2018-10-29 16:22] LABS: BLOOD UREA NITROGEN 11 MG/DL (7-18); CALCIUM LEVEL 7.5 MG/DL (8.5-10.1); CARBON DIOXIDE LEVEL 31 MEQ/L (21-32); CHLORIDE LEVEL 93 MEQ/L (98-107); CREATININE FOR GFR 0.81 MG/DL (0.70-1.30); GLOMERULAR FILTRATION RATE > 60.0 (>60); GLUCOSE, FASTING 153 MG/DL (70-100); SODIUM LEVEL 128 MEQ/L (136-145)
[2018-10-29] MEDS: CHOLESTYRAMINE 4 GM PWD PKT PO SCH (17:56)
--- NOTE | 2018-10-29 20:26 | REP ---
Ultrasound-guided paracentesis The procedure was performed under the direct supervision of Dr. Green. The risks and benefits of the procedure were explained to the patient and informed consent was obtained. The largest pocket of fluid was localized in the right lower quadrant in the using ultrasound guidance. The skin was prepped and draped in a sterile fashion. 1% lidocaine was used as a local anesthetic. An 8-Lao multi side-hole catheter was inserted using trocar technique. 7800 ml of cloudy yellow fluid was withdrawn and discarded. The patient tolerated the procedure well and there were no immediate complications. After the appropriate amount of monitored convalescence the patient was discharged from the department. Reviewed by IVÁN Hernandez 10/29/2018 04:06 P Electronically Signed by Fawad Green MD 10/29/2018 08:17 P
[2018-10-29] MEDS: PARoxetine 10MG TABLET PO SCH (21:30)
[2018-10-30] VITALS (9 sets, daily range): BP systolic 92–118; BP diastolic 51–76
[2018-10-30] MEDS: OXAZEPAM 10 MG CAP PO SCH ×4 (00:23→18:07)
[2018-10-30] MEDS: traMADol 50 MG TAB PO PRN (04:37)
[2018-10-30 05:18] LABS: HEMOGLOBIN 10.3 g/dl (13.5-17.5); MEAN CORPUSCULAR HEMOGLOBIN 35.3 pg (27.0-33.0); MEAN CORPUSCULAR HGB CONC 35.5 g/dl (32.0-36.5); MEAN CORPUSCULAR VOLUME 99.3 fl (80.0-96.0); PLATELET COUNT, AUTOMATED 107 10^3/uL (150-450); RED BLOOD COUNT 2.92 10^6/uL (4.30-6.10); WHITE BLOOD COUNT 10.3 10^3/uL (4.0-10.0)
[2018-10-30 05:27] LABS: INR 1.95; PROTHROMBIN TIME 22.6 SECONDS (12.1-14.4)
[2018-10-30 05:44] LABS: ALBUMIN 2.2 GM/DL (3.2-5.2); ALT/SGPT 18 U/L (12-78); BILIRUBIN,TOTAL 7.3 MG/DL (0.2-1.0); BLOOD UREA NITROGEN 11 MG/DL (7-18); CALCIUM LEVEL 7.8 MG/DL (8.5-10.1); CARBON DIOXIDE LEVEL 29 MEQ/L (21-32); CHLORIDE LEVEL 95 MEQ/L (98-107); CREATININE FOR GFR 0.82 MG/DL (0.70-1.30); GLOMERULAR FILTRATION RATE > 60.0 (>60); GLUCOSE, FASTING 87 MG/DL (70-100); MAGNESIUM LEVEL 1.6 MG/DL (1.8-2.4); POTASSIUM SERUM 4.4 MEQ/L (3.5-5.1); SODIUM LEVEL 130 MEQ/L (136-145); TOTAL PROTEIN 5.5 GM/DL (6.4-8.2)
[2018-10-30] MEDS ORDERED: MAG SULF 1GM/100ML (MAG RUN) 1 GM in APPROPRIATE DILUENT 1 EA IV ONE (07:30)
[2018-10-30] MEDS: MIDODRINE 5 MG TAB PO SCH ×3 (10:19→17:20)
[2018-10-30] MEDS: FERROUS SULFATE 325MG TAB PO SCH ×2 (10:19→21:26)
[2018-10-30] MEDS: FOLIC ACID 1 MG TAB PO SCH (10:19)
[2018-10-30] MEDS: LACTULOSE 20 GM/30 ML SYRUP UD PO SCH ×3 (10:19→21:24)
[2018-10-30] MEDS: PHENYTOIN ER 100 MG CAP PO SCH ×3 (10:19→21:31)
[2018-10-30] MEDS: predniSONE 10 MG TAB PO SCH (10:19)
[2018-10-30] MEDS: SUCRALFATE 1 GM TAB PO SCH ×4 (10:19→21:26)
[2018-10-30] MEDS: PALIPERIDONE 3 MG ER TAB (INVEGA) PO SCH ×2 (10:20→21:25)
[2018-10-30] MEDS: GABAPENTIN 100 MG CAP PO SCH ×3 (10:20→21:24)
[2018-10-30] MEDS: PROPRANOLOL 10 MG TAB PO SCH ×2 (10:20→21:27)
[2018-10-30] MEDS: MULTIVITAMINS/MINERALS THERAP 1 TAB PO SCH (10:20)
[2018-10-30] MEDS: MAGNESIUM OXIDE 400 MG TAB (MAG-OX) PO SCH (10:20)
[2018-10-30] MEDS: levETIRAcetam 250MG TABLET (KEPPRA) PO SCH ×2 (10:20→21:26)
[2018-10-30] MEDS: PANTOPRAZOLE 40MG TAB (PROTONIX) PO SCH (10:20)
[2018-10-30] MEDS: ZINC SULFATE 220 MG CAP PO SCH (10:21)
[2018-10-30] MEDS: THIAMINE 100 MG TAB PO SCH ×2 (10:21→21:24)
[2018-10-30] MEDS: VITAMIN E 400 INTERNATIONAL UNITS CAP PO SCH (10:21)
--- NOTE | 2018-10-30 14:36 | IPNPDOC ---
Text Note Date of Service The patient was seen on 10/30/18. NOTE Patient seen and examined. Denies any chest pain, pressure or discomfort, fevers or chills. Abd pain improve post paracentesis. Still reported generalized weakness. PHYSICAL EXAMINATION: GENERAL: Patient alert, comfortable, mildly tremulous, in no acute distress. HEENT: Normocephalic, atraumatic. PULMONARY: Bilateral clear. Diminished breath sounds bilateral base. CARDIAC: Regular, S1, S2. ABDOMEN: Distended, moderate amount of ascites, no significant tenderness. No rebound, no guarding. Positive bowel sounds. EXTREMITIES: No edema bilateral lower extremities. NEUROLOGIC: Noticeable tremulousness, tongue fasciculation. ASSESSMENT AND PLAN: This is a 48-year-old male patient with underlying medical history of alcoholic cirrhosis, alcohol abuse, seizure disorder, depression, brought to the hospital emergency room with complaints of tremors and generali zed weakness and nausea. 1. Metabolic encephalopathy likely secondary to hyperammonemia and alcohol intoxication. Lactulose has been given. Monitor bowel movements. Supportive care. Continue Keppra. Serax standing and as needed, tapered. Continue Dilantin. 2. Alcoholic hepatitis. Lactulose. Steroids have been given. Counseling provided. Patient and family services (PFS) consulted. 3. Acute alcohol intoxication. Monitor for withdrawal. Clinical [place] Withdrawal Assessment (CIWA) protocol. Thiamine, folate, multivitamin. Albumin given. Serax standing and as needed, tapered. 4. Ascites with alcohol cirrhosis. Paracentesis. Abstinence from alcohol. Albumin supplementation. Will resume spironolactone and Lasix. Thiamine, folate, multivitamin. 5. Depression. Continue current medication. 6. Poor compliance complicating care. 7. Decompensated liver cirrhosis. f/u lab, prednisone 8. Transaminitis. con't Lasix and spironolactone at this point. Albumin supplementation. 9. Iron deficiency anemia. Continue supplementation. 10. Seizure disorder. Continue current medication. 11. Gastroesophageal reflux disease (GERD). Continue proton pump inhibitor (PPI). 12. Deep venous thrombosis (DVT) prophylaxis. Thromboembolism deterrents (T EDs) and sequentials. DISPOSITION: Pending clinical improvement, physical therapy. Patient poorly compliant with severe liver disease. Poor long-term prognosis. VS,Fishbone, I+O VS, Fishbone, I+O Laboratory Tests 10/29/18 15:52 Calcium Level 7.5 L 10/30/18 04:23 Calcium Level 7.8 L, Red Blood Count 2.92 L, Mean Corpuscular Volume 99.3 H, Mean Corpuscular Hemoglobin 35.3 H, Mean Corpuscular Hemoglobin Concent 35.5, Red Cell Distribution Width 13.1, Aspartate Amino Transf (AST/SGOT) 52 H, Alanine Aminotransferase (ALT/SGPT) 18, Alkaline Phosphatase 131 H, Total Bilirubin 7.3 H, Total Protein 5.5 L, Albumin 2.2 L Vital Signs Date Time Temp Pulse Resp B/P (MAP) Pulse Ox O2 Delivery O2 Flow Rate FiO2 10/30/18 12:00 99.2 96 18 97/54 (68) 98 Room Air I&O- Last 24 Hours up to 6 AM 10/30/18 06:00 Intake Total 1450 ml Output Total 400 ml Balance 1050 ml ROSA PAT MD Oct 30, 2018 14:36
[2018-10-30] MEDS: SPIRONOLACTONE 50 MG TAB PO SCH (17:19)
[2018-10-30] MEDS: FUROSEMIDE 40 MG TAB PO SCH (17:19)
[2018-10-30] MEDS: CHOLESTYRAMINE 4 GM PWD PKT PO SCH (17:20)
[2018-10-30] MEDS: PARoxetine 10MG TABLET PO SCH (21:26)
[2018-10-31] VITALS (11 sets, daily range): BP systolic 98–129; BP diastolic 67–97
[2018-10-31] MEDS: OXAZEPAM 10 MG CAP PO SCH ×3 (00:04→17:55)
[2018-10-31] MEDS: traMADol 50 MG TAB PO PRN (03:01)
[2018-10-31 05:02] LABS: HEMATOCRIT 30.6 % (42.0-52.0); HEMOGLOBIN 10.7 g/dl (13.5-17.5); MEAN CORPUSCULAR HEMOGLOBIN 35.4 pg (27.0-33.0); MEAN CORPUSCULAR VOLUME 101.3 fl (80.0-96.0); PLATELET COUNT, AUTOMATED 101 10^3/uL (150-450); RED BLOOD COUNT 3.02 10^6/uL (4.30-6.10); WHITE BLOOD COUNT 10.2 10^3/uL (4.0-10.0)
[2018-10-31 05:08] LABS: INR 1.82; PROTHROMBIN TIME 21.3 SECONDS (12.1-14.4)
[2018-10-31 05:21] LABS: ALBUMIN 2.1 GM/DL (3.2-5.2); ALT/SGPT 20 U/L (12-78); BLOOD UREA NITROGEN 9 MG/DL (7-18); CALCIUM LEVEL 7.4 MG/DL (8.5-10.1); CARBON DIOXIDE LEVEL 30 MEQ/L (21-32); CHLORIDE LEVEL 95 MEQ/L (98-107); CREATININE FOR GFR 0.94 MG/DL (0.70-1.30); GLOMERULAR FILTRATION RATE > 60.0 (>60); GLUCOSE, FASTING 107 MG/DL (70-100); MAGNESIUM LEVEL 1.6 MG/DL (1.8-2.4); POTASSIUM SERUM 3.8 MEQ/L (3.5-5.1); SODIUM LEVEL 131 MEQ/L (136-145); TOTAL PROTEIN 5.6 GM/DL (6.4-8.2)
[2018-10-31] MEDS: MIDODRINE 5 MG TAB PO SCH ×5 (08:43→17:26)
[2018-10-31] MEDS: FERROUS SULFATE 325MG TAB PO SCH ×2 (08:43→21:33)
[2018-10-31] MEDS: VITAMIN E 400 INTERNATIONAL UNITS CAP PO SCH (08:43)
[2018-10-31] MEDS: PALIPERIDONE 3 MG ER TAB (INVEGA) PO SCH ×2 (08:43→21:32)
[2018-10-31] MEDS: FOLIC ACID 1 MG TAB PO SCH (08:43)
[2018-10-31] MEDS: MULTIVITAMINS/MINERALS THERAP 1 TAB PO SCH (08:43)
[2018-10-31] MEDS: PHENYTOIN ER 100 MG CAP PO SCH (08:43)
[2018-10-31] MEDS: GABAPENTIN 100 MG CAP PO SCH ×4 (08:43→21:33)
[2018-10-31] MEDS: levETIRAcetam 250MG TABLET (KEPPRA) PO SCH (08:44)
[2018-10-31] MEDS: ZINC SULFATE 220 MG CAP PO SCH (08:44)
[2018-10-31] MEDS: PANTOPRAZOLE 40MG TAB (PROTONIX) PO SCH (08:44)
[2018-10-31] MEDS: FUROSEMIDE 40 MG TAB PO SCH (08:44)
[2018-10-31] MEDS: SPIRONOLACTONE 50 MG TAB PO SCH (08:44)
[2018-10-31] MEDS: predniSONE 10 MG TAB PO SCH (08:45)
[2018-10-31] MEDS: MAGNESIUM OXIDE 400 MG TAB (MAG-OX) PO SCH (08:45)
[2018-10-31] MEDS: LACTULOSE 20 GM/30 ML SYRUP UD PO SCH ×5 (08:46→21:54)
[2018-10-31] MEDS: SUCRALFATE 1 GM TAB PO SCH ×6 (08:46→21:32)
[2018-10-31] MEDS ORDERED: MAG SULF 1GM/100ML (MAG RUN) 1 GM in APPROPRIATE DILUENT 1 EA IV ONE (11:00)
[2018-10-31] MEDS: PROPRANOLOL 10 MG TAB PO SCH ×2 (11:35→21:34)
[2018-10-31] MEDS ORDERED: HALOPERIDOL 5 MG/ML VIAL (J1630) As Ordered ONE (12:02)
[2018-10-31] MEDS ORDERED: LORazepam 2 MG/ML VIAL (J2060) IV ONE ×2 (12:15→12:30)
[2018-10-31] MEDS ORDERED: HALOPERIDOL 5 MG/ML VIAL (J1630) IV ONE ×2 (12:15→12:45)
--- NOTE | 2018-10-31 15:42 | IPNPDOC ---
Text Note Date of Service The patient was seen on 10/31/18. NOTE Patient seen and examined. Denies any chest pain, pressure or discomfort, fevers or chills. Still reported generalized weakness.. Had an Code 25, with severe agitation, punched staff, trying to get out bed. screaming and kicking, give ativan 2mg IV, followed by Haldol 2mg IV in 5 min, followed by Ativan 2 mg iv in 15 min followed by 2mg haldol IV 10 min later. sitter ordered. End tidal CO2. PHYSICAL EXAMINATION: GENERAL: Patient alert, comfortable, mildly tremulous, in no acute distress. HEENT: Normocephalic, atraumatic. PULMONARY: Bilateral clear. Diminished breath sounds bilateral base. CARDIAC: Regular, S1, S2. ABDOMEN: Distended, moderate amount of ascites, no significant tenderness. No rebound, no guarding. Positive bowel sounds. EXTREMITIES: No edema bilateral lower extremities. NEUROLOGIC: Noticeable tremulousness, tongue fasciculation. ASSESSMENT AND PLAN: This is a 48-year-old male patient with underlying medical history of alcoholic cirrhosis, alcohol abuse, seizure disorder, depression, brought to the hospital emergency room with complaints of tremors and generalized weakness and nausea. 1. Metabolic encephalopathy likely secondary to hyperammonemia and alcohol intoxication. Lactulose has been given. Monitor bowel movements. Supportive care. Continue Keppra. Serax standing and as needed, tapered. Continue Dilantin. sitter 2. Alcoholic hepatitis. Lactulose. Steroids have been given. Counseling provided. Patient and family services (PFS) consulted. 3. Acute alcohol intoxication. Monitor for withdrawal. Clinical [place] Withdrawal Assessment (CIWA) protocol. Thiamine, folate, multivitamin. Albumin given. Serax standing and as needed, tapered. 4. Ascites with alcohol cirrhosis. Paracentesis. Abstinence from alcohol. Albumin supplementation. spironolactone and Lasix. Thiamine, folate, multivitamin. 5. Depression. Continue current medication. 6. Poor compliance complicating care. 7. Decompensated liver cirrhosis. f/u lab, prednisone 8. Transaminitis. 2/2 alcoholic hepatitis. con't Lasix and spironolactone. prednisone, Albumin supplementation. 9. Iron deficiency anemia. Continue supplementation. 10. Seizure disorder. Continue current medication. 11. Gastroesophageal reflux disease (GERD). Continue proton pump inhibitor (PPI). 12. Deep venous thrombosis (DVT) prophylaxis. Thromboembolism deterrents (TEDs) and sequentials. DISPOSITION: physical therapy. Patient poorly compliant with severe liver disease. Poor long-term prognosis. VS,Fishbone, I+O VS, Fishbone, I+O Laboratory Tests 10/31/18 04:19 Red Blood Count 3.02 L, Mean Corpuscular Volume 101.3 H, Mean Corpuscular Hemoglobin 35.4 H, Mean Corpuscular Hemoglobin Concent 35.0, Red Cell Distribution Width 13.2, Calcium Level 7.4 L, Aspartate Amino Transf (AST/SGOT) 45 H, Alanine Aminotransferase (ALT/SGPT) 20, Alkaline Phosphatase 138 H, Total Bilirubin 4.0 H, Total Protein 5.6 L, Albumin 2.1 L Vital Signs Date Time Temp Pulse Resp B/P (MAP) Pulse Ox O2 Delivery O2 Flow Rate FiO2 10/31/18 11:48 97.9 86 18 106/71 (83) 96 Room Air I&O- Last 24 Hours up to 6 AM 10/31/18 06:00 Intake Total 2280 ml Output Total 1025 ml Balance 1255 ml ROSA PAT MD Oct 31, 2018 15:42
[2018-10-31] MEDS: CHOLESTYRAMINE 4 GM PWD PKT PO SCH ×2 (17:00→17:28)
[2018-10-31] MEDS: PHENYTOIN 100 MG/2 ML VIAL (J1165) IV SCH ×2 (18:11→21:34)
[2018-10-31] MEDS: PARoxetine 10MG TABLET PO SCH (21:32)
[2018-10-31] MEDS: levETIRAcetam INJection 1,000 MG in D5W 100 ML IV SCH (21:35)
[2018-11-01] VITALS (8 sets, daily range): BP systolic 106–130; BP diastolic 73–94
[2018-11-01] MEDS: OXAZEPAM 10 MG CAP PO SCH ×4 (00:36→17:22)
[2018-11-01] MEDS: LORazepam 2 MG/ML VIAL (J2060) IV PRN (02:03)
[2018-11-01 05:24] LABS: HEMATOCRIT 32.4 % (42.0-52.0); HEMOGLOBIN 11.1 g/dl (13.5-17.5); MEAN CORPUSCULAR HEMOGLOBIN 34.6 pg (27.0-33.0); MEAN CORPUSCULAR HGB CONC 34.3 g/dl (32.0-36.5); MEAN CORPUSCULAR VOLUME 100.9 fl (80.0-96.0); PLATELET COUNT, AUTOMATED 101 10^3/uL (150-450); RED BLOOD COUNT 3.21 10^6/uL (4.30-6.10); WHITE BLOOD COUNT 10.9 10^3/uL (4.0-10.0)
[2018-11-01 05:35] LABS: INR 1.76; PROTHROMBIN TIME 20.9 SECONDS (12.1-14.4)
[2018-11-01 05:55] LABS: ALBUMIN 2.2 GM/DL (3.2-5.2); ALT/SGPT 20 U/L (12-78); BILIRUBIN,TOTAL 3.5 MG/DL (0.2-1.0); BLOOD UREA NITROGEN 7 MG/DL (7-18); CALCIUM LEVEL 7.6 MG/DL (8.5-10.1); CARBON DIOXIDE LEVEL 28 MEQ/L (21-32); CHLORIDE LEVEL 99 MEQ/L (98-107); CREATININE FOR GFR 0.91 MG/DL (0.70-1.30); GLOMERULAR FILTRATION RATE > 60.0 (>60); GLUCOSE, FASTING 72 MG/DL (70-100); MAGNESIUM LEVEL 1.6 MG/DL (1.8-2.4); POTASSIUM SERUM 4.1 MEQ/L (3.5-5.1); SODIUM LEVEL 134 MEQ/L (136-145); TOTAL PROTEIN 6.3 GM/DL (6.4-8.2)
[2018-11-01] MEDS: MAG SULF 1GM/100ML (MAG RUN) 1 GM in APPROPRIATE DILUENT 1 EA IV SCH ×2 (07:51→08:55)
[2018-11-01] MEDS: PALIPERIDONE 3 MG ER TAB (INVEGA) PO SCH ×2 (08:31→21:55)
[2018-11-01] MEDS: LACTULOSE 20 GM/30 ML SYRUP UD PO SCH ×3 (08:31→21:55)
[2018-11-01] MEDS: PHENYTOIN 100 MG/2 ML VIAL (J1165) IV SCH ×3 (08:31→21:55)
[2018-11-01] MEDS: VITAMIN E 400 INTERNATIONAL UNITS CAP PO SCH (08:31)
[2018-11-01] MEDS: FERROUS SULFATE 325MG TAB PO SCH ×2 (08:31→21:55)
[2018-11-01] MEDS: PROPRANOLOL 10 MG TAB PO SCH ×2 (08:32→22:34)
[2018-11-01] MEDS: GABAPENTIN 100 MG CAP PO SCH ×3 (08:32→21:55)
[2018-11-01] MEDS: MAGNESIUM OXIDE 400 MG TAB (MAG-OX) PO SCH (08:32)
[2018-11-01] MEDS: SPIRONOLACTONE 50 MG TAB PO SCH (08:32)
[2018-11-01] MEDS: predniSONE 10 MG TAB PO SCH (08:32)
[2018-11-01] MEDS: ZINC SULFATE 220 MG CAP PO SCH (08:32)
[2018-11-01] MEDS: MULTIVITAMINS/MINERALS THERAP 1 TAB PO SCH (08:32)
[2018-11-01] MEDS: FOLIC ACID 1 MG TAB PO SCH (08:32)
[2018-11-01] MEDS: PANTOPRAZOLE 40MG TAB (PROTONIX) PO SCH (08:33)
[2018-11-01] MEDS: MIDODRINE 5 MG TAB PO SCH ×3 (08:33→15:19)
[2018-11-01] MEDS: SUCRALFATE 1 GM TAB PO SCH ×4 (08:33→22:34)
[2018-11-01] MEDS: FUROSEMIDE 40 MG TAB PO SCH (08:33)
[2018-11-01] MEDS: levETIRAcetam INJection 1,000 MG in D5W 100 ML IV SCH ×2 (10:00→21:54)
[2018-11-01] MEDS: CHOLESTYRAMINE 4 GM PWD PKT PO SCH (17:22)
--- NOTE | 2018-11-01 18:38 | IPNPDOC ---
Text Note Date of Service The patient was seen on 11/01/18. NOTE Patient seen and examined. Confused. poor historian. mild lethargy. Denies any chest pain, pressure or discomfort. Tremulous PHYSICAL EXAMINATION: GENERAL: Patient alert, comfortable, mildly tremulous, in no acute distress. HEENT: Normocephalic, atraumatic. PULMONARY: Bilateral clear. Diminished breath sounds bilateral base. CARDIAC: Regular, S1, S2. ABDOMEN: Distended, moderate amount of ascites, no significant tenderness. No rebound, no guarding. Positive bowel sounds. EXTREMITIES: No edema bilateral lower extremities. NEUROLOGIC: Noticeable tremulousness, tongue fasciculation. ASSESSMENT AND PLAN: This is a 48-year-old male patient with underlying medical history of alcoholic cirrhosis, alcohol abuse, seizure disorder, depression, brought to the hospital emergency room with complaints of tremors and generalized weakness and nausea. 1. Metabolic encephalopathy likely secondary to hyperammonemia and alcohol intoxication. likely in withdrawal now. Lactulose has been given. Monitor bowel movements. Supportive care. Continue Keppra. Serax standing and as needed. Ativan as need Continue Dilantin. sitter 2. Alcoholic hepatitis. Lactulose. Steroids have been given. Counseling provided. Patient and family services (PFS) consulted. 3. Acute alcohol intoxication. on in withdrawal. Monitor for withdrawal. Clinical [place] Withdrawal Assessment (CIWA) protocol. Thiamine, folate, multivitamin. Albumin given. Serax standing and as needed. Ativan as needed 4. Ascites with alcohol cirrhosis. Paracentesis Thursday. Abstinence from alcohol. Albumin supplementation. spironolactone and Lasix. Thiamine, folate, multivitamin. 5. Depression. Continue current medication. 6. Poor compliance complicating care. 7. Decompensated liver cirrhosis. f/u lab, prednisone 8. Transaminitis. 2/2 alcoholic hepatitis. con't Lasix and spironolactone. prednisone, Albumin supplemented. 9. Iron deficiency anemia. Continue supplementation. 10. Seizure disorder. Continue current medication. 11. Gastroesophageal reflux disease (GERD). Continue proton pump inhibitor (PPI). 12. Deep venous thrombosis (DVT) prophylaxis. Thromboembolism deterrents (TEDs) and sequentials. DISPOSITION: physical therapy. Patient poorly compliant with severe liver disease. Poor long-term prognosis. VS,Fishbone, I+O VS, Fishbone, I+O Laboratory Tests 11/01/18 04:28 Red Blood Count 3.21 L, Mean Corpuscular Volume 100.9 H, Mean Corpuscular Hemoglobin 34.6 H, Mean Corpuscular Hemoglobin Concent 34.3, Red Cell Distribution Width 13.2, Calcium Level 7.6 L, Aspartate Amino Transf (AST/SGOT) 45 H, Alanine Aminotransferase (ALT/SGPT) 20, Alkaline Phosphatase 148 H, Total Bilirubin 3.5 H, Total Protein 6.3 L, Albumin 2.2 L Vital Signs Date Time Temp Pulse Resp B/P (MAP) Pulse Ox O2 Delivery O2 Flow Rate FiO2 11/01/18 16:00 88 116/74 11/01/18 16:00 98.5 16 96 Room Air I&O- Last 24 Hours up to 6 AM 11/01/18 06:00 Intake Total 880 ml Output Total 1150 ml Balance -270 ml ROSA PAT MD Nov 01, 2018 18:38
[2018-11-01] MEDS: PARoxetine 10MG TABLET PO SCH (21:55)
[2018-11-02] VITALS (8 sets, daily range): BP systolic 94–130; BP diastolic 54–94
[2018-11-02] MEDS: OXAZEPAM 10 MG CAP PO SCH ×4 (00:21→17:20)
[2018-11-02 05:48] LABS: HEMOGLOBIN 10.6 g/dl (13.5-17.5); MEAN CORPUSCULAR HEMOGLOBIN 35.2 pg (27.0-33.0); MEAN CORPUSCULAR HGB CONC 35.3 g/dl (32.0-36.5); MEAN CORPUSCULAR VOLUME 99.7 fl (80.0-96.0); RED BLOOD COUNT 3.01 10^6/uL (4.30-6.10); WHITE BLOOD COUNT 9.4 10^3/uL (4.0-10.0)
[2018-11-02 05:53] LABS: PLATELET COUNT, AUTOMATED 86 10^3/uL (150-450)
[2018-11-02 05:56] LABS: INR 1.87; PROTHROMBIN TIME 21.9 SECONDS (12.1-14.4)
[2018-11-02 06:11] LABS: ALT/SGPT 18 U/L (12-78); BILIRUBIN,TOTAL 2.8 MG/DL (0.2-1.0); BLOOD UREA NITROGEN 7 MG/DL (7-18); CALCIUM LEVEL 7.5 MG/DL (8.5-10.1); CARBON DIOXIDE LEVEL 30 MEQ/L (21-32); CHLORIDE LEVEL 100 MEQ/L (98-107); GLOMERULAR FILTRATION RATE > 60.0 (>60); GLUCOSE, FASTING 87 MG/DL (70-100); MAGNESIUM LEVEL 1.7 MG/DL (1.8-2.4); POTASSIUM SERUM 4.1 MEQ/L (3.5-5.1); SODIUM LEVEL 136 MEQ/L (136-145); TOTAL PROTEIN 5.5 GM/DL (6.4-8.2)
[2018-11-02] MEDS ORDERED: MAG SULF 1GM/100ML (MAG RUN) 1 GM in APPROPRIATE DILUENT 1 EA IV ONE (06:37)
[2018-11-02] MEDS: SPIRONOLACTONE 50 MG TAB PO SCH (08:03)
[2018-11-02] MEDS: PANTOPRAZOLE 40MG TAB (PROTONIX) PO SCH (08:03)
[2018-11-02] MEDS: MAGNESIUM OXIDE 400 MG TAB (MAG-OX) PO SCH (08:03)
[2018-11-02] MEDS: MIDODRINE 5 MG TAB PO SCH ×3 (08:03→15:20)
[2018-11-02] MEDS: predniSONE 10 MG TAB PO SCH (08:03)
[2018-11-02] MEDS: FOLIC ACID 1 MG TAB PO SCH (08:03)
[2018-11-02] MEDS: ZINC SULFATE 220 MG CAP PO SCH (08:03)
[2018-11-02] MEDS: VITAMIN E 400 INTERNATIONAL UNITS CAP PO SCH (08:03)
[2018-11-02] MEDS: SUCRALFATE 1 GM TAB PO SCH ×4 (08:03→21:05)
[2018-11-02] MEDS: PALIPERIDONE 3 MG ER TAB (INVEGA) PO SCH ×2 (08:03→21:05)
[2018-11-02] MEDS: FERROUS SULFATE 325MG TAB PO SCH ×2 (08:04→21:05)
[2018-11-02] MEDS: MULTIVITAMINS/MINERALS THERAP 1 TAB PO SCH (08:04)
[2018-11-02] MEDS: GABAPENTIN 100 MG CAP PO SCH ×3 (08:04→21:05)
[2018-11-02] MEDS: PROPRANOLOL 10 MG TAB PO SCH ×2 (08:04→21:00)
[2018-11-02] MEDS: FUROSEMIDE 40 MG TAB PO SCH (08:04)
[2018-11-02] MEDS: LACTULOSE 20 GM/30 ML SYRUP UD PO SCH ×3 (08:04→21:04)
[2018-11-02] MEDS: PHENYTOIN 100 MG/2 ML VIAL (J1165) IV SCH ×3 (08:54→21:06)
--- NOTE | 2018-11-02 08:59 | IPNPDOC ---
Text Note Date of Service The patient was seen on 11/02/18. NOTE Subjective: Patient seen and examined at bedside. Confused. poor historian. mild lethargy. Denies any chest pain, pressure or discomfort. Tremulous Objective: GENERAL: Patient alert, comfortable, mildly tremulous, in no acute distress. HEENT: Normocephalic, atraumatic. PULMONARY: Bilateral clear. Diminished breath sounds bilateral base. CARDIAC: Regular, S1, S2. ABDOMEN: Distended, moderate amount of ascites, no significant tenderness. No rebound, no guarding. Positive bowel sounds. EXTREMITIES: No edema bilateral lower extremities. NEUROLOGIC: Noticeable tremulousness, tongue fasciculation. ASSESSMENT AND PLAN: This is a 48-year-old male patient with underlying medical history of alcoholic cirrhosis, alcohol abuse, seizure disorder, depression, brought to the hospital emergency room with complaints of tremors and generalized weakness and nausea. #acute hepatic encephalopathy - appears resolved - continue lactulose, titrate to BM - BZD therapy as needed - continue John Paul Horvath - 1:1 sitter #alcoholic cirrhosis/hepatitis - Lactulose - Steroid therapy # Alcohol abuse/withdrawal - continue to monitor for withdrawal - [facility] protocol - thiamine, folate, MVI - BZD therapy as needed # Ascites with alcohol cirrhosis - Paracentesis Thursday - states he is supposed to be receiving weekly taps - will arrange for paracentesis prior to discharge - Abstinence from alcohol; Albumin supplementation. - spironolactone and Lasix. Thiamine, folate, multivitamin. # Depression. Continue current medication. # Poor compliance complicating care. #Decompensated liver cirrhosis. f/u lab, prednisone # Transaminitis - 2/2 alcoholic hepatitis - con't Lasix and spironolactone. prednisone, Albumin supplemented. # Iron deficiency anemia. Continue supplementation. # Seizure disorder. Continue current medication. # Gastroesophageal reflux disease (GERD). Continue proton pump inhibitor (PPI). # Deep venous thrombosis (DVT) prophylaxis. Thromboembolism deterrents (TEDs) and sequentials. DISPOSITION: physical therapy. Patient poorly compliant with severe liver disease. Poor long-term prognosis. VS,Fishbone, I+O VS, Fishbone, I+O Laboratory Tests 11/02/18 05:29 Red Blood Count 3.01 L, Mean Corpuscular Volume 99.7 H, Mean Corpuscular Hemoglobin 35.2 H, Mean Corpuscular Hemoglobin Concent 35.3, Red Cell Distribution Width 13.5, Calcium Level 7.5 L, Aspartate Amino Transf (AST/SGOT) 34, Alanine Aminotransferase (ALT/SGPT) 18, Alkaline Phosphatase 134 H, Total Bilirubin 2.8 H, Total Protein 5.5 L, Albumin 2.0 L Vital Signs Date Time Temp Pulse Resp B/P (MAP) Pulse Ox O2 Delivery O2 Flow Rate FiO2 11/02/18 08:04 79 118/80 11/02/18 07:52 97.3 20 97 Room Air I&O- Last 24 Hours up to 6 AM 11/02/18 05:59 Intake Total 920 ml Output Total 1200 ml Balance -280 ml PRAVEEN ZACARIAS MD Nov 02, 2018 08:59
[2018-11-02] MEDS: levETIRAcetam INJection 1,000 MG in D5W 100 ML IV SCH ×2 (09:08→21:06)
[2018-11-02] MEDS: CHOLESTYRAMINE 4 GM PWD PKT PO SCH (16:05)
[2018-11-02] MEDS: PARoxetine 10MG TABLET PO SCH (21:05)
[2018-11-02] MEDS: LORazepam 2 MG/ML VIAL (J2060) IV PRN (22:54)
[2018-11-03 00:30] VITALS: BP 111/69
[2018-11-03] MEDS: OXAZEPAM 10 MG CAP PO SCH ×4 (00:32→17:42)
[2018-11-03 04:45] VITALS: BP 102/65
[2018-11-03 05:54] LABS: HEMATOCRIT 29.2 % (42.0-52.0); HEMOGLOBIN 10.3 g/dl (13.5-17.5); MEAN CORPUSCULAR HGB CONC 35.3 g/dl (32.0-36.5); MEAN CORPUSCULAR VOLUME 99.3 fl (80.0-96.0); RED BLOOD COUNT 2.94 10^6/uL (4.30-6.10); WHITE BLOOD COUNT 11.1 10^3/uL (4.0-10.0)
[2018-11-03 05:56] LABS: PLATELET COUNT, AUTOMATED 74 10^3/uL (150-450)
[2018-11-03 06:10] LABS: INR 1.87; PROTHROMBIN TIME 21.9 SECONDS (12.1-14.4)
[2018-11-03 06:15] LABS: ALBUMIN 2.1 GM/DL (3.2-5.2); ALT/SGPT 19 U/L (12-78); BILIRUBIN,TOTAL 2.3 MG/DL (0.2-1.0); BLOOD UREA NITROGEN 9 MG/DL (7-18); CALCIUM LEVEL 7.7 MG/DL (8.5-10.1); CARBON DIOXIDE LEVEL 30 MEQ/L (21-32); CHLORIDE LEVEL 99 MEQ/L (98-107); CREATININE FOR GFR 0.87 MG/DL (0.70-1.30); GLOMERULAR FILTRATION RATE > 60.0 (>60); GLUCOSE, FASTING 88 MG/DL (70-100); MAGNESIUM LEVEL 1.5 MG/DL (1.8-2.4); POTASSIUM SERUM 3.9 MEQ/L (3.5-5.1); SODIUM LEVEL 136 MEQ/L (136-145); TOTAL PROTEIN 5.8 GM/DL (6.4-8.2)
[2018-11-03 08:00] VITALS: BP 102/78
[2018-11-03] MEDS: PANTOPRAZOLE 40MG TAB (PROTONIX) PO SCH (09:10)
[2018-11-03] MEDS: PROPRANOLOL 10 MG TAB PO SCH ×2 (09:10→21:19)
[2018-11-03] MEDS: SPIRONOLACTONE 50 MG TAB PO SCH (09:10)
[2018-11-03] MEDS: FOLIC ACID 1 MG TAB PO SCH (09:10)
[2018-11-03] MEDS: PALIPERIDONE 3 MG ER TAB (INVEGA) PO SCH ×2 (09:10→21:20)
[2018-11-03] MEDS: FERROUS SULFATE 325MG TAB PO SCH ×2 (09:10→21:19)
[2018-11-03] MEDS: LACTULOSE 20 GM/30 ML SYRUP UD PO SCH ×3 (09:10→21:20)
[2018-11-03] MEDS: MAGNESIUM OXIDE 400 MG TAB (MAG-OX) PO SCH (09:11)
[2018-11-03] MEDS: MIDODRINE 5 MG TAB PO SCH ×3 (09:11→17:42)
[2018-11-03] MEDS: FUROSEMIDE 40 MG TAB PO SCH (09:11)
[2018-11-03] MEDS: GABAPENTIN 100 MG CAP PO SCH ×3 (09:11→21:20)
[2018-11-03] MEDS: predniSONE 10 MG TAB PO SCH (09:11)
[2018-11-03] MEDS: VITAMIN E 400 INTERNATIONAL UNITS CAP PO SCH (09:12)
[2018-11-03] MEDS: ZINC SULFATE 220 MG CAP PO SCH (09:12)
[2018-11-03] MEDS: MULTIVITAMINS/MINERALS THERAP 1 TAB PO SCH (09:12)
[2018-11-03] MEDS: SUCRALFATE 1 GM TAB PO SCH ×4 (09:13→21:19)
[2018-11-03] MEDS: PHENYTOIN 100 MG/2 ML VIAL (J1165) IV SCH ×3 (09:13→21:21)
[2018-11-03] MEDS: levETIRAcetam INJection 1,000 MG in D5W 100 ML IV SCH ×2 (10:14→21:21)
[2018-11-03 11:55] VITALS: BP 99/53
--- NOTE | 2018-11-03 14:59 | IPNPDOC ---
Text Note Date of Service The patient was seen on 11/03/18. NOTE Subjective: Patient seen and examined at bedside. Confused. poor historian. mild lethargy. Denies any chest pain, pressure or discomfort. Objective: GENERAL: Patient alert, comfortable, mildly tremulous, in no acute distress. HEENT: Normocephalic, atraumatic. PULMONARY: Bilateral clear. Diminished breath sounds bilateral base. CARDIAC: Regular, S1, S2. ABDOMEN: Distended, moderate amount of ascites, no significant tenderness. No rebound, no guarding. Positive bowel sounds. EXTREMITIES: No edema bilateral lower extremities. NEUROLOGIC: Noticeable tremulousness, tongue fasciculation. ASSESSMENT AND PLAN: This is a 48-year-old male patient with underlying medical history of alcoholic cirrhosis, alcohol abuse, seizure disorder, depression, brought to the hospital emergency room with complaints of tremors and generalized weakness and nausea. #acute hepatic encephalopathy - appears resolved - continue lactulose, titrate to BM - BZD therapy as needed - continue John Paul Horvath - 1:1 sitter #alcoholic cirrhosis/hepatitis - Lactulose - Steroid therapy # Alcohol abuse/withdrawal - continue to monitor for withdrawal - CIWA protocol - thiamine, folate, MVI - BZD therapy as needed # Ascites with alcohol cirrhosis - Paracentesis Thursday - states he is supposed to be receiving weekly taps - will arrange for paracentesis prior to discharge - Abstinence from alcohol; Albumin supplementation. - spironolactone and Lasix. Thiamine, folate, multivitamin. # Depression. Continue current medication. # Poor compliance complicating care. #Decompensated liver cirrhosis. f/u lab, prednisone # Transaminitis - 2/2 alcoholic hepatitis - con't Lasix and spironolactone. prednisone, Albumin supplemented. # Iron deficiency anemia. Continue supplementation. # Seizure disorder. Continue current medication. # Gastroesophageal reflux disease (GERD). Continue proton pump inhibitor (PPI). # Deep venous thrombosis (DVT) prophylaxis. Thromboembolism deterrents (TEDs) and sequentials. DISPOSITION: physical therapy. Patient poorly compliant with severe liver disease. Poor long-term prognosis. VS,Fishbone, I+O VS, Fishbone, I+O Laboratory Tests 11/03/18 05:37 Red Blood Count 2.94 L, Mean Corpuscular Volume 99.3 H, Mean Corpuscular Hemoglobin 35.0 H, Mean Corpuscular Hemoglobin Concent 35.3, Red Cell Distribution Width 14.1, Calcium Level 7.7 L, Aspartate Amino Transf (AST/SGOT) 32, Alanine Aminotransferase (ALT/SGPT) 19, Alkaline Phosphatase 135 H, Total Bilirubin 2.3 H, Total Protein 5.8 L, Albumin 2.1 L Vital Signs Date Time Temp Pulse Resp B/P (MAP) Pulse Ox O2 Delivery O2 Flow Rate FiO2 11/03/18 11:55 99.0 91 18 99/53 (68) 96 Room Air I&O- Last 24 Hours up to 6 AM 11/03/18 05:59 Intake Total 1170 ml Output Total 875 ml Balance 295 ml PRAVEEN ZACARIAS MD Nov 03, 2018 14:59
[2018-11-03 16:00] VITALS: BP 119/76
[2018-11-03] MEDS: CHOLESTYRAMINE 4 GM PWD PKT PO SCH (17:41)
[2018-11-03 20:00] VITALS: BP 117/74
[2018-11-03] MEDS: LORazepam 2 MG/ML VIAL (J2060) IV PRN (21:21)
[2018-11-03] MEDS: PARoxetine 10MG TABLET PO SCH (21:21)
[2018-11-04] VITALS (10 sets, daily range): BP systolic 96–131; BP diastolic 55–83
[2018-11-04] MEDS: OXAZEPAM 10 MG CAP PO SCH ×4 (06:00→18:11)
[2018-11-04 06:01] LABS: HEMATOCRIT 29.1 % (42.0-52.0); HEMOGLOBIN 10.3 g/dl (13.5-17.5); MEAN CORPUSCULAR HEMOGLOBIN 35.2 pg (27.0-33.0); MEAN CORPUSCULAR HGB CONC 35.4 g/dl (32.0-36.5); MEAN CORPUSCULAR VOLUME 99.3 fl (80.0-96.0); RED BLOOD COUNT 2.93 10^6/uL (4.30-6.10); WHITE BLOOD COUNT 10.4 10^3/uL (4.0-10.0)
[2018-11-04 06:02] LABS: PLATELET COUNT, AUTOMATED 72 10^3/uL (150-450)
[2018-11-04 06:14] LABS: INR 1.78
[2018-11-04 06:33] LABS: ALT/SGPT 19 U/L (12-78); BILIRUBIN,TOTAL 2.2 MG/DL (0.2-1.0); BLOOD UREA NITROGEN 8 MG/DL (7-18); CALCIUM LEVEL 7.6 MG/DL (8.5-10.1); CARBON DIOXIDE LEVEL 30 MEQ/L (21-32); CHLORIDE LEVEL 102 MEQ/L (98-107); CREATININE FOR GFR 0.79 MG/DL (0.70-1.30); GLOMERULAR FILTRATION RATE > 60.0 (>60); GLUCOSE, FASTING 80 MG/DL (70-100); MAGNESIUM LEVEL 1.7 MG/DL (1.8-2.4); POTASSIUM SERUM 3.9 MEQ/L (3.5-5.1); SODIUM LEVEL 137 MEQ/L (136-145); TOTAL PROTEIN 5.7 GM/DL (6.4-8.2)
[2018-11-04] MEDS ORDERED: MAG SULF 1GM/100ML (MAG RUN) 1 GM in APPROPRIATE DILUENT 1 EA IV ONE (07:30)
[2018-11-04] MEDS: ZINC SULFATE 220 MG CAP PO SCH (07:57)
[2018-11-04] MEDS: LACTULOSE 20 GM/30 ML SYRUP UD PO SCH ×3 (07:57→20:15)
[2018-11-04] MEDS: VITAMIN E 400 INTERNATIONAL UNITS CAP PO SCH (07:58)
[2018-11-04] MEDS: predniSONE 10 MG TAB PO SCH (07:58)
[2018-11-04] MEDS: SUCRALFATE 1 GM TAB PO SCH ×4 (07:58→20:15)
[2018-11-04] MEDS: MIDODRINE 5 MG TAB PO SCH ×3 (07:58→17:02)
[2018-11-04] MEDS: PALIPERIDONE 3 MG ER TAB (INVEGA) PO SCH ×2 (07:58→20:14)
[2018-11-04] MEDS: SPIRONOLACTONE 50 MG TAB PO SCH (07:59)
[2018-11-04] MEDS: FUROSEMIDE 40 MG TAB PO SCH (07:59)
[2018-11-04] MEDS: PANTOPRAZOLE 40MG TAB (PROTONIX) PO SCH (07:59)
[2018-11-04] MEDS: MULTIVITAMINS/MINERALS THERAP 1 TAB PO SCH (07:59)
[2018-11-04] MEDS: FOLIC ACID 1 MG TAB PO SCH (07:59)
[2018-11-04] MEDS: FERROUS SULFATE 325MG TAB PO SCH ×2 (07:59→20:12)
[2018-11-04] MEDS: MAGNESIUM OXIDE 400 MG TAB (MAG-OX) PO SCH (08:00)
[2018-11-04] MEDS: GABAPENTIN 100 MG CAP PO SCH ×3 (08:00→20:14)
[2018-11-04] MEDS: PROPRANOLOL 10 MG TAB PO SCH ×2 (09:11→20:13)
[2018-11-04] MEDS: levETIRAcetam INJection 1,000 MG in D5W 100 ML IV SCH ×2 (09:11→21:00)
[2018-11-04] MEDS: PHENYTOIN 100 MG/2 ML VIAL (J1165) IV SCH ×3 (09:30→20:15)
--- NOTE | 2018-11-04 10:19 | IPNPDOC ---
Text Note Date of Service The patient was seen on 11/04/18. NOTE Subjective: Patient seen and examined at bedside. Lethargic. Suspicion for confabulation. Denies any chest pain, pressure or discomfort. Objective: GENERAL: NAD, lying comfortably in bed, disheveled HEENT: NC/AT, EOMI, PERRL PULMONARY: CTA B/L CARDIAC: +S1S2, RRR ABDOMEN: distended, +BS, NT EXTREMITIES: No edema bilateral lower extremities. NEUROLOGIC: Noticeable tremulousness, tongue fasciculation. ASSESSMENT AND PLAN: This is a 48-year-old male patient with underlying medical history of alcoholic cirrhosis, alcohol abuse, seizure disorder, depression, brought to the hospital emergency room with complaints of tremors and generalized weakness and nausea. #acute hepatic encephalopathy - appears resolved - continue lactulose, titrate to BM - BZD therapy as needed - continue Keppra, Dilantin #alcoholic cirrhosis/hepatitis - Lactulose - Steroid therapy # Alcohol abuse/withdrawal - continue to monitor for withdrawal - CIWA protocol - thiamine, folate, MVI - BZD therapy as needed # Ascites with alcohol cirrhosis - Paracentesis ordered for today - states he is supposed to be receiving weekly - Abstinence from alcohol; Albumin supplementation. - spironolactone and Lasix. Thiamine, folate, multivitamin. # Depression. Continue current medication. # Poor compliance complicating care. #Decompensated liver cirrhosis. f/u lab, prednisone # Transaminitis - 2/2 alcoholic hepatitis - con't Lasix and spironolactone. prednisone, Albumin supplemented. # Iron deficiency anemia. Continue supplementation. # Seizure disorder. Continue current medication. # Gastroesophageal reflux disease (GERD). Continue proton pump inhibitor (PPI). # Deep venous thrombosis (DVT) prophylaxis. Thromboembolism deterrents (TEDs) and sequentials. DISPOSITION: physical therapy. Patient poorly compliant with severe liver disease. Poor long-term prognosis. VS,Fishbone, I+O VS, Fishbone, I+O Laboratory Tests 11/04/18 05:43 Red Blood Count 2.93 L, Mean Corpuscular Volume 99.3 H, Mean Corpuscular Hemoglobin 35.2 H, Mean Corpuscular Hemoglobin Concent 35.4, Red Cell Distribution Width 14.6 H, Calcium Level 7.6 L, Aspartate Amino Transf (AST/SGOT) 34, Alanine Aminotransferase (ALT/SGPT) 19, Alkaline Phosphatase 120 H, Total Bilirubin 2.2 H, Total Protein 5.7 L, Albumin 2.0 L Vital Signs Date Time Temp Pulse Resp B/P (MAP) Pulse Ox O2 Delivery O2 Flow Rate FiO2 11/04/18 09:11 86 109/68 11/04/18 08:00 96.9 18 97 Room Air I&O- Last 24 Hours up to 6 AM 11/04/18 06:00 Intake Total 1680 ml Output Total 1350 ml Balance 330 ml PRAVEEN ZACARIAS MD Nov 04, 2018 10:19
--- NOTE | 2018-11-04 12:46 | REP ---
RIGHT UPPER EXTREMITY DUPLEX VENOUS ULTRASOUND: HISTORY: Swelling. Question venous thrombosis. FINDINGS: The right internal jugular, axillary, brachial, basilic, and cephalic veins are anechoic and compressible in the left upper extremity. Color flow imaging is homogeneous. Spectral Doppler interrogation is unremarkable. There is no evidence of right upper extremity venous thrombosis. Scanning in the area of a red area in the forearm demonstrates a small superficial clotted vein segment. IMPRESSION: There is a small branch vein thrombosis in the subcutaneous fat of the forearm on the right. Otherwise, negative right upper extremity duplex venous ultrasound. No evidence of venous thrombosis. Electronically Signed by Nader Saldivar MD 11/04/2018 07:42 P
[2018-11-04] MEDS: CHOLESTYRAMINE 4 GM PWD PKT PO SCH (17:02)
--- NOTE | 2018-11-04 17:14 | REP ---
Ultrasound-guided paracentesis The procedure was performed under the direct supervision of Dr. Green. The risks and benefits of the procedure were explained to the patient and informed consent was obtained. The largest pocket of fluid was localized in the right flank using ultrasound guidance. The skin was prepped and draped in a sterile fashion. 1% lidocaine was used as a local anesthetic. An 8-Persian multi side-hole catheter was inserted using trocar technique. 3350 ml of yellow fluid was withdrawn and discarded. The patient tolerated the procedure well and there were no immediate complications. After the appropriate amount of monitored convalescence the patient was discharged from the department. Reviewed by IVÁN Hernandez 11/04/2018 04:36 P Electronically Signed by Fawad Green MD 11/04/2018 05:05 P
[2018-11-04] MEDS: traMADol 50 MG TAB PO PRN (20:12)
[2018-11-04] MEDS: PARoxetine 10MG TABLET PO SCH (20:14)
[2018-11-04] MEDS: LORazepam 2 MG/ML VIAL (J2060) IV PRN (21:38)
[2018-11-05] VITALS (9 sets, daily range): BP systolic 105–132; BP diastolic 56–74
[2018-11-05] MEDS: OXAZEPAM 10 MG CAP PO SCH ×5 (06:00→23:49)
[2018-11-05] MEDS: SUCRALFATE 1 GM TAB PO SCH ×4 (07:30→22:20)
[2018-11-05 08:07] LABS: BASO % 0.4 % (0.0-1.0); EOS # 0.1 10^3/uL (0.0-0.50); HEMATOCRIT 32.4 % (42.0-52.0); HEMOGLOBIN 11.3 g/dl (13.5-17.5); LYMPH # 1.9 10^3/uL (1.5-4.5); LYMPH % 20.8 % (24.0-44.0); MEAN CORPUSCULAR HGB CONC 34.9 g/dl (32.0-36.5); MEAN CORPUSCULAR VOLUME 103.2 fl (80.0-96.0); MONO # 1.8 10^3/uL (0.0-0.8); MONO % 19.6 % (0.0-5.0); NEUTROPHILS # 5.3 10^3/uL (1.8-7.7); NEUTROPHILS % 57.1 % (36.0-66.0); RED BLOOD COUNT 3.14 10^6/uL (4.30-6.10); WHITE BLOOD COUNT 9.3 10^3/uL (4.0-10.0)
[2018-11-05 08:09] LABS: PLATELET COUNT, AUTOMATED 75 10^3/uL (150-450)
[2018-11-05 08:15] LABS: INR 1.7; PROTHROMBIN TIME 20.3 SECONDS (12.1-14.4)
[2018-11-05 08:31] LABS: ALT/SGPT 17 U/L (12-78); BILIRUBIN,TOTAL 2.7 MG/DL (0.2-1.0); BLOOD UREA NITROGEN 8 MG/DL (7-18); CALCIUM LEVEL 7.9 MG/DL (8.5-10.1); CARBON DIOXIDE LEVEL 31 MEQ/L (21-32); CHLORIDE LEVEL 102 MEQ/L (98-107); CREATININE FOR GFR 0.86 MG/DL (0.70-1.30); GLOMERULAR FILTRATION RATE > 60.0 (>60); GLUCOSE, FASTING 82 MG/DL (70-100); MAGNESIUM LEVEL 1.8 MG/DL (1.8-2.4); POTASSIUM SERUM 4.1 MEQ/L (3.5-5.1); SODIUM LEVEL 139 MEQ/L (136-145); TOTAL PROTEIN 5.7 GM/DL (6.4-8.2)
[2018-11-05] MEDS: ZINC SULFATE 220 MG CAP PO SCH (09:04)
[2018-11-05] MEDS: SPIRONOLACTONE 50 MG TAB PO SCH (09:04)
[2018-11-05] MEDS: FOLIC ACID 1 MG TAB PO SCH (09:04)
[2018-11-05] MEDS: FUROSEMIDE 40 MG TAB PO SCH (09:04)
[2018-11-05] MEDS: predniSONE 10 MG TAB PO SCH (09:05)
[2018-11-05] MEDS: FERROUS SULFATE 325MG TAB PO SCH ×2 (09:05→22:19)
[2018-11-05] MEDS: MAGNESIUM OXIDE 400 MG TAB (MAG-OX) PO SCH (09:05)
[2018-11-05] MEDS: PROPRANOLOL 10 MG TAB PO SCH ×2 (09:05→22:22)
[2018-11-05] MEDS: GABAPENTIN 100 MG CAP PO SCH ×3 (09:05→22:19)
[2018-11-05] MEDS: PANTOPRAZOLE 40MG TAB (PROTONIX) PO SCH (09:05)
[2018-11-05] MEDS: MULTIVITAMINS/MINERALS THERAP 1 TAB PO SCH (09:05)
[2018-11-05] MEDS: LACTULOSE 20 GM/30 ML SYRUP UD PO SCH ×3 (09:05→22:19)
[2018-11-05] MEDS: VITAMIN E 400 INTERNATIONAL UNITS CAP PO SCH (09:05)
[2018-11-05] MEDS: PALIPERIDONE 3 MG ER TAB (INVEGA) PO SCH ×2 (09:05→22:21)
[2018-11-05] MEDS: MIDODRINE 5 MG TAB PO SCH ×3 (09:06→15:51)
[2018-11-05] MEDS: levETIRAcetam INJection 1,000 MG in D5W 100 ML IV SCH ×2 (09:06→22:25)
[2018-11-05] MEDS: PHENYTOIN 100 MG/2 ML VIAL (J1165) IV SCH ×3 (09:06→22:21)
--- NOTE | 2018-11-05 12:48 | IPNPDOC ---
Text Note Date of Service The patient was seen on 11/05/18. NOTE Subjective: Patient seen and examined at bedside. No new medical complaints. Objective: GENERAL: NAD, lying comfortably in bed, disheveled HEENT: NC/AT, EOMI, PERRL PULMONARY: CTA B/L CARDIAC: +S1S2, RRR ABDOMEN: soft, mild distention - much improved from yesterday, +BS, NT EXTREMITIES: No edema bilateral lower extremities. ASSESSMENT AND PLAN: This is a 48-year-old male patient with underlying medical history of alcoholic cirrhosis, alcohol abuse, seizure disorder, depression, brought to the hospital emergency room with complaints of tremors and generalized weakness and nausea. #acute hepatic encephalopathy - appears resolved - continue lactulose, titrate to BM - BZD therapy as needed - continue Vandana Horvathantin #alcoholic cirrhosis/hepatitis - Lactulose - Steroid therapy # Alcohol abuse/withdrawal - continue to monitor for withdrawal - CIWA protocol - thiamine, folate, MVI - BZD therapy as needed # Ascites with alcohol cirrhosis - s/p paracentesis yesterday - states he is supposed to be receiving weekly - Abstinence from alcohol; Albumin supplementation. - spironolactone and Lasix. Thiamine, folate, multivitamin. # Depression. Continue current medication. # Poor compliance complicating care. #Decompensated liver cirrhosis. f/u lab, prednisone # Transaminitis - 2/2 alcoholic hepatitis - con't Lasix and spironolactone. prednisone, Albumin supplemented. # Iron deficiency anemia. Continue supplementation. # Seizure disorder. Continue current medication. # GERD - continue PPI # DVT prophylaxis - TEDs and sequentials DISPOSITION: continue with PT; follow up with [facility] regarding rehab/placement; patient poorly compliant with severe liver disease; poor long-term prognosis. VS,Fishbone, I+O VS, Fishbone, I+O Laboratory Tests 11/05/18 07:53 Red Blood Count 3.14 L, Mean Corpuscular Volume 103.2 H, Mean Corpuscular Hemoglobin 36.0 H, Mean Corpuscular Hemoglobin Concent 34.9, Red Cell Distribution Width 14.9 H, Neutrophils (%) (Auto) 57.1, Lymphocytes (%) (Auto) 2 0.8 L, Monocytes (%) (Auto) 19.6 H, Eosinophils (%) (Auto) 1.0, Basophils (%) (Auto) 0.4, Neutrophils # (Auto) 5.3, Lymphocytes # (Auto) 1.9, Monocytes # (Auto) 1.8 H, Eosinophils # (Auto) 0.1, Basophils # (Auto) 0.0, Calcium Level 7.9 L, Aspartate Amino Transf (AST/SGOT) 34, Alanine Aminotransferase (ALT/SGPT) 17, Alkaline Phosphatase 120 H, Total Bilirubin 2.7 H, Total Protein 5.7 L, Albumin 2.0 L Vital Signs Date Time Temp Pulse Resp B/P (MAP) Pulse Ox O2 Delivery O2 Flow Rate FiO2 11/05/18 09:05 90 105/61 11/05/18 08:00 97.7 20 97 Room Air I&O- Last 24 Hours up to 6 AM 11/05/18 05:59 Intake Total 1290 ml Output Total 2250 ml Balance -960 ml PRAVEEN ZACARIAS MD Nov 05, 2018 12:48
[2018-11-05] MEDS: CHOLESTYRAMINE 4 GM PWD PKT PO SCH (17:51)
[2018-11-05] MEDS: PARoxetine 10MG TABLET PO SCH (22:20)
[2018-11-06] MEDS: OXAZEPAM 10 MG CAP PO SCH ×4 (05:12→23:30)
[2018-11-06 06:00] VITALS: BP 102/67
[2018-11-06 06:04] LABS: HEMATOCRIT 30.6 % (42.0-52.0); HEMOGLOBIN 10.6 g/dl (13.5-17.5); MEAN CORPUSCULAR HEMOGLOBIN 35.5 pg (27.0-33.0); MEAN CORPUSCULAR HGB CONC 34.6 g/dl (32.0-36.5); MEAN CORPUSCULAR VOLUME 102.3 fl (80.0-96.0); RED BLOOD COUNT 2.99 10^6/uL (4.30-6.10); WHITE BLOOD COUNT 11.2 10^3/uL (4.0-10.0)
[2018-11-06 06:08] LABS: PLATELET COUNT, AUTOMATED 77 10^3/uL (150-450)
[2018-11-06 06:35] LABS: ALBUMIN 1.9 GM/DL (3.2-5.2); ALT/SGPT 19 U/L (12-78); BILIRUBIN,DIRECT 1.2 MG/DL (0.0-0.2); BILIRUBIN,TOTAL 1.9 MG/DL (0.2-1.0); BLOOD UREA NITROGEN 8 MG/DL (7-18); CALCIUM LEVEL 7.3 MG/DL (8.5-10.1); CARBON DIOXIDE LEVEL 30 MEQ/L (21-32); CHLORIDE LEVEL 101 MEQ/L (98-107); CREATININE FOR GFR 0.83 MG/DL (0.70-1.30); GLOMERULAR FILTRATION RATE > 60.0 (>60); GLUCOSE, FASTING 76 MG/DL (70-100); POTASSIUM SERUM 3.9 MEQ/L (3.5-5.1); SODIUM LEVEL 138 MEQ/L (136-145); TOTAL PROTEIN 5.7 GM/DL (6.4-8.2)
[2018-11-06] MEDS: MIDODRINE 5 MG TAB PO SCH ×3 (07:42→15:47)
[2018-11-06] MEDS: SUCRALFATE 1 GM TAB PO SCH ×4 (07:42→21:37)
[2018-11-06] MEDS: LACTULOSE 20 GM/30 ML SYRUP UD PO SCH ×4 (08:49→21:36)
[2018-11-06] MEDS: MULTIVITAMINS/MINERALS THERAP 1 TAB PO SCH (08:49)
[2018-11-06] MEDS: GABAPENTIN 100 MG CAP PO SCH ×3 (08:50→21:36)
[2018-11-06] MEDS: SPIRONOLACTONE 50 MG TAB PO SCH (08:50)
[2018-11-06] MEDS: PROPRANOLOL 10 MG TAB PO SCH ×2 (08:50→21:37)
[2018-11-06] MEDS: MAGNESIUM OXIDE 400 MG TAB (MAG-OX) PO SCH (08:50)
[2018-11-06] MEDS: FOLIC ACID 1 MG TAB PO SCH (08:50)
[2018-11-06] MEDS: VITAMIN E 400 INTERNATIONAL UNITS CAP PO SCH (08:50)
[2018-11-06] MEDS: predniSONE 10 MG TAB PO SCH (08:50)
[2018-11-06] MEDS: FERROUS SULFATE 325MG TAB PO SCH ×2 (08:50→21:37)
[2018-11-06] MEDS: PANTOPRAZOLE 40MG TAB (PROTONIX) PO SCH (08:50)
[2018-11-06] MEDS: PALIPERIDONE 3 MG ER TAB (INVEGA) PO SCH ×2 (08:51→21:37)
[2018-11-06] MEDS: PHENYTOIN 100 MG/2 ML VIAL (J1165) IV SCH ×3 (08:51→21:38)
[2018-11-06] MEDS: ZINC SULFATE 220 MG CAP PO SCH (08:51)
[2018-11-06] MEDS: levETIRAcetam INJection 1,000 MG in D5W 100 ML IV SCH ×2 (08:51→21:39)
[2018-11-06] MEDS: FUROSEMIDE 40 MG TAB PO SCH (08:52)
--- NOTE | 2018-11-06 11:54 | IPNPDOC ---
Text Note Date of Service The patient was seen on 11/06/18. NOTE Subjective: Patient seen and examined at bedside. No new medical complaints. Objective: GENERAL: NAD, lying comfortably in bed, disheveled HEENT: NC/AT, EOMI, PERRL PULMONARY: CTA B/L CARDIAC: +S1S2, RRR ABDOMEN: soft, mild distention, +BS, NT EXTREMITIES: No edema bilateral lower extremities. ASSESSMENT AND PLAN: This is a 48-year-old male patient with underlying medical history of alcoholic cirrhosis, alcohol abuse, seizure disorder, depression, brought to the hospital emergency room with complaints of tremors and generalized weakness and nausea. #acute hepatic encephalopathy - appears resolved - baseline not clear - checking ammonia level today - continue lactulose, titrate to BM - BZD therapy as needed - continue John Paul Horvath #alcoholic cirrhosis/hepatitis - Lactulose - Steroid therapy # Alcohol abuse/withdrawal - continue to monitor for withdrawal - CIWA protocol - thiamine, folate, MVI - BZD therapy as needed # Ascites with alcohol cirrhosis - s/p paracentesis - states he is supposed to be receiving weekly - Abstinence from alcohol; Albumin supplementation. - spironolactone and Lasix. Thiamine, folate, multivitamin. # Depression. Continue current medication. # Poor compliance complicating care. #Decompensated liver cirrhosis. f/u lab, prednisone # Transaminitis - 2/2 alcoholic hepatitis - con't Lasix and spironolactone. prednisone, Albumin supplemented. # Iron deficiency anemia. Continue supplementation. # Seizure disorder. Continue current medication. # GERD - continue PPI # DVT prophylaxis - TEDs and sequentials DISPOSITION: continue with PT; follow up with [facility] regarding rehab/placement; patient poorly compliant with severe liver disease; poor long-term prognosis. VS,Fishbone, I+O VS, Fishbone, I+O Laboratory Tests 11/06/18 05:39 Red Blood Count 2.99 L, Mean Corpuscular Volume 102.3 H, Mean Corpuscular Hemoglobin 35.5 H, Mean Corpuscular Hemoglobin Concent 34.6, Red Cell Distribution Width 14.7 H Vital Signs Date Time Temp Pulse Resp B/P (MAP) Pulse Ox O2 Delivery O2 Flow Rate FiO2 11/06/18 08:50 92 102/67 11/06/18 06:00 98.0 18 94 Room Air I&O- Last 24 Hours up to 6 AM 11/06/18 06:00 Intake Total 1110 ml Output Total 425 ml Balance 685 ml PRAVEEN ZACARIAS MD Nov 06, 2018 11:54
[2018-11-06 14:00] VITALS: BP 99/70
[2018-11-06] MEDS: LORazepam 2 MG/ML VIAL (J2060) IV PRN (15:44)
[2018-11-06] MEDS: CHOLESTYRAMINE 4 GM PWD PKT PO SCH (17:53)
[2018-11-06 21:00] VITALS: BP 110/62
[2018-11-06] MEDS: PARoxetine 10MG TABLET PO SCH (21:37)
[2018-11-06 22:00] VITALS: BP 110/62
[2018-11-07] MEDS: OXAZEPAM 10 MG CAP PO SCH ×4 (05:26→22:12)
[2018-11-07 05:58] LABS: HEMOGLOBIN 10.8 g/dl (13.5-17.5); MEAN CORPUSCULAR HGB CONC 34.8 g/dl (32.0-36.5); MEAN CORPUSCULAR VOLUME 100.3 fl (80.0-96.0); RED BLOOD COUNT 3.09 10^6/uL (4.30-6.10)
[2018-11-07 06:00] VITALS: BP 112/74
[2018-11-07 06:06] LABS: PLATELET COUNT, AUTOMATED 73 10^3/uL (150-450)
[2018-11-07 06:41] LABS: ALBUMIN 1.9 GM/DL (3.2-5.2); ALT/SGPT 17 U/L (12-78); BILIRUBIN,DIRECT 1.5 MG/DL (0.0-0.2); BLOOD UREA NITROGEN 10 MG/DL (7-18); CALCIUM LEVEL 7.2 MG/DL (8.5-10.1); CARBON DIOXIDE LEVEL 28 MEQ/L (21-32); CHLORIDE LEVEL 101 MEQ/L (98-107); CREATININE FOR GFR 0.86 MG/DL (0.70-1.30); GLOMERULAR FILTRATION RATE > 60.0 (>60); GLUCOSE, FASTING 87 MG/DL (70-100); POTASSIUM SERUM 4.1 MEQ/L (3.5-5.1); SODIUM LEVEL 137 MEQ/L (136-145); TOTAL PROTEIN 5.8 GM/DL (6.4-8.2)
[2018-11-07] MEDS: MIDODRINE 5 MG TAB PO SCH ×3 (07:47→16:14)
[2018-11-07] MEDS: SUCRALFATE 1 GM TAB PO SCH ×4 (07:47→20:57)
[2018-11-07] MEDS: levETIRAcetam INJection 1,000 MG in D5W 100 ML IV SCH ×2 (08:51→21:00)
[2018-11-07] MEDS: PHENYTOIN 100 MG/2 ML VIAL (J1165) IV SCH ×3 (08:51→20:59)
[2018-11-07] MEDS: MAGNESIUM OXIDE 400 MG TAB (MAG-OX) PO SCH (08:54)
[2018-11-07] MEDS: PANTOPRAZOLE 40MG TAB (PROTONIX) PO SCH (08:54)
[2018-11-07] MEDS: LACTULOSE 20 GM/30 ML SYRUP UD PO SCH ×5 (08:54→21:00)
[2018-11-07] MEDS: FOLIC ACID 1 MG TAB PO SCH (08:54)
[2018-11-07] MEDS: VITAMIN E 400 INTERNATIONAL UNITS CAP PO SCH (08:54)
[2018-11-07] MEDS: MULTIVITAMINS/MINERALS THERAP 1 TAB PO SCH (08:54)
[2018-11-07] MEDS: SPIRONOLACTONE 50 MG TAB PO SCH (08:54)
[2018-11-07] MEDS: ZINC SULFATE 220 MG CAP PO SCH (08:54)
[2018-11-07] MEDS: PROPRANOLOL 10 MG TAB PO SCH ×2 (08:55→20:58)
[2018-11-07] MEDS: predniSONE 10 MG TAB PO SCH (08:55)
[2018-11-07] MEDS: PALIPERIDONE 3 MG ER TAB (INVEGA) PO SCH ×2 (08:55→20:58)
[2018-11-07] MEDS: GABAPENTIN 100 MG CAP PO SCH ×3 (08:55→20:58)
[2018-11-07] MEDS: FERROUS SULFATE 325MG TAB PO SCH ×2 (08:55→20:57)
[2018-11-07] MEDS: FUROSEMIDE 40 MG TAB PO SCH (08:55)
--- NOTE | 2018-11-07 09:00 | IPNPDOC ---
Text Note Date of Service The patient was seen on 11/07/18. NOTE Subjective: Patient seen and examined at bedside. No new medical complaints. Objective: GENERAL: NAD, lying comfortably in bed, disheveled HEENT: NC/AT, EOMI, PERRL PULMONARY: CTA B/L CARDIAC: +S1S2, RRR ABDOMEN: soft, mild distention, +BS, NT EXTREMITIES: No edema bilateral lower extremities. ASSESSMENT AND PLAN: This is a 48-year-old male patient with underlying medical history of alcoholic cirrhosis, alcohol abuse, seizure disorder, depression, brought to the hospital emergency room with complaints of tremors and generalized weakness and nausea. #acute hepatic encephalopathy - waxing and waning - baseline not clear - ammonia slightly elevated - increased lactulose, titrate to BM - BZD therapy as needed - continue John Paul Horvath #alcoholic cirrhosis/hepatitis - Lactulose - Steroid therapy #urinary retention - failed TOV - CT A/P pending # Alcohol abuse/withdrawal - continue to monitor for withdrawal - CIWA protocol - thiamine, folate, MVI - BZD therapy as needed # Ascites with alcohol cirrhosis - s/p paracentesis - states he is supposed to be receiving weekly - Abstinence from alcohol; Albumin supplementation. - spironolactone and Lasix. Thiamine, folate, multivitamin. # Depression. Continue current medication. # Poor compliance complicating care. #Decompensated liver cirrhosis. f/u lab, prednisone # Transaminitis - 2/2 alcoholic hepatitis - con't Lasix and spironolactone. prednisone, Albumin supplemented. # Iron deficiency anemia. Continue supplementation. # Seizure disorder. Continue current medication. # GERD - continue PPI # DVT prophylaxis - TEDs and sequentials DISPOSITION: continue with PT; follow up with [facility] regarding rehab/placement; patient poorly compliant with severe liver disease; poor long-term prognosis. VS,Fishbone, I+O VS, Fishbone, I+O Laboratory Tests 11/07/18 05:21 Red Blood Count 3.09 L, Mean Corpuscular Volume 100.3 H, Mean Corpuscular Hemoglobin 35.0 H, Mean Corpuscular Hemoglobin Concent 34.8, Red Cell Distribution Width 14.9 H Vital Signs Date Time Temp Pulse Resp B/P (MAP) Pulse Ox O2 Delivery O2 Flow Rate FiO2 11/07/18 08:55 81 112/74 11/07/18 06:00 97.4 20 97 11/06/18 14:00 Room Air I&O- Last 24 Hours up to 6 AM 11/07/18 06:00 Intake Total 800 ml Output Total 900 ml Balance -100 ml PRAVEEN ZACARIAS MD Nov 07, 2018 09:00
--- NOTE | 2018-11-07 12:29 | REP ---
REASON FOR EXAM: Urinary retention. COMPARISON: Multiple, the latest 09/30/2018 also without contrast. The lung bases are unchanged. There is diffuse abdominal and pelvic ascites slightly decreased from the prior exam. There is cholelithiasis status quo. The liver, spleen, pancreas, and adrenal glands are unchanged. There is a left renal cyst status quo. There are no acute renal findings on this noncontrast enhanced examination. The abdominal aorta and para-aortic regions are unchanged. The bowel loops and their mesenteries are essentially unchanged. There is a Taylor balloon catheter in the urinary bladder decompressing it. There is no change in the osseous structures. IMPRESSION: 1. Slightly decreased amount of ascites. 2. Cholelithiasis unchanged. 3. Other findings as described above. Electronically Signed by Satinder Krause DO 11/07/2018 10:38 A
[2018-11-07 14:00] VITALS: BP 102/53
[2018-11-07] MEDS: CHOLESTYRAMINE 4 GM PWD PKT PO SCH (16:14)
[2018-11-07] MEDS: TAMSULOSIN 0.4 MG CAP PO SCH (20:58)
[2018-11-07] MEDS: PARoxetine 10MG TABLET PO SCH (20:59)
[2018-11-07] MEDS: LORazepam 2 MG/ML VIAL (J2060) IV PRN (21:58)
[2018-11-07 22:00] VITALS: BP 115/74
[2018-11-08 02:31] VITALS: BP 110/68
[2018-11-08] MEDS: OXAZEPAM 10 MG CAP PO SCH ×3 (05:32→17:16)
[2018-11-08 05:49] LABS: HEMATOCRIT 31.7 % (42.0-52.0); HEMOGLOBIN 10.9 g/dl (13.5-17.5); MEAN CORPUSCULAR HEMOGLOBIN 34.9 pg (27.0-33.0); MEAN CORPUSCULAR HGB CONC 34.4 g/dl (32.0-36.5); MEAN CORPUSCULAR VOLUME 101.6 fl (80.0-96.0); PLATELET COUNT, AUTOMATED 85 10^3/uL (150-450); RED BLOOD COUNT 3.12 10^6/uL (4.30-6.10); WHITE BLOOD COUNT 8.9 10^3/uL (4.0-10.0)
[2018-11-08 06:00] VITALS: BP 107/72
[2018-11-08 06:21] LABS: ALBUMIN 1.9 GM/DL (3.2-5.2); ALT/SGPT 18 U/L (12-78); BILIRUBIN,DIRECT 1.3 MG/DL (0.0-0.2); BILIRUBIN,TOTAL 2.3 MG/DL (0.2-1.0); BLOOD UREA NITROGEN 7 MG/DL (7-18); CALCIUM LEVEL 7.4 MG/DL (8.5-10.1); CARBON DIOXIDE LEVEL 29 MEQ/L (21-32); CHLORIDE LEVEL 101 MEQ/L (98-107); CREATININE FOR GFR 0.75 MG/DL (0.70-1.30); GLOMERULAR FILTRATION RATE > 60.0 (>60); GLUCOSE, FASTING 81 MG/DL (70-100); POTASSIUM SERUM 3.9 MEQ/L (3.5-5.1); SODIUM LEVEL 137 MEQ/L (136-145)
[2018-11-08] MEDS: predniSONE 10 MG TAB PO SCH (08:51)
[2018-11-08] MEDS: FERROUS SULFATE 325MG TAB PO SCH ×2 (08:51→20:36)
[2018-11-08] MEDS: LACTULOSE 20 GM/30 ML SYRUP UD PO SCH ×4 (08:51→20:35)
[2018-11-08] MEDS: MAGNESIUM OXIDE 400 MG TAB (MAG-OX) PO SCH (08:51)
[2018-11-08] MEDS: GABAPENTIN 100 MG CAP PO SCH ×3 (08:51→20:36)
[2018-11-08] MEDS: FOLIC ACID 1 MG TAB PO SCH (08:52)
[2018-11-08] MEDS: MIDODRINE 5 MG TAB PO SCH ×3 (08:52→17:16)
[2018-11-08] MEDS: SUCRALFATE 1 GM TAB PO SCH ×4 (08:52→20:37)
[2018-11-08] MEDS: VITAMIN E 400 INTERNATIONAL UNITS CAP PO SCH (08:52)
[2018-11-08] MEDS: PALIPERIDONE 3 MG ER TAB (INVEGA) PO SCH ×2 (08:52→20:36)
[2018-11-08] MEDS: ZINC SULFATE 220 MG CAP PO SCH (08:52)
[2018-11-08] MEDS: FUROSEMIDE 40 MG TAB PO SCH (08:52)
[2018-11-08] MEDS: PROPRANOLOL 10 MG TAB PO SCH ×2 (08:52→20:36)
[2018-11-08] MEDS: PANTOPRAZOLE 40MG TAB (PROTONIX) PO SCH (08:52)
[2018-11-08] MEDS: SPIRONOLACTONE 50 MG TAB PO SCH (08:53)
[2018-11-08] MEDS: MULTIVITAMINS/MINERALS THERAP 1 TAB PO SCH (08:53)
[2018-11-08] MEDS: PHENYTOIN 100 MG/2 ML VIAL (J1165) IV SCH ×3 (08:53→20:38)
[2018-11-08] MEDS: levETIRAcetam INJection 1,000 MG in D5W 100 ML IV SCH ×2 (11:05→20:38)
--- NOTE | 2018-11-08 12:33 | IPN ---
DATE: 11/08/2018 Kirby is stable from yesterday. No changes. Denies any change in his mental status. Not showing any signs of significant alcohol withdrawal problems. PHYSICAL EXAMINATION: Vital signs stable. Lungs clear. Heart regular rhythm. Abdomen soft, nontender. He is distended with ascites. Trace peripheral edema. He has no asterixis. LABS: White count 8.9, hemoglobin 10.9, platelets 85. Sodium 137, potassium 4.9, bilirubin 2.3. IMPRESSION: Alcoholic cirrhosis with acute hepatic encephalopathy and ascites requiring paracentesis. PLAN: He is currently stable. He does not show signs of encephalopathy. [facility] is looking into placement. He is getting physical therapy. No changes planned in treatment plan for today.
[2018-11-08] MEDS: LORazepam 2 MG/ML VIAL (J2060) IV PRN (14:07)
[2018-11-08] MEDS: CHOLESTYRAMINE 4 GM PWD PKT PO SCH (17:15)
[2018-11-08] MEDS: TAMSULOSIN 0.4 MG CAP PO SCH (20:37)
[2018-11-08] MEDS: PARoxetine 10MG TABLET PO SCH (20:37)
[2018-11-08 22:00] VITALS: BP 150/72
[2018-11-09] MEDS: OXAZEPAM 10 MG CAP PO SCH ×2 (00:41→06:26)
[2018-11-09] MEDS: traMADol 50 MG TAB PO PRN ×2 (05:39→06:09)
[2018-11-09 06:00] VITALS: BP 133/81
[2018-11-09 06:25] LABS: HEMATOCRIT 32.3 % (42.0-52.0); HEMOGLOBIN 11.3 g/dl (13.5-17.5); MEAN CORPUSCULAR HEMOGLOBIN 34.8 pg (27.0-33.0); MEAN CORPUSCULAR VOLUME 99.4 fl (80.0-96.0); RED BLOOD COUNT 3.25 10^6/uL (4.30-6.10); WHITE BLOOD COUNT 11.5 10^3/uL (4.0-10.0)
[2018-11-09 06:26] LABS: PLATELET COUNT, AUTOMATED 99 10^3/uL (150-450)
[2018-11-09 06:49] LABS: ALBUMIN 2.1 GM/DL (3.2-5.2); ALT/SGPT 21 U/L (12-78); BILIRUBIN,DIRECT 1.3 MG/DL (0.0-0.2); BILIRUBIN,TOTAL 1.9 MG/DL (0.2-1.0); BLOOD UREA NITROGEN 8 MG/DL (7-18); CALCIUM LEVEL 7.5 MG/DL (8.5-10.1); CARBON DIOXIDE LEVEL 31 MEQ/L (21-32); CHLORIDE LEVEL 100 MEQ/L (98-107); CREATININE FOR GFR 0.76 MG/DL (0.70-1.30); GLOMERULAR FILTRATION RATE > 60.0 (>60); GLUCOSE, FASTING 71 MG/DL (70-100); POTASSIUM SERUM 3.9 MEQ/L (3.5-5.1); SODIUM LEVEL 136 MEQ/L (136-145); TOTAL PROTEIN 6.2 GM/DL (6.4-8.2)
[2018-11-09] MEDS: LACTULOSE 20 GM/30 ML SYRUP UD PO SCH ×4 (09:36→20:50)
[2018-11-09] MEDS: ZINC SULFATE 220 MG CAP PO SCH (09:37)
[2018-11-09] MEDS: MAGNESIUM OXIDE 400 MG TAB (MAG-OX) PO SCH (09:37)
[2018-11-09] MEDS: FOLIC ACID 1 MG TAB PO SCH (09:37)
[2018-11-09] MEDS: levETIRAcetam 250MG TABLET (KEPPRA) PO SCH ×2 (09:37→20:50)
[2018-11-09] MEDS: SPIRONOLACTONE 50 MG TAB PO SCH (09:37)
[2018-11-09] MEDS: MULTIVITAMINS/MINERALS THERAP 1 TAB PO SCH (09:37)
[2018-11-09] MEDS: predniSONE 10 MG TAB PO SCH (09:37)
[2018-11-09] MEDS: VITAMIN E 400 INTERNATIONAL UNITS CAP PO SCH (09:37)
[2018-11-09] MEDS: PALIPERIDONE 3 MG ER TAB (INVEGA) PO SCH ×2 (09:37→21:00)
[2018-11-09] MEDS: FERROUS SULFATE 325MG TAB PO SCH ×2 (09:38→20:49)
[2018-11-09] MEDS: MIDODRINE 5 MG TAB PO SCH ×3 (09:38→17:19)
[2018-11-09] MEDS: PHENYTOIN ER 100 MG CAP PO SCH ×3 (09:38→20:50)
[2018-11-09] MEDS: PANTOPRAZOLE 40MG TAB (PROTONIX) PO SCH (09:38)
[2018-11-09] MEDS: GABAPENTIN 100 MG CAP PO SCH ×3 (09:38→20:49)
[2018-11-09] MEDS: SUCRALFATE 1 GM TAB PO SCH ×4 (09:38→20:49)
[2018-11-09] MEDS: FUROSEMIDE 40 MG TAB PO SCH (09:38)
[2018-11-09] MEDS: PROPRANOLOL 10 MG TAB PO SCH ×2 (09:39→21:00)
[2018-11-09 14:00] VITALS: BP 92/52
[2018-11-09] MEDS ORDERED: OXAZEPAM 10 MG CAP PO SCH (14:00)
[2018-11-09] MEDS ORDERED: SCOPOLAMINE 1MG TRANSDERMAL PATCH TOP PRN (14:15)
[2018-11-09] MEDS ORDERED: FLEET ENEMA PR PRN (14:15)
[2018-11-09] MEDS: CHOLESTYRAMINE 4 GM PWD PKT PO SCH (17:19)
--- NOTE | 2018-11-09 18:47 | IPN ---
DATE: 11/09/2018 Patient confused, restless but knows his name, knows where he is. Denies any chest pain, pressure, or discomfort. Denies any abdominal pain. VITAL SIGNS: Temperature 98.7, pulse 83, respirations 18, blood pressure 92/52, pulse oximetry 95% on room air. LABORATORY DATA: WBC 11.5, hemoglobin and hematocrit 11.3/32.3, platelets 99. Chemistry: Sodium 136, potassium 3.9, chloride 100, bicarbonate 31, BUN 8, creatinine 0.76. Total bilirubin 1.9, direct bilirubin 1.3. PHYSICAL EXAMINATION: GENERAL: Patient alert in no acute distress. Disheveled. HEENT: Normocephalic, atraumatic. PULMONARY: Bilaterally clear. CARDIAC: Regular, S1, S2. ABDOMEN: Mild distention. Soft. Positive bowel sounds. Nontender. EXTREMITIES: No clubbing, cyanosis, or edema. ASSESSMENT AND PLAN: This is a 48-year-old male patient with underlying medical history of alcoholic cirrhosis, alcohol abuse, seizure disorder, depression, brought to the hospital with complaints of tremor, generalized weakness, and nausea. 1. Acute hepatic encephalopathy, waxing and waning mental status. Ammonia level appreciated. Continue lactulose. Ativan as needed. Continue Keppra and Dilantin. Patient currently comfort measures only. 2. Alcoholic cirrhosis and hepatitis. Lactulose, steroid therapy. 3. Seizure disorder. Continue Keppra and Dilantin. 4. Urinary retention. Failed trial of void. Continue Taylor catheter as ordered. 5. Alcohol abuse and withdrawal. Monitor for withdrawal. Clinical [place] Withdrawal Assessment (CIWA) protocol. Thiamine, folate, multivitamin. Ativan as needed. 6. Ascites with alcoholic cirrhosis. Continue diuretics, spironolactone, Lasix, thiamine, folate, and multivitamin. Paracentesis every . Avoid alcohol. Albumin supplementation with paracentesis. 7. Depression. Continue current medication. 8. Poor compliance complicating care. 9. Decompensated liver cirrhosis, prednisone. Current comfort measures only. 10. Transaminitis secondary to alcoholic hepatitis. Continue with management as above. Current comfort measures only. 11. Iron deficiency anemia. Supplementation as ordered. 12. Gastroesophageal reflux disease (GERD). Continue proton pump inhibitor (PPI). 13. Deep vein thrombosis (DVT) prophylaxis. Thromboembolic deterrents (TEDs) and sequentials given coagulopathy due to cirrhosis. DISPOSITION: Patient poorly compliant. Currently comfort measures only. Advance care planning: Meeting held with healthcare proxy. Discussed the poor prognosis. Goals of care have been discussed with the healthcare proxy. The healthcare proxy thinks patient definitely should not be going home. As of right now, the patient does not have capacity to make medical decisions, and the option of [facility] has been discussed. Healthcare proxy is agreeable. Subsequently patient is made comfort measures only with hospice consultation with possible discharge to [facility] versus jail with comfort measures only. Medical order for life-sustaining treatment (MOLST) form is complete. ACP TIME SPENT: 30 minutes. ELLIED
[2018-11-09] MEDS: PARoxetine 10MG TABLET PO SCH (20:50)
[2018-11-09] MEDS: TAMSULOSIN 0.4 MG CAP PO SCH (20:50)
[2018-11-10] MEDS ORDERED: HALOPERIDOL 5 MG/ML VIAL (J1630) IM PRN (02:15)
[2018-11-10] MEDS: SUCRALFATE 1 GM TAB PO SCH ×4 (07:30→21:04)
[2018-11-10] MEDS: LACTULOSE 20 GM/30 ML SYRUP UD PO SCH ×3 (09:00→21:04)
[2018-11-10] MEDS: THIAMINE 100 MG TAB PO SCH (09:00)
[2018-11-10] MEDS: SPIRONOLACTONE 50 MG TAB PO SCH (09:24)
[2018-11-10] MEDS: PANTOPRAZOLE 40MG TAB (PROTONIX) PO SCH (09:24)
[2018-11-10] MEDS: ZINC SULFATE 220 MG CAP PO SCH (09:24)
[2018-11-10] MEDS: levETIRAcetam 250MG TABLET (KEPPRA) PO SCH ×2 (09:24→21:06)
[2018-11-10] MEDS: GABAPENTIN 100 MG CAP PO SCH ×3 (09:24→21:06)
[2018-11-10] MEDS: LORazepam 1 MG TAB PO PRN ×4 (09:24→22:52)
[2018-11-10] MEDS: PALIPERIDONE 3 MG ER TAB (INVEGA) PO SCH ×2 (09:24→21:06)
[2018-11-10] MEDS: FUROSEMIDE 40 MG TAB PO SCH (09:24)
[2018-11-10] MEDS: MIDODRINE 5 MG TAB PO SCH ×3 (09:25→15:46)
[2018-11-10] MEDS: predniSONE 20 MG TAB PO SCH (09:25)
[2018-11-10] MEDS: PHENYTOIN ER 100 MG CAP PO SCH ×3 (09:25→21:05)
[2018-11-10] MEDS: PROPRANOLOL 10 MG TAB PO SCH ×2 (09:25→21:05)
--- NOTE | 2018-11-10 18:11 | IPNPDOC ---
Text Note Date of Service The patient was seen on 11/10/18. NOTE Patient confused, restless but knows his name, knows where he is. Denies any chest pain, pressure, or discomfort. Denies any abdominal pain. restless PHYSICAL EXAMINATION: GENERAL: Patient alert in no acute distress. Disheveled. restless HEENT: Normocephalic, atraumatic. PULMONARY: Bilaterally clear. CARDIAC: Regular, S1, S2. ABDOMEN: distended. Soft. Positive bowel sounds. Nontender. EXTREMITIES: No clubbing, cyanosis, or edema. ASSESSMENT AND PLAN: This is a 48-year-old male patient with underlying medical history of alcoholic cirrhosis, alcohol abuse, seizure disorder, depression, brought to the hospital with complaints of tremor, generalized weakness, and nausea. 1. Acute hepatic encephalopathy, waxing and waning mental status. Ammonia level appreciated. Continue lactulose. Ativan as needed. Continue Keppra and Dilantin. Patient currently comfort measures only. 2. Alcoholic cirrhosis and hepatitis. Lactulose, steroid therapy. 3. Seizure disorder. Continue Keppra and Dilantin. 4. Urinary retention. Failed trial of void. Continue Taylor catheter as ordered. 5. Alcohol abuse and withdrawal. Monitor for withdrawal. Clinical [place] Withdrawal Assessment (CIWA) protocol. Ativan as needed. SIGNAL TESTER 6. Ascites with alcoholic cirrhosis. Continue diuretics, spironolactone, Lasix. Paracentesis as needed. Avoid alcohol. SIGNAL TESTER 7. Depression. Continue current medication. 8. Poor compliance complicating care. 9. Decompensated liver cirrhosis, prednisone. Current comfort measures only. 10. Transaminitis secondary to alcoholic hepatitis. Continue with management as above. Current comfort measures only. 11. Iron deficiency anemia. Supplementation as ordered. 12. Gastroesophageal reflux disease (GERD). Continue proton pump inhibitor (PPI). 13. Deep vein thrombosis (DVT) prophylaxis. Thromboembolic deterrents (TEDs) and sequentials given coagulopathy due to cirrhosis. DISPOSITION: SIGNAL TESTER, Hospice Eval. need placement VS,Fishbone, I+O VS, Fishbone, I+O Vital Signs Date Time Temp Pulse Resp B/P (MAP) Pulse Ox O2 Delivery O2 Flow Rate FiO2 11/10/18 09:25 83 92/52 11/09/18 14:00 98.7 18 95 11/09/18 06:00 Room Air I&O- Last 24 Hours up to 6 AM 11/10/18 05:59 Intake Total 1260 ml Output Total 800 ml Balance 460 ml ROSA PAT MD Nov 10, 2018 18:11
[2018-11-10] MEDS: TAMSULOSIN 0.4 MG CAP PO SCH (21:05)
[2018-11-10] MEDS: PARoxetine 10MG TABLET PO SCH (21:06)
[2018-11-10] MEDS: traMADol 50 MG TAB PO PRN (22:53)
[2018-11-11] MEDS: SUCRALFATE 1 GM TAB PO SCH ×4 (07:14→22:02)
[2018-11-11] MEDS: ZINC SULFATE 220 MG CAP PO SCH (09:08)
[2018-11-11] MEDS: LACTULOSE 20 GM/30 ML SYRUP UD PO SCH ×3 (09:08→22:03)
[2018-11-11] MEDS: LORazepam 1 MG TAB PO PRN ×6 (09:09→22:10)
[2018-11-11] MEDS: PANTOPRAZOLE 40MG TAB (PROTONIX) PO SCH (09:09)
[2018-11-11] MEDS: SPIRONOLACTONE 50 MG TAB PO SCH (09:09)
[2018-11-11] MEDS: PROPRANOLOL 10 MG TAB PO SCH ×2 (09:09→22:02)
[2018-11-11] MEDS: GABAPENTIN 100 MG CAP PO SCH ×3 (09:09→22:01)
[2018-11-11] MEDS: levETIRAcetam 250MG TABLET (KEPPRA) PO SCH ×2 (09:09→22:01)
[2018-11-11] MEDS: predniSONE 20 MG TAB PO SCH (09:09)
[2018-11-11] MEDS: MIDODRINE 5 MG TAB PO SCH ×3 (09:10→16:37)
[2018-11-11] MEDS: PHENYTOIN ER 100 MG CAP PO SCH ×3 (09:10→22:02)
[2018-11-11] MEDS: THIAMINE 100 MG TAB PO SCH (09:10)
[2018-11-11] MEDS: FUROSEMIDE 40 MG TAB PO SCH (09:10)
[2018-11-11] MEDS: PALIPERIDONE 3 MG ER TAB (INVEGA) PO SCH ×2 (09:12→22:03)
--- NOTE | 2018-11-11 13:25 | IPNPDOC ---
Text Note Date of Service The patient was seen on 11/11/18. NOTE Patient confused, restless but knows his name, knows where he is. Denies any chest pain, pressure, or discomfort. Denies any abdominal pain. PHYSICAL EXAMINATION: GENERAL: Patient alert in no acute distress. Disheveled. restless HEENT: Normocephalic, atraumatic. PULMONARY: Bilaterally clear. CARDIAC: Regular, S1, S2. ABDOMEN: distended. Soft. Positive bowel sounds. Nontender. EXTREMITIES: No clubbing, cyanosis, or edema. ASSESSMENT AND PLAN: This is a 48-year-old male patient with underlying medical history of alcoholic cirrhosis, alcohol abuse, seizure disorder, depression, brought to the hospital with complaints of tremor, generalized weakness, and nausea. 1. Acute hepatic encephalopathy, waxing and waning mental status. Ammonia level appreciated. Continue lactulose. Ativan as needed. Continue Keppra and Dilantin. Patient currently comfort measures only. 2. Alcoholic cirrhosis and hepatitis. Lactulose, steroid therapy. 3. Seizure disorder. Continue Keppra and Dilantin. 4. Urinary retention. Failed trial of void. Continue Taylor catheter as ordered. 5. Alcohol abuse and withdrawal. Monitor for withdrawal. Clinical [place] Withdrawal Assessment (CIWA) protocol. Ativan as needed. PSYCHOMETRICIAN 6. Ascites with alcoholic cirrhosis. Continue diuretics, spironolactone, Lasix. Paracentesis as needed. Avoid alcohol. PSYCHOMETRICIAN 7. Depression. Continue current medication. 8. Poor compliance complicating care. 9. Decompensated liver cirrhosis, prednisone. Current comfort measures only. 10. Transaminitis secondary to alcoholic hepatitis. Continue with management as above. Current comfort measures only. 11. Iron deficiency anemia. Supplementation as ordered. 12. Gastroesophageal reflux disease (GERD). Continue proton pump inhibitor (PPI). 13. Portal hypertension. Patient PSYCHOMETRICIAN, no on BB 2/2 hypotension 14. Deep vein thrombosis (DVT) prophylaxis. Thromboembolic deterrents (TEDs) and sequentials given coagulopathy due to cirrhosis. DISPOSITION: PSYCHOMETRICIAN, Hospice Eval. need placement VS,Fishbone, I+O VS, Fishbone, I+O Vital Signs Date Time Temp Pulse Resp B/P (MAP) Pulse Ox O2 Delivery O2 Flow Rate FiO2 11/11/18 09:09 83 92/52 12/19/18 23:23 18 11/09/18 14:00 98.7 95 11/09/18 06:00 Room Air I&O- Last 24 Hours up to 6 AM 11/11/18 05:59 Intake Total 1500 ml Output Total 1075 ml Balance 425 ml ROSA PAT MD Nov 11, 2018 13:25
[2018-11-11] MEDS: LORazepam 2 MG/ML VIAL (J2060) IM PRN (20:08)
[2018-11-11] MEDS: TAMSULOSIN 0.4 MG CAP PO SCH (22:02)
[2018-11-11] MEDS: PARoxetine 10MG TABLET PO SCH (22:02)
[2018-11-12] MEDS: LACTULOSE 20 GM/30 ML SYRUP UD PO SCH ×3 (08:44→21:22)
[2018-11-12] MEDS: predniSONE 20 MG TAB PO SCH (08:44)
[2018-11-12] MEDS: SPIRONOLACTONE 50 MG TAB PO SCH (08:45)
[2018-11-12] MEDS: THIAMINE 100 MG TAB PO SCH (08:45)
[2018-11-12] MEDS: PALIPERIDONE 3 MG ER TAB (INVEGA) PO SCH ×2 (08:45→21:31)
[2018-11-12] MEDS: SUCRALFATE 1 GM TAB PO SCH ×4 (08:45→21:21)
[2018-11-12] MEDS: ZINC SULFATE 220 MG CAP PO SCH (08:45)
[2018-11-12] MEDS: PANTOPRAZOLE 40MG TAB (PROTONIX) PO SCH (08:45)
[2018-11-12] MEDS: FUROSEMIDE 40 MG TAB PO SCH (08:45)
[2018-11-12] MEDS: PROPRANOLOL 10 MG TAB PO SCH ×2 (08:46→21:21)
[2018-11-12] MEDS: GABAPENTIN 100 MG CAP PO SCH ×3 (08:47→21:21)
[2018-11-12] MEDS: PHENYTOIN ER 100 MG CAP PO SCH ×3 (08:47→21:22)
[2018-11-12] MEDS: levETIRAcetam 250MG TABLET (KEPPRA) PO SCH ×2 (08:47→21:21)
[2018-11-12] MEDS: MIDODRINE 5 MG TAB PO SCH ×3 (08:48→16:41)
--- NOTE | 2018-11-12 17:14 | REP ---
Ultrasound-guided paracentesis The procedure was performed under the direct supervision of Dr. Saldivar. The risks and benefits of the procedure were explained to the patient and informed consent was obtained. The largest pocket of fluid was localized in the right flank using ultrasound guidance. The skin was prepped and draped in a sterile fashion. 1% lidocaine was used as a local anesthetic. An 8-Ukrainian multi side-hole catheter was inserted using trocar technique. 4500 ml of yellow fluid was withdrawn and discarded. The patient tolerated the procedure well and there were no immediate complications. After the appropriate amount of monitored convalescence the patient was discharged from the department. Reviewed by IVÁN Hernandez 11/12/2018 04:52 P Electronically Signed by Nader Saldivar MD 11/12/2018 05:05 P
--- NOTE | 2018-11-12 18:28 | IPNPDOC ---
Text Note Date of Service The patient was seen on 11/12/18. NOTE Patient confused, restless but knows his name, knows where he is. Denies any chest pain, pressure, or discomfort. Denies any abdominal pain. Questionable seizure lasting 5 sec according to nursing. resolved prior to any medication PHYSICAL EXAMINATION: GENERAL: Patient alert in no acute distress. Disheveled. restless HEENT: Normocephalic, atraumatic. PULMONARY: Bilaterally clear. CARDIAC: Regular, S1, S2. ABDOMEN: distended. Soft. Positive bowel sounds. Nontender. EXTREMITIES: No clubbing, cyanosis, or edema. ASSESSMENT AND PLAN: This is a 48-year-old male patient with underlying medical history of alcoholic cirrhosis, alcohol abuse, seizure disorder, depression, brought to the hospital with complaints of tremor, generalized weakness, and nausea. 1. Acute hepatic encephalopathy, waxing and waning mental status. Ammonia level appreciated. Continue lactulose. Ativan as needed. Continue Keppra and Dilantin. Patient currently comfort measures only. 2. Alcoholic cirrhosis and hepatitis. Lactulose, steroid therapy. 3. Seizure disorder. Continue Keppra and Dilantin. 4. Urinary retention. Failed trial of void. Continue Taylor catheter as ordered. 5. Alcohol abuse and withdrawal. Monitor for withdrawal. Ativan as needed. ERP SPECIALIST 6. Ascites with alcoholic cirrhosis. Continue diuretics, spironolactone, Lasix. Paracentesis as needed. Avoid alcohol. ERP SPECIALIST 7. Depression. Continue current medication. 8. Poor compliance complicating care. 9. Decompensated liver cirrhosis, prednisone. Current comfort measures only. 10. Transaminitis secondary to alcoholic hepatitis. Continue with management as above. Current comfort measures only. 11. Iron deficiency anemia. Supplementation as ordered. 12. Gastroesophageal reflux disease (GERD). Continue proton pump inhibitor (PPI). 13. Portal hypertension. Patient ERP SPECIALIST, no on BB 2/2 hypotension 14. Deep vein thrombosis (DVT) prophylaxis. Thromboembolic deterrents (TEDs) and sequentials given coagulopathy due to cirrhosis. DISPOSITION: ERP SPECIALIST. need placement VS,Fishbone, I+O VS, Fishbone, I+O Vital Signs Date Time Temp Pulse Resp B/P (MAP) Pulse Ox O2 Delivery O2 Flow Rate FiO2 11/12/18 08:46 83 92/52 12/19/18 23:23 18 11/09/18 14:00 98.7 95 11/09/18 06:00 Room Air I&O- Last 24 Hours up to 6 AM 11/12/18 06:00 Intake Total 600 ml Output Total 950 ml Balance -350 ml ROSA PAT MD Nov 12, 2018 18:28
[2018-11-12] MEDS: PARoxetine 10MG TABLET PO SCH (21:20)
[2018-11-12] MEDS: TAMSULOSIN 0.4 MG CAP PO SCH (21:21)
[2018-11-12] MEDS: traMADol 50 MG TAB PO PRN (21:24)
[2018-11-13] MEDS: LORazepam 1 MG TAB PO PRN ×2 (03:30→09:17)
[2018-11-13] MEDS: LORazepam 2 MG/ML VIAL (J2060) IM PRN ×3 (03:30→19:44)
[2018-11-13] MEDS ORDERED: HALOPERIDOL 5 MG/ML VIAL (J1630) IM PRN (03:45)
[2018-11-13] MEDS: SUCRALFATE 1 GM TAB PO SCH ×5 (07:30→20:59)
[2018-11-13] MEDS: MIDODRINE 5 MG TAB PO SCH ×4 (08:00→17:11)
[2018-11-13] MEDS: ZINC SULFATE 220 MG CAP PO SCH ×2 (09:00→09:20)
[2018-11-13] MEDS: PANTOPRAZOLE 40MG TAB (PROTONIX) PO SCH ×2 (09:00→09:21)
[2018-11-13] MEDS: FUROSEMIDE 40 MG TAB PO SCH ×2 (09:00→09:21)
[2018-11-13] MEDS: THIAMINE 100 MG TAB PO SCH ×2 (09:00→09:17)
[2018-11-13] MEDS: predniSONE 20 MG TAB PO SCH ×2 (09:00→09:17)
[2018-11-13] MEDS: levETIRAcetam 250MG TABLET (KEPPRA) PO SCH ×3 (09:00→21:00)
[2018-11-13] MEDS: SPIRONOLACTONE 50 MG TAB PO SCH ×2 (09:00→09:21)
[2018-11-13] MEDS: LACTULOSE 20 GM/30 ML SYRUP UD PO SCH ×4 (09:00→20:59)
[2018-11-13] MEDS: PHENYTOIN ER 100 MG CAP PO SCH ×4 (09:00→21:01)
[2018-11-13] MEDS: PALIPERIDONE 3 MG ER TAB (INVEGA) PO SCH (09:21)
[2018-11-13] MEDS: GABAPENTIN 100 MG CAP PO SCH (09:21)
[2018-11-13 09:24] VITALS: BP 136/90
[2018-11-13] MEDS: PROPRANOLOL 10 MG TAB PO SCH (09:24)
--- NOTE | 2018-11-13 15:24 | IPNPDOC ---
Text Note Date of Service The patient was seen on 11/13/18. NOTE Patient confused, restless agitated this am , less responsive. Denies any chest pain, pressure, or discomfort. Denies any abdominal pain. PHYSICAL EXAMINATION: GENERAL: Patient alert in no acute distress. Disheveled. restless HEENT: Normocephalic, atraumatic. PULMONARY: Bilaterally clear. CARDIAC: Regular, S1, S2. ABDOMEN: distended. Soft. Positive bowel sounds. Nontender. EXTREMITIES: No clubbing, cyanosis, or edema. ASSESSMENT AND PLAN: This is a 48-year-old male patient with underlying medical history of alcoholic cirrhosis, alcohol abuse, seizure disorder, depression, brought to the hospital with complaints of tremor, generalized weakness, and nausea. 1. Acute hepatic encephalopathy, waxing and waning mental status. Ammonia level appreciated. Continue lactulose. Ativan as needed. Continue Keppra and Dilantin. Patient currently comfort measures only. 2. Alcoholic cirrhosis and hepatitis. Lactulose, steroid therapy. 3. Seizure disorder. Continue Keppra and Dilantin. 4. Urinary retention. Failed trial of void. Continue Taylor catheter as ordered. 5. Alcohol abuse and withdrawal. Monitor for withdrawal. Ativan as needed. DENTAL MOLD MAKER 6. Ascites with alcoholic cirrhosis. Continue diuretics, spironolactone, Lasix. Paracentesis as needed. Avoid alcohol. DENTAL MOLD MAKER 7. Depression. Continue current medication. 8. Poor compliance complicating care. 9. Decompensated liver cirrhosis, prednisone. Current comfort measures only. 10. Transaminitis secondary to alcoholic hepatitis. Continue with management as above. Current comfort measures only. 11. Iron deficiency anemia. Supplementation as ordered. 12. Gastroesophageal reflux disease (GERD). Continue proton pump inhibitor (PPI). 13. Portal hypertension. Patient DENTAL MOLD MAKER, no on BB 2/2 hypotension 14. Deep vein thrombosis (DVT) prophylaxis. Thromboembolic deterrents (TEDs) and sequentials given coagulopathy due to cirrhosis. DISPOSITION: DENTAL MOLD MAKER. need placement VS,Fishbone, I+O VS, Fishbone, I+O Vital Signs Date Time Temp Pulse Resp B/P (MAP) Pulse Ox O2 Delivery O2 Flow Rate FiO2 11/13/18 09:24 77 136/90 11/12/18 21:54 16 Room Air 11/09/18 14:00 98.7 95 I&O- Last 24 Hours up to 6 AM 11/13/18 06:00 Intake Total 1020 ml Output Total 450 ml Balance 570 ml ROSA PAT MD Nov 13, 2018 15:24
[2018-11-13] MEDS: PARoxetine 10MG TABLET PO SCH (20:59)
[2018-11-13] MEDS: TAMSULOSIN 0.4 MG CAP PO SCH (21:00)
[2018-11-14] MEDS: LORazepam 2 MG/ML VIAL (J2060) IM PRN ×3 (01:19→09:47)
[2018-11-14] MEDS: SUCRALFATE 1 GM TAB PO SCH ×5 (07:29→20:45)
[2018-11-14] MEDS: MIDODRINE 5 MG TAB PO SCH ×3 (08:00→15:25)
[2018-11-14] MEDS: THIAMINE 100 MG TAB PO SCH (09:00)
[2018-11-14] MEDS: PHENYTOIN ER 100 MG CAP PO SCH ×4 (09:00→20:45)
[2018-11-14] MEDS: FUROSEMIDE 40 MG TAB PO SCH (09:00)
[2018-11-14] MEDS: PANTOPRAZOLE 40MG TAB (PROTONIX) PO SCH (09:00)
[2018-11-14] MEDS: LACTULOSE 20 GM/30 ML SYRUP UD PO SCH ×4 (09:00→20:45)
[2018-11-14] MEDS: levETIRAcetam 250MG TABLET (KEPPRA) PO SCH ×3 (09:00→20:45)
[2018-11-14] MEDS: predniSONE 20 MG TAB PO SCH (09:00)
[2018-11-14] MEDS: SPIRONOLACTONE 50 MG TAB PO SCH (09:00)
[2018-11-14] MEDS: MORPHINE 10MG/0.5ML ORAL CONCENTRATE SOLUTION U/D SL PRN (13:56)
--- NOTE | 2018-11-14 14:43 | IPNPDOC ---
Text Note Date of Service The patient was seen on 11/14/18. NOTE Patient confused, restless agitated this am , less responsive. pulled out his Dangelo cath. Denies any chest pain, pressure, or discomfort. Denies any abdominal pain. PHYSICAL EXAMINATION: GENERAL: Patient alert in no acute distress. Disheveled. restless HEENT: Normocephalic, atraumatic. PULMONARY: Bilaterally clear. CARDIAC: Regular, S1, S2. ABDOMEN: distended. Soft. Positive bowel sounds. Nontender. EXTREMITIES: No clubbing, cyanosis, or edema. ASSESSMENT AND PLAN: This is a 48-year-old male patient with underlying medical history of alcoholic cirrhosis, alcohol abuse, seizure disorder, depression, brought to the hospital with complaints of tremor, generalized weakness, and nausea. 1. Acute hepatic encephalopathy, waxing and waning mental status. Ammonia level appreciated. Continue lactulose. Ativan as needed. Continue Keppra and Dilantin. Patient currently comfort measures only. 2. Alcoholic cirrhosis and hepatitis. Lactulose, steroid therapy. 3. Seizure disorder. Continue Keppra and Dilantin. 4. Urinary retention. pulled his dangelo out. bladder scan if greater than >200, insert dangelo. flomax, proscar 5. Alcohol abuse and withdrawal. Monitor for withdrawal. Ativan as needed. NATURAL REMEDY CONSULTANT 6. Ascites with alcoholic cirrhosis. Continue diuretics, spironolactone, Lasix. Paracentesis as needed. Avoid alcohol. NATURAL REMEDY CONSULTANT 7. Depression. Continue current medication. 8. Poor compliance complicating care. 9. Decompensated liver cirrhosis, prednisone. Current comfort measures only. 10. Transaminitis secondary to alcoholic hepatitis. Continue with management as above. Current comfort measures only. 11. Iron deficiency anemia. Supplementation as ordered. 12. Gastroesophageal reflux disease (GERD). Continue proton pump inhibitor (PPI). 13. Portal hypertension. Patient NATURAL REMEDY CONSULTANT, no on BB 2/2 hypotension 14. Deep vein thrombosis (DVT) prophylaxis. Thromboembolic deterrents (TEDs) and sequentials given coagulopathy due to cirrhosis. DISPOSITION: NATURAL REMEDY CONSULTANT. need placement VS,Fishbone, I+O VS, Fishbone, I+O Vital Signs Date Time Temp Pulse Resp B/P (MAP) Pulse Ox O2 Delivery O2 Flow Rate FiO2 11/14/18 14:26 18 Room Air 11/13/18 09:24 77 136/90 11/09/18 14:00 98.7 95 I&O- Last 24 Hours up to 6 AM 11/14/18 05:59 Intake Total 240 ml Output Total 475 ml Balance -235 ml ROSA PAT MD Nov 14, 2018 14:43
[2018-11-14] MEDS: PARoxetine 10MG TABLET PO SCH ×2 (20:35→20:45)
[2018-11-14] MEDS: TAMSULOSIN 0.4 MG CAP PO SCH ×2 (20:35→20:45)
[2018-11-14] MEDS: FINASTERIDE 5 MG TAB PO SCH ×2 (20:36→20:45)
[2018-11-15] MEDS: LACTULOSE 20 GM/30 ML SYRUP UD PO SCH ×3 (08:04→20:10)
[2018-11-15] MEDS: PHENYTOIN ER 100 MG CAP PO SCH ×3 (08:04→20:09)
[2018-11-15] MEDS: SUCRALFATE 1 GM TAB PO SCH ×5 (08:04→20:09)
[2018-11-15] MEDS: predniSONE 20 MG TAB PO SCH (08:04)
[2018-11-15] MEDS: levETIRAcetam 250MG TABLET (KEPPRA) PO SCH ×2 (08:05→20:09)
[2018-11-15] MEDS: SPIRONOLACTONE 50 MG TAB PO SCH (08:05)
[2018-11-15] MEDS: PANTOPRAZOLE 40MG TAB (PROTONIX) PO SCH (08:05)
[2018-11-15] MEDS: MIDODRINE 5 MG TAB PO SCH ×3 (08:05→15:52)
[2018-11-15] MEDS: FUROSEMIDE 40 MG TAB PO SCH (08:05)
[2018-11-15] MEDS: LORazepam 1 MG TAB PO PRN ×6 (08:05→20:10)
[2018-11-15] MEDS: THIAMINE 100 MG TAB PO SCH (08:05)
--- NOTE | 2018-11-15 18:42 | IPNPDOC ---
Text Note Date of Service The patient was seen on 11/15/18. NOTE Patient confused, restless agitated this am , less responsive. Denies any chest pain, pressure, or discomfort. Denies any abdominal pain. PHYSICAL EXAMINATION: GENERAL: Patient alert in no acute distress. Disheveled. restless HEENT: Normocephalic, atraumatic. PULMONARY: Bilaterally clear. CARDIAC: Regular, S1, S2. ABDOMEN: distended. Soft. Positive bowel sounds. Nontender. EXTREMITIES: No clubbing, cyanosis, or edema. ASSESSMENT AND PLAN: This is a 48-year-old male patient with underlying medical history of alcoholic cirrhosis, alcohol abuse, seizure disorder, depression, brought to the hospital with complaints of tremor, generalized weakness, and nausea. 1. Acute hepatic encephalopathy, waxing and waning mental status. Ammonia level appreciated. Continue lactulose. Ativan as needed. Continue Keppra and Dilantin. Patient currently comfort measures only. 2. Alcoholic cirrhosis and hepatitis. Lactulose, steroid therapy. 3. Seizure disorder. Continue Keppra and Dilantin. 4. Urinary retention. pulled his dangelo out. bladder scan if greater than >200, insert dangelo. flomax, proscar 5. Alcohol abuse and withdrawal. Monitor for withdrawal. Ativan as needed. APPLICATION SYSTEMS ADMINISTRATOR 6. Ascites with alcoholic cirrhosis. Continue diuretics, spironolactone, Lasix. Paracentesis as needed. Avoid alcohol. APPLICATION SYSTEMS ADMINISTRATOR 7. Depression. Continue current medication. 8. Poor compliance complicating care. 9. Decompensated liver cirrhosis, prednisone. Current comfort measures only. 10. Transaminitis secondary to alcoholic hepatitis. Continue with management as above. Current comfort measures only. 11. Iron deficiency anemia. Supplementation as ordered. 12. Gastroesophageal reflux disease (GERD). Continue proton pump inhibitor (PPI). 13. Portal hypertension. Patient APPLICATION SYSTEMS ADMINISTRATOR, no on BB 2/2 hypotension 14. Deep vein thrombosis (DVT) prophylaxis. Thromboembolic deterrents (TEDs) and sequentials given coagulopathy due to cirrhosis. DISPOSITION: APPLICATION SYSTEMS ADMINISTRATOR. need placement VS,Fishbone, I+O VS, Fishbone, I+O Vital Signs Date Time Temp Pulse Resp B/P (MAP) Pulse Ox O2 Delivery O2 Flow Rate FiO2 11/14/18 14:26 18 Room Air 11/13/18 09:24 77 136/90 11/09/18 14:00 98.7 95 I&O- Last 24 Hours up to 6 AM 11/15/18 05:59 Intake Total 100 ml Output Total 300 ml Balance -200 ml ROSA PAT MD Nov 15, 2018 18:42
[2018-11-15] MEDS: TAMSULOSIN 0.4 MG CAP PO SCH (20:09)
[2018-11-15] MEDS: PARoxetine 10MG TABLET PO SCH (20:09)
[2018-11-15] MEDS: FINASTERIDE 5 MG TAB PO SCH (20:10)
[2018-11-16] MEDS: LORazepam 1 MG TAB PO PRN ×3 (06:52→20:50)
[2018-11-16] MEDS: PHENYTOIN ER 100 MG CAP PO SCH ×3 (08:26→20:50)
[2018-11-16] MEDS: LACTULOSE 20 GM/30 ML SYRUP UD PO SCH ×3 (08:26→20:51)
[2018-11-16] MEDS: FUROSEMIDE 40 MG TAB PO SCH (08:27)
[2018-11-16] MEDS: MIDODRINE 5 MG TAB PO SCH ×3 (08:27→16:46)
[2018-11-16] MEDS: predniSONE 20 MG TAB PO SCH (08:27)
[2018-11-16] MEDS: SPIRONOLACTONE 50 MG TAB PO SCH (08:27)
[2018-11-16] MEDS: SUCRALFATE 1 GM TAB PO SCH ×4 (08:27→20:51)
[2018-11-16] MEDS: levETIRAcetam 250MG TABLET (KEPPRA) PO SCH ×2 (08:27→20:51)
[2018-11-16] MEDS: THIAMINE 100 MG TAB PO SCH (08:27)
[2018-11-16] MEDS: PANTOPRAZOLE 40MG TAB (PROTONIX) PO SCH (08:28)
[2018-11-16] MEDS: PARoxetine 10MG TABLET PO SCH (20:51)
[2018-11-16] MEDS: FINASTERIDE 5 MG TAB PO SCH (20:51)
[2018-11-16] MEDS: TAMSULOSIN 0.4 MG CAP PO SCH (20:51)
[2018-11-17] MEDS: LORazepam 1 MG TAB PO PRN ×3 (01:20→21:28)
[2018-11-17] MEDS: predniSONE 20 MG TAB PO SCH (07:35)
[2018-11-17] MEDS: LACTULOSE 20 GM/30 ML SYRUP UD PO SCH ×3 (07:35→21:28)
[2018-11-17] MEDS: SUCRALFATE 1 GM TAB PO SCH ×4 (07:35→21:27)
[2018-11-17] MEDS: THIAMINE 100 MG TAB PO SCH (07:35)
[2018-11-17] MEDS: PANTOPRAZOLE 40MG TAB (PROTONIX) PO SCH (07:35)
[2018-11-17] MEDS: SPIRONOLACTONE 50 MG TAB PO SCH (07:35)
[2018-11-17] MEDS: MIDODRINE 5 MG TAB PO SCH ×3 (07:35→16:31)
[2018-11-17] MEDS: FUROSEMIDE 40 MG TAB PO SCH (07:35)
[2018-11-17] MEDS: levETIRAcetam 250MG TABLET (KEPPRA) PO SCH ×2 (07:36→21:28)
[2018-11-17] MEDS: PHENYTOIN ER 100 MG CAP PO SCH ×3 (07:36→21:28)
--- NOTE | 2018-11-17 11:23 | IPN ---
DATE: 11/16/2018 Kirby Calderón was seen on [facility]. He is now on comfort measures only (TOWNSHIP SUPERVISOR) status. PHYSICAL EXAMINATION: No vital signs on TOWNSHIP SUPERVISOR status. GENERAL APPEARANCE: He is lethargic laying in bed not responding to questions. LUNGS: Rhonchi. HEART: Regular rhythm. IMPRESSION: Patient is on TOWNSHIP SUPERVISOR status and all of his comfort needs are currently being met.
[2018-11-17] MEDS: TAMSULOSIN 0.4 MG CAP PO SCH (21:27)
[2018-11-17] MEDS: FINASTERIDE 5 MG TAB PO SCH (21:27)
[2018-11-17] MEDS: PARoxetine 10MG TABLET PO SCH (21:28)
[2018-11-17] MEDS: LORazepam 2 MG/ML VIAL (J2060) IV PRN (23:45)
[2018-11-18] MEDS: LORazepam 2 MG/ML VIAL (J2060) IV PRN ×4 (06:52→21:46)
[2018-11-18] MEDS: LACTULOSE 20 GM/30 ML SYRUP UD PO SCH ×3 (08:03→21:00)
[2018-11-18] MEDS: THIAMINE 100 MG TAB PO SCH (08:04)
[2018-11-18] MEDS: MIDODRINE 5 MG TAB PO SCH ×3 (08:04→16:08)
[2018-11-18] MEDS: PANTOPRAZOLE 40MG TAB (PROTONIX) PO SCH (08:04)
[2018-11-18] MEDS: SPIRONOLACTONE 50 MG TAB PO SCH (08:04)
[2018-11-18] MEDS: FUROSEMIDE 40 MG TAB PO SCH (08:04)
[2018-11-18] MEDS: levETIRAcetam 250MG TABLET (KEPPRA) PO SCH ×2 (08:04→21:00)
[2018-11-18] MEDS: SUCRALFATE 1 GM TAB PO SCH ×4 (08:04→21:00)
[2018-11-18] MEDS: PHENYTOIN ER 100 MG CAP PO SCH ×3 (08:05→21:00)
[2018-11-18] MEDS: predniSONE 20 MG TAB PO SCH (08:05)
[2018-11-18] MEDS: PARoxetine 10MG TABLET PO SCH (21:00)
[2018-11-18] MEDS: FINASTERIDE 5 MG TAB PO SCH (21:00)
[2018-11-18] MEDS: TAMSULOSIN 0.4 MG CAP PO SCH (21:00)
[2018-11-18] MEDS ORDERED: LORazepam 2 MG/ML VIAL (J2060) IM STA (22:26)
[2018-11-19] MEDS: SUCRALFATE 1 GM TAB PO SCH ×4 (07:30→21:00)
[2018-11-19] MEDS: LORazepam 1 MG TAB PO PRN ×4 (07:44→15:11)
[2018-11-19] MEDS: MIDODRINE 5 MG TAB PO SCH ×3 (08:00→15:12)
[2018-11-19] MEDS: predniSONE 20 MG TAB PO SCH (09:00)
[2018-11-19] MEDS: THIAMINE 100 MG TAB PO SCH (09:00)
[2018-11-19] MEDS: PANTOPRAZOLE 40MG TAB (PROTONIX) PO SCH (09:00)
[2018-11-19] MEDS: FUROSEMIDE 40 MG TAB PO SCH (09:00)
[2018-11-19] MEDS: SPIRONOLACTONE 50 MG TAB PO SCH (09:00)
[2018-11-19] MEDS: levETIRAcetam 250MG TABLET (KEPPRA) PO SCH ×2 (09:20→21:00)
[2018-11-19] MEDS: LACTULOSE 20 GM/30 ML SYRUP UD PO SCH ×3 (09:20→21:00)
[2018-11-19] MEDS: PHENYTOIN ER 100 MG CAP PO SCH ×3 (09:20→21:00)
[2018-11-19] MEDS: TAMSULOSIN 0.4 MG CAP PO SCH (21:00)
[2018-11-19] MEDS: PARoxetine 10MG TABLET PO SCH (21:00)
[2018-11-19] MEDS: FINASTERIDE 5 MG TAB PO SCH (21:00)
[2018-11-20] MEDS: LORazepam 1 MG TAB PO PRN ×3 (00:22→15:21)
[2018-11-20] MEDS: LORazepam 2 MG/ML VIAL (J2060) IM PRN (01:02)
[2018-11-20] MEDS: SUCRALFATE 1 GM TAB PO SCH ×4 (07:30→21:55)
[2018-11-20] MEDS: MIDODRINE 5 MG TAB PO SCH ×3 (07:46→17:32)
[2018-11-20] MEDS: THIAMINE 100 MG TAB PO SCH (09:00)
[2018-11-20] MEDS: SPIRONOLACTONE 50 MG TAB PO SCH (09:00)
[2018-11-20] MEDS: LACTULOSE 20 GM/30 ML SYRUP UD PO SCH ×3 (09:00→21:56)
[2018-11-20] MEDS: FUROSEMIDE 40 MG TAB PO SCH (09:00)
[2018-11-20] MEDS: PANTOPRAZOLE 40MG TAB (PROTONIX) PO SCH (09:00)
[2018-11-20] MEDS: predniSONE 20 MG TAB PO SCH (09:00)
[2018-11-20] MEDS: levETIRAcetam 250MG TABLET (KEPPRA) PO SCH ×2 (10:01→21:56)
[2018-11-20] MEDS: PHENYTOIN ER 100 MG CAP PO SCH ×3 (10:01→21:55)
[2018-11-20] MEDS: PARoxetine 10MG TABLET PO SCH (21:55)
[2018-11-20] MEDS: TAMSULOSIN 0.4 MG CAP PO SCH (21:55)
[2018-11-20] MEDS: FINASTERIDE 5 MG TAB PO SCH (21:55)
[2018-11-21] MEDS: LORazepam 2 MG/ML VIAL (J2060) IM PRN (03:27)
[2018-11-21] MEDS: SUCRALFATE 1 GM TAB PO SCH ×4 (07:30→21:00)
[2018-11-21] MEDS: MIDODRINE 5 MG TAB PO SCH ×3 (08:00→16:00)
[2018-11-21] MEDS: predniSONE 20 MG TAB PO SCH (09:00)
[2018-11-21] MEDS: THIAMINE 100 MG TAB PO SCH (09:00)
[2018-11-21] MEDS: LACTULOSE 20 GM/30 ML SYRUP UD PO SCH ×3 (09:00→21:00)
[2018-11-21] MEDS: FUROSEMIDE 40 MG TAB PO SCH (09:00)
[2018-11-21] MEDS: SPIRONOLACTONE 50 MG TAB PO SCH (09:00)
[2018-11-21] MEDS: PANTOPRAZOLE 40MG TAB (PROTONIX) PO SCH (09:00)
[2018-11-21] MEDS: levETIRAcetam 250MG TABLET (KEPPRA) PO SCH ×2 (09:20→21:00)
[2018-11-21] MEDS: PHENYTOIN ER 100 MG CAP PO SCH ×3 (09:20→21:00)
[2018-11-21] MEDS: LORazepam 1 MG TAB PO PRN (13:52)
--- NOTE | 2018-11-21 18:06 | IPNPDOC ---
Date Seen The patient was seen on 11/21/18. Progress Note SUBJECTIVE: pt seen and examined at bedside, drowsy, no overnight events OBJECTIVE PHYSICAL EXAMINATION: VITAL SIGNS: Please see below. GENERAL: drowsy, NAD HEENT: normocephalic, scleral icterus CARDIOVASCULAR: RRR, normal s1 and s2 RESPIRATORY: good air etry on anterior chest ABDOMINAL: moderate ascites, mild tenderness on palpation LABORATORY DATA, IMAGING STUDIES, MICROBIOLOGY: Please see below. End stage cirrhosis: continue comfort measures, diuretics, midodrine seizure disorder: continue anti-epileptics VS, I&O, 24H, Jorge Vital Signs/I&O I&O- Last 24 Hours up to 6 AM 11/21/18 06:00 Intake Total 900 ml Output Total 200 ml Balance 700 ml THURSDAY,RONIT DONG Nov 21, 2018 18:06
[2018-11-21] MEDS: PARoxetine 10MG TABLET PO SCH (21:00)
[2018-11-21] MEDS: TAMSULOSIN 0.4 MG CAP PO SCH (21:00)
[2018-11-21] MEDS: FINASTERIDE 5 MG TAB PO SCH (21:00)
[2018-11-22] MEDS: LORazepam 2 MG/ML VIAL (J2060) IM PRN ×3 (01:48→20:36)
[2018-11-22] MEDS: SUCRALFATE 1 GM TAB PO SCH ×4 (07:30→20:37)
[2018-11-22] MEDS: MIDODRINE 5 MG TAB PO SCH ×3 (08:00→16:00)
[2018-11-22] MEDS: SPIRONOLACTONE 50 MG TAB PO SCH (09:00)
[2018-11-22] MEDS: PANTOPRAZOLE 40MG TAB (PROTONIX) PO SCH (09:00)
[2018-11-22] MEDS: predniSONE 20 MG TAB PO SCH (09:00)
[2018-11-22] MEDS: LACTULOSE 20 GM/30 ML SYRUP UD PO SCH ×3 (09:00→20:37)
[2018-11-22] MEDS: THIAMINE 100 MG TAB PO SCH (09:00)
[2018-11-22] MEDS: FUROSEMIDE 40 MG TAB PO SCH (09:00)
[2018-11-22] MEDS: PHENYTOIN ER 100 MG CAP PO SCH ×3 (09:40→20:36)
[2018-11-22] MEDS: levETIRAcetam 250MG TABLET (KEPPRA) PO SCH ×2 (09:41→20:36)
--- NOTE | 2018-11-22 16:34 | IPNPDOC ---
Date Seen The patient was seen on 11/22/18. Progress Note SUBJECTIVE: pt seen and examined at bedside, drowsy, no overnight events OBJECTIVE PHYSICAL EXAMINATION: VITAL SIGNS: Please see below. GENERAL: drowsy, NAD HEENT: normocephalic, scleral icterus CARDIOVASCULAR: RRR, normal s1 and s2 RESPIRATORY: good air etry on anterior chest ABDOMINAL: moderate ascites, mild tenderness on palpation LABORATORY DATA, IMAGING STUDIES, MICROBIOLOGY: Please see below. End stage cirrhosis: continue comfort measures, diuretics, midodrine seizure disorder: continue anti-epileptics DISPOSITION: awaiting placement VS, I&O, 24H, [facility] Vital Signs/I&O I&O- Last 24 Hours up to 6 AM 11/22/18 05:59 Intake Total 630 ml Output Total 200 ml Balance 430 ml THURSDAY,RONIT DONG Nov 22, 2018 16:34
[2018-11-22] MEDS: TAMSULOSIN 0.4 MG CAP PO SCH (20:37)
[2018-11-22] MEDS: PARoxetine 10MG TABLET PO SCH (20:37)
[2018-11-22] MEDS: FINASTERIDE 5 MG TAB PO SCH (20:37)
[2018-11-23] MEDS: LORazepam 2 MG/ML VIAL (J2060) IM PRN ×2 (02:55→13:51)
[2018-11-23] MEDS ORDERED: HALOPERIDOL 1 MG TAB PO PRN (03:15)
[2018-11-23] MEDS ORDERED: HALOPERIDOL 5 MG/ML VIAL (J1630) IM PRN (04:00)
[2018-11-23] MEDS: SUCRALFATE 1 GM TAB PO SCH ×4 (07:30→22:50)
[2018-11-23] MEDS: levETIRAcetam 250MG TABLET (KEPPRA) PO SCH ×2 (09:47→22:51)
[2018-11-23] MEDS: LORazepam 1 MG TAB PO PRN (09:47)
[2018-11-23] MEDS: MIDODRINE 5 MG TAB PO SCH ×3 (09:47→15:28)
[2018-11-23] MEDS: PHENYTOIN ER 100 MG CAP PO SCH ×3 (09:48→22:51)
[2018-11-23] MEDS: SPIRONOLACTONE 50 MG TAB PO SCH (09:55)
[2018-11-23] MEDS: LACTULOSE 20 GM/30 ML SYRUP UD PO SCH ×3 (09:57→22:50)
[2018-11-23] MEDS: predniSONE 20 MG TAB PO SCH (09:57)
[2018-11-23] MEDS: THIAMINE 100 MG TAB PO SCH (09:58)
[2018-11-23] MEDS: PANTOPRAZOLE 40MG TAB (PROTONIX) PO SCH (09:58)
[2018-11-23] MEDS: FUROSEMIDE 40 MG TAB PO SCH (09:58)
--- NOTE | 2018-11-23 17:56 | IPN ---
DATE: 11/23/2018 Patient seen and examined. Continues to be confused. No other events. Patient is a very poor historian. No other complaints reported. Currently comfort measures only. GENERAL: Patient drowsy in no acute distress. HEENT: Normocephalic. Scleral icterus. CARDIAC: Regular, S1, S2. PULMONARY: Bilaterally clear. ABDOMEN: Soft with moderate ascites. Minimal tenderness. ASSESSMENT AND PLAN: This is a 48-year-old male patient with underlying medical history of alcoholic cirrhosis with alcohol abuse, seizures, depression, brought to the hospital initially with tremor, generalized weakness, and nausea. 1. Acute hepatic encephalopathy with waxing and waning mental status. Currently patient is comfort measures only, pending placement. Lactulose as tolerated. 2. Alcoholic cirrhosis, hepatitis. Patient was treated with steroids. Continue lactulose as tolerated. Continue thiamine. 3. Seizure disorder. Continue Keppra and Dilantin. 4. Urinary retention. Bladder scan. Flomax and Proscar. 5. Alcohol abuse and withdrawal. Currently comfort measures only. Ativan as needed. 6. Ascites with alcoholic cirrhosis. Continue diuretics, spironolactone. Current comfort measures. 7. Depression. Continue current medication. 8. Poor compliance, complicating care. 9. Decompensated liver cirrhosis. Comfort measures only. Continue medication mentioned above. 10. Alcoholic hepatitis. Was treated with prednisone, lactulose. Currently comfort measures only. 11. Iron deficiency anemia. 12. Gastroesophageal reflux disease (GERD). Continue proton pump inhibitor (PPI). 13. Portal hypertension, currently comfort measures only. 14. Deep vein thrombosis (DVT) prophylaxis. Thromboembolic deterrents (TEDs) and sequentials. DISPOSITION: Comfort measures only pending placement.
[2018-11-23] MEDS: PARoxetine 10MG TABLET PO SCH (21:00)
[2018-11-23] MEDS: TAMSULOSIN 0.4 MG CAP PO SCH (22:51)
[2018-11-23] MEDS: FINASTERIDE 5 MG TAB PO SCH (22:52)
[2018-11-24] MEDS: LACTULOSE 20 GM/30 ML SYRUP UD PO SCH ×3 (08:56→20:06)
[2018-11-24] MEDS: SPIRONOLACTONE 50 MG TAB PO SCH (08:56)
[2018-11-24] MEDS: PANTOPRAZOLE 40MG TAB (PROTONIX) PO SCH (08:56)
[2018-11-24] MEDS: FUROSEMIDE 40 MG TAB PO SCH (08:56)
[2018-11-24] MEDS: SUCRALFATE 1 GM TAB PO SCH ×4 (08:56→20:03)
[2018-11-24] MEDS: MIDODRINE 5 MG TAB PO SCH ×3 (08:56→16:00)
[2018-11-24] MEDS: THIAMINE 100 MG TAB PO SCH (08:57)
[2018-11-24] MEDS: PHENYTOIN ER 100 MG CAP PO SCH ×3 (09:04→20:03)
[2018-11-24] MEDS: levETIRAcetam 250MG TABLET (KEPPRA) PO SCH ×2 (09:04→20:02)
[2018-11-24] MEDS: LORazepam 2 MG/ML VIAL (J2060) IM PRN (15:14)
--- NOTE | 2018-11-24 15:24 | IPNPDOC ---
Text Note Date of Service The patient was seen on 11/24/18. NOTE Patient seen and examined. Continues to be confused. No other events. Patient is a very poor historian. No other complaints reported. Currently comfort measures only. GENERAL: Patient drowsy in no acute distress. HEENT: Normocephalic. Scleral icterus. CARDIAC: Regular, S1, S2. PULMONARY: Bilaterally clear. ABDOMEN: Soft with moderate ascites. Minimal tenderness. ASSESSMENT AND PLAN: This is a 48-year-old male patient with underlying medical history of alcoholic cirrhosis with alcohol abuse, seizures, depression, brought to the hospital initially with tremor, generalized weakness, and nausea. 1. Acute hepatic encephalopathy with waxing and waning mental status. Currently patient is comfort measures only, pending placement. Lactulose as tolerated. 2. Alcoholic cirrhosis, hepatitis. Patient was treated with steroids. Continue lactulose as tolerated. Continue thiamine. 3. Seizure disorder. Continue Keppra and Dilantin. 4. Urinary retention. Bladder scan. Flomax and Proscar. 5. Alcohol abuse and withdrawal. Currently comfort measures only. Ativan as needed. 6. Ascites with alcoholic cirrhosis. Continue diuretics, spironolactone. Current comfort measures. 7. Depression. Continue current medication. 8. Poor compliance, complicating care. 9. Decompensated liver cirrhosis. Comfort measures only. Continue medication mentioned above. 10. Alcoholic hepatitis. Was treated with prednisone, lactulose. Currently comfort measures only. 11. Iron deficiency anemia. 12. Gastroesophageal reflux disease (GERD). Continue proton pump inhibitor (PPI). 13. Portal hypertension, currently comfort measures only. 14. Deep vein thrombosis (DVT) prophylaxis. Thromboembolic deterrents (TEDs) and sequentials. DISPOSITION: Comfort measures only pending placement. VS,Fishbone, I+O VS, Fishbone, I+O I&O- Last 24 Hours up to 6 AM 11/24/18 06:00 Intake Total 360 ml Output Total 450 ml Balance -90 ml ROSA PAT MD Nov 24, 2018 15:24
[2018-11-24] MEDS: LORazepam 1 MG TAB PO PRN (20:02)
[2018-11-24] MEDS: PARoxetine 10MG TABLET PO SCH (20:02)
[2018-11-24] MEDS: TAMSULOSIN 0.4 MG CAP PO SCH (20:03)
[2018-11-24] MEDS: FINASTERIDE 5 MG TAB PO SCH (20:03)
[2018-11-25] MEDS: SPIRONOLACTONE 50 MG TAB PO SCH (08:30)
[2018-11-25] MEDS: LACTULOSE 20 GM/30 ML SYRUP UD PO SCH ×3 (08:30→21:56)
[2018-11-25] MEDS: SUCRALFATE 1 GM TAB PO SCH ×4 (08:30→20:32)
[2018-11-25] MEDS: THIAMINE 100 MG TAB PO SCH (08:30)
[2018-11-25] MEDS: FUROSEMIDE 40 MG TAB PO SCH (08:30)
[2018-11-25] MEDS: levETIRAcetam 250MG TABLET (KEPPRA) PO SCH ×2 (08:31→20:32)
[2018-11-25] MEDS: PHENYTOIN ER 100 MG CAP PO SCH ×3 (08:31→20:32)
[2018-11-25] MEDS: PANTOPRAZOLE 40MG TAB (PROTONIX) PO SCH (08:31)
[2018-11-25] MEDS: MIDODRINE 5 MG TAB PO SCH ×3 (08:31→16:35)
[2018-11-25] MEDS: LORazepam 1 MG TAB PO PRN ×3 (11:25→20:34)
[2018-11-25] MEDS: MORPHINE 10MG/0.5ML ORAL CONCENTRATE SOLUTION U/D SL PRN ×2 (12:06→17:40)
--- NOTE | 2018-11-25 20:07 | IPNPDOC ---
Text Note Date of Service The patient was seen on 11/25/18. NOTE Patient seen and examined. Continues to be confused, mimnum verbal. No other events. No other complaints reported. Currently comfort measures only. GENERAL: Patient drowsy in no acute distress. HEENT: Normocephalic. Scleral icterus. CARDIAC: Regular, S1, S2. PULMONARY: Bilaterally clear. ABDOMEN: Soft with moderate ascites. Minimal tenderness. ASSESSMENT AND PLAN: This is a 48-year-old male patient with underlying medical history of alcoholic cirrhosis with alcohol abuse, seizures, depression, brought to the hospital initially with tremor, generalized weakness, and nausea. 1. Acute hepatic encephalopathy with waxing and waning mental status. Currently patient is comfort measures only, pending placement. Lactulose as tolerated. 2. Alcoholic cirrhosis, hepatitis. Patient was treated with steroids. Continue lactulose as tolerated. Continue thiamine. 3. Seizure disorder. Continue Keppra and Dilantin. 4. Urinary retention. Bladder scan. Flomax and Proscar. 5. Alcohol abuse and withdrawal. Currently comfort measures only. Ativan as needed. 6. Ascites with alcoholic cirrhosis. Continue diuretics, spironolactone. Current comfort measures. 7. Depression. Continue current medication. 8. Poor compliance, complicating care. 9. Decompensated liver cirrhosis. Comfort measures only. Continue medication mentioned above. 10. Alcoholic hepatitis. Was treated with prednisone, lactulose. Currently comfort measures only. 11. Iron deficiency anemia. 12. Gastroesophageal reflux disease (GERD). Continue proton pump inhibitor (PPI). 13. Portal hypertension, currently comfort measures only. 14. Deep vein thrombosis (DVT) prophylaxis. Thromboembolic deterrents (TEDs) and sequentials. DISPOSITION: Comfort measures only pending placement. VS,Fishbone, I+O VS, Fishbone, I+O I&O- Last 24 Hours up to 6 AM 11/25/18 06:00 Intake Total 1050 ml Output Total 300 ml Balance 750 ml ROSA PAT MD Nov 25, 2018 20:07
[2018-11-25] MEDS: TAMSULOSIN 0.4 MG CAP PO SCH (20:32)
[2018-11-25] MEDS: PARoxetine 10MG TABLET PO SCH (20:32)
[2018-11-25] MEDS: FINASTERIDE 5 MG TAB PO SCH (20:32)
[2018-11-26] MEDS: SUCRALFATE 1 GM TAB PO SCH ×4 (07:30→21:00)
[2018-11-26] MEDS: MIDODRINE 5 MG TAB PO SCH ×3 (08:00→16:00)
[2018-11-26] MEDS: LACTULOSE 20 GM/30 ML SYRUP UD PO SCH ×3 (09:00→21:00)
[2018-11-26] MEDS: THIAMINE 100 MG TAB PO SCH (09:00)
[2018-11-26] MEDS: FUROSEMIDE 40 MG TAB PO SCH (09:00)
[2018-11-26] MEDS: levETIRAcetam 250MG TABLET (KEPPRA) PO SCH ×2 (09:00→21:00)
[2018-11-26] MEDS: PHENYTOIN ER 100 MG CAP PO SCH ×3 (09:00→21:00)
[2018-11-26] MEDS: SPIRONOLACTONE 50 MG TAB PO SCH (09:00)
[2018-11-26] MEDS: PANTOPRAZOLE 40MG TAB (PROTONIX) PO SCH (09:00)
[2018-11-26] MEDS: LORazepam 2 MG/ML VIAL (J2060) IM PRN (10:49)
[2018-11-26] MEDS: MORPHINE 10MG/0.5ML ORAL CONCENTRATE SOLUTION U/D SL PRN (11:52)
--- NOTE | 2018-11-26 19:18 | IPNPDOC ---
Text Note Date of Service The patient was seen on 11/26/18. NOTE Patient seen and examined. Continues to be confused, non-verbal. restless. Currently comfort measures only. GENERAL: Patient drowsy in no acute distress. HEENT: Normocephalic. Scleral icterus. CARDIAC: Regular, S1, S2. PULMONARY: Bilaterally clear. ABDOMEN: Soft with moderate ascites. Minimal tenderness. ASSESSMENT AND PLAN: This is a 48-year-old male patient with underlying medical history of alcoholic cirrhosis with alcohol abuse, seizures, depression, brought to the hospital initially with tremor, generalized weakness, and nausea. 1. Acute hepatic encephalopathy with waxing and waning mental status. Currently patient is comfort measures only. Lactulose as tolerated. Hospice reconsulted 2. Alcoholic cirrhosis, hepatitis. Patient was treated with steroids. Continue lactulose as tolerated. Continue thiamine. 3. Seizure disorder. Continue Keppra and Dilantin. 4. Urinary retention. Bladder scan. Flomax and Proscar. 5. Alcohol abuse and withdrawal. Currently comfort measures only. Ativan as needed. 6. Ascites with alcoholic cirrhosis. Continue diuretics, spironolactone. Current comfort measures. 7. Depression. Continue current medication. 8. Poor compliance, complicating care. 9. Decompensated liver cirrhosis. Comfort measures only. Continue medication mentioned as tolerated 10. Alcoholic hepatitis. Was treated with prednisone, lactulose. Currently comfort measures only. 11. Iron deficiency anemia. 12. Gastroesophageal reflux disease (GERD). Continue proton pump inhibitor (PPI). 13. Portal hypertension, currently comfort measures only. 14. Deep vein thrombosis (DVT) prophylaxis. Thromboembolic deterrents (TEDs) and sequentials. DISPOSITION: Comfort measures only pending placement. Hospice reconsulted Jorge SANCHEZ, I+O VSJorge, I+O I&O- Last 24 Hours up to 6 AM 11/26/18 06:00 Intake Total 510 ml Output Total 0 ml Balance 510 ml ROSA PAT MD Nov 26, 2018 19:18
[2018-11-26] MEDS: TAMSULOSIN 0.4 MG CAP PO SCH (21:00)
[2018-11-26] MEDS: FINASTERIDE 5 MG TAB PO SCH (21:00)
[2018-11-26] MEDS: PARoxetine 10MG TABLET PO SCH (21:00)
[2018-11-27] MEDS: SUCRALFATE 1 GM TAB PO SCH (07:30)
[2018-11-27] MEDS: MIDODRINE 5 MG TAB PO SCH (08:19)
[2018-11-27] MEDS: SPIRONOLACTONE 50 MG TAB PO SCH (08:19)
[2018-11-27] MEDS: LACTULOSE 20 GM/30 ML SYRUP UD PO SCH (08:19)
[2018-11-27] MEDS: levETIRAcetam 250MG TABLET (KEPPRA) PO SCH (08:20)
[2018-11-27] MEDS: PHENYTOIN ER 100 MG CAP PO SCH (08:20)
[2018-11-27] MEDS: PANTOPRAZOLE 40MG TAB (PROTONIX) PO SCH (08:21)
[2018-11-27] MEDS: FUROSEMIDE 40 MG TAB PO SCH (08:21)
[2018-11-27] MEDS: THIAMINE 100 MG TAB PO SCH (08:21)
[2018-11-27] MEDS ORDERED: HYOSCYAMINE SULFATE 0.125 MG SUBL TABLET PO PRN (10:30)
[2018-11-27] MEDS ORDERED: MORPHINE SULF IN 0.9% NACL 100 MG in APPROPRIATE DILUENT 1 EA IV SCH ×2 (10:45)
--- NOTE | 2018-11-27 15:03 | DSES ---
DATE OF ADMISSION: 10/28/2018 DATE OF EXPIRATION: 11/27/2018 at 12:15 p.m. PRIMARY CARE PROVIDER: Dr. Angie Holden FINAL DIAGNOSES: Liver failure with acute hepatic encephalopathy. Alcoholic cirrhosis. Ascites. Seizure disorder. Alcohol abuse. Depression. Poor compliance. Decompensated liver cirrhosis. Iron deficiency anemia. Gastroesophageal reflux disease (GERD). Portal hypertension. HISTORY OF PRESENT ILLNESS: This is a 48-year-old male patient with underlying medical history of alcoholic cirrhosis, alcohol abuse, seizure disorder, depression, poor compliance, presented to the [facility] Emergency Room after calling 911 with complaints of tremors, generalized weakness, and nausea, stating that he thinks he had a seizure. Upon presentation, the patient was somewhat confused, noticeably tremulous with his outstretched arms, stating that he thinks he might be seizing. Denies any cough, denies any fevers or chills. Denies any chest pain, shortness of breath or urinary symptoms. He does report nausea, mildly confused. The patient is a very poor historian. No focal neurological deficit. The patient had elevated blood alcohol level of 0.36, although he denied drinking. Upon further questioning, the patient stated he drank last night. HOSPITAL COURSE: The patient was admitted to the hospital, treated for hepatic encephalopathy with lactulose and treated for alcohol withdrawal with benzodiazepine. Vitamins were also provided to the patient. Treated for alcoholic hepatitis with steroids. Paracentesis was done intermittently during the hospital course. The patient's outpatient seizure medications were continued, initially switched to IV given patient had poor oral intake, later switched to ora. With aggressive treatment, the patient's mental status slightly improved at which point healthcare proxy was named and a meeting was held. It was determined that the patient would benefit from intermediate placement. But, unfortunately, the patient's mental status worsened during the hospital course, was intermittently agitated and confused. After further discussion with healthcare proxy, the patient was made comfort measures only. Hospice evaluation was called, but according to hospice, given aggression and agitation requiring one-to-one sitter, the patient is not a good candidate for hospice. Subsequently, attempts were made to arrange for the patient to be transferred to a [facility]dc facility for further care. In the meanwhile, while the patient was waiting for disposition, the patient's condition continued to deteriorate, was lethargic and comatose with significant respiratory distress. Ativan as well as morphine was given for comfort. Scopolamine was also given for terminal secretions. When patient no longer tolerated oral, patient's oral medications were discontinued. Subsequently, the patient on 11/27/2018 at 12:15 p.m. Healthcare proxy was notified.
== END 2018-11-27 12:15 | disposition expired | DRG 280 ==
LOC: M ED 09:45 → EDBD 09:45 → M ED INP 12:49 → M MSPAV 14:46 → M PCU 23:00 → M MSPAV 11-05 14:15
PROVIDERS: ADMIT Internal Medicine; ATTEND Hospitalist
PROC: 30233J1 Transfusion of Nonautologous Serum Albumin into Peripheral Vein, Percutaneous Approach (ICD-10-PCS; 2018-10-28)
PROC: 0W9G3ZZ Drainage of Peritoneal Cavity, Percutaneous Approach (ICD-10-PCS; principal; 2018-10-29)
PROC: 0W9G3ZZ Drainage of Peritoneal Cavity, Percutaneous Approach (ICD-10-PCS; 2018-11-04)
PROC: 0W9G3ZZ Drainage of Peritoneal Cavity, Percutaneous Approach (ICD-10-PCS; 2018-11-12)
DX: K70.40 Alcoholic hepatic failure without coma (principal); G93.41 Metabolic encephalopathy; N17.9 Acute kidney failure, unspecified; K76.6 Portal hypertension; E72.20 Disorder of urea cycle metabolism, unspecified; K70.11 Alcoholic hepatitis with ascites; F10.129 Alcohol abuse with intoxication, unspecified; D50.9 Iron deficiency anemia, unspecified; Z51.5 Encounter for palliative care; Z66 Do not resuscitate; E86.0 Dehydration; K21.9 Gastro-esophageal reflux disease without esophagitis; R33.9 Retention of urine, unspecified; G40.909 Epilepsy, unspecified, not intractable, without status epilepticus; F32.9 Major depressive disorder, single episode, unspecified; Z79.52 Long term (current) use of systemic steroids; Z79.899 Other long term (current) drug therapy; Z88.0 Allergy status to penicillin; Z91.14 Patient's other noncompliance with medication regimen; K70.41 Alcoholic hepatic failure with coma; K70.31 Alcoholic cirrhosis of liver with ascites